=== PATIENT | male | born 1945 | race Caucasian/White ===

== ENCOUNTER 2019-08-10 08:30 | Day surgery (SDC) | payer MEDICARE, OTHER ==
[~2019-08-10] VITALS: Ht 167.6 cm; Wt 84.8 kg
[~2019-08-10 08:30] MED LIST: LIPITOR40 MG PO
[2019-08-10] MEDS ORDERED: ASPIR-LOW81 MG PO (08:47)
--- NOTE | 2019-08-10 09:49 | NUR ---
08/10/19 0949 Jocelynn Camp 0942- PT ARRIVES TO PACU AROUSABLE TO NOXIOUS STIMULI. PT IS DIFFICULT TO AROUSE. RESP EVEN AND UNLABORED. OXYGEN SAT MID 90'S ON 3L VIA NC. PT PASSING FLATUS. 0949- OXYGEN TITRATED OFF.
--- NOTE | 2019-08-11 06:26 | OR ---
[facility] [address], [place] [address] Signed DATE OF OPERATION: 08/10/2019 SURGEON: Keven Wick MD PREOPERATIVE DIAGNOSES: 1. Sigmoid diverticulosis. 2. Brother with colon cancer at age 27. 3. Mother with colon cancer at age 90. POSTOPERATIVE DIAGNOSES: 1. Ggpdeeu-ww-twctbdof sigmoid diverticulosis. 2. Minimal internal hemorrhoids. PROCEDURE: Colonoscopy without biopsy. ESTIMATED BLOOD LOSS: None. INDICATIONS: Shivam is a 73-year-old gentleman, who returns for a followup colonoscopy. In 2007 at age 62, he was found to have minimal sigmoid diverticulosis. We know his brother was diagnosed and of colon cancer at age 27. Mom had colon cancer at age 90 and went through the surgery fine. She two years later of old age. Currently, he has no lower GI complaints. I reviewed with Shivam the idea that colon polyps become colon cancer. In that regard, he needs to come every 5 years with respect to his family history. When his life expectancy is less than 8-12 years, he could discontinue his colonoscopies. He is very aware of colonoscopy. He understands there is risk including, but not limited to gas, bloating, crampy abdominal pain, bleeding, perforation requiring surgery, and missed diagnosis. He also understands the need for IV conscious sedation. He had expressed understanding and wished to proceed. PROCEDURE NOTE: Shivam was taken into our endoscopy suite and placed in the left lateral decubitus position. He was given IV sedation with 5 mg of Versed and 125 mcg of fentanyl. A digital rectal exam was performed and this was unremarkable. The adult colonoscope was introduced and advanced all around into the cecum under direct visualization of camera without difficulty. His prep was good. The scope was slowly withdrawn. We could easily see the appendiceal orifice and the ileocecal valve. He does have a few diverticula in the sigmoid colon. They were moderate in size, [id number] in Electronically Signed By: KEVEN WICK MD 08/11/19 0626 PATIENT NAME: SHIVAM BRADLEY OPERATIVE REPORT DATE OF : 47 REPORT #: [id number] PHYSICIAN: KEVEN WICK MD PCP: YON STEVENS MD REPORT IS CONFIDENTIAL AND NOT TO BE RELEASED WITHOUT AUTHORIZATION [facility] [address], [place] [address] Signed number, and scattered about. Upon retroflexion of the scope, he has some minimal internal hemorrhoid tissue. After this, the gas was suctioned out and colonoscope removed. Shivam tolerated his procedure quite well. RECOMMENDATIONS: Shivam can resume his aspirin today. He should follow up in the office in 5 years for repeat colonoscopy. MD YOSSI Rollins/DAMARIS /[id number] cc: MD Keven Nelson MD Copies: YON STEVENS MD, ANDREW L MD ~ Electronically Signed By: KEVEN WICK MD 08/11/19 0626 PATIENT NAME: SHIVAM BRADLEY OPERATIVE REPORT DATE OF : 47 REPORT #: [id number] PHYSICIAN: KEVEN WICK MD PCP: YON STEVENS MD REPORT IS CONFIDENTIAL AND NOT TO BE RELEASED WITHOUT AUTHORIZATION
== END 2019-08-10 10:38 | disposition home or self-care (01) ==
LOC: OPS 08:30 → DS 09:45 → OPS 09:45
PROVIDERS: Colon & Rectal Surgery
PROC: 0DJD8ZZ Inspection of Lower Intestinal Tract, Via Natural or Artificial Opening Endoscopic (ICD-10-PCS; principal; 2019-08-10 09:45)
DX: Z12.11 Encounter for screening for malignant neoplasm of colon (principal); K57.30 Diverticulosis of large intestine without perforation or abscess without bleeding; K64.8 Other hemorrhoids; G47.33 Obstructive sleep apnea (adult) (pediatric); Z80.0 Family history of malignant neoplasm of digestive organs
CPT/HCPCS: J2250; J3010; J7120

== ENCOUNTER 2020-05-10 10:42 | Emergency (ER) | payer MEDICARE, OTHER ==
[~2020-05-10] VITALS: Ht 167.6 cm; Wt 84.8 kg
--- OUTSIDE RECORDS SUMMARY | ~2020-05-10 | XMS | Encounter Summary ---
Demographics + + + | Address | [address] | | | [place] [address] | + + + | Home Phone | | + + + | Preferred Language | Unknown | + + + | Marital Status | | + + + | Zoroastrian Affiliation | 1027 | + + + | Race | Unknown | + + + | Ethnic Group | Unknown | + + + Author + + + | Author | [facility] | | | and [place] | + + + | Organization | [facility] | | | and [place] | + + + | Address | Unknown | + + + | Phone | Unavailable | + + + Support + + + + + | Name | Relationship | Address | Phone | + + + + + | Lilliana Clarke | ECON | Unknown | | + + + + + | Lilliana Clarke | ECON | [address] | | | | | [place] [address] | | + + + + + Care Team Providers + +------+ + | Care Nuclear Powerplant Mechanic Name | Role | Phone | + +------+ + | Abran Alas MD | PCP | | + +------+ + Reason for Visit + +--------+ + | Reason | Onset | Comments | | | Date | | + +--------+ + | Post-op Question | 03/11/ | | | | 2017 | | + +--------+ + Encounter Details +--------+ + + + + | Date | Type | Department | Care Team | Description | +--------+ + + + + | 03/11/ | Telephone | [facility] | Derrick Stafford, | Post-op Question | | 2018 | | NEUROSURGERY [address] | DO [address] | | | | | [address] | [address] [place], [place] | | | | | [place], [place] | [address] | | | | | [address] | | | | | | [phone] | | | +--------+ + + + + Social History + +-------+ +--------+------+ | Tobacco Use | Types | Packs/Day | Years | Date | | | | | Used | | + +-------+ +--------+------+ | Never Smoker | | | | | + +-------+ +--------+------+ + +---+---+---+ | Smokeless Tobacco: | | | | | Never Used | | | | + +---+---+---+ + + +---------+ + | Alcohol Use | Drinks/Week | oz/Week | Comments | + + +---------+ + | No | | | | + + +---------+ + + + + | Sex Assigned at | Date Recorded | | | | + + + | Not on file | | + + + documented as of this encounter Functional Status + + + + | Functional Status | Response | Date of Assessment | + + + + | Are you deaf or do you have serious | No | 03/06/2018 | | difficulty hearing? | | | + + + + | Are you blind or do you have serious | No | 03/06/2018 | | difficulty seeing, even when wearing | | | | glasses? | | | + + + + | Do you have serious difficulty walking or | No | 03/06/2018 | | climbing stairs? (5 years old or older) | | | + + + + | Do you have difficulty dressing or bathing? | No | 03/06/2018 | | (5 years old or older) | | | + + + + | Because of a physical, mental, or emotional | No | 03/06/2018 | | condition, do you have difficulty doing | | | | errands alone such as visiting a doctor's | | | | office or shopping? [15 years old or | | | | older)] | | | + + + + + + + + | Cognitive Status | Response | Date of Assessment | + + + + | Because of a physical, mental, or emotional | No | 03/06/2018 | | condition, do you have serious difficulty | | | | concentrating, remembering, or making | | | | decisions? (5 years old or older) | | | + + + + documented as of this encounter Miscellaneous Notes Telephone Encounter - Dipti Castillo RN - 03/11/2018 8:34 AM PDTS/P L3-5 LAIF on 03/03/18 Lo Clarke (patient's spouse) called with questions about patient sitting in a recline r post surgery. I advised that it is ok that patient sits in a recliner, but he should be ge tting up and walking around every 45 mins while awake. I advised her that he needs to be car eful to not push back and strain his back to get the back of the chair into a reclining posi tion. She verbalized understanding. She also stated that patient has not had a bowel movement in a few days. She states that e is giving patient stool softeners at this time. They have not filled the lactulose rx. I a dvised her to fill that rx and to give him additional laxative and/or stool softeners to ach ieve bowel movement. She states that he is still passing gas. All questions answered at this time. documented in t his encounter Plan of Treatment +--------+---------+ + + + | Date | Type | Specialty | Care Team | Description | +--------+---------+ + + + | 09/04/ | Office | Cardiology | Caterina Catalan, | | | 2019 | Visit | | MD [address] | | | | | | [address] [place], [place] | | | | | | [address] | | | | | | | | +--------+---------+ + + + documented as of this encounter Visit Diagnoses Not on filedocumented in this encounter"
--- OUTSIDE RECORDS SUMMARY | ~2020-05-10 | XMS | Encounter Summary ---
Demographics + + + | Address | [address] | | | [place] [address] | + + + | Home Phone | | + + + | Preferred Language | Unknown | + + + | Marital Status | | + + + | Amish Affiliation | 1027 | + + + | Race | Unknown | + + + | Ethnic Group | Unknown | + + + Author + + + | Author | [facility] | | | and [place] | + + + | Organization | [facility] | | | and [...] | | | | | [place] [address] | | + + + + + Care Team Providers + +------+ + | Care Hospice Nurse Practitioner Name | Role | Phone | + +------+ + | Abran Alas MD | PCP | | + +------+ + Encounter Details +--------+ + + + + | Date | Type | Department | Care Team | Description | +--------+ + + + + | 05/03/ | Orders Only | [facility] | Caterina Catalan, | | | 2017 | | [address] | MD [address] | | | | | [address] | [place], [place] | | | | | [place], [place] | [address] | | | | | [address] | | | | | | [phone] | | | +--------+ + + + + Social History + +-------+ +--------+------+ | Tobacco Use | Types | Packs/Day | Years | Date | | | | | Used | | + +-------+ +--------+------+ | Never Assessed | | | | | + +-------+ +--------+------+ + + + | Sex Assigned at | Date Recorded | | | | + + + | Not on file | | + + + documented as of this encounter Plan of Treatment +--------+---------+ + + + | Date | Type | Specialty | Care Team | Description | +--------+---------+ + + + | 09/04/ | Office | Cardiology | Caterina Catalan, | | | 2020 | Visit | | MD [address] | | | | | | [address] [place], [place] | | | | | | [address] | | | | | | | | +--------+---------+ + + + documented as of this encounter Procedures + +--------+ + + + | Procedure Name | Priori | Date/Time | Associated Diagnosis | Comments | | | ty | | | | + +--------+ + + + | ECHO INTERPRETATION | Routin | 05/03/2017 | | Results for this | | OF OUTSIDE FILMS | e | 3:51 PM | | procedure are in the | | | | PDT | | results section. | + +--------+ + + + documented in this encounter Results ECHO Interpretation of Outside Films (05/03/2017 3:51 PM PDT) + + | Specimen | + + | | + + + + + | Impressions | Performed At | + + + | 1. The left ventricle is normal in size, wall thickness and systolic | | | function EF 60-65%. 2. The diastolic filling pattern indicates | | | impaired relaxation consistent with mild dysfunction (Grade I). 3. | | | The right ventricle is mildly enlarged with normal systolic function. | | | 4. Pulmonary artery systolic pressure could not be assessed due to | | | the absence of adequate TR jet. 5. There is no pericardial effusion. | | + + + + + + | Narrative | Performed At | + + + | Patient Name: Boaz Clarke Date of : 1945 | | | Performing Physician: Caterina Catalan | | | | | | INDICATIONS AFlutter CONCLUSIONS 1. | | | The left ventricle is normal in size, wall thickness and systolic | | | function EF 60-65%. 2. The diastolic filling pattern indicates | | | impaired relaxation consistent with mild dysfunction (Grade I). 3. | | | The right ventricle is mildly enlarged with normal systolic function. | | | 4. Pulmonary artery systolic pressure could not be assessed due to | | | the absence of adequate TR jet. 5. There is no pericardial effusion. | | | FINDINGS -------- ECG rhythm: Sinus rhythm. Study: A | | | 2-dimensional transthoracic echocardiogram with m-mode, spectral and | | | color flow Doppler was perfomed. Study: This was a technically | | | adequate study. Study: Suboptimal image quality - poor subcostal | | | views. Left Ventricle: Overall left ventricular systolic function is | | | normal with, an EF between 60 - 65 %. Left Ventricle: The left | | | ventricle cavity size is normal. Left Ventricle: Left ventricular | | | wall thickness is normal. Left Ventricle: No regional wall motion | | | abnormalities. Left Ventricle: The diastolic filling pattern | | | indicates impaired relaxation consistent with mild dysfunction (Grade | | | I). Right Ventricle: The right ventricle is mildly enlarged. Right | | | Ventricle: The right ventricular systolic function is normal. Left | | | Atrium: The left atrium is normal in size. Right Atrium: The right | | | atrium is normal in size. Aortic Valve: The aortic valve is | | | trileaflet. Aortic Valve: There is no evidence of aortic | | | regurgitation. Aortic Valve: There is no evidence of aortic stenosis. | | | Mitral Valve: The mitral valve is normal. Mitral Valve: No mitral | | | regurgitation. Tricuspid Valve: The tricuspid valve appears | | | structurally normal. Tricuspid Valve: Pulmonary artery systolic | | | pressure could not be assessed due to the absence of adequate TR jet. | | | Pulmonic Valve: The pulmonic valve is normal. Pulmonic Valve: Trace | | | pulmonic regurgitation. Pericardium: There is no pericardial | | | effusion. Pericardium: No pleural effusion seen. IVC/Hepatic Veins: | | | The IVC was not well visualized. Aorta: The aortic root, ascending | | | aorta and aortic arch are within normal dimensions. MEASUREMENTS | | | Ao sinus: 3.46 cm LA Major: 3.01 cm EDV(Teich): | | | 64.80 ml IVSd: 1.04 cm LVIDd: 3.87 cm LVPWd: 0.85 cm | | | LVOT Area: 4.10 cm2 LVOT Diam: 2.28 cm %FS: 37.09 % | | | EF(Teich): 67.71 % ESV(Teich): 20.92 ml LVIDs: 2.43 cm | | | SV(Teich): 43.88 ml RA Major: 3.67 cm RV Major: 6.20 cm | | | RVIDd: 2.89 cm LVEF MOD A2C: 63.84 % SV MOD A2C: 38.24 ml | | | LVEF MOD A4C: 63.44 % SV MOD A4C: 43.78 ml EF Biplane: | | | 65.12 % LVEDV MOD BP: 67.05 ml LVESV MOD BP: 23.38 ml LVEDV | | | MOD A2C: 59.90 ml LVLd A2C: 7.66 cm LVEDV MOD A4C: 69.01 ml | | | LVLd A4C: 8.44 cm LVESV MOD A2C: 21.65 ml LVLs A2C: 6.87 | | | cm LVESV MOD A4C: 25.22 ml LVLs A4C: 6.94 cm LAESV(A-L): | | | 48.16 ml LAESV Index (A-L): 25.48 ml/m2 LAAs A2C: 18.23 cm2 | | | LAESV A-L A2C: 58.73 ml LAESV MOD A2C: 78.08 ml LALs A2C: | | | 4.99 cm LAAs A4C: 13.94 cm2 LAESV A-L A4C: 37.29 ml LAESV MOD | | | A4C: 45.01 ml LALs A4C: 4.48 cm RAAs: 11.07 cm2 RAESV | | | A-L: 25.55 ml RAESV MOD: 25.48 ml RALs: 4.07 cm TAPSE: | | | 2.62 cm AV maxP.65 mmHg AV meanP.91 mmHg AV Vmax: | | | 1.18 m/s AV Vmean: 0.79 m/s AV VTI: 23.02 cm LANG Vmax: | | | 2.69 cm2 LANG (VTI): 3.07 cm2 AVAI Vmax: 0.00 cm2/m2 AVAI | | | (VTI): 0.00 cm2/m2 LVOT maxP.43 mmHg LVOT meanP.53 | | | mmHg LVSI Dopp: 37.51 ml/m2 LVSV Dopp: 70.90 ml LVOT Vmax: | | | 0.78 m/s LVOT Vmean: 0.58 m/s LVOT VTI: 17.27 cm MV A Roland: | | | 0.69 m/s MV DecT: 231.08 ms MV E Roland: 0.75 m/s MV E/A | | | Ratio: 1.08 MV PHT: 67.01 ms MVA By PHT: 3.28 cm2 Septal | | | e': 0.07 m/s Septal E/e': 10.66 Lateral e': 0.09 m/s | | | Lateral E/e': 8.15 Mechanical Oxidizer: [id number] Authenticated by: Caterina | | | [facility] Report Date/Time: 05-04-2017 07:27:49 | | + + + + + | Procedure Note | + + | Zaid Collins Conversion - 06/15/2019 7:54 PM PDT Patient Name: Glo Clarke | | : 1945 Performing Physician: Caterina | | [facility] INDICATIONS------ | | -----AFlutter CONCLUSIONS 1. The left ventricle is normal in size, wall | | thickness and systolic function EF 60-65%.2. The diastolic filling pattern indicates | | impaired relaxation consistent with mild dysfunction (Grade I).3. The right ventricle is | | mildly enlarged with normal systolic function.4. Pulmonary artery systolic pressure | | could not be assessed due to the absence of adequate TR jet.5. There is no pericardial | | effusion. FINDINGS--------ECG rhythm: Sinus rhythm.Study: A 2-dimensional transthoracic | | echocardiogram with m-mode, spectral and color flow Doppler was perfomed.Study: This was | | a technically adequate study.Study: Suboptimal image quality - poor subcostal | | views.Left Ventricle: Overall left ventricular systolic function is normal with, an EF | | between 60 - 65 %.Left Ventricle: The left ventricle cavity size is normal.Left | | Ventricle: Left ventricular wall thickness is normal.Left Ventricle: No regional wall | | motion abnormalities.Left Ventricle: The diastolic filling pattern indicates impaired | | relaxation consistent with mild dysfunction (Grade I).Right Ventricle: The right | | ventricle is mildly enlarged.Right Ventricle: The right ventricular systolic function is | | normal.Left Atrium: The left atrium is normal in size.Right Atrium: The right atrium is | | normal in size.Aortic Valve: The aortic valve is trileaflet.Aortic Valve: There is no | | evidence of aortic regurgitation.Aortic Valve: There is no evidence of aortic | | stenosis.Mitral Valve: The mitral valve is normal.Mitral Valve: No mitral | | regurgitation.Tricuspid Valve: The tricuspid valve appears structurally normal.Tricuspid | | Valve: Pulmonary artery systolic pressure could not be assessed due to the absence of | | adequate TR jet.Pulmonic Valve: The pulmonic valve is normal.Pulmonic Valve: Trace | | pulmonic regurgitation.Pericardium: There is no pericardial effusion.Pericardium: No | | pleural effusion seen.IVC/Hepatic Veins: The IVC was not well visualized.Aorta: The | | aortic root, ascending aorta and aortic arch are within normal dimensions. | | MEASUREMENTS Ao sinus: 3.46 cmLA Major: 3.01 cmEDV(Teich): 64.80 | | mlIVSd: 1.04 cmLVIDd: 3.87 cmLVPWd: 0.85 cmLVOT Area: 4.10 pb7DPCU Diam: 2.28 | | cm%FS: 37.09 %EF(Teich): 67.71 %ESV(Teich): 20.92 mlLVIDs: 2.43 cmSV(Teich): | | 43.88 mlRA Major: 3.67 cmRV Major: 6.20 cmRVIDd: 2.89 cmLVEF MOD A2C: 63.84 %SV | | MOD A2C: 38.24 mlLVEF MOD A4C: 63.44 %SV MOD A4C: 43.78 mlEF Biplane: 65.12 | | %LVEDV MOD BP: 67.05 mlLVESV MOD BP: 23.38 mlLVEDV MOD A2C: 59.90 mlLVLd A2C: | | 7.66 cmLVEDV MOD A4C: 69.01 mlLVLd A4C: 8.44 cmLVESV MOD A2C: 21.65 mlLVLs A2C: | | 6.87 cmLVESV MOD A4C: 25.22 mlLVLs A4C: 6.94 cmLAESV(A-L): 48.16 mlLAESV Index | | (A-L): 25.48 ml/m2LAAs A2C: 18.23 cf2TODLS A-L A2C: 58.73 mlLAESV MOD A2C: 78.08 | | mlLALs A2C: 4.99 cmLAAs A4C: 13.94 [id number] A-L A4C: 37.29 mlLAESV MOD A4C: | | 45.01 mlLALs A4C: 4.48 cmRAAs: 11.07 [id number] A-L: 25.55 mlRAESV MOD: 25.48 | | mlRALs: 4.07 cmTAPSE: 2.62 cmAV maxP.65 mmHgAV meanP.91 mmHgAV Vmax: | | 1.18 m/Silverio Vmean: 0.79 m/Silverio VTI: 23.02 cmAVA Vmax: 2.69 cm2AVA (VTI): 3.07 | | [id number] Vmax: 0.00 cm2/m2AVAI (VTI): 0.00 cm2/m2LVOT maxP.43 mmHgLVOT meanPG: | | 1.53 mmHgLVSI Dopp: 37.51 ml/m2LVSV Dopp: 70.90 mlLVOT Vmax: 0.78 m/sLVOT Vmean: | | 0.58 m/sLVOT VTI: 17.27 cmMV A Roland: 0.69 m/sMV DecT: 231.08 msMV E Roland: 0.75 | | m/sMV E/A Ratio: 1.08MV PHT: 67.01 msMVA By PHT: 3.28 tb5Pzrrch e': 0.07 | | m/sSeptal E/e': 10.66Lateral e': 0.09 m/sLateral E/e': 8.15 Mechanical Oxidizer: | | DHAuthenticated by: Caterina [facility] Date/Time: 05-04-2017 07:27:49 IMPRESSION: 1. | | The left ventricle is normal in size, wall thickness and systolic function EF 60-65%.2. | | The diastolic filling pattern indicates impaired relaxation consistent with mild | | dysfunction (Grade I).3. The right ventricle is mildly enlarged with normal systolic | | function.4. Pulmonary artery systolic pressure could not be assessed due to the absence | | of adequate TR jet.5. There is no pericardial effusion. | |Ao sinus: 3.46 cm | |LA Major: 3.01 cm | |EDV(Teich): 64.80 ml | |IVSd: 1.04 cm | |LVIDd: 3.87 cm | |LVPWd: 0.85 cm | |LVOT Area: 4.10 cm2 | |LVOT Diam: 2.28 cm | |%FS: 37.09 % | |EF(Teich): 67.71 % | |ESV(Teich): 20.92 ml | |LVIDs: 2.43 cm | |SV(Teich): 43.88 ml | |RA Major: 3.67 cm | |RV Major: 6.20 cm | |RVIDd: 2.89 cm | |LVEF MOD A2C: 63.84 % | |SV MOD A2C: 38.24 ml | |LVEF MOD A4C: 63.44 % | |SV MOD A4C: 43.78 ml | |EF Biplane: 65.12 % | |LVEDV MOD BP: 67.05 ml | |LVESV MOD BP: 23.38 ml | |LVEDV MOD A2C: 59.90 ml | |LVLd A2C: 7.66 cm | |LVEDV MOD A4C: 69.01 ml | |LVLd A4C: 8.44 cm | |LVESV MOD A2C: 21.65 ml | |LVLs A2C: 6.87 cm | |LVESV MOD A4C: 25.22 ml | |LVLs A4C: 6.94 cm | |LAESV(A-L): 48.16 ml | |LAESV Index (A-L): 25.48 ml/m2 | |LAAs A2C: 18.23 cm2 | |LAESV A-L A2C: 58.73 ml | |LAESV MOD A2C: 78.08 ml | |LALs A2C: 4.99 cm | |LAAs A4C: 13.94 cm2 | |LAESV A-L A4C: 37.29 ml | |LAESV MOD A4C: 45.01 ml | |LALs A4C: 4.48 cm | |RAAs: 11.07 cm2 | |RAESV A-L: 25.55 ml | |RAESV MOD: 25.48 ml | |RALs: 4.07 cm | |TAPSE: 2.62 cm | |AV maxP.65 mmHg | |AV meanP.91 mmHg | |AV Vmax: 1.18 m/s | |AV Vmean: 0.79 m/s | |AV VTI: 23.02 cm | |LANG Vmax: 2.69 cm2 | |LANG (VTI): 3.07 cm2 | |AVAI Vmax: 0.00 cm2/m2 | |AVAI (VTI): 0.00 cm2/m2 | |LVOT maxP.43 mmHg | |LVOT meanP.53 mmHg | |LVSI Dopp: 37.51 ml/m2 | |LVSV Dopp: 70.90 ml | |LVOT Vmax: 0.78 m/s | |LVOT Vmean: 0.58 m/s | |LVOT VTI: 17.27 cm | |MV A Roland: 0.69 m/s | |MV DecT: 231.08 ms | |MV E Roland: 0.75 m/s | |MV E/A Ratio: 1.08 | |MV PHT: 67.01 ms | |MVA By PHT: 3.28 cm2 | |Septal e': 0.07 m/s | |Septal E/e': 10.66 | |Lateral e': 0.09 m/s | |Lateral E/e': 8.15 | | | |Mechanical Oxidizer: | |Authenticated by: Caterina Catalan | |Report Date/Time: 05-04-2017 07:27:49 | | | |IMPRESSION: | |1. The left ventricle is normal in size, wall thickness and systolic function EF 60-65%. | |2. The diastolic filling pattern indicates impaired relaxation consistent with mild dysfunc tion (Grade I). | |3. The right ventricle is mildly enlarged with normal systolic function. | |4. Pulmonary artery systolic pressure could not be assessed due to the absence of adequate TR jet. | |5. There is no pericardial effusion. | + + documented in this encounter Visit Diagnoses Not on filedocumented in this encounter"
--- OUTSIDE RECORDS SUMMARY | ~2020-05-10 | XMS | Encounter Summary ---
Demographics + + + | Address | [address] | | | [place] [address] | + + + | Home Phone | | + + + | Preferred Language | Unknown | + + + | Marital Status | | + + + | Advent Affiliation | 1027 | + + + | Race | Unknown | + + + | Ethnic Group | Unknown | + + + Author + + + | Author | [facility] | | | and [place] | + + + | Organization | [facility] | | | and [...] | | | | | [place] [address] | | + + + + + Care Team Providers + +------+ + | Care Smash Hand Name | Role | Phone | + +------+ + | Abran Alas MD | PCP | | + +------+ + Reason for Visit + + + | Reason | Comments | + + + | CPAP Follow Up | | + + + Encounter Details +--------+---------+ + + + | Date | Type | Department | Care Team | Description | +--------+---------+ + + + | 07/24/ | Office | [facility] | Darin Matta | JORDAN (obstructive | | 2019 | Visit | SLEEP DISORDER [address] | MD [address] | sleep apnea) | | | | [address] | [address] [place] | (Primary Dx); | | | | [place] [address] | [place] [address] | Psychophysiologic | | | | [phone] | [phone] | insomnia; Low | | | | | | ferritin | +--------+---------+ + + + Social History + +-------+ [...] + + documented as of this encounter Last Filed Vital Signs + + + + + | Vital Sign | Reading | Time Taken | Comments | + + + + + | Blood Pressure | 130/80 | 07/24/2019 8:58 AM | | | | | PDT | | + + + + + | Pulse | 68 | 07/24/2019 8:58 AM | | | | | PDT | | + + + + + | Temperature | - | - | | + + + + + | Respiratory Rate | 16 | 07/24/2019 8:58 AM | | | | | PDT | | + + + + + | Oxygen Saturation | 97% | 07/24/2019 8:58 AM | | | | | PDT | | + + + + + | Inhaled Oxygen | - | - | | | Concentration | | | | + + + + + | Weight | 85.9 kg (189 lb 6 | 07/24/2019 8:58 AM | | | | oz) | PDT | | + + + + + | Height | - | - | | + + + + + | Body Mass Index | 30.11 | 06/13/2019 10:57 AM | | | | | PDT | | + + + + + documented in this encounter Functional Status + + + [...] + + documented as of this encounter Progress Notes Darin Matta Jr., MD - 07/24/2019 9:00 AM PDTThe patient comes in for follow-up after undergoing diagnostic polysomnography. My interpretation of the patient's sleep study, which I have reviewed with the patient, is as follows: Polysomnogram Report on Boaz Clarke performed on July 05, 2019. Clinical Information: Boaz Clarke is a 73 y.o. male who underwent diagnostic nocturnal polysomnography on July 05, [address] Celena Gomez because of a history of insomnia and obstructive apnea. Technical Information: Please see technical data which is attached. Definitions (The AASM Manual for the Scoring of Sleep and Associated Events, Version 2.5; 2 018): Apnea: There is a drop in the peak signal excursion by 90% or greater of pre-shannen nt baseline using an oronasal thermal sensor (diagnostic study), PAP device flow (titration study), or an alternative apnea sensor (diagnostic study); the duration of the 90% or greate r drop in sensor signal is 10 seconds or longer. Obstructive Apnea: Event associated with continued or increased inspi ratory effort throughout the entire period of absent airflow. Central Apnea: Event associated with absent inspiratory effort throug hout the entire period of absent airflow. Mixed Apnea: Event associated with absent inspiratory effort in the i nitial portion of the event followed by resumption of inspiratory effort during the second p ortion of the event. Hypopnea: The peak signal excursions drop by greater than or equal to 30% of pre -event baseline using a recommended or alternative airflow sensor and the duration of the >= 30% drop in signal excursion is greater than or equal to 10 seconds and there is a greater than or equal to a 4% oxygen desaturation from pre-event baseline. Respiratory Event Related Arousal: A sequence of breaths lasting 10 seconds or l onger characterized by increasing respiratory effort or by flattening of the inspiratory por tion of the nasal pressure (diagnostic study) or PAP device flow (titration study) waveform leading to arousal from sleep when the sequence of breaths does not meet criteria for an plant assigner ea or hypopnea. Sleep Architecture: Lights out was recorded at 2300 hundred hours on July 05, 2019 an d lights on was recorded at 0757 hundred hours on July 06, 2019. The latency to sleep o nset was normal at 22 minutes. The patient slept for 321 minutes out of 537 minutes of study time resulting an a sleep efficiency that was low at 59.8 %. The amount of N1 sleep was ubaldo vated at 16.5 % of the Total Sleep Time; the amount of N2 sleep was normal at 60.7 % of the Total Sleep Time; the amount of N3 sleep was normal at 7.8 % of the Total Sleep Time; the am ount of REM sleep was normal at 15 % of the Total Sleep Time and the latency to REM sleep wa s prolonged at 185 minutes. No parasomnias were noted. Sleep in the following positions was recorded: left lateral decubitus 0%, right lateral dec ubitus 31.3%, supine 68.7%, prone 0%. Sleep was fragmented; the Arousal Index was 33.1. The patient reported this to be a usual night's sleep. Cardiopulmonary Monitoring: The heart rate averaged in the mid 50s beats per minute. Mild rate variability was noted. The rhythm was sinus. In the course of the evening there were 5 obstructive apneas, 0 mixed apneas, 1 central plant assigner eas, 29 hypopneas, and 47 Respiratory Effort Related Arousals (RERA's). The Respiratory Dist urbance Index (RDI) was elevated at 15.3; the Apnea-Hypopnea Index (AHI) was mildly elevated at 6.5; the Apnea Index (AI) was 1.1. The respiratory events were not sleep stage dependent . The respiratory events were positional. The events were more frequently seen in the supin e position (supine AHI 9.3, nonsupine AHI 0.6). The respiratory events occasioned significant sleep fragmentation; the Respiratory Arousal Index was 14. The manisha oxygen saturation was 86% and the patient spent 0.9 minutes with an oxygen satura tion of less than or equal to 88%. ETCO2 was not elevated. Limb Movement Monitoring: There were 279 Periodic Limb Movements (PLMS Index of 52.1) of wh ich 26 were associated with arousals; the PLMS Arousal Index was borderline at 4.9. Interpretation: This polysomnogram is normal secondary to: Obstructive sleep apnea is diagnosed and this does significantly fragmented sleep. This is associated with minimal absolute oxygen desaturation. Periodic limb movements of sleep are present and they are associated with borderline sleep fragmentation. The low sleep efficiency is consistent with a generic diagnosis of insomnia. Suggestions: 1. The principles of sleep hygiene should be reviewed with the patient. 2. A trial of cognitive behavioral therapy for insomnia advised. 3. After sleep is consolidated, a trial of CPAP therapy or possible oral appliance therapy for mild sleep apnea should also be considered. 4. A ferritin level should be checked. If the ferritin level is less than 75ug/ml, iron sup plementation should be considered to raise the ferritin to above 75ug/ml. This may help with PLMS. Once the ferritin level is above 75ug/ml, pharmacologic therapy of PLMS/RLS should be considered if they are felt to be clinically significant. At or last visit of 06/13/2019 I discussed the following Cognitive-Behavioral suggestions to improve his sleep. 1) Awaken at nearly the same time ever day at 7am. Don't sleep in. 2) Obtain as much bright light as possible during your desired waking hours and immediately after awakening in the morning. 3) Minimize or preferably eliminate caffeine (coffee, tea, energy drinks, soft drinks, etc. ) and absolutely no caffeine more than 6 hours after wake time. 4) Eliminate or minimize smoking and alcohol consumption, especially near bedtime. 5) Do not nap during the daytime; this will interfere with your night-time sleep. 6) Darken your environment an hour before bedtime. 7) Consider "unwinding" and "closing" your day about an hour before your anticipated bedtim e. 8) Go to bed only when you are sleepy and no earlier than 11 pm. 9) Use your bedroom only for sleeping. 10) Only sleep in your bedroom - do not sleep in other areas of your house. 11) Between bedtime and wake time the only things you are allowed to do is to sleep in your bedroom or to sit comfortably in another room, in the dark, doing nothing. Do not watch TV, work on the computer, send text messages, do housework, or problem solve between bedtime an d wake time. 12) If you find that you aren't asleep, get up out of bed (keep your environment dark with just low level light, so that you won't fall) and go to another room. Sit quietly in the faisal k until you are sleepy and then go back to bed. You may repeat this as many times as necessa ry. But you must awaken at the same time every day, regardless of how you slept that night. 13) If you continue to sleep poorly, consider going to bed a little later each night (but a waken at the same time every morning and don't nap) until you are sleeping through the major ity of the time between bed time and wake time. Currently bedtime is about 11pm and rise time is 7am. He estimates a latency to sleep onset of 15-20 minutes. He has nocturia 3 times at night he is getting back to sleep within about 15 minutes. In the morning he feels tired. He tries not to nap in the daytime. He consumes no caffeine. He feels his sleep is a little better but not dramatically better. He denies re stlessness in his legs at night. He doesn't think that he is awakening gasping for air or sn orting. He isn't very active in the daytime. He does walk some in the daytime. BP 130/80 | Pulse 68 | Resp 16 | Wt 85.9 kg (189 lb 6 oz) | SpO2 97% | BMI 30.11 kg/m A: Psychophysiologic Insomnia: He actually is doing a reasonable job at following the instr uctions I have given him. I reviewed them with him again today. JORDAN: The patient does have obstructive apnea. This is significant enough to fragment sleep and be associated with daytime sleepiness and fatigue although it probably not severe enough to be associated with significant increased risk and cardiovascular disease. He woul d like to try CPAP. I am in agreement with this and we will start him on a CPAP trial today . PLMS: He denies restlessness in his legs.I've discussed Restless Legs Syndrome with t he patient. I've also discussed Periodic Limb Movements of Sleep. I've discussed the relatio nship between the two. I've also discussed that I generally offer treatment symptomatically. I've also discussed an overview of treatment: 1) maintain a ferritin level above 75ug/l; 2) Bedtime leg/arm massage; 3) review the need for medications that can worsen RLS/PLMS (such as antidepressants (except for bupropion), caffeine, and antihistamines); 4) prescribe medi cations such as a) dopaminergics, b) benzodiazepine receptor agonists, c) opiates, and/or d) atypical anti-seizure agents. I am going to suggest we check a ferritin level to rule out iron deficiency. P: Ferritin Level Resmed AirSense 10 autoset CPAP: 4-15cm while sleeping. Follow-up with our clinical monserrat santillan educator in 2 days. Follow-up with me in 1 week. Today, 15 minutes was spent face to face with the patient; the majority of time was spent sondra bender regarding sleep. documented in th is encounter Plan of Treatment +--------+---------+ + + + | Date | Type | Specialty | Care Team | Description | +--------+---------+ + + + | 09/04/ | Office | Cardiology | Caterina Catalan, | | | 2019 | Visit | | MD Juan J [facility] | | | | | | [place] | | | | | | [phone] | | | | | | | | +--------+---------+ + + + documented as of this encounter Results Ferritin (07/24/2019 10:32 AM PDT) + +-------+ + + + | Component | Value | Ref Range | Performed | Pathologist | | | | | At | Signature | + +-------+ + + + | FERRITIN | 173 | 11 - 307 ng/mL | [facility] - | | | | | | [facility] | | + +-------+ + + + + + | Specimen | + + | Blood | + + + + + + + | Performing | Address | City/State/Zipcode | Phone Number | | Organization | | | | + + + + + | [facility] | [address] | [place] | [phone] | | [facility] | | [address] | | | - LABORATORY | | | | + + + + + documented in this encounter Visit Diagnoses + + | Diagnosis | + + | JORDAN (obstructive sleep apnea) - Primary Obstructive sleep apnea (adult) (pediatric) | + + | Psychophysiologic insomnia Persistent disorder of initiating or maintaining sleep | + + | Low ferritin Other nonspecific findings on examination of blood | + + documented in this encounter
--- OUTSIDE RECORDS SUMMARY | ~2020-05-10 | XMS | Encounter Summary ---
Demographics + + + | Address | [address] | | | [place] [address] | + + + | Home Phone | | + + + | Preferred Language | Unknown | + + + | Marital Status | | + + + | Advent Affiliation | 1027 | + + + | Race | Unknown | + + + | Ethnic Group | Unknown | + + + Author + + + | Author | [facility] | | | and [place] | + + + | Organization | [facility] | | | [...] | | | | | [place] [address] | | + + + + + Care Team Providers + +------+ + | Care Ultrasound Specialist Name | Role | Phone | + +------+ + | Abran Alas MD | PCP | | + +------+ + Reason for Visit Auth/Cert +--------+--------+ + + + + | Status | Reason | Specialty | Diagnoses / | Referred By | Referred To | | | | | Procedures | Contact | Contact | +--------+--------+ + + + + | | | | Diagnoses | | | | | | | Lumbar | | | | | | | spondylosis | | | | | | | (M47.816), | | | | | | | Neurogenic | | | | | | | claudication | | | | | | | (M48.062), | | | | | | | Lumbar | | | | | | | radiculopath | | | | | | | y (M54.16), | | | | | | | Acute back | | | | | | | pain with | | | | | | | sciatica, | | | | | | | right | | | | | | | (M54.41) | | | | | | | Procedures | | | | | | | AL | | | | | | | ARTHRODESIS | | | | | | | POSTERIOR/PO | | | | | | | STEROLATERAL | | | | | | | LUMBAR AL | | | | | | | LUMBAR SPINE | | | | | | | | | | | | | | FUSION,ANTER | | | | | | | APPRCH AL | | | | | | | INSJ BIOMCHN | | | | | | | DEV | | | | | | | INTERVERTEBR | | | | | | | AL DSC SPC | | | | | | | W/ARTHRD AL | | | | | | | SPINE | | | | | | | FUSN,POST | | | | | | | TECH,EA | | | | | | | ADDNL SGMT | | | | | | | AL SPINAL | | | | | | | FUSION,ANT,E | | | | | | | A ADNL LEVEL | | | | | | | AL INSJ | | | | | | | BIOMCHN DEV | | | | | | | INTERVERTEBR | | | | | | | AL DSC SPC | | | | | | | W/ARTHRD | | | | | | | POSTERIOR | | | | | | | SEGMENTAL | | | | | | | INSTRUMENTAT | | | | | | | ION 3-6 VRT | | | | | | | SEG AL | | | | | | | STEREOTACTIC | | | | | | | COMP ASSIST | | | | | | | PROC,SPINAL | | | | | | | L3-4, L4-5 | | | | | | | LAIF | | | +--------+--------+ + + + + Encounter Details +--------+ + + + + | Date | Type | Department | Care Team | Description | +--------+ + + + + | 03/03/ | Hospital | [facility] | Derrick Stafford, | | | 2018 | Encounter | MED CTR XRAY [address] | DO [address] | | | | | [place] | [address] [place], [place] | | | | | [place] [address] | [id number] | | | | | [phone] | | | +--------+ + + + [...] + + documented as of this encounter Medications at Time of Discharge + + + +---------+ + + | Medication | Sig | Dispensed | Refills | Start | End Date | | | | | | Date | | + + + +---------+ + + | tamsulosin | Take 0.4 mg by mouth | | 0 | | | | (FLOMAX) 0.4 mg CAPS | nightly. Every | | | | | | | other night | | | | | + + + +---------+ + + | verapamil (CALAN | Take 1 tablet by | | 0 | 11/03/19 | | | SR) 180 mg SR tablet | mouth Daily as | | | 18 | | | | needed. For | | | | | | | palpitations | | | | | + + + +---------+ + + | aspirin 81 mg EC | Take 81 mg by mouth | | 0 | 10/01/20 | | | tablet | Daily. | | | 16 | 8 | + + + +---------+ + + | lactulose 10 g/15 | Take 15-30 mLs by | 240 mL | 2 | 03/06/20 | | | mL liquid | mouth Daily as | | | 18 | 8 | | | needed for | | | | | | | Constipation. | | | | | + + + +---------+ + + | methocarbamol | Take 1 tablet by | 90 | 1 | 03/06/20 | | | (ROBAXIN) 750 mg | mouth every 6 hours | tablet | | 18 | 8 | | tablet | as needed for Muscle | | | | | | | spasms. | | | | | + + + +---------+ + + | methylPREDNISolone | Follow package | 21 | 0 | 03/06/20 | | | (MEDROL DOSEPAK) 4 | directions. | tablet | | 18 | 8 | | mg tablet | | | | | | + + + +---------+ + + | oxyCODONE 10 MG | Take 0.5-1.5 tablets | 120 | 0 | 03/06/20 | | | TABS | by mouth every 4 | tablet | | 18 | 8 | | | hours as needed for | | | | | | | Pain. | | | | | + + + +---------+ + + documented as of this encounter Plan of Treatment +--------+---------+ + + + | Date | Type | Specialty | Care Team | Description | +--------+---------+ + + + | 11/11/ Office | Cardiology | Caterina Catalan, | | | 2019 | Visit | | [address] | | | | | | [place] | | | | | | [address] | | | | | | | | +--------+---------+ + + + documented as of this encounter Procedures + +--------+ + + + | Procedure Name | Priori | Date/Time | Associated Diagnosis | Comments | | | ty | | | | + +--------+ + + + | VICTORIA MCCALLUM STATErlinda NO | Routin | 03/03/2018 | | Results for this | | CHARGE | e | 12:33 PM | | procedure are in the | | | | PDT | | results section. | + +--------+ + + + documented in this encounter Results VICTORIA Underwood No Charge (03/03/2018 12:33 PM PDT) + + | Specimen | + + | | + + + + + | Narrative | Performed At | + + + | This exam has been auto-finalized and the interpretation may exist | [facility] | | elsewhere in the chart. | | + + + + +---------+ + + | Performing | Address | City/State/Zipcode | Phone Number | | Organization | | | | + +---------+ + + | [facility] | | | | + +---------+ + + documented in this encounter Visit Diagnoses Not on filedocumented in this encounter"
--- OUTSIDE RECORDS SUMMARY | ~2020-05-10 | XMS | Encounter Summary ---
Demographics + + + | Address | [address] | | | [place] [address] | + + + | Home Phone | | + + + | Preferred Language | Unknown | + + + | Marital Status | | + + + | Congregational Affiliation | 1027 | + + + | Race | Unknown | + + + | Ethnic Group | Unknown | + + + Author + + + | Author | [facility] | | | and [place] | + + + | Organization | [facility] | | | [...] | | | | | [place] [address] | | + + + + + Care Team Providers + +------+ + | Care Senior Credit Officer Name | Role | Phone | + [...] | | | | | | | [place] | | | | | | | ARTHRODESIS | | | | | | | POSTERIOR/PO | | | | | | | STEROLATERAL | | | | | | | LUMBAR GA | | | | | | | LUMBAR SPINE | | | | | | | | | | | | | | FUSION,ANTER | | | | | | | APPRCH GA | | | | | | | INSJ BIOMCHN | | | | | | | DEV | | | | | | | INTERVERTEBR | | | | | | | AL DSC SPC | | | | | | | W/ARTHRD GA | | | | | | | SPINE | | | | | | | FUSN,POST | | | | | | | TECH,EA | | | | | | | ADDNL SGMT | | | | | | | GA SPINAL | | | | | | | FUSION,ANT,E | | | | | | | A ADNL LEVEL | | | | | | | GA INSJ | | | | | | [...] | | | | | | SEG [place] | | | | | | | STEREOTACTIC | | | | | | | COMP ASSIST | | | | | | | PROC,SPINAL | | | | | | | L3-4, L4-5 | | | | | | | LAIF | | | +--------+--------+ + + + + Encounter Details +--------+---------+ + + + | Date | Type | Department | Care Team | Description | +--------+---------+ + + + | 03/03/ | Surgery | [facility] | Derrick Stafford, | L3-4, L4-5 Lateral | | 2018 | | MED CTR OR INTRA OP | DO [address] | Anterior Interbody | | | | [address] | [address] | Fusion | | | | [place] | [phone] | | | | | [id number] | | | | | | [phone] | | | +--------+---------+ + + + Social History [...] + + + | Blood Pressure | 151/80 | 03/03/2018 1:45 PM | | | | | PDT | | + + + + + | Pulse | 82 | 03/03/2018 1:45 PM | | | | | PDT | | + + + + + | Temperature | 36.6 C (97.9 F) | 03/03/2018 12:44 PM | | | | | PDT | | + + + + + | Respiratory Rate | 14 | 03/03/2018 1:45 PM | | | | | PDT | | + + + + + | Oxygen Saturation | 95% | 03/03/2018 1:45 PM | | | | | PDT | | + + + + + | Inhaled Oxygen | - | - | | | Concentration | | | | + + + + + | Weight | 87.7 kg (193 lb 5.5 | 03/03/2018 7:26 AM | | | | oz) | PDT | | + + + + + | Height | 167.6 cm (5' 6") | 03/03/2018 7:26 AM | | | | | PDT | | + + + + + | Body Mass Index | 31.21 | 03/03/2018 7:26 AM | | | | | PDT [...] + + documented as of this encounter Discharge Summaries Derrick Stafford DO - 03/06/2018 6:50 AM PDTFormatting of this note might be different fro m the original. Date of admission: 03/03/2018 Date of discharge: 03/06/18 Admission diagnosis: 1. Spondylosis L3-4, L4-5. 2. Spinal stenosis L3-4, L4-5. 3. Lumbar radiculopathy. 4. Lumbago. 5. Neurogenic claudication. Discharge diagnosis: same Procedure performed: 1. Anterior lumbar interbody arthrodesis L3-4, L4-5 - lateral approach. 2. Postereolateral arthrodesis L3-4, L4-5. 3. PEEK interbody L3-4, L4-5. 4. Posterior spinal instrumentation L3-5. 5. Laminectomies L3, L4, L5 for the purpose of decompression. 6. Use of allograft. 7. Use of microscope for microsurgical techniques. 8. Co-registration with navigation system for spinal navigation. Service: Neurosurgery, Dr. Stafford, attending. Hospital course: Boaz Clarke was admitted 03/03/2018 to undergo elective lumbar fusion. He tolerated the procedure well. Postoperatively, his course was eventful. He is tolerating his orals, ambulating, and voiding. He is requesting to be discharged today. Disposition: Discharge to home. Condition: Improving Special instructions: Patient is instructed to follow-up with me in 1 month. He is to avoid any extreme bending o r twisting of his back or lifting more that 5 pounds. He verbally agrees to comply with the instructions. Brace status: B Medications: Discharge Medications New Medications Details lactulose 10 g/15 mL liquid Take 15-30 mLs by mouth Daily as needed for Constipation. methocarbamol 750 mg tablet Take 1 tablet by mouth every 6 hours as needed for Muscle spasms. aka: ROBAXIN methylPREDNISolone 4 mg tablet Follow package directions. aka: MEDROL DOSEPAK oxyCODONE 10 MG Tabs Take 0.5-1.5 tablets by mouth every 4 hours as needed for Pain. Unchanged Medications Details FLOMAX 0.4 mg Caps Generic drug: tamsulosin Take 0.4 mg by mouth nightly. Discontinued Medications aspirin 81 mg EC tablet documented in this en counter Discharge Instructions Instructions Derrick Stafford DO - 03/06/2018Discharge Instructions for Lumbar Fusion You had a lumbar fusion. During this procedure, your doctor locked together (fused) some of the bones in your spine. This limits the movement of these bones to help relieve your pain. Here s what you need to know about home care following a spinal fusion. Activity Arrange your household to keep the items you need within reach. Remove electrical cords, throw rugs, and anything else that may cause you to fall. Use a walkeror handrails until your balance, flexibility, and strength improve. And re member to ask for help from others when you need it. Free up your hands so that you can use them to keep balance. Use a samir pack, apron, or pockets to carry things. Be sure not to carry too much at once. Don t bend or twist at the waist, or raise your hands over your head for the first two weeks after your surgery. Don t lift anything heavier than 5 pounds for the first four weeks after surgery. Don t sit for more than30 to 45 minutes at a time. Take frequent short walks. They a re the dias to your recovery. As your back feels better please gradually increase the distanc e you walk as discussed with your provider. Don t drive until your doctor says it s OK. And never drive while you are taking opi oid pain medication. Nap if you are tired, but don t stay in bed all day. Use chairs with arms. The arms make it easier for you to stand up and sit down. If you have not yet received instructions about physical therapy, ask your doctor about them. Incision care Check your incision daily for redness, tenderness, or drainage. Don t soak your wound in water (no hot tubs, bathtubs, swimming pools) until your doct or says it s OK. As long as you keep your incision dry you can shower as desired. After 5 days you may le t shower water run over the incision but do not submerse the incision under water until afte r you see your provider. Gently pat the incision dry. Don t rub it, or apply creams or lot ions. And if you feel unsteady while standing to shower, use a shower stool or chair. Other home care Use nonslip bath mats, grab bars, an elevated toilet seat, and a shower chair in your ba throom. Take your medication exactly as directed. Don t take nonsteroidal anti-inflammatory medications (NSAIDs), such as ibuprofen. The y may delay or prevent proper fusion of the spine. If you smoke, stop! This will be one of the most important things you can do to help you recover from surgery. Wear your back brace, if one was prescribed, as directed by your doctor. Follow-up Most patients will be seen approximately 4 weeks after surgery. Be sure to get your 1 mo nth post op x-rays prior to your 1 month post op appointment before your appointment. [id number] [employer]. [address] [place] [id number]. All righ ts reserved. This information is not intended as a substitute for professional medical care. Always follow your healthcare professional's instructions. documented in this encounter Medications at Time of Discharge [...] 1 tablet by | | 0 | // | | | SR) 180 mg SR tablet | mouth Daily as | | | 18 | | | | needed. For | | | | | | | palpitations | | | | | + + + +---------+ + + | lactulose 10 g/15 | Take 15-30 mLs by | 240 mL | 2 | 05/13/20 | | | mL liquid | mouth [...] documented as of this encounter Progress Notes Derrick Stafford DO - 03/06/2018 6:46 AM PDTFormatting of this note might be different fro m the original. [facility] NEUROSURGERY PROGRESS NOTE PATIENT NAME: Boaz Clarke AGE: 72 y.o. DATE OF SERVICE: 03/06/2018 6:46 S: He is doing well this morning in terms of pain. He feels ready to go home. His right leg is still somewhat numb over the thigh and will support his weight, but not as well as the l eft. That had improved day 2 after surgery, but is a little worse today. His preoperative le g symptoms and ability to stand straight are improved. He would like to go home today. The patient has been voiding and is passing flatus. O: CURRENT MEDICATIONS: Current Facility-Administered Medications Medication Dose Route Frequency Provider Last Rate Last Dose acetaminophen (TYLENOL) tablet 650 mg 650 mg Oral Q4H PRN Kelley Fay PA-C 650 mg at 03/05/18 0855 bisacodyl (DULCOLAX) suppository 10 mg 10 mg Rectal Daily PRN OSCAR Mueller calcium carbonate (TUMS) chewable tablet 1,000 mg 1,000 mg Oral Q2H PRN Kelley kyle PA-C diazePAM (VALIUM) tablet 2.5-5 mg 2.5-5 mg Oral Q6H PRN Kelley Fay PA-C diphenhydrAMINE (BENADRYL) injection 12.5 mg 12.5 mg Intravenous Q4H PRN Kelley Fay PA-C Or diphenhydrAMINE (BENADRYL) tablet 25 mg 25 mg Oral Q4H PRN Kelley Fay PA-C Or diphenhydrAMINE (BENADRYL) 12.5 mg/5 mL liquid 25 mg 25 mg Oral Q4H PRN Kelley kyle PA-C docusate sodium (COLACE) capsule 100 mg 100 mg Oral BID Kelley Fay PA-C 1 00 mg at 03/05/182053 enalaprilat (VASOTEC) injection 1.25 mg 1.25 mg Intravenous Q6H PRN Kelley boo PA-C labetalol (TRANDATE) 5 mg/mL injection 10 mg 10 mg Intravenous Q10 Min PRN Kelley Bolivar PA-C lactulose liquid 30 mL 30 mL Oral Daily PRN Kelley Fay PA-C magnesium hydroxide (MILK OF MAGNESIA) 400 mg/5 mL suspension 30 mL 30 mL Oral Nightly PRN Kelley Fay PA-C menthol (HALLS COUGH DROP) lozenge 1 lozenge 1 lozenge Buccal Q2H PRN Kelley jeffries PA-C methocarbamol (ROBAXIN) tablet 1,500 mg 1,500 mg Oral Q6H PRN OSCAR Mueller 1,500 mg at 03/05/182053 metoclopramide (REGLAN) tablet 10 mg 10 mg Oral Q4H PRN Kelley Fay PA-C morphine injection 2-6 mg 2-6 mg Intravenous Q3H PRN Kelley Fay PA-C ondansetron (ZOFRAN ODT) disintegrating tablet 4 mg 4 mg Oral Q6H PRN Kelley jeffries PA-C ondansetron (ZOFRAN) injection 4 mg 4 mg Intravenous Q6H PRN CONRADO Mueller oxyCODONE (ROXICODONE) tablet 5-15 mg 5-15 mg Oral Q4H PRN Kelley Fay PA-C 10 mg at 03/06/18 05 phenol (CHLORASEPTIC) spray 1-2 spray 1-2 spray Mouth/Throat Q3H PRN Kelley ceron PA-C polyethylene glycol (MIRALAX) powder 17 g 17 g Oral Daily PRN OSCAR Mueller 17 g at 03/05/18 0847 prochlorperazine (COMPAZINE) tablet 5 mg 5 mg Oral Q6H PRN Kelley Fay PA-C senna (SENOKOT) tablet 8.6 mg 8.6 mg Oral BID Kelley Fay PA-C 8.6 mg at 0 03/05/182053 tamsulosin (FLOMAX) capsule 0.4 mg 0.4 mg Oral Nightly Kelley Fay PA-C 0. 4 mg at 03/05/182053 ALLERGIES: No Known Allergies PHYSICAL EXAMINATION: Temp: [37.3 C (99.1 F)-37.9 C (100.2 F)] 37.3 C (99.2 F) Pulse: [73-81] 81 Resp: [16] 16 BP: (107-129)/(62-71) 118/68 Intake/Output Summary (Last 24 hours) at 03/06/18 0646 Last data filed at 03/06/18 0540 Gross per 24 hour Intake 1180 ml Output 1500 ml Net -320 ml GENERAL: Boaz Clarke is in no acute distress with unlabored respirations. HEENT: HEAD/FACE: EYES: Normocephalic and atraumatic. There are no areas of recent trauma. Normal sclerae without icterus. CHEST: Clear. HEART: Regular. ABDOMEN Soft and nondistended. EXTREMITIES: No edema or swelling. SCD's BACK: The back incisions are dressed and a drain is in place with expected output. 20 CCs NEUROLOGICAL EXAM: MENTAL STATUS: The patient is awake, alert, and oriented. He follows simple and complex commands. He speech is fluent, his comprehends speech well, and his repeats well. He has no apparent deficits with short or jail memory. MOTOR EXAM: Motor strength is stable SENSORY EXAM: Sensory exam is stable 24 HOUR LABS: All Component Based Labs None ASSESSMENT: NEUROSURGICAL DIAGNOSES: S/p lumbar fusion HOSPITAL/GENERAL DIAGNOSES: Past Medical History: Diagnosis Date Ankylosis of lumbar spine Degenerative lumbar disc Dyslipidemia Family history of colon cancer Hard of hearing bilateral hearing aids Lumbar spondylosis JORDAN (obstructive sleep apnea) no CPAP Pain in unspecified thigh Primary insomnia Prostate enlargement Radiculopathy, lumbar region Typical atrial flutter (HCC) PLAN: S/p lumbar fusion, Hospital day 3 - Neurologically stable and pain control is appropriate. - Medically stable - Mobilize, PT/OT - SCD's - Patient is having adequate bowel function without any concerns. They were counseled that full bowel function may not return for a few days - No drain is present - Disp: Home today with routine follow-up ELECTRONICALLY SIGNED BY: Derrick Stafford DO, 03/06/2018 6:46 Jaret Ray PA - 03/05/2018 7:18 AM PDTFo rmatting of this note might be different from the original. [facility] NEUROSURGERY PROGRESS NOTE PATIENT NAME: Boaz Clarke AGE: 72 y.o. DATE OF SERVICE: 03/05/2018 7:18 S: Patient is doing fairly good. He had a good day yesterday but not such a good night. He complained of a lot of back and leg pain. Leg pain is very similar to the pain he had before surgery. He also states his legs felt somewhat weak when he was going for one of his longer walks. He walked 25 ' with PT yesterday, but later walked much further. His blood pressure got low and he spent the next seveal hours in bed. This improved in the evening. The patient has been voiding and is passing flatus. O: CURRENT MEDICATIONS: Current Facility-Administered Medications Medication Dose Route Frequency Provider Last Rate Last Dose acetaminophen (TYLENOL) tablet 650 mg 650 mg Oral Q4H PRN Kelley Fay PA-C 650 mg at 03/04/18 1655 bisacodyl (DULCOLAX) suppository 10 mg 10 mg Rectal Daily PRN OSCAR Mueller calcium carbonate (TUMS) chewable tablet 1,000 mg 1,000 mg Oral Q2H PRN Kelley kyle PA-C diazePAM (VALIUM) tablet 2.5-5 mg 2.5-5 mg Oral Q6H PRN Kelley Fay PA-C diphenhydrAMINE (BENADRYL) injection 12.5 mg 12.5 mg Intravenous Q4H PRN Kelley Fay PA-C Or diphenhydrAMINE (BENADRYL) tablet 25 mg 25 mg Oral Q4H PRN Kelley Fay PA-C Or diphenhydrAMINE (BENADRYL) 12.5 mg/5 mL liquid 25 mg 25 mg Oral Q4H PRN Kelley kyle PA-C docusate sodium (COLACE) capsule 100 mg 100 mg Oral BID Kelley Fay PA-C 1 00 mg at 03/04/182118 enalaprilat (VASOTEC) injection 1.25 mg 1.25 mg Intravenous Q6H PRN Kelley boo PA-C labetalol (TRANDATE) 5 mg/mL injection 10 mg 10 mg Intravenous Q10 Min PRN Kelley Bolivar PA-C lactulose liquid 30 mL 30 mL Oral Daily PRN Kelley Fay PA-C magnesium hydroxide (MILK OF MAGNESIA) 400 mg/5 mL suspension 30 mL 30 mL Oral Nightly PRN Kelley Fay PA-C menthol (HALLS COUGH DROP) lozenge 1 lozenge 1 lozenge Buccal Q2H PRN Kelley jeffries PA-C methocarbamol (ROBAXIN) tablet 1,500 mg 1,500 mg Oral Q6H PRN OSCAR Mueller 1,500 mg at 03/05/18 0616 metoclopramide (REGLAN) tablet 10 mg 10 mg Oral Q4H PRN Kelley Fay PA-C morphine injection 2-6 mg 2-6 mg Intravenous Q3H PRN Kelley Fay PA-C ondansetron (ZOFRAN ODT) disintegrating tablet 4 mg 4 mg Oral Q6H PRN Kelley jeffries PA-C ondansetron (ZOFRAN) injection 4 mg 4 mg Intravenous Q6H PRN CONRADO Mueller oxyCODONE (ROXICODONE) tablet 5-15 mg 5-15 mg Oral Q4H PRN Kelley Fay PA-C 5 mg at 03/05/18 0616 phenol (CHLORASEPTIC) spray 1-2 spray 1-2 spray Mouth/Throat Q3H PRN Kelley ceron PA-C polyethylene glycol (MIRALAX) powder 17 g 17 g Oral Daily PRN OSCAR Mueller prochlorperazine (COMPAZINE) tablet 5 mg 5 mg Oral Q6H PRN Kelley Fay PA-C senna (SENOKOT) tablet 8.6 mg 8.6 mg Oral BID Kelley Fay PA-C 8.6 mg at 0 03/04/182118 sodium chloride 0.9% (NS) infusion Intravenous Continuous Kelley Fay PA-C 100 mL/hr at 03/04/18 0324 tamsulosin (FLOMAX) capsule 0.4 mg 0.4 mg Oral Nightly Kelley Fay PA-C 0. 4 mg at 03/04/182118 ALLERGIES: No Known Allergies PHYSICAL EXAMINATION: Temp: [36.9 C (98.4 F)-38.2 C (100.7 F)] 38.2 C (100.7 F) Pulse: [76-95] 81 Resp: [16] 16 BP: (99-119)/(54-87) 115/87 Intake/Output Summary (Last 24 hours) at 03/05/18 0718 Last data filed at 03/05/18 0619 Gross per 24 hour Intake 2530 ml Output 2540 ml Net -10 ml GENERAL: Boaz Clarke is in no acute distress with unlabored respirations. HEENT: HEAD/FACE: EYES: Normocephalic and atraumatic. There are no areas of recent trauma. Normal sclerae without icterus. CHEST: Clear. HEART: Regular. ABDOMEN Soft and nondistended. EXTREMITIES: No edema or swelling. SCD's BACK: The back incisions are dressed and a drain is in place with expected output. 20 CCs NEUROLOGICAL EXAM: MENTAL STATUS: The patient is awake, alert, and oriented. He follows simple and complex commands. He speech is fluent, his comprehends speech well, and his repeats well. He has no apparent deficits with short or terminal computer operator memory. MOTOR EXAM: Motor strength is stable SENSORY EXAM: Sensory exam is stable 24 HOUR LABS: All Component Based Labs None ASSESSMENT: NEUROSURGICAL DIAGNOSES: S/p lumbar fusion HOSPITAL/GENERAL DIAGNOSES: Past Medical History: Diagnosis Date Ankylosis of lumbar spine Degenerative lumbar disc Dyslipidemia Family history of colon cancer Hard of hearing bilateral hearing aids Lumbar spondylosis JORDAN (obstructive sleep apnea) no CPAP Pain in unspecified thigh Primary insomnia Prostate enlargement Radiculopathy, lumbar region Typical atrial flutter (HCC) PLAN: S/p lumbar fusion, Hospital day 2 - Neurologically stable and pain control is appropriate. - Medically stable - Mobilize, PT/OT - SCD's - Patient is having adequate bowel function without any concerns. They were counseled that full bowel function may not return for a few days - Drain output is low and it can be removed now - Disp: likely home tomorrow. ELECTRONICALLY SIGNED BY: OSCAR Baxter, 03/05/2018 7:18 Alon Smith PA-C - 03/04/2018 7:31 AM PDTFormatting of this note might be different from the [facility] NEUROSURGERY PROGRESS NOTE PATIENT NAME: Boaz Clarke AGE: 72 y.o. DATE OF SERVICE: 03/04/2018 7:32 S: The patient c/o manageable back pain. The patient has been mobilizing well. The leg sy mptoms are at improved from preoperatively. The patient has been voiding but no flatus or BM. O: CURRENT MEDICATIONS: Current Facility-Administered Medications Medication Dose Route Frequency Provider Last Rate Last Dose acetaminophen (TYLENOL) tablet 650 mg 650 mg Oral Q4H PRN Kelley Fay PA-C bisacodyl (DULCOLAX) suppository 10 mg 10 mg Rectal Daily PRN OSCAR Mueller calcium carbonate (TUMS) chewable tablet 1,000 mg 1,000 mg Oral Q2H PRN Kelley kyle PA-C diazePAM (VALIUM) tablet 2.5-5 mg 2.5-5 mg Oral Q6H PRN Kelley Fay PA-C diphenhydrAMINE (BENADRYL) injection 12.5 mg 12.5 mg Intravenous Q4H PRN Kelley Fay PA-C Or diphenhydrAMINE (BENADRYL) tablet 25 mg 25 mg Oral Q4H PRN Kelley Fay PA-C Or diphenhydrAMINE (BENADRYL) 12.5 mg/5 mL liquid 25 mg 25 mg Oral Q4H PRN Kelley kyle PA-C docusate sodium (COLACE) capsule 100 mg 100 mg Oral BID Kelley Fay PA-C 1 00 mg at 03/03/182113 enalaprilat (VASOTEC) injection 1.25 mg 1.25 mg Intravenous Q6H PRN Kelley boo PA-C labetalol (TRANDATE) 5 mg/mL injection 10 mg 10 mg Intravenous Q10 Min PRN Kelley Bolivar PA-C lactulose liquid 30 mL 30 mL Oral Daily PRN Kelley Fay PA-C [START ON 03/05/2018] magnesium hydroxide (MILK OF MAGNESIA) 400 mg/5 mL suspension 30 m L 30 mL Oral Nightly PRN Kelley Fay PA-C menthol (HALLS COUGH DROP) lozenge 1 lozenge 1 lozenge Buccal Q2H PRN Kelley jeffries PA-C methocarbamol (ROBAXIN) tablet 1,500 mg 1,500 mg Oral Q6H PRN OSCAR Mueller 1,500 mg at 03/03/18 2356 metoclopramide (REGLAN) tablet 10 mg 10 mg Oral Q4H PRN Kelley Fay PA-C morphine injection 2-6 mg 2-6 mg Intravenous Q3H PRN Kelley Fay PA-C ondansetron (ZOFRAN ODT) disintegrating tablet 4 mg 4 mg Oral Q6H PRN Kelley jeffries PA-C ondansetron (ZOFRAN) injection 4 mg 4 mg Intravenous Q6H PRN CONRADO Mueller oxyCODONE (ROXICODONE) tablet 5-15 mg 5-15 mg Oral Q4H PRN Kelley Fay PA-C 5 mg at 03/03/18 2357 phenol (CHLORASEPTIC) spray 1-2 spray 1-2 spray Mouth/Throat Q3H PRN Kelley ceron PA-C polyethylene glycol (MIRALAX) powder 17 g 17 g Oral Daily PRN OSCAR Mueller prochlorperazine (COMPAZINE) tablet 5 mg 5 mg Oral Q6H PRN Kelley Fay PA-C senna (SENOKOT) tablet 8.6 mg 8.6 mg Oral BID Kelley Fay PA-C 8.6 mg at 0 03/03/182114 sodium chloride 0.9% (NS) infusion Intravenous Continuous Kelley Fay PA-C 100 mL/hr at 03/04/18 0324 tamsulosin (FLOMAX) capsule 0.4 mg 0.4 mg Oral Nightly Kelley Fay PA-C 0. 4 mg at 03/03/182113 ALLERGIES: No Known Allergies PHYSICAL EXAMINATION: Temp: [36 C (96.8 F)-36.6 C (97.9 F)] 36.4 C (97.5 F) Pulse: [71-93] 81 Resp: [6-19] 16 BP: (102-154)/(64-90) 123/81 Intake/Output Summary (Last 24 hours) at 03/04/18 0732 Last data filed at 03/04/18 0700 Gross per 24 hour Intake 2537 ml Output 1375 ml Net 1162 ml GENERAL: Boaz Clarke is in no acute distress with unlabored respirations. HEENT: HEAD/FACE: EYES: Normocephalic and atraumatic. There are no areas of recent trauma. Normal sclerae without icterus. CHEST: Clear. HEART: Regular. ABDOMEN Soft and nondistended. EXTREMITIES: No edema or swelling. SCD's BACK: The back incisions are dressed and a drain is in place with expected output. NEUROLOGICAL EXAM: MENTAL STATUS: The patient is awake, alert, and oriented. He follows simple and complex commands. He speech is fluent, his comprehends speech well, and his repeats well. He has no apparent deficits with short or terminal computer operator memory. MOTOR EXAM: Motor strength is stable SENSORY EXAM: Sensory exam is stable 24 HOUR LABS: All Component Based Labs 03/03/18 0817 ABO O Antibody Screen Negative Rh Type Positive ASSESSMENT: NEUROSURGICAL DIAGNOSES: S/p lumbar fusion HOSPITAL/GENERAL DIAGNOSES: Past Medical History: Diagnosis Date Ankylosis of lumbar spine Degenerative lumbar disc Dyslipidemia Family history of colon cancer Hard of hearing bilateral hearing aids Lumbar spondylosis JORDAN (obstructive sleep apnea) no CPAP Pain in unspecified thigh Primary insomnia Prostate enlargement Radiculopathy, lumbar region Typical atrial flutter (HCC) PLAN: S/p lumbar fusion, Hospital day 1 - Neurologically stable and pain control is appropriate. - Medically stable - Mobilize, PT/OT - SCD's - Working on BM/bowel function. Encouraged activity and medications to assist - Drain output is as expected. Continue drain - Disp: Likely home in 1-2 days ELECTRONICALLY SIGNED BY: Alon Albrecht PA-C, 03/04/2018 7:32 documented in this encounter H&P Notes Derrick Stafford DO - 03/03/2018 8:44 AM PDTSURGICAL INTERIM HISTORY & PHYSICAL UPDATE Pt. Name/Age/: Boaz Clarke 72 y.o. 1945 Date of admission: 03/03/2018 The current H&P was reviewed. The patient was reexamined. Re-evaluation of the patient co nfirms the necessity for the scheduled procedure. No change has occurred in the patient s condition since the H&P was completed less than 30 days ago. VERIFICATION OF CONSENT (PARQ) The patient was counseled regarding the procedure, its indications, risks, potential compli cations and alternatives. Any questions were answered. Consent was obtained. Electronically signed by: Derrick Stafford DO, 03/03/2018 8:44 [facility] I expect this patient will be hospitalized for post-operative care of an IP-only procedure and expect the post-hospital plan to be determined once additional information is obtained. reyerDerrick DO - 03/03/2018 8:44 AM PDT Derrick Stafford DO [address] [facility], [address] [place] [address] FAX: NEUROSURGERY HISTORY AND PHYSICAL EXAMINATION CHIEF COMPLAINT: Chief Complaint Patient presents with Back Pain HISTORY OF PRESENT ILLNESS: The patient is a 71 y.o. male with the complaint of back sympt oms that began many years ago, but is worse since January of 2017. The patient describes insi dious onset. The symptoms have been rapidly worsening. He rates the pain as mild. The symptoms are intermittent. He describes the pain as aching and stabbing. The patient describes leg symptoms that occur on both sides, left worse than right. The le g symptoms account for 90% of his symptoms. The leg symptoms are constant and the symptoms travels from the back over the top of his thighs and down the sides of both legs, left worse than right. The patient also describes difficulty walking. He previously would walk 3 mile s per day. Now he does not walk for leisure due to leg symptoms. The patient does not report any change in bowel or bladder function recently. His symptoms improve with rest. His symptoms worsen with changing position, standing, walking, bending, twisting, stairs an d light exertion. He has tried lifestyle modification, pain medication, rest, physical therapy, steroid injec tions, chiropractics. Since his last visit, his symptoms are unchanged. He presents for surgery today. PAST MEDICAL HISTORY: Past Medical History: Diagnosis Date Ankylosis of lumbar spine Degenerative lumbar disc Dyslipidemia Family history of colon cancer Lumbar spondylosis JORDAN (obstructive sleep apnea) Pain in unspecified thigh Primary insomnia Radiculopathy, lumbar region Typical atrial flutter (HCC) PAST SURGICAL HISTORY: Past Surgical History: Procedure Laterality Date COLONOSCOPY 04/2008 ROTATOR CUFF REPAIR Left 02/2015 Dr. Jonas; Lisa Or. TONSILLECTOMY 1954 [facility]; [facility] Or. TYMPANOPLASTY 1991 Dr. Lees ;Simona Jarvis CURRENT MEDICATIONS: Current Outpatient Prescriptions Medication Sig Dispense Refill aspirin 81 mg EC tablet Take 81 mg by mouth Daily. tamsulosin (FLOMAX) 0.4 mg CAPS Take 0.4 mg by mouth Daily. No current facility-administered medications for this visit. ALLERGIES: No Known Allergies SOCIAL HISTORY: The patient reports that he has never smoked. He has never used smokeless tobacco. He repo rts that he does not drink alcohol or use drugs. FAMILY HISTORY: Family History Problem Relation Age of Onset Thyroid cancer Mother Diabetes Mother Colon cancer Brother No Known Problems Father No Known Problems Maternal Grandmother No Known Problems Maternal Grandfather No Known Problems Paternal Grandmother No Known Problems Paternal Grandfather Breast cancer Daughter No Known Problems Child 6 other childern No history REVIEW OF SYSTEMS GENERALLY: No fever, no night sweats, no anemia, no fatigue, no recent profound weight changes. EYES: No eye problems, no use of corrective lenses, no eye injury, no double vision, no b lindness. EARS, NOSE, AND THROAT: No changes in taste or smell, no hearing difficulty, no ringing i n the ears, no ear drainage, no dizziness, no voice changes, no difficulty swallowing, +si gnificant snoring, +sleep apnea, no sinus problems, no major dental work. NEUROLOGICALLY: Please see the review of systems discussed above in the history of presen t illness. In addition, the patient has numbness/pain of legs. PSYCHIATRIC: No depression, no sleep disorders, no anxiety, no bipolar disorder, no psych otic episodes. CARDIOVASCULAR: No heart attacks, no heart murmur, no heart fluttering, no chest pain, no ankle swelling. LUNG DISEASE: No shortness of breath, no cough, no tuberculosis, no bloody cough, no as thma, no emphysema/COPD. GASTROINTESTINAL: No bowel disease, no nausea or vomiting, no rectal bleeding, no constip ation, no stool incontinence, no liver disease, no gallbladder disease, no abdominal pain, n o ulcers. KIDNEY DISEASE: +urinary frequency, no painful or difficult urination, no incontinence. ENDOCRINE: No diabetes, no thyroid disease, no osteopenia or osteoporosis, no breast drai nage. SKIN: No breast lumps, no skin changes, no rashes, no itches. HEMATOLOGIC/LYMPHATIC: No enlarged lymph nodes, no easy or unusual bleeding, no personal history of cancer. RHEUMATOLOGIC: No joint arthritis, no rheumatoid arthritis. Other: Difficulty sleeping. PHYSICAL EXAMINATION: Blood pressure 132/77, pulse 80, height 1.676 m (5' 6"), weight 85.2 kg (187 lb 12.8 oz). B santosh mass index is 30.31 kg/m. GENERAL: Boaz Clarke is in no acute distress with unlabored respirations. The patient does appear uncomfortable throughout the exam today. HEENT: HEAD/FACE: EYES: EARS: NASOPHARNYX: OROPHARNYX: Normocephalic and atraumatic. There are no areas of recent trauma. Normal sclerae without icterus. No drainage or tenderness. Clear without drainage. Clear without erythema. NECK (ANTERIOR): Supple and without palpable masses. CHEST: Clear to ausculation without crackles or wheeze. HEART: Regular rate and rhythm without murmurs. ABDOMEN: Soft, non-tender, non-distended, and without palpable masses. The patient is obese . SPINE: There is no tenderness in the midline of the cervical or thoracic spine. There is n o major palpable deformity of the spine. The lumbar spine shows there is tenderness in the midline of the L3, L4, L5 levels. To pal pation, there is signficant bilateral myofascial tenderness. EXTREMITIES: No cyanosis, clubbing, or edema. Distal pulses are palpable. NEUROLOGICAL EXAM: MENTAL STATUS: The patient is awake, alert, and oriented. He follows simple and complex commands. His speech is fluent, he comprehends speech well, and he repeats well. He has no apparent deficits with short or terminal computer operator memory. CRANIAL NERVES: II: Acuity is intact. Ayon are full to confrontation. III, IV, : The pupils are reactive. Extraocular movements are intact. No ptosis is note d. V: Facial sensation is intact and symmetric. VII: Facial movements are symmetric. VIII: Hearing is intact bilaterally. IX, X: The uvula and palate move appropriately. XI: Shrug is equal bilaterally. XII: Tongue protrusion is midline. MOTOR EXAM: (5 IS NORMAL) * Indicates pain limited MUSCLE/ MOVEMENT: RIGHT LEFT Deltoids 5 5 Biceps 5 5 Triceps 5 5 Wrist Flexion 5 5 Wrist Extension 5 5 Median Intrinsics 5 5 Ulnar Intrinsics 5 5 Manager Pediatric Strength 5 5 Hip Flexion 5 5 Hip Extension 5 5 Knee Flexion 5 5 Knee Extension 5 5 Dorsiflexion 5 5 Extensor Hallicus Longus 5 5 Plantarflexion 5 5 SENSORY EXAM: Sensory exam shows bilateral L4 and L5-type dysesthesia, left worse than right. REFLEXES: (2 OR 2+ IS NORMAL) REFLEX: RIGHT LEFT BICEPS 2+ 2+ BRACHIORADIALIS 2+ 2+ TRICEPS 2+ 2+ PATELLAR 2+ 2+ ACHILLES 2+ 2+ MILLER'S ABSENT ABSENT PLANTAR DOWNGOING DOWNGOING GAIT: Gait is steady. PERIPHERAL NERVE/MISC: Tinel is negative at the wrists and elbows bilaterally. Phalen is negative. Straight leg raise is negative bilaterally. Kwame's test of the hips is negative bilaterally. RADIOGRAPHIC REVIEW: The patient's imaging was reviewed in detail with the patient today during the visit. The MRI of the lumbar spine from 07/21/17 demonstrates spondylosis L3-4 and L4-5. There is severe central stenosis at L3-4 and severe lateral recess stenosis L4-5. Lumbar flexion and extension views show no dynamic instability. ASSESSMENT: NEUROSURGICAL DIAGNOSES: Encounter Diagnoses Name Primary? Lumbar spondylosis Yes Spinal stenosis of lumbar region with neurogenic claudication Lumbar radiculopathy Chronic midline low back pain with bilateral sciatica Neurogenic claudication GENERAL DIAGNOSES: Past Medical History: Diagnosis Date Ankylosis of lumbar spine Degenerative lumbar disc Dyslipidemia Family history of colon cancer Lumbar spondylosis JORDAN (obstructive sleep apnea) Pain in unspecified thigh Primary insomnia Radiculopathy, lumbar region Typical atrial flutter (HCC) PLAN: Boaz Clarke presented today, and it was a pleasure seeing this patient and assessing hi s problems. The patient has spondylosis and severe stenosis L3-5. This is likely contributi ng to his back pain, leg pain, and claudication. I had a lengthy discussion with the patient about his options for care including surgical a nd non-surgical options. He would like to proceed with LAIF L3-5. We discussed the risks, alternatives, and benefits to surgical intervention with Mr. Kalani crawford in clinic. These risks included but were not limited to , stroke, heart attack, num bness, weakness, paralysis, failure of fusion, failure of hardware, subsidence, adjacent seg ment degeneration, cerebrospinal fluid leak, bleeding, infection, injury to surrounding tiss ues and organs, injury from positioning, injury to the nerves, difficulty with breathing, di fficulty with swallowing, difficulty with voice change, and need for additional surgery. Surgical options were discussed and the technique to be employed was described in detail to him. All his questions were answered. We discussed that the goal of the surgery is to prevent progression of his disease, but it is not considered a cure. We also discussed that although some patients may obtain 100% sym ptom relief, it is realistic to anticipate that some symptoms will continue postoperatively despite a successful surgery. We also discussed that there is no guarantee that surgery will provide improvement in his c ondition, and indeed may even worsen the symptoms. We also discussed that in the course of the procedure the operative plan may be altered to include more, less, or different levels d epending upon findings in order to provide him with the best possible outcome. I am prescribing a brace before surgery to improve his stability now to support his weak mu scles and to reduce pain by restricting mobility. For multiple (more than 1 level) fusions, I am also prescribing a bone growth stimulator po stoperatively. This is to improve the probability and rate of fusion. documented in this en counter Miscellaneous Notes Plan of Care - Judy Reynolds RN - 03/06/2018 10:25 AM PDTProblem: Patient Care Overview (Adult) Goal: Care Team Goals & Evaluation PROBLEM-RELATED GOALS: 1. Prevent post operative hypoxia 2. Jays pain will be scored at 3 out of 10 by 03/05. 3. Sensation and strength to lower extremities will return to pt's baseline or improve by 03/05. 4. Boaz will demonstrate lumbar precaution and ambulate with staff by 03/04. 5. Boaz will tolerate a general textured diet by 03/04. 6. Boaz will be free from s/s of infection through 03/06. 7. Boaz will have BM by 03/05. 8. Boaz will void within 6 hours of arriving to the floor on admission date. 9. Boaz will be able to amb mod-I with FWW in room and hallways by 03/11/18. 10. Boaz will be able to participate in ADLs mod-I with FWW by 03/09/18 11. Boaz will meet 75% of predicted incentive spirometer goal of 2150 ml by 03/12/18. STRATEGY TO ACHIEVE GOALS: -Titrate oxygen to room air keeping oxygen saturation at or >92% by 03/06/18 -Assess pain q4h and PRN. Medicate PRN and re-evaluate pain 30-60 minutes after and re-medi sergio PRN. Assist with repositioning for comfort. - Assess muscle strengths and CMS q4h and PRN. Notify MD if abnormalities are found. - Teach lumbar precautions and brace management, encourage ambulation to bathroom and in russell lls as appropriate. Use FWW and staff assist for safety. - - Start pt on clear liquids when he arrives to the floor and advance to general texture as he tolerates. Medicate with anti-emetics PRN. - Assess dressing and vitals with temps q4h and PRN. Monitor lab work as ordered. Notify MD with concerns. - Assess bowel tones q shift and PRN. Encourage fluid intake and ambulation to help promote BM. Monitor for bowel movements and if no BM by POD2 use PRN bowel protocol. - Assist pt to BSC or bathroom as needed. If no void within 6 hours, bladder scan pt and amish campo MD orders to assist empting the bladder. - Active participation with PT sessions. -Pt will participate in OT POC -Instruct patient how use of Incentive Spirometry and deep breath and cough. Nursing and R espiratory to work together to have patient use every hour while awake. Respiratory to christian tor progress 4 times daily until 75% goal met then turn over to nursing. RESTRAINT-RELATED GOALS: STRATEGIES TO ACHIEVE RESTRAINT GOALS: Outcome: Adequate for Discharge Date Met: 03/06/18 Goal Evaluation: Pt is doing well. Pt up walking with therapy this shift. Pt has discharge orders in place. ESTELA drain was previously removed. Dressing remain intact, no drainage noted. IV removed. Pt given x1 for pain med this shift. at bedside for discharge instructions. Pt does state to have numbness to top or R thigh, but that it is improving. Steady gait noted, strong stre ngth x4. B brace precautions in place. Will continue to monitor. lan of Care - Leonora Chavez OT - 03/06/2018 9:56 AM PDTFormatting of this note might be different f rom the original. Problem: Patient Care Overview (Adult) Goal: Care Team Goals & Evaluation PROBLEM-RELATED GOALS: 1. Prevent post operative hypoxia 2. Boaz's pain will be scored at 3 out of 10 by 03/05. 3. Sensation and strength to lower extremities will return to pt's baseline or improve by 03/05. 4. Boaz will demonstrate lumbar precaution and ambulate with staff by 03/04. 5. Boaz will tolerate a general textured diet by 03/04. 6. Boaz will be free from s/s of infection through 03/06. 7. Boaz will have BM by 03/05. 8. Boaz will void within 6 hours of arriving to the floor on admission date. 9. Boaz will be able to amb mod-I with FWW in room and hallways by 03/11/18. 10. Boaz will be able to participate in ADLs mod-I with FWW by 03/09/18 11. Boaz will meet 75% of predicted incentive spirometer goal of 2150 ml by 03/12/18. STRATEGY TO ACHIEVE GOALS: -Titrate oxygen to room air keeping oxygen saturation at or >92% by 03/06/18 -Assess pain q4h and PRN. Medicate PRN and re-evaluate pain 30-60 minutes after and re-medi sergio PRN. Assist with repositioning for comfort. - Assess muscle strengths and CMS q4h and PRN. Notify MD if abnormalities are found. - Teach lumbar precautions and brace management, encourage ambulation to bathroom and in russell lls as appropriate. Use FWW and staff assist for safety. - - Start pt on clear liquids when he arrives to the floor and advance to general texture as he tolerates. Medicate with anti-emetics PRN. - Assess dressing and vitals with temps q4h and PRN. Monitor lab work as ordered. Notify MD with concerns. - Assess bowel tones q shift and PRN. Encourage fluid intake and ambulation to help promote BM. Monitor for bowel movements and if no BM by POD2 use PRN bowel protocol. - Assist pt to BSC or bathroom as needed. If no void within 6 hours, bladder scan pt and fo jahaira FERREIRA orders to assist empting the bladder. - Active participation with PT sessions. -Pt will participate in OT POC -Instruct patient how use of Incentive Spirometry and deep breath and cough. Nursing and R espiratory to work together to have patient use every hour while awake. Respiratory to christian tor progress 4 times daily until 75% goal met then turn over to nursing. RESTRAINT-RELATED GOALS: STRATEGIES TO ACHIEVE RESTRAINT GOALS: Occupational Therapy Plan of Care Treatment Note Summary: Boaz has been participating in occupational therapy for treatment of impairment s in ADLs and functional mobility/transfers s/p L3-4, L4-5 LAIF. Emphasis of session includ ed tub/shower transfer, discussion on techniques for performing ADLs at home within precauti ons. Patient demonstrates progress towards functional goals as evidenced by completion of t ub/shower transfer with no phys assist, however close CGA for safety as pt has difficulty li fting RLE. Pt with cues for bed mobility as he nearly propelled himself out of bed d/t mome ntum. Discussion of importance of safety at home, moving slowly, pt plans to d/c home today but if remains in acute care will continue practice of transfers. Remaining barriers to di scharge and functional limitations include: No Major barriers to d/c from an OT standpoint, would benefit from continued practice of transfers, fxl mobility. Boaz will benefit from continued therapeutic intervention to address ongoing impairments an d increase safety and independence with activities necessary for safe discharge. Refer corby kay for specific details regarding functional levels. Occupational Therapy Discharge Recommendations are: Recommended discharge disposition: home with assist Post discharge occupational therapy recommendation: family involved/supportive, no further OT, pt is motivated participant Equipment Recommendations: sock aide, imaging system administrator Planned Interventions:ADL retraining, IADL retraining, balance training, bed mobility train ing, transfer training, strengthening Recommended Frequency: 5 times/wk Patient Status/Goals: Reflects last filed data and may be from multiple contributors. ADLs NT, did discuss LB dressing techniques, techniques for grooming while staying within precau tions Bed Mobility Cues for sequencing, pt had significant use of momentum during log roll that nearly propell ed him off of the bed. Cues to be careful, slow down. Assistive Device: HOB elevated Supine to Sit, Level of Elbert: contact guard assist, verbal cues required, set up re quired Sit to Supine, Level of Elbert: minimal assist (75% patient effort), verbal cues requ ired Safety Issues: decreased use of arms for pushing/pulling, impaired trunk control for bed mo bility, decreased use of legs for bridging/pushing Impairments: decreased flexibility, strength decreased, impaired balance, pain Transfers Cues for hand placement, cues for safety, present throughout session for education Sit-Stand, Level of Elbert: verbal cues required, stand by assist Stand-Sit, Level of Elbert: verbal cues required, stand by assist [id number], Assistive Device: 2 wheeled walker (FWW) Tub, Level of Elbert: set up required, verbal cues required, contact guard assist Tub, Assistive Device: grab bars, shower chair Safety Issues: balance decreased during turns, step length decreased, weight-shifting abili ty decreased Impairments: decreased flexibility, strength decreased, impaired balance, postural control impaired, pain OT Goal Review Date Most Recent Value STG Review Date 03/09/18 at 03/06/2018 0943 Grooming Goal Most Recent Value STG Status continued at 03/06/2018 0943 STG Elbert Level modified independent at 03/04/2018 1040 STG Position standing at 03/04/2018 1040 STG Comments While maintaining spinal precautions at 03/04/2018 1040 LB Dressing Goal Most Recent Value STG Status continued at 03/06/2018 0943 STG Elbert Level modified independent at 03/04/2018 1040 STG Adaptive Equipment sock-aid, imaging system administrator at 03/04/2018 1040 STG Comments While maintaining spinal precautions at 03/04/2018 1040 Toilet Transfer Goal Most Recent Value STG Status continued at 03/06/2018 0943 STG Elbert Level supervised at 03/04/2018 1040 STG Assistive Device 2 wheeled walker (FWW), grab bars at 03/04/2018 1040 STG Comments While maintaining spinal precautions at 03/04/2018 1040 Tub/Shower Transfer Goal Most Recent Value Tub/Shower Type tub/shower combo at 03/04/2018 1040 STG Status continued, progressing at 03/06/2018 0943 STG Elbert Level supervised at 03/04/2018 1040 STG Assistive Device 2 wheeled walker (FWW), grab bars, tub bench at 03/04/2018 1040 STG Comments While maintaining spinal precautions at 03/04/2018 1040 Electronically signed by: Leonora Chavez OT, 03/06/2018 9:53 lan of Care - Juan Santillan PTA - 03/06/2018 9:30 AM PDT Problem: Patient Care Overview (Adult) Goal: Care Team Goals & Evaluation PROBLEM-RELATED GOALS: 1. Prevent post operative hypoxia 2. Boaz's pain will be scored at 3 out of 10 by 03/05. 3. Sensation and strength to lower extremities will return to pt's baseline or improve by 03/05. 4. Boaz will demonstrate lumbar precaution and ambulate with staff by 03/04. 5. Boaz will tolerate a general textured diet by 03/04. 6. Boaz will be free from s/s of infection through 03/06. 7. Boaz will have BM by 03/05. 8. Boaz will void within 6 hours of arriving to the floor on admission date. 9. Boaz will be able to amb mod-I with FWW in room and hallways by 03/11/18. 10. Boaz will be able to participate in ADLs mod-I with FWW by 03/09/18 11. Boaz will meet 75% of predicted incentive spirometer goal of 2150 ml by 03/12/18. STRATEGY TO ACHIEVE GOALS: -Titrate oxygen to room air keeping oxygen saturation at or >92% by 03/06/18 -Assess pain q4h and PRN. Medicate PRN and re-evaluate pain 30-60 minutes after and re-medi sergio PRN. Assist with repositioning for comfort. - Assess muscle strengths and CMS q4h and PRN. Notify MD if abnormalities are found. - Teach lumbar precautions and brace management, encourage ambulation to bathroom and in russell lls as appropriate. Use FWW and staff assist for safety. - - Start pt on clear liquids when he arrives to the floor and advance to general texture as he tolerates. Medicate with anti-emetics PRN. - Assess dressing and vitals with temps q4h and PRN. Monitor lab work as ordered. Notify MD with concerns. - Assess bowel tones q shift and PRN. Encourage fluid intake and ambulation to help promote BM. Monitor for bowel movements and if no BM by POD2 use PRN bowel protocol. - Assist pt to BSC or bathroom as needed. If no void within 6 hours, bladder scan pt and amish campo MD orders to assist empting the bladder. - Active participation with PT sessions. -Pt will participate in OT POC -Instruct patient how use of Incentive Spirometry and deep breath and cough. Nursing and R espiratory to work together to have patient use every hour while awake. Respiratory to christian tor progress 4 times daily until 75% goal met then turn over to nursing. RESTRAINT-RELATED GOALS: STRATEGIES TO ACHIEVE RESTRAINT GOALS: Outcome: Adequate for Discharge Date Met: 03/06/18 Physical Therapy Plan of Care Treatment Note Summary: Boaz has been participating in physical therapy for treatment of pain, weakness, balance deficits, impaired functional mobility s/o L3-5 decompression and fusion. "B" brace. Emphasis of session included self care/home management. Patient demonstrates progress tow ards functional goals as evidenced by pt progressed to SBA for mobility including stairs. Pt present for caregiver training. She appears supportive and able to properly assist and cue as needed. Refer below for specific details regarding functional levels. Physical Therapy Discharge Recommendations are: Recommended discharge disposition: home with assist Post discharge physical therapy recommendation: outpatient therapy (when ordered by neuro team as healing progresses) Equipment Recommendations: 2 wheeled walker (FWW) Planned Interventions: balance training, bed mobility training, gait training, home exerci se program, lumbar stabilization, orthotic fitting/training, patient/family education, postu ral re-education, ROM (Range of Motion), stair training, strengthening, transfer training Recommended Frequency: daily Patient Status/Goals: Reflects last filed data and may be from multiple contributors. Gait pt with better gt tolerance today; noted good walker management today pt able to adhere to B brace precautions with min v/c Level of Elbert: stand by assist Assistive Device: 2 wheeled walker (FWW) Distance (feet): 150, 120 Gait Deviations: double stance time increased, limb motion velocity decreased, step length decreased, stride length decreased, [id number] ratio decreased, [id number] clearance decreased, weight-shifting ability decreased Stairs pt instructed in proper technique for max safety with stairs, pt's present for caregiv er training Number of Stairs: 4 Handrail Location: both sides Level of Elbert: stand by assist Assistive Device: 2 rails Technique Used: step to step (ascending), step to step (descending) Safety Issues: weight-shifting ability decreased Impairments: pain, strength decreased, impaired balance Transfers pt needing single cue at start of session for hand placement, pt demo'd good carry throught throughout rest of session Bed-Chair, Level of Elbert: stand by assist Chair-Bed, Level of Elbert: stand by assist [id number], Assistive Device: 2 wheeled walker (FWW) Sit-Stand, Level of Elbert: stand by assist Stand-Sit, Level of Elbert: stand by assist [id number], Assistive Device: 2 wheeled walker (FWW) Toilet, Level of Elbert: stand by assist Toilet, Assistive Device: 2 wheeled walker (FWW) Safety Issues: balance decreased during turns, step length decreased, weight-shifting abili ty decreased Impairments: decreased flexibility, strength decreased, impaired balance, postural control impaired, pain Bed Mobility noted pt log roll improved from yesterday, min assist with sit to supine Assistive Device: none Roll Left, Level of Elbert: stand by assist Roll Right, Level of Elbert: stand by assist Scoot/Bridge, Level of Elbert: stand by assist Supine to Sit, Level of Elbert: not tested (pt recieved walking in [place] with OT) Sit to Supine, Level of Elbert: minimal assist (75% patient effort) Safety Issues: decreased use of arms for pushing/pulling, impaired trunk control for bed mo bility, decreased use of legs for bridging/pushing Impairments: decreased flexibility, strength decreased, impaired balance, pain Functional Endurance good for activities presented PT Goal Review Date Most Recent Value STG Review Date 03/11/18 at 03/04/2018 0957 [id number] Goal Most Recent Value STG Status progressing at 03/06/2018 1213 STG Elbert Level modified independent at 03/04/2018 0957 STG Assistive Device none at 03/04/2018 0957 Fax-Iasmw-Rkz Goal Most Recent Value STG Status progressing at 03/06/2018 1213 STG Elbert Level modified independent at 03/04/2018 0957 STG Assistive Device 2 wheeled walker (FWW) at 03/04/2018 0957 Gait Goal Most Recent Value STG Status progressing at 03/06/2018 1213 STG Elbert Level modified independent at 03/04/2018 0957 STG Assistive Device 2 wheeled walker (FWW) at 03/04/2018 0957 STG Distance (feet) 150 at 03/04/2018 0957 Stair Goal Most Recent Value STG Status progressing at 03/06/2018 1213 STG Elbert Level modified independent at 03/04/2018 0957 STG Assistive Device 1 rail at 03/04/2018 0957 STG Number of Stairs 2 at 03/04/2018 0957 STG Comments Pt has 7 steps inside but doesn't need to use them. at 03/04/2018 0957 Additional Goal #1 PT Most Recent Value STG Status progressing at 03/06/2018 1213 STG Pt to be able to state all post op precuations and manage LSO independently. at 2017 0957 Electronically signed by: Juan Vazquez PTA, 03/06/2018 12:15 lan of Care - Mignon Daigle, TEMP RECRUITER - 03/06/2018 3:29 AM PDTProblem: Patient Care Overview (Adult) Goal: Care Team Goals & Evaluation PROBLEM-RELATED GOALS: 1. Prevent post operative hypoxia 2. Boaz's pain will be scored at 3 out of 10 by 03/05. 3. Sensation and strength to lower extremities will return to pt's baseline or improve by 03/05. 4. Boaz will demonstrate lumbar precaution and ambulate with staff by 03/04. 5. Boaz will tolerate a general textured diet by 03/04. 6. Boaz will be free from s/s of infection through 03/06. 7. Boaz will have BM by 03/05. 8. Boaz will void within 6 hours of arriving to the floor on admission date. 9. Boaz will be able to amb mod-I with FWW in room and hallways by 03/11/18. 10. Boaz will be able to participate in ADLs mod-I with FWW by 03/09/18 11. Boaz will meet 75% of predicted incentive spirometer goal of 2150 ml by 03/12/18. STRATEGY TO ACHIEVE GOALS: -Titrate oxygen to room air keeping oxygen saturation at or >92% by 03/06/18 -Assess pain q4h and PRN. Medicate PRN and re-evaluate pain 30-60 minutes after and re-medi sergio PRN. Assist with repositioning for comfort. - Assess muscle strengths and CMS q4h and PRN. Notify MD if abnormalities are found. - Teach lumbar precautions and brace management, encourage ambulation to bathroom and in russell lls as appropriate. Use FWW and staff assist for safety. - - Start pt on clear liquids when he arrives to the floor and advance to general texture as he tolerates. Medicate with anti-emetics PRN. - Assess dressing and vitals with temps q4h and PRN. Monitor lab work as ordered. Notify MD with concerns. - Assess bowel tones q shift and PRN. Encourage fluid intake and ambulation to help promote BM. Monitor for bowel movements and if no BM by POD2 use PRN bowel protocol. - Assist pt to BSC or bathroom as needed. If no void within 6 hours, bladder scan pt and amish campo MD orders to assist empting the bladder. - Active participation with PT sessions. -Pt will participate in OT POC -Instruct patient how use of Incentive Spirometry and deep breath and cough. Nursing and R espiratory to work together to have patient use every hour while awake. Respiratory to christian tor progress 4 times daily until 75% goal met then turn over to nursing. RESTRAINT-RELATED GOALS: STRATEGIES TO ACHIEVE RESTRAINT GOALS: Goal Evaluation: Patient achieving 1800 of IS Predicted Level (mL) : 2150. SpO2: 92 % on room air, BS clear . lan of Care - Roxana Mantilla RN - 03/05/2018 11:55 PM PDTProblem: Patient Care Overview (Adult) Goal: Care Team Goals & Evaluation PROBLEM-RELATED GOALS: 1. Prevent post operative hypoxia 2. Boaz's pain will be scored at 3 out of 10 by 03/05. 3. Sensation and strength to lower extremities will return to pt's baseline or improve by 03/05. 4. Boaz will demonstrate lumbar precaution and ambulate with staff by 03/04. 5. Boaz will tolerate a general textured diet by 03/04. 6. Boaz will be free from s/s of infection through 03/06. 7. Boaz will have BM by 03/05. 8. Boaz will void within 6 hours of arriving to the floor on admission date. 9. Boaz will be able to amb mod-I with FWW in room and hallways by 03/11/18. 10. Boaz will be able to participate in ADLs mod-I with FWW by 03/09/18 11. Boaz will meet 75% of predicted incentive spirometer goal of 2150 ml by 03/12/18. STRATEGY TO ACHIEVE GOALS: -Titrate oxygen to room air keeping oxygen saturation at or >92% by 03/06/18 -Assess pain q4h and PRN. Medicate PRN and re-evaluate pain 30-60 minutes after and re-medi sergio PRN. Assist with repositioning for comfort. - Assess muscle strengths and CMS q4h and PRN. Notify MD if abnormalities are found. - Teach lumbar precautions and brace management, encourage ambulation to bathroom and in russell lls as appropriate. Use FWW and staff assist for safety. - - Start pt on clear liquids when he arrives to the floor and advance to general texture as he tolerates. Medicate with anti-emetics PRN. - Assess dressing and vitals with temps q4h and PRN. Monitor lab work as ordered. Notify MD with concerns. - Assess bowel tones q shift and PRN. Encourage fluid intake and ambulation to help promote BM. Monitor for bowel movements and if no BM by POD2 use PRN bowel protocol. - Assist pt to BSC or bathroom as needed. If no void within 6 hours, bladder scan pt and fo jahaira FERREIRA orders to assist empting the bladder. - Active participation with PT sessions. -Pt will participate in OT POC -Instruct patient how use of Incentive Spirometry and deep breath and cough. Nursing and R espiratory to work together to have patient use every hour while awake. Respiratory to christian tor progress 4 times daily until 75% goal met then turn over to nursing. RESTRAINT-RELATED GOALS: STRATEGIES TO ACHIEVE RESTRAINT GOALS: Outcome: Improving Goal Evaluation: Patient alert and orientated x4. Able to make needs known. Report s back pain 4-5/10, treated with 10 mg of Oxycodone and robaxin,with relief noted. Ambulat ing with staff in [facility]. Voiding adequately. Bowel tones active x 4. No N/T noted. Band aids to back CDI. ESTELA drain removed on previous shift. B-brace precautions maintain ed. lan of Care - Michelle Briones - 03/05/2018 4:50 PM PDTDischarge Planning: Met with Boaz and his spouse this afternoon to discuss his current living situation and ten tative discharge plan. Boaz lives in a two story home with 2 steps at the entrance with his spouse. Boaz has a FWW and a shower bench/ Boaz uses [facility] for his pharmacy needs. Home health was declined. He will have his spous e to help out as needed. Boaz will have his spouse transport him home once he is medically stable. DISP: Home. Electronically signed by: Michelle Briones 03/05/2018 16:53 lan of Care - Tesha Simmons kb Johnson RN - 03/05/2018 3:02 PM PDTProblem: Patient Care Overview (Adult) Goal: Care Team Goals & Evaluation PROBLEM-RELATED GOALS: 1. Prevent post operative hypoxia 2. Boaz's pain will be scored at 3 out of 10 by 03/05. 3. Sensation and strength to lower extremities will return to pt's baseline or improve by 03/05. 4. Boaz will demonstrate lumbar precaution and ambulate with staff by 03/04. 5. Boaz will tolerate a general textured diet by 03/04. 6. Boaz will be free from s/s of infection through 03/06. 7. Boaz will have BM by 03/05. 8. Boaz will void within 6 hours of arriving to the floor on admission date. 9. Boaz will be able to amb mod-I with FWW in room and hallways by 03/11/18. 10. Boaz will be able to participate in ADLs mod-I with FWW by 03/09/18 11. Boaz will meet 75% of predicted incentive spirometer goal of 2150 ml by 03/12/18. STRATEGY TO ACHIEVE GOALS: -Titrate oxygen to room air keeping oxygen saturation at or >92% by 03/06/18 -Assess pain q4h and PRN. Medicate PRN and re-evaluate pain 30-60 minutes after and re-medi sergio PRN. Assist with repositioning for comfort. - Assess muscle strengths and CMS q4h and PRN. Notify MD if abnormalities are found. - Teach lumbar precautions and brace management, encourage ambulation to bathroom and in russell lls as appropriate. Use FWW and staff assist for safety. - - Start pt on clear liquids when he arrives to the floor and advance to general texture as he tolerates. Medicate with anti-emetics PRN. - Assess dressing and vitals with temps q4h and PRN. Monitor lab work as ordered. Notify MD with concerns. - Assess bowel tones q shift and PRN. Encourage fluid intake and ambulation to help promote BM. Monitor for bowel movements and if no BM by POD2 use PRN bowel protocol. - Assist pt to BSC or bathroom as needed. If no void within 6 hours, bladder scan pt and fo jahaira FERREIRA orders to assist empting the bladder. - Active participation with PT sessions. -Pt will participate in OT POC -Instruct patient how use of Incentive Spirometry and deep breath and cough. Nursing and R espiratory to work together to have patient use every hour while awake. Respiratory to christian tor progress 4 times daily until 75% goal met then turn over to nursing. RESTRAINT-RELATED GOALS: STRATEGIES TO ACHIEVE RESTRAINT GOALS: Outcome: Improving Goal Evaluation: Pain managed well this shift with PRN oxycodone, tylenol and robaxin. Pt mobilizing well . at bedside, calls for assistance. No falls or injuries. ESTELA drain removed without issues . No BM yet this shift, BT + given Miralax along with stool softeners. lan of Care - Juan Santillan, SHINGLER - 03/05/2018 1:31 PM PDT Problem: Patient Care Overview (Adult) Goal: Care Team Goals & Evaluation PROBLEM-RELATED GOALS: 1. Prevent post operative hypoxia 2. Boaz's pain will be scored at 3 out of 10 by 03/05. 3. Sensation and strength to lower extremities will return to pt's baseline or improve by 03/05. 4. Boaz will demonstrate lumbar precaution and ambulate with staff by 03/04. 5. Boaz will tolerate a general textured diet by 03/04. 6. Boaz will be free from s/s of infection through 03/06. 7. Boaz will have BM by 03/05. 8. Boaz will void within 6 hours of arriving to the floor on admission date. 9. Boaz will be able to amb mod-I with FWW in room and hallways by 03/11/18. 10. Boaz will be able to participate in ADLs mod-I with FWW by 03/09/18 11. Boaz will meet 75% of predicted incentive spirometer goal of 2150 ml by 03/12/18. STRATEGY TO ACHIEVE GOALS: -Titrate oxygen to room air keeping oxygen saturation at or >92% by 03/06/18 -Assess pain q4h and PRN. Medicate PRN and re-evaluate pain 30-60 minutes after and re-medi sergio PRN. Assist with repositioning for comfort. - Assess muscle strengths and CMS q4h and PRN. Notify MD if abnormalities are found. - Teach lumbar precautions and brace management, encourage ambulation to bathroom and in russell lls as appropriate. Use FWW and staff assist for safety. - - Start pt on clear liquids when he arrives to the floor and advance to general texture as he tolerates. Medicate with anti-emetics PRN. - Assess dressing and vitals with temps q4h and PRN. Monitor lab work as ordered. Notify MD with concerns. - Assess bowel tones q shift and PRN. Encourage fluid intake and ambulation to help promote BM. Monitor for bowel movements and if no BM by POD2 use PRN bowel protocol. - Assist pt to BSC or bathroom as needed. If no void within 6 hours, bladder scan pt and amish campo MD orders to assist empting the bladder. - Active participation with PT sessions. -Pt will participate in OT POC -Instruct patient how use of Incentive Spirometry and deep breath and cough. Nursing and R espiratory to work together to have patient use every hour while awake. Respiratory to christian tor progress 4 times daily until 75% goal met then turn over to nursing. RESTRAINT-RELATED GOALS: STRATEGIES TO ACHIEVE RESTRAINT GOALS: Outcome: Improving Physical Therapy Plan of Care Treatment Note Summary: Boaz has been participating in physical therapy for treatment of pain, weakness, balance deficits, impaired functional mobility s/o L3-5 decompression and fusion. "B" brace. Emphasis of session included instruction for B brace precautions, log roll and gt training . Patient demonstrates progress towards functional goals as evidenced by pt maintaining pr ecautions 75% of time with mobility. Pt still needing assist with legs during bed mobility d /t LE weakness. Plan to address stair training tomorrow. Remaining barriers to discharge an d functional limitations include decreased functional activity tolerance, decreased bed mobi lity, decreased functional transfers, decreased gait velocity, stairs at home, not able to n avigate stairs, not yet able to mobilize at level safe for home discharge and spinal precaut ions. Boaz will benefit from continued therapeutic intervention to address ongoing impairments an d increase safety and independence with activities necessary for safe discharge. Refer corby kay for specific details regarding functional levels. Physical Therapy Discharge Recommendations are: Recommended discharge disposition: home with assist Post discharge physical therapy recommendation: outpatient therapy (when ordered by neuro team as healing progresses) Equipment Recommendations: 2 wheeled walker (FWW) Planned Interventions: balance training, bed mobility training, gait training, home exerci se program, lumbar stabilization, orthotic fitting/training, patient/family education, postu ral re-education, ROM (Range of Motion), stair training, strengthening, transfer training Recommended Frequency: daily Patient Status/Goals: Reflects last filed data and may be from multiple contributors. Gait pt with slow even gt; cues to not hold his breath; noted decrease foot cleanance with right foot Level of Elbert: contact guard assist, stand by assist, verbal cues required Assistive Device: 2 wheeled walker (FWW) Distance (feet): 120 x2 seated rest bwtween Gait Deviations: double stance time increased, limb motion velocity decreased, step length decreased, stride length decreased, wlvwi-mf-btyjvy ratio decreased, fxd-yu-zogmb clearance decreased, weight-shifting ability decreased Transfers pt needing cues for hand placement; pt kept walker with him throughout transfer Sit-Stand, Level of Elbert: verbal cues required, stand by assist Stand-Sit, Level of Elbert: verbal cues required, stand by assist [id number], Assistive Device: 2 wheeled walker (FWW) Toilet, Level of Elbert: stand by assist, verbal cues required Toilet, Assistive Device: 2 wheeled walker (FWW), grab bars Safety Issues: balance decreased during turns, step length decreased, weight-shifting abili ty decreased Impairments: decreased flexibility, strength decreased, impaired balance, postural control impaired, pain Bed Mobility cues for sequencing log roll; Family present for caregiver training Assistive Device: bed rails Roll Right, Level of Elbert: stand by assist, verbal cues required Supine to Sit, Level of Elbert: minimal assist (75% patient effort), verbal cues requ ired Sit to Supine, Level of Elbert: minimal assist (75% patient effort), verbal cues requ ired Safety Issues: decreased use of arms for pushing/pulling, impaired trunk control for bed mo bility, decreased use of legs for bridging/pushing Impairments: decreased flexibility, strength decreased, impaired balance, pain Functional Endurance pt with moderate SOB with exertion PT Goal Review Date Most Recent Value STG Review Date 03/11/18 at 03/04/2018 0957 Meqrfq-Uyu-[id number] Goal Most Recent Value STG Status progressing at 03/05/2018 1338 STG Elbert Level modified independent at 03/04/2018 0957 STG Assistive Device none at 03/04/2018 0957 Vis-Wlthj-Eja Goal Most Recent Value STG Status progressing at 03/05/2018 1338 STG Elbert Level modified independent at 03/04/2018 0957 STG Assistive Device 2 wheeled walker (FWW) at 03/04/2018 0957 Gait Goal Most Recent Value STG Status progressing at 03/05/2018 1338 STG Elbert Level modified independent at 03/04/2018 0957 STG Assistive Device 2 wheeled walker (FWW) at 03/04/2018 0957 STG Distance (feet) 150 at 03/04/2018 0957 Stair Goal Most Recent Value STG Status new at 03/04/2018 0957 STG Elbert Level modified independent at 03/04/2018 0957 STG Assistive Device 1 rail at 03/04/2018 0957 STG Number of Stairs 2 at 03/04/2018 0957 STG Comments Pt has 7 steps inside but doesn't need to use them. at 03/04/2018 0957 Additional Goal #1 PT Most Recent Value STG Status progressing at 03/05/2018 1338 STG Pt to be able to state all post op precuations and manage LSO independently. at 2017 0957 Electronically signed by: Juan Vazquez PTA, 03/05/2018 13:40 lan of Care - Donal gramajo Love, TEMP RECRUITER - 03/05/2018 12:19 AM PDTProblem: Patient Care Overview (Adult) Goal: Care Team Goals & Evaluation PROBLEM-RELATED GOALS: 1. Prevent post operative hypoxia 2. Boaz's pain will be scored at 3 out of 10 by 03/05. 3. Sensation and strength to lower extremities will return to pt's baseline or improve by 03/05. 4. Boaz will demonstrate lumbar precaution and ambulate with staff by 03/04. 5. Boaz will tolerate a general textured diet by 03/04. 6. Boaz will be free from s/s of infection through 03/06. 7. Boaz will have BM by 03/05. 8. Boaz will void within 6 hours of arriving to the floor on admission date. 9. Boaz will be able to amb mod-I with FWW in room and hallways by 03/11/18. 10. Boaz will be able to participate in ADLs mod-I with FWW by 03/09/18 STRATEGY TO ACHIEVE GOALS: -Titrate oxygen to room air keeping oxygen saturation at or >92% by 03/06/18 -Assess pain q4h and PRN. Medicate PRN and re-evaluate pain 30-60 minutes after and re-medi sergio PRN. Assist with repositioning for comfort. - Assess muscle strengths and CMS q4h and PRN. Notify MD if abnormalities are found. - Teach lumbar precautions and brace management, encourage ambulation to bathroom and in russell lls as appropriate. Use FWW and staff assist for safety. - - Start pt on clear liquids when he arrives to the floor and advance to general texture as he tolerates. Medicate with anti-emetics PRN. - Assess dressing and vitals with temps q4h and PRN. Monitor lab work as ordered. Notify MD with concerns. - Assess bowel tones q shift and PRN. Encourage fluid intake and ambulation to help promote BM. Monitor for bowel movements and if no BM by POD2 use PRN bowel protocol. - Assist pt to BSC or bathroom as needed. If no void within 6 hours, bladder scan pt and amish campo MD orders to assist empting the bladder. - Active participation with PT sessions. -Pt will participate in OT POC RESTRAINT-RELATED GOALS: STRATEGIES TO ACHIEVE RESTRAINT GOALS: Outcome: Improving Goal Evaluation: Incentive Spirometer instructed. No other treatments given. IS Predicted Level (mL) : 2150 IS Administration : done independently per patient IS Number of Repetitions : 10 IS Level (mL) : 2000 Patient Tolerance: good lan of Care - Roxana Olsen RN - 03/05/2018 12:07 AM PDTProblem: Patient Care Overview (Adult) Goal: Care Team Goals & Evaluation PROBLEM-RELATED GOALS: 1. Prevent post operative hypoxia 2. Boaz's pain will be scored at 3 out of 10 by 03/05. 3. Sensation and strength to lower extremities will return to pt's baseline or improve by 03/05. 4. Boaz will demonstrate lumbar precaution and ambulate with staff by 03/04. 5. Boaz will tolerate a general textured diet by 03/04. 6. Boaz will be free from s/s of infection through 03/06. 7. Boaz will have BM by 03/05. 8. Boaz will void within 6 hours of arriving to the floor on admission date. 9. Boaz will be able to amb mod-I with FWW in room and hallways by 03/11/18. 10. Boaz will be able to participate in ADLs mod-I with FWW by 03/09/18 STRATEGY TO ACHIEVE GOALS: -Titrate oxygen to room air keeping oxygen saturation at or >92% by 03/06/18 -Assess pain q4h and PRN. Medicate PRN and re-evaluate pain 30-60 minutes after and re-medi sergio PRN. Assist with repositioning for comfort. - Assess muscle strengths and CMS q4h and PRN. Notify MD if abnormalities are found. - Teach lumbar precautions and brace management, encourage ambulation to bathroom and in russell lls as appropriate. Use FWW and staff assist for safety. - - Start pt on clear liquids when he arrives to the floor and advance to general texture as he tolerates. Medicate with anti-emetics PRN. - Assess dressing and vitals with temps q4h and PRN. Monitor lab work as ordered. Notify MD with concerns. - Assess bowel tones q shift and PRN. Encourage fluid intake and ambulation to help promote BM. Monitor for bowel movements and if no BM by POD2 use PRN bowel protocol. - Assist pt to BSC or bathroom as needed. If no void within 6 hours, bladder scan pt and fo jahaira FERREIRA orders to assist empting the bladder. - Active participation with PT sessions. -Pt will participate in OT POC RESTRAINT-RELATED GOALS: STRATEGIES TO ACHIEVE RESTRAINT GOALS: Outcome: Improving Goal Evaluation: Patient alert and orientated x4. Able to make needs known. Boaz johnson eports back pain /, treated with 5 mg of Oxycodone with relief noted. Ambulating with s taff in [place] tonight. Voiding adequately. Bowel tones active x 4. No N/T noted.Band aids to back CDI. ESTELA drain had small amount of serosanguineous output. B-brace precautions ma intained. [facility] Josefina Kimball RN - 03/04/2018 4:46 PM PDTProblem: Patient Care Overview (Adult) Goal: Care Team Goals & Evaluation PROBLEM-RELATED GOALS: 1. Prevent post operative hypoxia 2. Boaz's pain will be scored at 3 out of 10 by 03/05. 3. Sensation and strength to lower extremities will return to pt's baseline or improve by 03/05. 4. Boaz will demonstrate lumbar precaution and ambulate with staff by 03/04. 5. Boaz will tolerate a general textured diet by 03/04. 6. Boaz will be free from s/s of infection through 03/06. 7. Boaz will have BM by 03/05. 8. Boaz will void within 6 hours of arriving to the floor on admission date. 9. Boaz will be able to amb mod-I with FWW in room and hallways by 03/11/18. 10. Boaz will be able to participate in ADLs mod-I with FWW by 03/09/18 STRATEGY TO ACHIEVE GOALS: -Titrate oxygen to room air keeping oxygen saturation at or >92% by 03/06/18 -Assess pain q4h and PRN. Medicate PRN and re-evaluate pain 30-60 minutes after and re-medi sergio PRN. Assist with repositioning for comfort. - Assess muscle strengths and CMS q4h and PRN. Notify MD if abnormalities are found. - Teach lumbar precautions and brace management, encourage ambulation to bathroom and in russell lls as appropriate. Use FWW and staff assist for safety. - - Start pt on clear liquids when he arrives to the floor and advance to general texture as he tolerates. Medicate with anti-emetics PRN. - Assess dressing and vitals with temps q4h and PRN. Monitor lab work as ordered. Notify MD with concerns. - Assess bowel tones q shift and PRN. Encourage fluid intake and ambulation to help promote BM. Monitor for bowel movements and if no BM by POD2 use PRN bowel protocol. - Assist pt to BSC or bathroom as needed. If no void within 6 hours, bladder scan pt and amish campo MD orders to assist empting the bladder. - Active participation with PT sessions. -Pt will participate in OT POC RESTRAINT-RELATED GOALS: STRATEGIES TO ACHIEVE RESTRAINT GOALS: Outcome: Improving Goal Evaluation: Boaz is a & o x 4 today. Boaz reports back pain 5/10, treated with 5 mg of Oxycodone, and Robaxin with good relief. Boaz up ambulating with staff and therapy today, SBA with FWW. V oiding with no complications in urinal. Bowel tones active x 4. Some mild numbness to right upper thigh which is improving, no other changes in neuro assessment. Band aids to back CDI . ESTELA drain had small amount 20 cc's of serosanguineous output. Continues to abide by B Bra ce precautions. Diet tolerated well with no n/v. Mild temperature this afternoon 38.6 F, Ty lenol administered and IS ordered. Encouraged coughing and deep breathing, continue to christian tor. remains at bedside attentive to patient. lan of Care - Dianne Edward OT - 03/04/2018 10:25 AM PDT Problem: Patient Care Overview (Adult) Goal: Care Team Goals & Evaluation PROBLEM-RELATED GOALS: 1. Prevent post operative hypoxia 2. Boaz's pain will be scored at 3 out of 10 by 03/05. 3. Sensation and strength to lower extremities will return to pt's baseline or improve by 03/05. 4. Boaz will demonstrate lumbar precaution and ambulate with staff by 03/04. 5. Boaz will tolerate a general textured diet by 03/04. 6. Boaz will be free from s/s of infection through 03/06. 7. Boaz will have BM by 03/05. 8. Boaz will void within 6 hours of arriving to the floor on admission date. 9. Boaz will be able to amb mod-I with FWW in room and hallways by 03/11/18. 10. Boaz will be able to participate in ADLs mod-I with FWW by 03/09/18 STRATEGY TO ACHIEVE GOALS: -Titrate oxygen to room air keeping oxygen saturation at or >92% by 03/06/18 -Assess pain q4h and PRN. Medicate PRN and re-evaluate pain 30-60 minutes after and re-medi sergio PRN. Assist with repositioning for comfort. - Assess muscle strengths and CMS q4h and PRN. Notify MD if abnormalities are found. - Teach lumbar precautions and brace management, encourage ambulation to bathroom and in russell lls as appropriate. Use FWW and staff assist for safety. - - Start pt on clear liquids when he arrives to the floor and advance to general texture as he tolerates. Medicate with anti-emetics PRN. - Assess dressing and vitals with temps q4h and PRN. Monitor lab work as ordered. Notify MD with concerns. - Assess bowel tones q shift and PRN. Encourage fluid intake and ambulation to help promote BM. Monitor for bowel movements and if no BM by POD2 use PRN bowel protocol. - Assist pt to BSC or bathroom as needed. If no void within 6 hours, bladder scan pt and fo jahaira FERREIRA orders to assist empting the bladder. - Active participation with PT sessions. -Pt will participate in OT POC RESTRAINT-RELATED GOALS: STRATEGIES TO ACHIEVE RESTRAINT GOALS: Occupational Therapy Plan of Care Initial Evaluation, Treatment Note Summary: Boaz presents to occupational therapy with impairments in ADLs and functional m obility/transfers s/p L3-4, L4-5 LAIF. Objective exam reveals impairments with aerobic capa city/endurance, ergonomics and body mechanics, gait, locomotion, and balance, joint integrit y and mobility, ROM, participation in ADLs. Emphasis of session included bed mobility, funct ional transfers, LB dressing, and reviewing spinal precautions. Barriers to discharge and f unctional limitations include decreased functional activity tolerance, decreased bed mobilit y, decreased functional transfers, decreased ability to perform ADLs, not yet able to mobili ze at level safe for home discharge, spinal precautions and medical status. Boaz will benefit from therapeutic intervention to address impairments and increase safety and independence with activities necessary for safe discharge. Refer below for specific det ails regarding functional levels. Precautions/Limitations: falls, brace on when up, spinal Precaution Comment: Lumbar B brace/precautions Left Upper Extremity Weight-Bearing: partial weight-bearing (no lifting over 5lbs) Right Upper Extremity Weight-Bearing: partial weight-bearing (no lifting over 5lbs) Previous Level of Function: Transferring: independent Ambulation: independent Toileting: independent Bathing: independent Dressing: independent Eating: independent Communication: understands/communicates without difficulty Swallowin-->swallows foods/liquids without difficulty Equipment Currently Used at Home: none Prior Functional Level Comment: Pt wan independent without an AD; pain was limiting his act ivity level. Says that he really struggled with donning shoes and socks and getting in and o ut of the car, so his had to help with all of these. Potential available assistance at discharge: Significant Relationships: spouse Role Relationships Comment: is supportive and available to assist as needed at home. Living Environment/Accessibility: Lives With: spouse Living Arrangements: house Home Accessibility: stairs (1 railing present), bed and bath on same level, tub/shower is n ot walk in Number of Stairs to Enter Home: 2 Number of Stairs Within Home: 7 Financial Concerns: none Transportation Available: car Living Environment Comment: Pt reports having a tub shower with a chair and a hand held tia wer head. Patient/Family s Goals: Pt wants to return home Rehabilitation potential: good, to achieve stated therapy goals Occupational Therapy Discharge Recommendations are: Recommended discharge disposition: home with assist Post discharge occupational therapy recommendation: family involved/supportive, no further OT, pt is motivated participant Equipment Recommendations: sock aide, imaging system administrator Planned Interventions:ADL retraining, IADL retraining, balance training, bed mobility train ing, transfer training, strengthening Recommended Frequency: 5 times/wk Patient Status/Goals: Reflects last filed data and may be from multiple contributors. ADLs Educated pt on using imaging system administrator and sock aid for LB dressing tasks. Pt demonstrated ability to use imaging system administrator to put on pants and sock aid for socks. Educated spouse about where they could find those AE for home. LB Dressing, Level of Elbert: supervised, verbal cues required, set up required Assistive Device: imaging system administrator, sock-aid LB Dressing Assess/Train, Position: sitting, standing LB Dressing Assess/Train, Impairments: decreased flexibility, ROM decreased, strength decre ased, impaired balance, pain Functional Endurance Impaired, pt did well with LB dressing task and functional mobility/transfer in bathroom. Cognitive Mood/Behavior: calm, cooperative Orientation: oriented x 4 Arousal Level: opens eyes spontaneously Bed Mobility Pt did well with log roll with some prompting, he was able to sit up SBA and apply brace wi th a cue to make sure it was on correctly. Required assistance for getting R leg back into b ed. Assistive Device: bed rails Roll Left, Level of Elbert: stand by assist, verbal cues required Roll Right, Level of Elbert: stand by assist, verbal cues required Scoot/Bridge, Level of Elbert: contact guard assist, verbal cues required Supine to Sit, Level of Elbert: contact guard assist, verbal cues required Sit to Supine, Level of Elbert: minimal assist (75% patient effort), verbal cues requ ired Safety Issues: decreased use of arms for pushing/pulling, impaired trunk control for bed mo bility, decreased use of legs for bridging/pushing Impairments: decreased flexibility, strength decreased, impaired balance, pain Transfers Pt was able to stand up from EOB with CGA, but required cue for safe hand placement. Comple dusty a toilet transfer using grab bars in bathroom. Sit-Stand, Level of Elbert: contact guard assist, verbal cues required Stand-Sit, Level of Elbert: contact guard assist, verbal cues required [id number], Assistive Device: 2 wheeled walker (FWW) Toilet, Level of Elbert: stand by assist, verbal cues required Toilet, Assistive Device: 2 wheeled walker (FWW), grab bars Safety Issues: balance decreased during turns, step length decreased, weight-shifting abili ty decreased Impairments: decreased flexibility, strength decreased, impaired balance, postural control impaired, pain ROM L UE ROM: WFL for spinal preacautions R UE ROM: WFL for spinal preacautions Strength L UE Strength: WFL for spinal preacautions R UE Strength: WFL for spinal preacautions OT Goal Review Date Most Recent Value STG Review Date 03/09/18 at 03/04/2018 1040 Grooming Goal Most Recent Value STG Status new at 03/04/2018 1040 STG Elbert Level modified independent at 03/04/2018 1040 STG Position standing at 03/04/2018 1040 STG Comments While maintaining spinal precautions at 03/04/2018 1040 LB Dressing Goal Most Recent Value STG Status new at 03/04/2018 1040 STG Elbert Level modified independent at 03/04/2018 1040 STG Adaptive Equipment sock-aid, imaging system administrator at 03/04/2018 1040 STG Comments While maintaining spinal precautions at 03/04/2018 1040 Toilet Transfer Goal Most Recent Value STG Status new at 03/04/2018 1040 STG Elbert Level supervised at 03/04/2018 1040 STG Assistive Device 2 wheeled walker (FWW), grab bars at 03/04/2018 1040 STG Comments While maintaining spinal precautions at 03/04/2018 1040 Tub/Shower Transfer Goal Most Recent Value Tub/Shower Type tub/shower combo at 03/04/2018 1040 STG Status new at 03/04/2018 1040 STG Elbert Level supervised at 03/04/2018 1040 STG Assistive Device 2 wheeled walker (FWW), grab bars, tub bench at 03/04/2018 1040 STG Comments While maintaining spinal precautions at 03/04/2018 1040 Electronically signed by: Dianne Edward, OT, 03/04/2018 10:46 lan of Care - Smiley Oneal, PT - 03/04/2018 9:15 AM PDT Problem: Patient Care Overview (Adult) Goal: Care Team Goals & Evaluation PROBLEM-RELATED GOALS: 1. Prevent post operative hypoxia 2. Boaz's pain will be scored at 3 out of 10 by 03/05. 3. Sensation and strength to lower extremities will return to pt's baseline or improve by 03/05. 4. Boaz will demonstrate lumbar precaution and ambulate with staff by 03/04. 5. Boaz will tolerate a general textured diet by 03/04. 6. Boaz will be free from s/s of infection through 03/06. 7. Boaz will have BM by 03/05. 8. Boaz will void within 6 hours of arriving to the floor on admission date. 9. Boaz will be able to amb mod-I with FWW in room and hallways by 03/11/18. STRATEGY TO ACHIEVE GOALS: -Titrate oxygen to room air keeping oxygen saturation at or >92% by 03/06/18 -Assess pain q4h and PRN. Medicate PRN and re-evaluate pain 30-60 minutes after and re-medi sergio PRN. Assist with repositioning for comfort. - Assess muscle strengths and CMS q4h and PRN. Notify MD if abnormalities are found. - Teach lumbar precautions and brace management, encourage ambulation to bathroom and in russell lls as appropriate. Use FWW and staff assist for safety. - - Start pt on clear liquids when he arrives to the floor and advance to general texture as he tolerates. Medicate with anti-emetics PRN. - Assess dressing and vitals with temps q4h and PRN. Monitor lab work as ordered. Notify MD with concerns. - Assess bowel tones q shift and PRN. Encourage fluid intake and ambulation to help promote BM. Monitor for bowel movements and if no BM by POD2 use PRN bowel protocol. - Assist pt to BSC or bathroom as needed. If no void within 6 hours, bladder scan pt and amish campo MD orders to assist empting the bladder. - Active participation with PT sessions. RESTRAINT-RELATED GOALS: STRATEGIES TO ACHIEVE RESTRAINT GOALS: Physical Therapy Plan of Care Initial Evaluation, Treatment Note Summary: Boaz presents to physical therapy with pain, weakness, balance deficits, impair ed functional mobility s/o L3-5 decompression and fusion. "B" brace. Objective exam reveals impairments with ergonomics and body mechanics, gait, locomotion, and balance, integumentar y integrity, joint integrity and mobility, muscle performance, posture, ROM, pain. Barriers to discharge and functional limitations include decreased functional activity tolerance, de creased bed mobility, decreased functional transfers, decreased functional gait distance, de creased gait velocity, stairs at home, not able to navigate stairs, demonstrating need for 2 4/7 supervision, not yet able to mobilize at level safe for home discharge and spinal precau tions. Boaz will benefit from therapeutic intervention to address impairments and increase safety and independence with activities necessary for safe discharge. Refer below for specific det ails regarding functional levels. Precautions/Limitations: falls Left Upper Extremity Weight-Bearing: partial weight-bearing (5 lb limit; no overhead work) Right Upper Extremity Weight-Bearing: partial weight-bearing (5 lb limit; no overhead work) Previous Level of Function: Transferring: independent Ambulation: independent Toileting: independent Bathing: independent Dressing: independent Eating: independent Communication: understands/communicates without difficulty Swallowin-->swallows foods/liquids without difficulty Equipment Currently Used at Home: none Prior Functional Level Comment: Pt wan independent without an AD; pain was limiting his act ivity level. Says that he really struggled with donning shoes and socks and getting in and o ut of the car, so his had to help with all of these. Potential available assistance at discharge: Significant Relationships: spouse Role Relationships Comment: is supportive and available to assist as needed at home. Living Environment/Accessibility: Lives With: spouse Living Arrangements: house Home Accessibility: stairs (1 railing present), bed and bath on same level, tub/shower is n ot walk in Number of Stairs to Enter Home: 2 Number of Stairs Within Home: 7 Financial Concerns: none Transportation Available: car Living Environment Comment: Pt reports having a tub shower with a chair and a hand held tia wer head. Patient/Family s Goals: Pt wants to have less pain and improved mobility. Rehabilitation potential: good, to achieve stated therapy goals Physical Therapy Discharge Recommendations are: Recommended discharge disposition: home with assist Post discharge physical therapy recommendation: outpatient therapy (when ordered by neuro team as healing progresses) Equipment Recommendations: 2 wheeled walker (FWW) Planned Interventions: balance training, bed mobility training, gait training, home exerci se program, lumbar stabilization, orthotic fitting/training, patient/family education, postu ral re-education, ROM (Range of Motion), stair training, strengthening, transfer training Recommended Frequency: daily Patient Status/Goals: Reflects last filed data and may be from multiple contributors. Gait Pt tends to hold his breath, so cued to "breathe". Pt also sweaty and a little dizzy but no c/o nausea. Level of Elbert: contact guard assist Assistive Device: 2 wheeled walker (FWW) Distance (feet): 25 ft x 2 Gait Deviations: double stance time increased, limb motion velocity decreased, step length decreased, stride length decreased, [id number]-al-[id number] ratio decreased, ijx-yv-wzyat clearance decreased, weight-shifting ability decreased Transfers Bed height raised to facilitate ease and safety of sit > stand transfer. Cues provided for improved foot position and to push up from edge of bed and reach back prior to sitting. Sit-Stand, Level of Elbert: contact guard assist, verbal cues required Stand-Sit, Level of Elbert: contact guard assist, verbal cues required [id number], Assistive Device: 2 wheeled walker (FWW) Safety Issues: balance decreased during turns, step length decreased, weight-shifting abili ty decreased Impairments: decreased flexibility, strength decreased, impaired balance, postural control impaired, pain Bed Mobility Cues provided for log roll; pt required min assist at trunk during supine > sit and mod ass ist with B LEs when returning to supine. Assistive Device: bed rails Supine to Sit, Level of Elbert: minimal assist (75% patient effort), verbal cues requ ired Sit to Supine, Level of Elbert: moderate assist (50% patient effort), verbal cues req uired Safety Issues: decreased use of arms for pushing/pulling, impaired trunk control for bed mo bility, decreased use of legs for bridging/pushing Impairments: decreased flexibility, strength decreased, impaired balance, pain Balance Sitting Balance: Static: fair balance Sitting Balance: Dynamic: fair balance Standing Balance: Static: (Fair (-); pt requires B UE support) Standing Balance: Dynamic: (Fair (-); pt requires B UE support and CGA) Functional Endurance Impaired; pt most limited due to pain. ROM ROM is grossly WFL; not tested beyond post op precautions. Strength L LE Strength: L hip is grossly > 3/5; HS/quads, dorsiflexion and eversion at least 4/5 and pt able to take at least mod resistance for plantarflexion during supine MMT R LE Strength: R hip is grossly 2/5; HS/quads, dorsiflexion and eversion at least 4/5 and p t able to take at least mod resistance for plantarflexion during supine MMT PT Goal Review Date Most Recent Value STG Review Date 03/11/18 at 03/04/2018 0957 [id number] Goal Most Recent Value STG Status new at 03/04/2018 0957 STG Elbert Level modified independent at 03/04/2018 0957 STG Assistive Device none at 03/04/2018 0957 [id number] Goal Most Recent Value STG Status new at 03/04/2018 0957 STG Elbert Level modified independent at 03/04/2018 0957 STG Assistive Device 2 wheeled walker (FWW) at 03/04/2018 0957 Gait Goal Most Recent Value STG Status new at 03/04/2018 0957 STG Elbert Level modified independent at 03/04/2018 0957 STG Assistive Device 2 wheeled walker (FWW) at 03/04/2018 0957 STG Distance (feet) 150 at 03/04/2018 0957 Stair Goal Most Recent Value STG Status new at 03/04/2018 0957 STG Elbert Level modified independent at 03/04/2018 0957 STG Assistive Device 1 rail at 03/04/2018 0957 STG Number of Stairs 2 at 03/04/2018 0957 STG Comments Pt has 7 steps inside but doesn't need to use them. at 03/04/2018 0957 Additional Goal #1 PT Most Recent Value STG Status new at 03/04/2018 0957 STG Pt to be able to state all post op precuations and manage LSO independently. at 2017 0957 Electronically signed by: Smiley Noe, PT, 03/04/2018 10:10 lan of Care - Alg er, Lucie Reinoso RN - 03/04/2018 5:17 AM PDTProblem: Patient Care Overview (Adult) Goal: Care Team Goals & Evaluation PROBLEM-RELATED GOALS: 1. Prevent post operative hypoxia 2. Boaz's pain will be scored at 3 out of 10 by 03/05. 3. Sensation and strength to lower extremities will return to pt's baseline or improve by 03/05. 4. Boaz will demonstrate lumbar precaution and ambulate with staff by 03/04. 5. Boaz will tolerate a general textured diet by 03/04. 6. Boaz will be free from s/s of infection through 03/06. 7. Boaz will have BM by 03/05. 8. Boaz will void within 6 hours of arriving to the floor on admission date. STRATEGY TO ACHIEVE GOALS: -Titrate oxygen to room air keeping oxygen saturation at or >92% by 03/06/18 -Assess pain q4h and PRN. Medicate PRN and re-evaluate pain 30-60 minutes after and re-medi sergio PRN. Assist with repositioning for comfort. - Assess muscle strengths and CMS q4h and PRN. Notify MD if abnormalities are found. - Teach lumbar precautions and brace management, encourage ambulation to bathroom and in russell lls as appropriate. Use FWW and staff assist for safety. - - Start pt on clear liquids when he arrives to the floor and advance to general texture as he tolerates. Medicate with anti-emetics PRN. - Assess dressing and vitals with temps q4h and PRN. Monitor lab work as ordered. Notify MD with concerns. - Assess bowel tones q shift and PRN. Encourage fluid intake and ambulation to help promote BM. Monitor for bowel movements and if no BM by POD2 use PRN bowel protocol. - Assist pt to BSC or bathroom as needed. If no void within 6 hours, bladder scan pt and amish campo MD orders to assist empting the bladder. RESTRAINT-RELATED GOALS: STRATEGIES TO ACHIEVE RESTRAINT GOALS: Goal Evaluation: Boaz has had a good night. First time out of bed resulted in nausea and dizziness but sin ce then he has been free of those. Pain is well controlled with Robaxin and Oxy 5mg. Pt ne eds reminded to not let the pain get away from him. He does not like to take pain meds. Edu cated on the need for pain meds prior to and after PT to make sure he does not get in too mu ch pain. His , Lo, remains at bedside and is very attentive. He is voiding without issue. Taking fluids well by mouth. NS @50ml/hr at this time can be weaned off if he cont inues to do well with nausea and intake. lan of Care - Jack cox, Any Selby RN - 03/03/2018 8:23 PM PDTProblem: Patient Care Overview (Adult) Goal: Care Team Goals & Evaluation PROBLEM-RELATED GOALS: 1. Prevent post operative hypoxia 2. Boaz's pain will be scored at 3 out of 10 by 03/05. 3. Sensation and strength to lower extremities will return to pt's baseline or improve by 03/05. 4. Boaz will demonstrate lumbar precaution and ambulate with staff by 03/04. 5. Boaz will tolerate a general textured diet by 03/04. 6. Boaz will be free from s/s of infection through 03/06. 7. Boaz will have BM by 03/05. 8. Boaz will void within 6 hours of arriving to the floor on admission date. STRATEGY TO ACHIEVE GOALS: -Titrate oxygen to room air keeping oxygen saturation at or >92% by 03/06/18 -Assess pain q4h and PRN. Medicate PRN and re-evaluate pain 30-60 minutes after and re-medi sergio PRN. Assist with repositioning for comfort. - Assess muscle strengths and CMS q4h and PRN. Notify MD if abnormalities are found. - Teach lumbar precautions and brace management, encourage ambulation to bathroom and in russell lls as appropriate. Use FWW and staff assist for safety. - - Start pt on clear liquids when he arrives to the floor and advance to general texture as he tolerates. Medicate with anti-emetics PRN. - Assess dressing and vitals with temps q4h and PRN. Monitor lab work as ordered. Notify MD with concerns. - Assess bowel tones q shift and PRN. Encourage fluid intake and ambulation to help promote BM. Monitor for bowel movements and if no BM by POD2 use PRN bowel protocol. - Assist pt to BSC or bathroom as needed. If no void within 6 hours, bladder scan pt and fo jahaira FERREIRA orders to assist empting the bladder. RESTRAINT-RELATED GOALS: STRATEGIES TO ACHIEVE RESTRAINT GOALS: Goal Evaluation: Boaz arrived to the floor at 1515 post L3-5 LAIF, transferred from [facility] bed via hover mat. Boaz reports back pain 03/03, treated with 5 mg of Oxycodone. Boaz is resting comforta ino. Boaz was not very hungry, few bites of dinner with no n/v. Due to void. Bowel tones hypoactive, last bowel movement 03/02. CMS intact, strong dorsal/plantar BLE. SCD's in place . Boaz is slightly drowsy this afternoon, and was unable to participate in therapies. Band aids to back CDI. ESTELA drain had small amount 40cc of sanguineous output. remains at be d side, attentive to patient. lan of Care - Marv Moreno, TEMP RECRUITER - 03/03/2018 5:37 PM PDTProblem: Patient Care Overview (Adult) Goal: Care Team Goals & Evaluation PROBLEM-RELATED GOALS: 1. Prevent post operative hypoxia STRATEGY TO ACHIEVE GOALS: 1. Titrate oxygen to room air keeping oxygen saturation at or >92% by 03/06/18 RESTRAINT-RELATED GOALS: STRATEGIES TO ACHIEVE RESTRAINT GOALS: Goal Evaluation: Oxygen saturation on 2 l/m= 96%, did not titrate at this time. Rigo selby continue to follow lan of Care - Smiley Martin, PT - 03/03/2018 5:29 PM PDTProblem: Patient Care Overview (Adult) Goal: Care Team Goals & Evaluation PROBLEM-RELATED GOALS: STRATEGY TO ACHIEVE GOALS: RESTRAINT-RELATED GOALS: STRATEGIES TO ACHIEVE RESTRAINT GOALS: Therapy Plan of Care Missed Visit Note Patient Information Patient Name: Boaz Clarke Date of : 1945 Age: 72 y.o. The patient was unable to be seen for today's scheduled visit due to pt still very lethargi c and "feeling floaty" after surgery, so requesting PT eval be deferred until tomorrow a.m. They did go to spine class but with some questions, so reviewed "B" brace order and pos t op precautions with . Plan: Complete eval on Wed, per pt and request. Electronically signed by: Smiley Noe, PT, 03/03/2018 17:28 p Note - Derrick Stafford DO - 03/03/2018 1:11 PM PDTDATE: 03/03/2018 PATIENT: Boaz Clarke SURGEON: Derrick Stafford DO PERSONAL LOAN SPECIALIST: OSCAR Julian PREOPERATIVE DIAGNOSES 1. Spondylosis L3-4, L4-5. 2. Spinal stenosis L3-4, L4-5. 3. Lumbar radiculopathy. 4. Lumbago. 5. Neurogenic claudication. POSTOPERATIVE DIAGNOSES 1. Spondylosis L3-4, L4-5. 2. Spinal stenosis L3-4, L4-5. 3. Lumbar radiculopathy. 4. Lumbago. 5. Neurogenic claudication. PROCEDURES PERFORMED 1. Anterior lumbar interbody arthrodesis L3-4, L4-5 - lateral approach. 2. Postereolateral arthrodesis L3-4, L4-5. 3. PEEK interbody L3-4, L4-5. 4. Posterior spinal instrumentation L3-5. 5. Laminectomies L3, L4, L5 for the purpose of decompression. 6. Use of allograft. 7. Use of microscope for microsurgical techniques. 8. Co-registration with navigation system for spinal navigation. ANESTHESIA: General endotracheal anesthesia. ESTIMATED BLOOD LOSS: 200 mL. DRAINS: ESTELA. FINDINGS: 1. Severe stenosis L3-5. COMPLICATIONS: None. DISPOSITION: The patient is stable to the PACU. INDICATION FOR THE PROCEDURE: Mr. Clarke is a 72-year-old man with low back pain, leg shakila n, and difficulty walking. MRI and x-rays of the lumbar spine revealed spondylosis and sever e stenosis L3-5. The patient tried and failed multiple conservative treatment modalities to alleviate his symptoms. Given the patient's symptomatic progression and years of conservativ e therapy, he elected to proceed with the above named procedures. SURGICAL RISKS: The patient was well-apprised of all objectives, benefits, risks, and poten tial complications of procedure, including but not limited to worsening of the current statu s, possible need for further procedures, risk of infection, headaches, CSF leak, possible sp inal nerve injury resulting in paralysis, infection, injury to major vessel causing hemorrha ge, stroke, loss of language function, coma, and even . An informed consent was obtaine d and secured in the chart after the patient voice understanding these risks and decided to proceed with the operation. DESCRIPTION OF PROCEDURE: The patient was transferred to operating room #2. He was given pr eoperative prophylactic IV antibiotics. The patient was sedated and intubated without diffic ulty by the anesthesia service. Eyes were taped shut after ointment was applied to prevent c orneal abrasion. A Deedee Hugger was placed over her lower body to maintain control of core marilu dy temperature. A Conley catheter was inserted. The patient was placed in the lateral positio n with his right side up. All pressure points were carefully padded. After connecting him to the nerve monitoring system appropriately, he was secured to the bed with tape, and his speedy e, axilla, and extremities were positioned and padded appropriately. Fluoroscopy was then used to localize the levels of L3-4, and L4-5 on AP and lateral projec tion. His flank was then prepped and draped over this region on the right side and a timeout was performed. All members of the surgical team agreed with the treatment. The patient's skin was incised with #10 scalpel blade over the L3-4, and L4-5 segments in a n oblique fashion. It was opened approximately 6 cm and the subcutaneous tissue was exposed. The tissue was dissected with Bovie electrocautery down to the abdominal musculature. Two h emostats were used to then dilate through the tissue to the fascial plane into the retroperi toneal space. Retroperitoneal fat was encountered and a finger sweeping technique was used t o mobilize it. The psoas muscle was palpated and a dilator was inserted at the L4-5 segment through the psoas muscle with neuromonitoring performed. There was proximity to the nervous tissues posterior to where the dilator was. The dilator was advanced more anteriorly where t he proximity significantly decreased. The nerves were found to be posterior to the dilator. Sequential dilation was then performed with increasing sized dilators with neuromonitoring p erformed with each dilator. Eventually a 140 mm retractor was inserted into the field and do cked at the L4-5 segment. Light source was connected through retractor and the appropriate p osition was confirmed on AP and lateral fluoroscopy. A deyanira was then inserted into the poste rior blade of the retractor after monitoring this region for nervous structure. The retracto r was then opened anteriorly and the disk was removed in piecemeal fashion with pituitary ro ngeurs, curettes, Kerrison rongeurs and broaches. This process continued until the endplates were adequately abrasioned and prepared for arthrodesis. After trialing, a 11 x 26 x 50 mm 10-degrees lordotic PEEK cage from [employer] was chosen. It was filled with Infuse and Hanna putty. It was tamped into the interbody space of L4-5. Th e retractor was removed and hemostasis was meticulously achieved along the tract. Next, attention was turned to the L3-4 segment. The tissue was dissected with Bovie electro cautery down to the abdominal musculature. Two hemostats were used to then dilate through th e tissue to the fascial plane into the retroperitoneal space. Retroperitoneal fat was encoun tered and a finger sweeping technique was used to mobilize it. The psoas muscle was palpated and a dilator was inserted at the L3-4 segment through the psoas muscle with neuromonitorin g performed. There was proximity to the nervous tissues posterior to where the dilator was. The dilator was advanced more anteriorly where the proximity significantly decreased. The ne rves were found to be posterior to the dilator. Sequential dilation was then performed with increasing sized dilators with neuromonitoring performed with each dilator. Eventually a 120 mm retractor was inserted into the field and docked at L3-4 segment. Light source was conne cted through retractor and the appropriate position was confirmed on AP and lateral fluorosc opy. A deyanira was then inserted into the posterior blade of the retractor after monitoring thi s region for nervous structure. The retractor was then opened anteriorly and the disk was re moved in piecemeal fashion with pituitary rongeurs, curettes, Kerrison rongeurs and broaches . This process continued until the endplates were adequately abrasioned and prepared for art hrodesis. After trialing, a 11 x 26 x 50 mm 10-degrees lordotic PEEK cage from [employer] was chosen. It was filled with Infuse and [place] putty. It was tamped into the interbody space of L3-4. Th e retractor was removed and hemostasis was meticulously achieved along the tract. At this point the lateral incision was closed. First the fascial layer was closed with jordana ral [id number] interrupted 2-0 Vicryl stitches. Then the subcuticular layer was closed with inverted interrupted 2-0 Vicryl stitches. Mastisol and Steri-Strips were placed over th e wound and Band-Aids were placed over the incision. The patient was then rolled supine on operating table and the Mohinder table was brought int o the room. The patient was turned prone onto the Mohinder table with all his pressure points well padded. His back was prepped and draped in standard sterile fashion for the planned po sterior instrumentation, posterolateral fusion, and laminectomies. An incision was made over the spinous process superior to where the patient would have his surgery performed, and in a subperiosteal fashion the spinous process was exposed and the sp inous process fixator clamp for the neuronavigation system was affixed. The O-arm was draped sterilely and brought into the operative field, and the L3-5 levels were targeted using the O-arm. The O-arm spin was conducted with co-registration with the Stealth system using the Stealth probe, and an appropriate trajectory for ideal screw placement was made bilaterally from L3-5. This was marked at the skin level and the gutierres were infiltrated with 0.25% Jean Carlos ine with epinephrine. A #10 scalpel blade was then used for skin incision on the right side. Next, the L3, L4, and L5 pedicles were approached with the neuronavigational probe through the tissue protector and an awl/TAP combination device was navigated down to the ideal inser tion site within the pedicle. The pedicles were then cannulated from L3-5. The right L3 pedi joanna accepted a 6.5 x 60 mm Voyager screw from [employer]. The right L4 pedicle accepted a 6.5 x 60 mm pedicle screw. The right L5 pedicle accepted a 7.5 x 55 mm pedicle screw. Next, attention was turned to the left side where a #10 scalpel blade was used for incision at the right L3-5 levels, and those pedicles were targeted with the neuronavigational probe and tissue protector. An awl/TAP combination device was used to navigate down to the ideal insertion site within the pedicle and the pedicles were cannulated. At that point, the guide wires were placed in the pedicles and snapped to the drape out of the way. Attention was turned to the L4-5 level, where the Stealth navigation system was used to tar get the L4-5 lamina. The probe was dilated up to 22 mm with the [employer] tubular dilators, and a 6 cm x 22 mm retractor was docked over the L4-5 lamina in ideal position. Soft tissue was cleared away and the microscope was again brought into the operative field. Using high-speed electric drilling, the lamina of L4-5 was removed. The tube was then tilted medially and la jesusita was drilled to the contralateral side. The laminectomy was for the purpose of decompres frank. Ligamentum flavum was encountered and uplifted and removed. The epidural space was enc ountered. There was extreme scarring from his prior surgery which was carefully uplifted. Th e thecal sac was well decompressed at that point. Hemostasis was achieved. The tubular dilators were removed, and then attention was turned to the L3-4 level, where t he Stealth navigation system was used to target the L3-4 lamina. The probe was dilated up to 22 mm with the METRx tubular dilators, and a 6 cm x 22 mm retractor was docked over the L3- 4 lamina in ideal position. Soft tissue was cleared away and the microscope was again ingris t into the operative field. Using high-speed electric drilling, the lamina of L3-4 was remov ed. The tube was then tilted medially and lamina was drilled to the contralateral side. The laminectomy was for the purpose of decompression. Ligamentum flavum was encountered and upli fted and removed. The epidural space was encountered. The thecal sac was well decompressed a t that point. Hemostasis was achieved. Next, the facet joint of L4-5 was targeted with the stealth probe on the right. METRx tubul ar dilators were used to dilate to 6 cm x 18 mm. Soft tissue was cleared away. The facet abundio nt was decorticated. It was then packed with [place] putty. Hemostasis was achieved, and the retractor was removed. This completed the posterolateral fusion at L4-5. Next, the facet joint of L3-4 was targeted with the stealth probe on the right. METRx tubul ar dilators were used to dilate to 6 cm x 18 mm. Soft tissue was cleared away. The facet abundio nt was decorticated. It was then packed with [place] putty. Hemostasis was achieved, and the retractor was removed. This completed the posterolateral fusion at L3-4. Next, attention was turned to the guidewires at L3-5 on the left side. At the left L3 pedic le a 6.5 x 60 mm Voyager screw was placed. At the left L4 pedicle a 6.5 x 60 mm pedicle scre w was placed. At the left L5 pedicle a 7.5 x 55 mm pedicle screw was placed. Appropriate sized rods which measured 60 mm on the left and 60 mm on the right were chosen and attached to longitude megan passer. A more cephalad transverse incision was made approxima tely 3 fingerbreadths superior to the first screw tubular riveter bilaterally, then the rods were p assed subfascially into the screw extenders. A megan loom checker was used to ensure proper placeme nt of the megan. The O-arm was again brought into the operative field, and using AP and latera l fluoroscopy, the rods were found to be in good position. The rods were then reduced down, and once they were reduced, they were secured in place with set screws which were torqued to the counterperson's recommended torque. This occurred bilaterally. Next, the set screw extenders were removed, and the O-arm was brought into the operative fi eld for a final CT scan, which showed ideal placement of screws, rods and interbodies. The wounds were repaired using 2-0 interrupted Vicryl in buried subcuticular fashion. A Jerome kson-Manley drain was inserted on the patient's left side, and the skin was reapproximated wi th Mastisol and Steri-Strips. Band-Aids were placed over all the wounds. All sponge counts, needle counts, instrument counts were correct at the end of the case x2. The patient tolerated the procedure well and [facility]. [facility] Op No te - Derrick Stafford DO - 03/03/2018 1:10 PM PDT Brief Operative Note Boaz Clarke 72 y.o. male 1945 [id number] Proc. Date 03/03/2018 Preop Dx Lumbar spondylosis (M47.816), Neurogenic claudication (M48.062), Lumbar radiculop athy (M54.16), Acute back pain with sciatica, right (M54.41) Postop Dx same Procedure L3-4, L4-5 Lateral Anterior Interbody Fusion Anesthesia General Surgeon Derrick Stafford DO - Primary Sleeve Separator Kelley Fay PA-C - Assisting EBL 200 mL Findings Findings consistent with scheduled procedure. No other abnormalities found. Complications none Specimens * No specimens in log * Drains Drain/Device Site 03/03/18 1228 #1 Left posterior lumbar spine (Active) Drainage Characteristics/Odor sanguineous 03/03/2018 12:50 Drainage Amount scant 03/03/2018 12:50 Electronically signed by: Derrick Stafford DO 03/03/2018 13:10 [facility] Stafford DO at 02/22 1:10 PM PDTdocumented in this encounter Plan of Treatment +--------+---------+ + + + | Date | Type | Specialty | Care Team | Description | +--------+---------+ + + + | 09/04/ | Office | Cardiology | Caterina Catalan, | | | 2019 | Visit | | [address] | | | | | | [place], [place] | | | | | | [address] | | | | | | | | +--------+---------+ + + + + +------+--------+ + + | Name | Type | Priori | Associated Diagnoses | Order Schedule | | | | ty | | | + +------+--------+ + + | DME: Walker | DME | Routin | S/P lumbar fusion | DME 1 Time for 1 | | | | e | | Occurrences starting | | | | | | 03/03/2018 until | | | | | | 03/03/2018 | + +------+--------+ + + documented as of this encounter Procedures + +--------+ + + + | Procedure Name | Priori | Date/Time | Associated Diagnosis | Comments | | | ty | | | | + +--------+ + + + | RESPIRATORY THERAPY | Routin | 03/03/2018 | | | | COMMUNICATION | e | 5:32 PM | | | | | | PDT | | | + +--------+ + + + | XR LUMBAR SPINE 2 OR | STAT | 03/03/2018 | | Results for this | | 3 VW | | 2:55 PM | | procedure are in the | | | | PDT | | results section. | + +--------+ + + + | FL XENA STATS NO | Routin | 03/03/2018 | | Results for this | | CHARGE | e | 12:33 PM | | procedure are in the | | | | PDT | | results section. | + +--------+ + + + | FUSION LUMBAR W/ | | 03/03/2018 | Lumbar spondylosis | | | LATERAL APPROACH | | 9:24 AM | (M47.816), | | | (XLIF) | | PDT | Neurogenic | | | | | | claudication | | | | | | (M48.062), Lumbar | | | | | | radiculopathy | | | | | | (M54.16), Acute back | | | | | | pain with sciatica, | | | | | | right (M54.41) | | + +--------+ + + + +---+--------+ | | Case | | | Notes | | | | | | Specia | | | lty | | | Care | | | Needed | | | : | | | YesIns | | | trumen | | | ts/Spe | | | cial | | | Equipm | | | ent: | | | C-Arm, | | | | | | Drill, | | | | | | Micros | | | cope, | | | METRx, | | | | | | O-Arm, | | | | | | Naviga | | | tion | | | Instru | | | ments, | | | | | | Stealt | | | h | | | Biolog | | | ics: | | | Infuse | | | , | | | Grafto | | | n All | | | biolog | | | ics | | | approv | | | edPosi | | | tion/S | | | equenc | | | e: | | | Right | | | side | | | upTabl | | | e: | | | Jackso | | | n [place] | | | Fram | | | e, | | | Jackso | | | n | | | Frame | | | REP: | | | Sanjay | | | Lito | | | ; | | | Floyd | | | Haroldo | | | | | | Implan | | | ts: | | | Globus | | | Cage, | | | | | | Voyage | | | r | +---+--------+ | | | | | Specia | | | l | | | Needs | | | | | | Specia | | | lty | | | CarePo | | | sition | | | : | | | Right | | | side | | | upCono | | | r | | | Lito | | | - | | | Voyage | | | r; | | | Floyd | | | Haroldo | | | - | | | Globus | | | | | | CageTa | | | ble: | | | Jackso | | | n | | | [place], | | | Jackso | | | n | | | Frame | +---+--------+ + +--------+ +---+ + | TYPE AND SCREEN | Routin | 03/03/2018 | | Results for this | | | e | 8:17 AM | | procedure are in the | | | | PDT | | results section. | + +--------+ +---+ + | LABS - EXTERNAL SCAN | | 02/07/2018 | | Results for this | | | | 12:00 AM | | procedure are in the | | | | PDT | | results section. | + +--------+ +---+ + | ECG - EXTERNAL SCAN | | 02/07/2018 | | Results for this | | | | 12:00 AM | | procedure are in the | | | | PDT | | results section. | + +--------+ +---+ + documented in this encounter Results XR Lumbar Spine 2 or 3 Vw (03/03/2018 2:55 PM PDT) + + | Specimen | + + | | + + + + + | Narrative | Performed At | + + + | TWO VIEWS LUMBAR SPINE 03/03/2018 2:55 PM CLINICAL HISTORY: s/p | [facility] | | lumbar fusion COMPARISON: RADIOGRAPHS SEPTEMBER 2017 FINDINGS: | | | Five non rib-bearing, lumbar type vertebrae are visible. Interbody and | | | posterior megan and pedicle screw fusion hardware now extends from L3 | | | through L5 and appears intact and well seated. Vertebral height and | | | alignment are maintained. The sacroiliac joints and imaged sacrum, | | | bony pelvis and lower ribs are unremarkable. There are moderate to | | | severe degenerative changes of the hips. A surgical drain is | | | present in the left dorsal lumbar soft tissues. IMPRESSION - | | | 1. SATISFACTORY APPEARANCE STATUS POST OPERATIVE FUSION EXTENDING | | | FROM L3 THROUGH L5. Dictated and Signed by: Rahul Shin MD | | | Electronically signed: 03/03/2018 7:36 PM | | + + + + + | Procedure Note | + + | Dennis, Rad Results In - 03/03/2018 7:39 PM PDT TWO VIEWS LUMBAR SPINE 03/03/2018 2:55 | | PMCLINICAL HISTORY: s/p lumbar fusionCOMPARISON: RADIOGRAPHS SEPTEMBER 2017FINDINGS: Five | | non rib-bearing, lumbar type vertebrae are visible. Interbody andposterior megan and | | pedicle screw fusion hardware now extends from L3 through L5and appears intact and well | | seated. Vertebral height and alignment aremaintained. The sacroiliac joints and imaged | | sacrum, bony pelvis and lower ribsare unremarkable. There are moderate to severe | | degenerative changes of thehips. A surgical drain is present in the left dorsal lumbar | | soft tissues.IMPRESSION -1. SATISFACTORY APPEARANCE STATUS POST OPERATIVE FUSION | | EXTENDING FROM [id number] L5.Dictated and Signed by: Rahul Shin MD Electronically | | signed: 03/03/2018 7:36 PM | |are unremarkable. There are moderate to severe degenerative changes of the | |hips. A surgical drain is present in the left dorsal lumbar soft tissues. | | | |IMPRESSION - | | | |1. SATISFACTORY APPEARANCE STATUS POST OPERATIVE FUSION EXTENDING FROM L3 | |THROUGH L5. | | | |Dictated and Signed by: Rahul Shin MD | | Electronically signed: 03/03/2018 7:36 PM | + + + +---------+ + + | Performing | Address | City/State/Zipcode | Phone Number | | Organization | | | | + +---------+ + + | [facility] | | | | + +---------+ + + [place] Susan Yasmine Tejeda (03/03/2018 12:33 PM PDT) + + | [...] | | | + +---------+ + + Type and Screen (03/03/2018 8:17 AM PDT) + + + + + + | Component | Value | Ref Range | Performed | Pathologist | | | | | At | Signature | + + + + + + | ABO | O | | [facility] | | | | [facility] | [facility] | [facility] | | | [facility] - | | | | | | [facility] | | + + + + + + | Rh Type | Positive | | [facility] | | | | | [facility] | | | [facility] | [facility] | | | | | [facility] - | | | | | | [facility] | | + + + + + + | Antibody | Negative | | [facility] | | | Screen | | | [facility] | | | | | | [facility] | | | | | | [facility] - | | | | | | [facility]OD BANK | | + + + + + + + + | Specimen | + + | Blood | + + + + + + + | Performing | Address | City/State/Zipcode | Phone Number | | Organization | | | | + + + + + | [facility] | [address] | [place] | | | [facility] | | [id number] | | | - BLOOD BANK | | | | + + + + + LABS - EXTERNAL SCAN (02/07/2018 12:00 AM PDT) + + + | Narrative | Performed At | + + + | Ordered by an | | | unspecified provider. | | + + + ECG - EXTERNAL SCAN (02/07/2018 12:00 AM PDT) + + + | Narrative | Performed At | + + + | Ordered by an | | | unspecified provider. | | + + + documented in this encounter Visit Diagnoses Not on filedocumented in this encounter Administered Medications + +--------+ +--------+------+------+ | Medication Order | MAR | Action | Dose | Rate | Site | | | Action | Date | | | | + +--------+ +--------+------+------+ | acetaminophen (TYLENOL) tablet | Given | 03/05/20 | 650 mg | | | | 650 mg 650 mg, Oral, EVERY 4 | | 18 8:55 | | | | | HOURS PRN, Pain, Fever, Starting | | AM PDT | | | | | Gisela 03/03/18 at 1511, | | | | | | | Post-op/Phase II | | | | | | + +--------+ +--------+------+------+ +-------+ +--------+---+---+ | Given | 03/04/20 | 650 mg | | | | | 18 4:55 | | | | | | PM PDT | | | | +-------+ +--------+---+---+ +---+---+ | | | +---+---+ + +-------+ +--------+---+ + | bupivacaine 0.25%-EPINEPHrine | Given | 03/03/20 | 20 mLs | | Surgical | | 1:200,000 (PF) injection PRN, | | 18 12:00 | | | Site | | Starting [facility] 03/03/18 at 1200, | | PM PDT | | | | | Intra-op | | | | | | + +-------+ +--------+---+ + + +---+ | | | + +---+ | diphenhydrAMINE (BENADRYL) 12.5 | | | mg/5 mL liquid 25 mg 25 mg, | | | Oral, EVERY 4 HOURS PRN, Itching, | | | Starting Gisela 03/03/18 at 1511, | | | Oral route is preferred., | | | Post-op/Phase II | | + +---+ | | | + +---+ | diphenhydrAMINE (BENADRYL) | | | injection 12.5 mg 12.5 mg, | | | Intravenous, EVERY 4 HOURS PRN, | | | Itching, Starting Gisela 03/03/18 at | | | 1511, Oral route is preferred., | | | Post-op/Phase II | | + +---+ | | | + +---+ | diphenhydrAMINE (BENADRYL) | | | tablet 25 mg 25 mg, Oral, EVERY | | | 4 HOURS PRN, Itching, Starting | | | Gisela 03/03/18 at 1511, Oral route | | | is preferred., Post-op/Phase II | | + +---+ | | | + +---+ + +-------+ +--------+---+---+ | docusate sodium (COLACE) | Given | 03/06/20 | 100 mg | | | | capsule 100 mg 100 mg, Oral, 2 | | 18 9:40 | | | | | TIMES DAILY, First dose on Wed | | AM PDT | | | | | 03/03/18 at 2100, First line agent | | | | | | | for constipation, Post-op/Phase | | | | | | | II | | | | | | + +-------+ +--------+---+---+ +-------+ +--------+---+---+ | Given | 03/05/20 | 100 mg | | | | | 18 8:54 | | | | | | PM PDT | | | | +-------+ +--------+---+---+ | Given | 03/05/20 | 100 mg | | | | | 18 8:40 | | | | | | AM PDT | | | | +-------+ +--------+---+---+ +---+---+ | | | +---+---+ + +-------+ + +---+---+ | methocarbamol (ROBAXIN) tablet | Given | 03/05/20 | 1,500 mg | | | | 1,500 mg 1,500 mg, Oral, EVERY 6 | | 18 8:54 | | | | | HOURS PRN, Muscle spasms, | | PM PDT | | | | | Starting Gisela 03/03/18 at 1530, | | | | | | | Post-op/Phase II | | | | | | + +-------+ + +---+---+ +-------+ + +---+---+ | Given | 03/05/20 | 1,500 mg | | | | | 18 3:07 | | | | | | PM PDT | | | | +-------+ + +---+---+ | Given | 03/05/20 | 1,500 mg | | | | | 18 6:16 | | | | | | AM PDT | | | | +-------+ + +---+---+ +---+---+ | | | +---+---+ + +-------+ +------+---+---+ | oxyCODONE (ROXICODONE) tablet | Given | 03/06/20 | 5 mg | | | | 5-15 mg 5-15 mg, Oral, EVERY 4 | | 18 9:40 | | | | | HOURS PRN, Pain, Starting Gisela | | AM PDT | | | | | 03/03/18 at 1511, First dose must | | | | | | | be the lowest dose, can titrate | | | | | | | to effective dose by repeat of | | | | | | | lowest dose every 60 minutes prn | | | | | | | pain, may not exceed maximum dose | | | | | | | ordered per interval. Use Pasero | | | | | | | Sedation Scale., Post-op/Phase | | | | | | | II | | | | | | + +-------+ +------+---+---+ +-------+ +-------+---+---+ | Given | 03/06/20 | 10 mg | | | | | 18 5:40 | | | | | | AM PDT | | | | +-------+ +-------+---+---+ | Given | 03/06/20 | 10 mg | | | | | 18 2:00 | | | | | | AM PDT | | | | +-------+ +-------+---+---+ +---+---+ | | | +---+---+ + +-------+ +------+---+---+ | polyethylene glycol (MIRALAX) | Given | 03/05/20 | 17 g | | | | powder 17 g 17 g, Oral, DAILY | | 18 8:47 | | | | | PRN, Constipation, Starting Gisela | | AM PDT | | | | | 03/03/18 at 1511, If docusate and | | | | | | | senna ineffective or not ordered, | | | | | | | Post-op/Phase II | | | | | | + +-------+ +------+---+---+ +---+---+ | | | +---+---+ + +-------+ +--------+---+ + | ropivacaine (NAROPIN) 2 mg/mL | Given | 03/03/20 | 60 mLs | | Surgical | | (0.2%) injection PRN, Starting | | 18 12:33 | | | Site | | Gisela 03/03/18 at 1233, Intra-op | | PM PDT | | | | + +-------+ +--------+---+ + +---+---+ | | | +---+---+ + +-------+ +--------+---+---+ | senna (SENOKOT) tablet 8.6 mg | Given | 03/06/20 | 8.6 mg | | | | 8.6 mg, Oral, 2 TIMES DAILY, | | 18 9:40 | | | | | First dose on Gisela 03/03/18 at | | AM PDT | | | | | 2100, If docusate ineffective or | | | | | | | not ordered, Post-op/Phase II | | | | | | + +-------+ +--------+---+---+ +-------+ +--------+---+---+ | Given | 03/05/20 | 8.6 mg | | | | | 18 8:54 | | | | | | PM PDT | | | | +-------+ +--------+---+---+ | Given | 03/05/20 | 8.6 mg | | | | | 18 8:40 | | | | | | AM PDT | | | | +-------+ +--------+---+---+ +---+---+ | | | +---+---+ + +-------+ +--------+---+---+ | tamsulosin (FLOMAX) capsule 0.4 | Given | 03/05/20 | 0.4 mg | | | | mg 0.4 mg, Oral, NIGHTLY, First | | 18 8:54 | | | | | dose on [facility] 03/03/18 at 2100, May | | PM PDT | | | | | open capsule and sprinkle over | | | | | | | acidic soft food (applesauce, | | | | | | | yogurt) or in a small quantity of | | | | | | | acidic fruit juice (orange, | | | | | | | grape). Do not crush, chew or | | | | | | | dissolve granules., Post-op/Phase | | | | | | | II | | | | | | + +-------+ +--------+---+---+ +-------+ +--------+---+---+ | Given | 03/04/20 | 0.4 mg | | | | | 18 9:19 | | | | | | PM PDT | | | | +-------+ +--------+---+---+ | Given | 03/03/20 | 0.4 mg | | | | | 18 9:14 | | | | | | PM PDT | | | | +-------+ +--------+---+---+ +---+---+ | | | +---+---+ documented in this encounter
--- OUTSIDE RECORDS SUMMARY | ~2020-05-10 | XMS | Encounter Summary ---
Demographics + + + | Address | [address] | | | [place] [address] | + + + | Home Phone | | + + + | Preferred Language | Unknown | + + + | Marital Status | | + + + | Sikh Affiliation | 1027 | + + + | Race | Unknown | + + + | Ethnic Group | Unknown | + + + Author + + + | Author | [facility] | | | and [place] | + + + | Organization | [facility] | | [...] | | | | | [place] [address] | | + + + + + Care Team Providers + +------+ + | Care Advertising Campaign Manager Name | Role | Phone | + +------+ + | Abran Alas MD | PCP | | + +------+ + Reason for Visit Evaluate & Treat (Routine) +--------+ + + + + + | Status | Reason | Specialty | Diagnoses / | Referred By | Referred To | | | | | Procedures | Contact | Contact | +--------+ + + + + + | Closed | Specialty | Sleep | Diagnoses | [place], | [facility] | | | Services | Medicine | JORDAN | Darin Andrew | [place] [address] | | | Required | | (obstructive | MD [address] | [place] | | | | | sleep | [place] | [place], | | | | | apnea) | [address] [place] | [place] [address] | | | | | Psychophysio | [place], [place] | Phone: | | | | | logic | [id number] | [phone] | | | | | insomnia | Phone: | Fax: | | | | | Procedures | [phone] | [phone] | | | | | DC POLYSOM | Fax: | | | | | | 6/>YRS SLEEP | [phone] | | | | | | 4/> ADDL | | | | | | | GEORGETTE ATTND | | | | | | | DC POLYSOM | | | | | | | 6/>YRS SLEEP | | | | | | | W/CPAP 4/> | | | | | | | ADDL GEORGETTE | | | | | | | ATTND S/N | | | | | | | (07/05/19@9pm | | | | | | | ) | | | +--------+ + + + + + Encounter Details +--------+ + + + + | Date | Type | Department | Care Team | Description | +--------+ + + + + | 07/05/ | Hospital | [facility] | Darin Matta | JORDAN (obstructive | | 2019 - | Encounter | [facility] | MD Jesus [address] [place] [address] | sleep apnea); | | | | CENTER [address] | [address] [place] | Psychophysiologic | | | | [place], [place] | [place] [address] | insomnia; Periodic | | 2018 | | [address] | [phone] | limb movements of | | | | [phone] | | sleep | +--------+ + + + + Social [...] | | 0 | | | | tablet | Daily. | | | | | + + + +---------+ + + | gabapentin | Take 1 capsule by | 90 | 0 | 05/27/20 | | | (NEURONTIN) 300 mg | mouth nightly. | capsule | | 18 | | | capsule | | | | | | + + + +---------+ + + | tamsulosin | Take 0.4 mg by mouth | | 0 | | | | (FLOMAX) 0.4 mg CAPS | nightly. Every | | | | | | | other night | | | | | + + + +---------+ + + | triamcinolone | Apply 0.1 Units | | 0 | 03/15/20 | | | (KENALOG) 0.1% | topically as needed. | | | 19 | | | ointment | | | | | | + [...] + + documented as of this encounter Procedure Notes Darin Matta Jr., MD - 07/12/2019 9:05 AM PDTAssociated Order(s): SLEEP STUDY DIAGNOST IC ONLY NO PAPProcedure(s): SLEEP STUDY DIAGNOSTIC ONLY NO PAPPre-Proced ure Diagnose(s): JORDAN (obstructive sleep apnea); Organic insomniaPost-Procedure Diagnose(s): JORDAN (obstructive sleep apnea); Periodic limb movements of sleep; Organic insomnia Ariella Dubon [facility] [place] [address] Polysomnogram Report on Boaz Clarke performed on [...] signal excursion by 90% or greater of pre-event baselin e using an oronasal thermal sensor (diagnostic study), PAP device flow (titration study), or an alternative apnea sensor (diagnostic study); the duration of the 90% or greater drop in sensor signal is 10 seconds or longer. Obstructive Apnea: Event associated with continued or increased inspiratory effort throug hout the entire period of absent airflow. Central Apnea: Event associated with absent inspiratory effort throughout the entire klever od of absent airflow. Mixed Apnea: Event associated with absent inspiratory effort in the initial portion of th e event followed by resumption of inspiratory effort during the second portion of the event. Hypopnea: The peak signal excursions drop by greater than or equal to 30% of pre-event bas bhaskar using a recommended or alternative airflow sensor and the duration of the >= 30% drop in signal excursion is greater than or equal to 10 seconds and there is a greater than or eq ual to a 4% oxygen desaturation from pre-event baseline. Respiratory Event Related Arousal: A sequence of breaths lasting 10 seconds or longer vita acterized by increasing respiratory effort or by flattening of the inspiratory portion of th e nasal pressure (diagnostic study) or PAP device flow (titration study) waveform leading to arousal from sleep when the sequence of breaths does not meet criteria for an apnea or hypo pnea. Sleep Architecture: Lights out was recorded at [...] obstructive apneas, 0 mixed apneas, 1 central cost specialist eas, 29 hypopneas, and 47 Respiratory Effort [...] they are felt to be clinically significant. Darin Matta Jr., MD, [facility] Supervisor Blood [facility] [place], [place] Clinical inspector plating [facility], [place] docum ented in this encounter Plan of Treatment +--------+---------+ + + + | Date | Type | Specialty | Care Team | Description | +--------+---------+ + + + | 09/04/ | Office | Cardiology | Caterina Catalan, | | | 2019 | Visit | | MD Juan J HERNANDEZ | | | | | | [place], [place] | | | | | | [id number] | | | | | | | | +--------+---------+ + + + documented as of this encounter Procedures + +--------+ + + + | Procedure Name | Priori | Date/Time | Associated Diagnosis | Comments | | | ty | | | | + +--------+ + + + | SLEEP STUDY | Routin | 07/12/2019 | | Results for this | | DIAGNOSTIC ONLY NO | e | 9:05 AM | | procedure are in the | | PAP | | PDT | | results section. | + +--------+ + + + | SLEEP STUDY | Routin | 07/12/2019 | | Results for this | | DIAGNOSTIC ONLY NO | e | 9:05 AM | | procedure are in the | | PAP | | PDT | | results section. | + +--------+ + + + documented in this encounter Results Sleep study diagnostic only (no PAP) (07/12/2019 9:05 AM PDT) + + + | Narrative | Performed At | + + + | Darin Andrew | | | Pa[place] Lee MD 07/12/2019 9:11 [facility] | | | [place] [address] | | | Polysomnogram Report on Boaz Clarke performed on July 05, | | | 2018. Clinical Information: Boaz Clarke is a 73 y.o. male who | | | underwent diagnostic nocturnal polysomnography on July 05, 2019 | | | on referral from Dr. Celena Gomez because of a history of insomnia and | | | obstructive apnea. Technical Information: Please see technical data | | | which is attached. Definitions (The AASM Manual for the Scoring of | | | Sleep and Associated Events, Version 2.5; 2018): Apnea: There is a | | | drop in the peak signal excursion by 90% or greater of pre-event | | | baseline using an oronasal thermal sensor (diagnostic study), PAP | | | device flow (titration study), or an alternative apnea sensor | | | (diagnostic study); the duration of the 90% or greater drop in sensor | | | signal is 10 seconds or longer. Obstructive Apnea: Event associated | | | with continued or increased inspiratory effort throughout the entire | | | period of absent airflow. Central Apnea: Event associated with | | | absent inspiratory effort throughout the entire period of absent | | | airflow. Mixed Apnea: Event associated with absent inspiratory | | | effort in the initial portion of the event followed by resumption of | | | inspiratory effort during the second portion of the event. Hypopnea: | | | The peak signal excursions drop by greater than or equal to 30% of | | | pre-event baseline using a recommended or alternative airflow sensor | | | and the duration of the >= 30% drop in signal excursion is greater | | | than or equal to 10 seconds and there is a greater than or equal to a | | | 4% oxygen desaturation from pre-event baseline. Respiratory Event | | | Related Arousal: A sequence of breaths lasting 10 seconds or longer | | | characterized by increasing respiratory effort or by flattening of the | | | inspiratory portion of the nasal pressure (diagnostic study) or PAP | | | device flow (titration study) waveform leading to arousal from sleep | | | when the sequence of breaths does not meet criteria for an apnea or | | | hypopnea. Sleep Architecture: Lights out was recorded at 2300 | | | hundred hours on July 05, 2019 and lights on was recorded at 0757 | | | hundred hours on July 06, 2019. The latency to sleep onset was | | | normal at 22 minutes. The patient slept for 321 minutes out of 537 | | | minutes of study time resulting an a sleep efficiency that was low at | | | 59.8 %. The amount of N1 sleep was elevated at 16.5 % of the Total | | | Sleep Time; the amount of N2 sleep was normal at 60.7 % of the Total | | | Sleep Time; the amount of N3 sleep was normal at 7.8 % of the Total | | | Sleep Time; the amount of REM sleep was normal at 15 % of the Total | | | Sleep Time and the latency to REM sleep was prolonged at 185 minutes. | | | No parasomnias were noted. Sleep in the following positions was | | | recorded: left lateral decubitus 0%, right lateral decubitus 31.3%, | | | supine 68.7%, prone 0%. Sleep was fragmented; the Arousal Index was | | | 33.1. The patient reported this to be a usual night's sleep. | | | Cardiopulmonary Monitoring: The heart rate averaged in the mid 50s | | | beats per minute. Mild rate variability was noted. The rhythm was | | | sinus. In the course of the evening there were 5 obstructive apneas, 0 | | | mixed apneas, 1 central apneas, 29 hypopneas, and 47 Respiratory | | | Effort Related Arousals (RERA's). The Respiratory Disturbance Index | | | (RDI) was elevated at 15.3; the Apnea-Hypopnea Index (AHI) was mildly | | | elevated at 6.5; the Apnea Index (AI) was 1.1. The respiratory events | | | were not sleep stage dependent. The respiratory events were | | | positional. The events were more frequently seen in the supine | | | position (supine AHI 9.3, nonsupine AHI 0.6). The respiratory events | | | occasioned significant sleep fragmentation; the Respiratory Arousal | | | Index was 14. The manisha oxygen saturation was 86% and the patient | | | spent 0.9 minutes with an oxygen saturation of less than or equal to | | | 88%. ETCO2 was not elevated. Limb Movement Monitoring: There were 279 | | | Periodic Limb Movements (PLMS Index of 52.1) of which 26 were | | | associated with arousals; the PLMS Arousal Index was borderline at | | | 4.9. Interpretation: This polysomnogram is normal secondary to: | | | Obstructive sleep apnea is diagnosed and this does significantly | | | fragmented sleep. This is associated with minimal absolute oxygen | | | desaturation.Periodic limb movements of sleep are present and they are | | | associated with borderline sleep fragmentation.The low sleep | | | efficiency is consistent with a generic diagnosis of insomnia. | | | Suggestions:1. The principles of sleep hygiene should be reviewed with | | | the patient.2. A trial of cognitive behavioral therapy for insomnia | | | advised.3. After sleep is consolidated, a trial of CPAP therapy or | | | possible oral appliance therapy for mild sleep apnea should also be | | | considered.4. A ferritin level should be checked. If the ferritin | | | level is less than 75ug/ml, iron supplementation should be considered | | | to raise the ferritin to above 75ug/ml. This may help with PLMS. Once | | | the ferritin level is above 75ug/ml, pharmacologic therapy of PLMS/RLS | | | should be considered if they are felt to be clinically significant. | | | Darin Matta Jr., MD, [facility]Medical DirectorOhio Valley Surgical Hospitalkrish Dubon | | | [facility] | | | NICO JarvisClinical Candy Butcher [facility] | | | [place], [place] | | |The respiratory events occasioned significant sleep | | |fragmentation; the Respiratory Arousal Index was 14. | | | | | |The manisha oxygen saturation was 86% and the patient spent 0.9 | | |minutes with an oxygen saturation of less than or equal to 88%. | | | | | |ETCO2 was not elevated. | | | | | |Limb Movement Monitoring: There were 279 Periodic Limb Movements | | |(PLMS Index of 52.1) of which 26 were associated with arousals; | | |the PLMS Arousal Index was borderline at 4.9. | | | | | |Interpretation: This polysomnogram is normal secondary to: | | | | | |Obstructive sleep apnea is diagnosed and this does significantly | | |fragmented sleep. This is associated with minimal absolute | | |oxygen desaturation. | | |Periodic limb movements of sleep are present and they are | | |associated with borderline sleep fragmentation. | | |The low sleep efficiency is consistent with a generic diagnosis | | |of insomnia. | | | | | |Suggestions: | | |1. The principles of sleep hygiene should be reviewed with the | | |patient. | | |2. A trial of cognitive behavioral therapy for insomnia advised. | | |3. After sleep is consolidated, a trial of CPAP therapy or | | |possible oral appliance therapy for mild sleep apnea should also | | |be considered. | | |4. A ferritin level should be checked. If the ferritin level is | | |less than 75ug/ml, iron supplementation should be considered to | | |raise the ferritin to above 75ug/ml. This may help with PLMS. | | |Once the ferritin level is above 75ug/ml, pharmacologic therapy | | |of PLMS/RLS should be considered if they are felt to be | | |clinically significant. | | | | | |Darin Matta Jr., MD, [facility] | | |Supervisor Blood | | |[facility] | | |[facility] | | |[place] | | |Clinical inspector plating | | |[facility] | | |[place] | | + + + + + | Procedure Note | + + | Darin Matta Jr., MD - 07/12/2019 9:05 AM PDT [facility] | | Disorders [place], [place] [address]Jobhckwhrrlxr Report on | | Boaz Chackotsman performed on July 05, 2019.Clinical Information: Boaz Clarke is | | a 73 y.o. male who underwent diagnostic nocturnal polysomnography on July 05 | | [address] Celena Gomez because of a history of insomnia and obstructive | | apnea.Technical Information: Please see technical data which is attached.Definitions | | (The AASM Manual for the Scoring of Sleep and Associated Events, Version 2.5; 2018): | | Apnea: There is a drop in the peak signal excursion by 90% or greater of pre-event | | baseline using an oronasal thermal sensor (diagnostic study), PAP device flow (titration | | study), or an alternative apnea sensor (diagnostic study); the duration of the 90% or | | greater drop in sensor signal is 10 seconds or longer. Obstructive Apnea: Event | | associated with continued or increased inspiratory effort throughout the entire period | | of absent airflow. Central Apnea: Event associated with absent inspiratory effort | | throughout the entire period of absent airflow. Mixed Apnea: Event associated with | | absent inspiratory effort in the initial portion of the event followed by resumption of | | inspiratory effort during the second portion of the event. Hypopnea: The peak signal | | excursions drop by greater than or equal to 30% of pre-event baseline using a | | recommended or alternative airflow sensor and the duration of the >= 30% drop in signal | | excursion is greater than or equal to 10 seconds and there is a greater than or equal to | | a 4% oxygen desaturation from pre-event baseline. Respiratory Event Related Arousal: A | | sequence of breaths lasting 10 seconds or longer characterized by increasing respiratory | | effort or by flattening of the inspiratory portion of the nasal pressure (diagnostic | | study) or PAP device flow (titration study) waveform leading to arousal from sleep when | | the sequence of breaths does not meet criteria for an apnea or hypopnea.Sleep | | Architecture: Lights out was recorded at 2300 hundred hours on July 05, 2019 and | | lights on was recorded at 0757 hundred hours on July 06, 2019. The latency to sleep | | onset was normal at 22 minutes. The patient slept for 321 minutes out of 537 minutes of | | study time resulting an a sleep efficiency that was low at 59.8 %. The amount of N1 | | sleep was elevated at 16.5 % of the Total Sleep Time; the amount of N2 sleep was normal | | at 60.7 % of the Total Sleep Time; the amount of N3 sleep was normal at 7.8 % of the | | Total Sleep Time; the amount of REM sleep was normal at 15 % of the Total Sleep Time and | | the latency to REM sleep was prolonged at 185 minutes. No parasomnias were noted.Sleep | | in the following positions was recorded: left lateral decubitus 0%, right lateral | | decubitus 31.3%, supine 68.7%, prone 0%.Sleep was fragmented; the Arousal Index was | | 33.1.The patient reported this to be a usual night's sleep.Cardiopulmonary Monitoring: | | The heart rate averaged in the mid 50s beats per minute. Mild rate variability was | | noted. The rhythm was sinus.In the course of the evening there were 5 obstructive | | apneas, 0 mixed apneas, 1 central apneas, 29 hypopneas, and 47 Respiratory Effort | | Related Arousals (RERA's). The Respiratory Disturbance Index (RDI) was elevated at 15.3; | | the Apnea-Hypopnea Index (AHI) was mildly elevated at 6.5; the Apnea Index (AI) was | | 1.1. The respiratory events were not sleep stage dependent. The respiratory events were | | positional. The events were more frequently seen in the supine position (supine AHI | | 9.3, nonsupine AHI 0.6). The respiratory events occasioned significant sleep | | fragmentation; the Respiratory Arousal Index was 14.The manisha oxygen saturation was 86% | | and the patient spent 0.9 minutes with an oxygen saturation of less than or equal to | | 88%.ETCO2 was not elevated.Limb Movement Monitoring: There were 279 Periodic Limb | | Movements (PLMS Index of 52.1) of which 26 were associated with arousals; the PLMS | | Arousal Index was borderline at 4.9.Interpretation: This polysomnogram is normal | | secondary to:Obstructive sleep apnea is diagnosed and this does significantly fragmented | | sleep. This is associated with minimal absolute oxygen desaturation.Periodic limb | | movements of sleep are present and they are associated with borderline sleep | | fragmentation.The low sleep efficiency is consistent with a generic diagnosis of | | insomnia.Suggestions:1. The principles of sleep hygiene should be reviewed with the | | patient.2. A trial of cognitive behavioral therapy for insomnia advised.3. After sleep | | is consolidated, a trial of CPAP therapy or possible oral appliance therapy for mild | | sleep apnea should also be considered.4. A ferritin level should be checked. If the | | ferritin level is less than 75ug/ml, iron supplementation should be considered to raise | | the ferritin to above 75ug/ml. This may help with PLMS. Once the ferritin level is above | | 75ug/ml, pharmacologic therapy of PLMS/RLS should be considered if they are felt to be | | clinically significant.Darin Matta Jr., MD, [facility]PITALSMMedical DirectorOhio Valley Surgical Hospitalkrish Dubon | | [facility] CenterSnoqual[facility] Hospitalinical | | Candy Butcher [place], [place] | |Supervisor Blood | |Ariella Dubon [facility] | |[facility] | |[place] | |Clinical inspector plating | |[facility] | |[place], [place] | + + documented in this encounter Visit Diagnoses + + | Diagnosis | + + | JORDAN (obstructive sleep apnea) Obstructive sleep apnea (adult) (pediatric) | + + | Psychophysiologic insomnia Persistent disorder of initiating or maintaining sleep | + + | Periodic limb movements of sleep Periodic limb movement disorder | + + documented in this encounter"
--- OUTSIDE RECORDS SUMMARY | ~2020-05-10 | XMS | Encounter Summary ---
Demographics + + + | Address | [address] | | | [place] [address] | + + + | Home Phone | | + + + | Preferred Language | Unknown | + + + | Marital Status | | + + + | Judaism Affiliation | 1027 | + + + | Race | Unknown | + + + | Ethnic Group | Unknown | + + + Author + + + | Author | [facility] | | | and [place] | + + + | Organization | [facility] | | | [...] | | | | | [place] [address] | | + + + + + Care Team Providers + +------+ + | Care Market Sales Manager Name | Role | Phone | + +------+ + | Abran Alas MD | PCP | | + +------+ + Encounter Details +--------+ + + + + | Date | Type | Department | Care Team | Description | +--------+ + + + + | 03/09/ | Hospital | [facility] | AntonioJaret, | S/P lumbar fusion; | | 2018 | Encounter | MED CTR XRAY [address] | PA-C [address] | Back pain, | | | | [place] | [address] [place] | unspecified back | | | | [place] [address] | [place] [address] | location, | | | | [phone] | [phone] | unspecified back | | | | | | pain laterality, | | | | | | unspecified | | | | | | chronicity | +--------+ + + + + Social [...] | | | | | [place] | | | | | | [address] | | | | | | | | +--------+---------+ + + + documented as of this encounter Procedures + +--------+ + + + | Procedure Name | Priori | Date/Time | Associated Diagnosis | Comments | | | ty | | | | + +--------+ + + + | XR LUMBAR SPINE 2 OR | Routin | 03/09/2019 | S/P lumbar fusion | Results for this | | 3 VW | e | 1:09 PM | Back pain, | procedure are in the | | | | PDT | unspecified back | results section. | | | | | location, | | | | | | unspecified back | | | | | | pain laterality, | | | | | | unspecified | | | | | | chronicity | | + +--------+ + + + documented in this encounter Results XR Lumbar Spine 2 or 3 Vw (03/09/2019 1:09 PM PDT) + + | Specimen | + + | | + + + + + | Narrative | Performed At | + + + | XR LUMBAR SPINE 2 OR 3 VW 03/09/2019 1:09 PM HISTORY: s/p lumbar | [facility] | | fusion. COMPARISON: 08/25/2018 FINDINGS: Intact appearance of | | | the posterior and interbody fusion hardware at L3-L5. Moderate | | | multilevel disc marginal osteophytosis of the unfused thoracic and | | | lumbar spine. Vertebral body heights and alignment are maintained. No | | | soft tissue abnormality. IMPRESSION - No radiographic evidence | | | for an interval complication. Dictated and Signed by: Robe | | | MD Brittnee Electronically signed: 03/09/2019 1:32 PM | | + + + + + | Procedure Note | + + | Zaid Collins Results In - 03/09/2019 1:35 PM PDT XR LUMBAR SPINE 2 OR 3 VW 03/09/2019 | | 1:09 PMHISTORY: s/p lumbar fusion.COMPARISON: 08/25/2018FINDINGS:Intact appearance of the | | posterior and interbody fusion hardware at L3-L5.Moderate multilevel disc marginal | | osteophytosis of the unfused thoracic andlumbar spine. Vertebral body heights and | | alignment are maintained. No softtissue abnormality. IMPRESSION -No radiographic | | evidence for an interval complication.Dictated and Signed by: Robe Beaulieu MD | | Electronically signed: 03/09/2019 1:32 PM | |Intact appearance of the posterior and interbody fusion hardware at L3-L5. | |Moderate multilevel disc marginal osteophytosis of the unfused thoracic and | |lumbar spine. Vertebral body heights and alignment are maintained. No soft | |tissue abnormality. | | | |IMPRESSION - | |No radiographic evidence for an interval complication. | | | |Dictated and Signed by: Robe Beaulieu MD | | Electronically signed: 03/09/2019 1:32 PM | + + + +---------+ + + | Performing | Address | City/State/Zipcode | Phone Number | | Organization | | | | + +---------+ + + | [facility] | | | | + +---------+ + + documented in this encounter Visit Diagnoses + + | Diagnosis | + + | S/P lumbar fusion Arthrodesis status | + + | Back pain, unspecified back location, unspecified back pain laterality, unspecified | | chronicity | + + documented in this encounter"
--- OUTSIDE RECORDS SUMMARY | ~2020-05-10 | XMS | Encounter Summary ---
Demographics + + + | Address | [address] | | | [place] [address] | + + + | Home Phone | | + + + | Preferred Language | Unknown | + + + | Marital Status | | + + + | Baptist Affiliation | 1027 | + + + | Race | Unknown | + + + | Ethnic Group | Unknown | + + + Author + + + | Author | [facility] | | | and [place] | + + + | Organization | [facility] | | [...] | | | | | [place] [address] | | + + + + + Care Team Providers + +------+ + | Care Band Saw Operator Cake Cutting Name | Role | Phone | + +------+ + | Abran Alas MD | PCP | | + +------+ + Encounter Details +--------+ + + + + | Date | Type | Department | Care Team | Description | +--------+ + + + + | 11/16/ | Orders Only | [facility] | Derrick Stafford, | Dyslipidemia; | | 2018 | | NEUROSURGERY [address] | DO [address] | Typical atrial | | | | [address] | [address] [place], [place] | flutter (HCC); | | | | [place], [place] | [address] | Lumbar radiculopathy | | | | [address] | | | | | | [phone] | | | +--------+ + + + [...] | | 2020 | Visit | | [address] | | | | | | [place] | | | | | | [address] | | | | | | | | +--------+---------+ + + + documented as of this encounter Results CBC with Differential (02/16/2018 1:16 PM PDT) + + + + + + | Component | Value | Ref Range | Performed | Pathologist | | | | | At | Signature | + + + + + + | White Blood | 7.1 | 4.0 - 11.0 K/uL | [facility] | | | Cells | | | [facility] | | | | | | [facility] | | | | | | [facility] - | | | | | | LABORATORY | | + + + + + + | Red Blood | 5.56 | 4.30 - 5.70 | [facility] | | | Cells | | M/uL | [facility] | | | | | | [facility] | | | | | | [facility] - | | | | | | LABORATORY | | + + + + + + | Hemoglobin | 15.9 | 13.5 - 18.0 | [facility] | | | | | g/dL | [facility] | | | | | | [facility] | | | | | | [facility] - | | | | | | LABORATORY | | + + + + + + | Hematocrit | 49.4 | 40.0 - 51.0 % | [facility] | | | | | | [facility] | | | | | | [facility] | | | | | | [facility] - | | | | | | LABORATORY | | + + + + + + | MCV | 88.8 | 83.0 - 101.0 fL | [facility] | | | | | | [facility] | | | | | | [facility] | | | | | | [facility] - | | | | | | LABORATORY | | + + + + + + | MCH | 28.6 | 28.0 - 35.0 pg | [facility] | | | | | | [facility] | | | | | | [facility] | | | | | | [facility] - | | | | | | LABORATORY | | + + + + + + | MCHC | 32.2 | 32.0 - 36.0 | [facility] | | | | | g/dL | [facility] | | | | | | [facility] | | | | | | [facility] - | | | | | | LABORATORY | | + + + + + + | RDW-CV | 14.3 | <15.0 % | [facility] | | | | | | [facility] | | | | | | [facility] | | | | | | [facility] - | | | | | | LABORATORY | | + + + + + + | Platelet | 134 (L) | 140 - 440 K/uL | [facility] | | | Count | | | [facility] | | | | | | [facility] | | | | | | [facility] - | | | | | | LABORATORY | | + + + + + + | MPV | 9.6 | fL | [facility] | | | | | | [facility] | | | | | | [facility] | | | | | | [facility] - | | | | | | LABORATORY | | + + + + + + | % | 55.1 | 45.0 - 82.0 % | [facility] | | | Neutrophils | | | [facility] | | | | | | [facility]ICAL | | | | | | CENTER - | | | | | | LABORATORY | | + + + + + + | % | 28.5 | 20.0 - 45.0 % | [facility] | | | Lymphocytes | | | [facility] | | | | | | [facility] | | | | | | CENTER - | | | | | | LABORATORY | | + + + + + + | % Monocytes | 13.2 (H) | 4.0 - 12.0 % | [facility] | | | | | | [facility] | | | | | | [facility] | | | | | | C[facility] - | | | | | | LABORATORY | | + + + + + + | % | 2.7 | 0.0 - 5.0 % | [facility] | | | Eosinophils | | | [facility] | | | | | | [facility] | | | | | | CENTER - | | | | | | LABORATORY | | + + + + + + | % Basophils | 0.5 | 0.0 - 1.0 % | [facility] | | | | | | [facility] | | | | | | [facility] | | | | | | CENTER - | | | | | | LABORATORY | | + + + + + + | Absolute | 3.90 | 1.80 - 8.50 | [facility] | | | Neutrophils | | K/uL | [facility] | | | | | | [facility] | | | | | | CENTER - | | | | | | LABORATORY | | + + + + + + | Absolute | 2.00 | 0.60 - 3.20 | [facility] | | | Lymphocytes | | K/uL | [facility] | | | | | | [facility] | | | | | | CENTER - | | | | | | LABORATORY | | + + + + + + | Absolute | 0.90 | 0.00 - 1.00 | [facility] | | | Monocytes | | K/uL | [facility] | | | | | | [facility] | | | | | | CENTER - | | | | | | LABORATORY | | + + + + + + | Absolute | 0.20 | 0.00 - 0.40 | [facility] | | | Eosinophils | | K/uL | [facility] | | | | | | [facility] | | | | | | CENTER - | | | | | | LABORATORY | | + + + + + + | Absolute | 0.00 | 0.00 - 0.10 | [facility] | | | Basophils | | K/uL | [facility] | | | | | | [facility]ICAL | | | | | | CENTER - | | | | | | LABORATORY | | + + + + + + + + | Specimen | + + | Blood | + + + + + + + | Performing | Address | City/State/Zipcode | Phone Number | | Organization | | | | + + + + + | [facility] | [address] | [place] | [phone] | | [facility] | | [address] | | | - LABORATORY | | | | + + + + + ECG 12 lead (02/16/2018 1:10 PM PDT) + + + + + + | Component | Value | Ref Range | Performed | Pathologist | | | | | At | Signature | + + + + + + | VENTRICULAR | 65 | BPM | [facility] | | | RATE EKG | | | | | + + + + + + | ATRIAL RATE | 65 | BPM | [facility] | | + + + + + + | P-R | 206 | ms | [facility] | | | INTERVAL | | | | | + + + + + + | QRS | 100 | ms | [facility] | | | DURATION | | | | | + + + + + + | Q-T | 400 | ms | [facility] | | | INTERVAL | | | | | + + + + + + | Q-T | 416 | ms | [facility] | | | INTERVAL | | | | | | (CORRECTED) | | | | | + + + + + + | P WAVE AXIS | 22 | degrees | [facility] | | + + + + + + | QRS AXIS | 10 | degrees | [facility] | | + + + + + + | T AXIS | 33 | degrees | [facility] | | + + + + + + | INTERPRETAT | Normal sinus rhythm with | | [facility] | | | ION TEXT | 1st degree AV blockNo | | | | | | previous ECGs | | | | | | availableConfirmed by | | | | | | CRISTINE FRANCISCO MD ([id number]) | | | | | | on 02/16/2018 8:12:06 PM | | | | + + + + + + + + | Specimen | + + | | + + + + + | Narrative | Performed At | + + + | | | + + + + +---------+ + + | Performing | Address | City/State/Zipcode | Phone Number | | Organization | | | | + +---------+ + + | [facility] | | | | + +---------+ + + documented in this encounter Visit Diagnoses + + | Diagnosis | + + | Dyslipidemia Other and unspecified hyperlipidemia | + + | Typical atrial flutter (HCC) Atrial flutter | + + | Lumbar radiculopathy Thoracic or lumbosacral neuritis or radiculitis, unspecified | + + documented in this encounter"
--- OUTSIDE RECORDS SUMMARY | ~2020-05-10 | XMS | Encounter Summary ---
Demographics + + + | Address | [address] | | | [place] [address] | + + + | Home Phone | | + + + | Preferred Language | Unknown | + + + | Marital Status | | + + + | Jehovah'S Witness Affiliation | 1027 | + + + | Race | Unknown | + + + | Ethnic Group | Unknown | + + + Author + + + | Author | [facility] | | | and [place] | + + + | Organization | [facility] | | [...] | | | | | [place] [address] | | + + + + + Care Team Providers + +------+ + | Care Low Voltage Technician Name | Role | Phone | + +------+ + | Abran Alas MD | PCP | | + +------+ + Encounter Details +--------+ + + + + | Date | Type | Department | Care Team | Description | +--------+ + + + + | 08/25/ | Hospital | [facility] | Jaret Alvarez, | S/P lumbar fusion; | | 2018 | Encounter | MED CTR XRAY [address] | PA-C [address] | Lumbar radiculopathy | | | | [place] | [address] [place] | | | | | [place] [address] | [place] [address] | | | | | [phone] | [phone] | | | | | | | | +--------+ + + + [...] | 09/04/ | Office | Cardiology | Caterian Catalan, | | | 2019 | Visit | | MD Juan J [facility] | | | | | | [place], [place] | | | | | | [address] | | | | | | | | +--------+---------+ + + + documented as of this encounter Procedures + +--------+ + + + | Procedure Name | Priori | Date/Time | Associated Diagnosis | Comments | | | ty | | | | + +--------+ + + + | XR LUMBAR SPINE 2 OR | Routin | 08/25/2018 | S/P lumbar fusion | Results for this | | 3 VW | e | 9:44 AM | Lumbar | procedure are in the | | | | PDT | radiculopathy | results section. | + +--------+ + + + documented in this encounter Results XR Lumbar Spine 2 or 3 Vw (08/25/2018 9:44 AM PDT) + + | Specimen | + + | | + + + + + | Narrative | Performed At | + + + | XR LUMBAR SPINE 2 OR 3 VW 08/25/2018 9:44 AM HISTORY: s/p lumbar | [facility] | | fusion. COMPARISON: 05/27/2018 FINDINGS: Intact appearance of | | | [...] | | | MD Brittnee Electronically signed: 08/25/2018 11:19 AM | | + + + + + | Procedure Note | + + | Dennis, Rad Results In - 08/25/2018 11:22 AM PDT XR LUMBAR SPINE 2 OR 3 VW 08/25/2018 | | 9:44 AMHISTORY: s/p lumbar fusion.COMPARISON: 05/27/2018FINDINGS:Intact appearance of the | | posterior and interbody fusion hardware at L3-L5.Moderate multilevel disc marginal | | osteophytosis of the unfused thoracic andlumbar spine. Vertebral body heights and | | alignment are maintained. No softtissue abnormality. IMPRESSION -No radiographic | | evidence for an interval complication.Dictated and Signed by: Robe Beaulieu MD | | Electronically signed: 08/25/2018 11:19 AM | |Intact appearance of the posterior and [...] Robe Beaulieu MD | | Electronically signed: 08/25/2018 11:19 AM | + + + +---------+ + + | Performing | Address | City/State/Zipcode | Phone Number | | Organization | | | | + +---------+ + + | [facility] | | | | + +---------+ + + documented in this encounter Visit Diagnoses + + | Diagnosis | + + | S/P lumbar fusion Arthrodesis status | + + | Lumbar radiculopathy Thoracic or lumbosacral neuritis or radiculitis, unspecified | + + documented in this encounter"
--- OUTSIDE RECORDS SUMMARY | ~2020-05-10 | XMS | Encounter Summary ---
Demographics + + + | Address | [address] | | | [place] [address] | + + + | Home Phone | | + + + | Preferred Language | Unknown | + + + | Marital Status | | + + + | Mandaeism Affiliation | 1027 | + + + | Race | Unknown | + + + | Ethnic Group | Unknown | + + + Author + + + | Author | [facility] | | | and [place] | + + + | Organization | [facility] | | | [...] | | | | | [place] [address] | | + + + + + Care Team Providers + +------+ + | Care Supervisor Travel Trailer Name | Role | Phone | + +------+ + PCP | Unavailable | + +------+ + Encounter Details +--------+ + + + + | Date | Type | Department | Care Team | Description | +--------+ + + + + | 05/23/ | Hospital | [facility] | PaxtonDarin Kamran | | | 2007 | Encounter | MED CTR SLEEP | MD Jesus [address] | | | | | [place] [address] | [address] [facility] | | | | | [place], [place] | [place] [address] | | | | | [address] | [phone] | | | | | [phone] | | | +--------+ + + + [...] [place] | | | | | | [address] | | | | | | | | +--------+---------+ + + + documented as of this encounter Visit Diagnoses Not on filedocumented in this encounter"
--- OUTSIDE RECORDS SUMMARY | ~2020-05-10 | XMS | Encounter Summary ---
Demographics + + + | Address | [address] | | | [place] [address] | + + + | Home Phone | | + + + | Preferred Language | Unknown | + + + | Marital Status | | + + + | Denominational Affiliation | [id number] | + + + | Race | Unknown | + + + | Ethnic Group | Unknown | + + + Author + + + | Author | [facility] | | | and [place] | + + + | Organization | [facility] | | | [...] | Lilliana Clarke | ECON | [address] | | | | | [place] [address] | | + + + + + Care Team Providers + +------+ + | Care Yard Switch Operator Name | Role | Phone | + +------+ + | Abran Alas MD | PCP | | + +------+ + Reason for Visit +---------+ + | Reason | Comments | +---------+ + | Post Op | 4W | +---------+ + Encounter Details +--------+---------+ + + + | Date | Type | Department | Care Team | Description | +--------+---------+ + + + | 03/31/ | Office | [facility] | Jaret Alvarez, | S/P lumbar fusion | | 2018 | Visit | NEUROSURGERY [address] | PA-C [address] | (Primary Dx); Lumbar | | | | [address] | radiculopathy | | | | [place] | [place] [address] | | | | | [address] | [phone] | | | | | [phone] | | | +--------+---------+ + + + [...] + + + | Blood Pressure | 107/70 | 03/31/2018 9:53 AM | | | | | PDT | | + + + + + | Pulse | 73 | 03/31/2018 9:53 AM | | | | | PDT | | + + + + + | Temperature | - | - | | + + + + + | Respiratory Rate | - | - | | + + + + + | Oxygen Saturation | - | - | | + + + + + | Inhaled Oxygen | - | - | | | Concentration | | | | + + + + + | Weight | 83.9 kg (185 lb) | 03/31/2018 9:53 AM | | | | | PDT | | + + + + + | Height | 167.6 cm (5' 6") | 03/31/2018 9:53 AM | | | | | PDT | | + + + + + | Body Mass Index | 29.86 | 03/31/2018 9:53 AM | | | | | PDT [...] + + documented as of this encounter Patient Instructions Patient Instructions Niecy Centeno, Kinesiology Professor - 03/31/2018 9:45 AM PDTIt was a pleasure to see you today. Here is what we discussed. Continue to use the Oxycodone 10 mg in the same fashion that you have been. When you run ou t you you can use the 5 mg tablets and you can cut those in half to slowly wean yourself off of the pain medication. We will also prescribe you 500 mg Methocarbamol today as well. Slowly work on cutting your pain medication dose down. Let us know if you have any questio ns or concerns. Let pain be your guide. If you are doing an activity that starts causing you pain back off and ease back into it slowly. We don't want you taking any risks that do not need to be take n. Do thinks slowly and incrementally. Do thinks slowly and listen to your body. Give your bod y a chance to give you feedback. If it hurts don't do it. It is going to be very important for you to work on your core strength. When you are walkin g really try to engage your core. Use proper posture to keep your muscles and back strong. If you are going to lift anything make sure to use proper body mechanics and lift with your legs not your back. We will get another x-ray in 8 weeks and have you follow up in clinic. You may now slowly increase your lifting up to 15 pounds as tolerated. You may now reach ov erhead but it should only be 1-2 pounds. Please refrain from twisting for the next 8 weeks. In the meantime, you can also begin to wean out of your brace as instructed below. SPINE BRACE WEANING PROTOCOL (5 WEEKS) Below are instructions for weaning your brace. You can move through the weeks slower if yo u feel the need to do so, but the overall goal is to get you out of the brace slowly over th e next several weeks. WEEK 1 If you have been using your brace for activities like sleeping, showering, do not use the b race for these activities any longer but continue using it for everything else. WEEK 2 Stop wearing your brace for sitting and short distance walking. You should use the brace f or anything more involved. WEEK 3 Stop using the brace for medium distance walking. You can bend and twist your back but sti ll proceed slowly with these activities. WEEK 4 Stop using the brace for everything but the most difficult tasks. You should now be able to go on long walks and lift more weight as directed. Add more bending and twisting as tolera dusty. WEEK 5 Stop using the brace for daily use. I would encourage you to use the brace in the future f or activities that you know might aggravate your back or cause pain. You should still work to strengthen your back and use good technique when pickle processor things and bending. documented in this encounter Progress Notes Dipti Castillo RN - 03/31/2018 9:45 AM PDTI Dipti Castillo RN witnessed the patient amanda ving the office with a lumbar bone growth stimulator which was provided by me on behalf of [employer]. Dipti Castillo RN TASuJaret lea PA - 03/31/2018 9:45 AM PDT OSCAR Baxter [address] [facility] [place] [place] [address] PHONE: FAX: NEUROSURGERY FOLLOW-UP CHIEF COMPLAINT: Chief Complaint Patient presents with Post Op 4W HISTORY OF PRESENT ILLNESS: The patient is a 72 y.o. male that had a lumbar fusion for zina k and bilateral leg symptoms on 03/03/18. He returns and overall is doing okay. Prior to calix bakari recalls having a shooting pains down his legs in his medial calf bilaterally. Now the majority of his pain resides in his thighs and he describes his pain as a throbbing pain. He mentions that his symptoms come and go. He is not certain if this is improving or not. The patient has been walking as much as directed. He is taking pain medications at this p oint, but has been decreasing his intake. He is taking half of a pain pill every 6 hours alt ernating it with half of a methocarbamol. The patient has had no issues with his surgical si te. CURRENT MEDICATIONS: Current Outpatient Prescriptions Medication Sig Dispense Refill acetaminophen (TYLENOL) 500 mg tablet Take 1,000 mg by mouth every 6 hours as needed fo r Pain. bisacodyl (DULCOLAX) 5 mg EC tablet Take 5 mg by mouth Daily as needed for Constipation . lactulose (CONSTULOSE) 10 g/15 mL solution Take 30 mLs by mouth Daily as needed. lactulose 10 g/15 mL liquid Take 15-30 mLs by mouth Daily as needed for Constipation. 2 40 mL 2 methocarbamol (ROBAXIN) 500 mg tablet Take 1 tablet by mouth every 6 hours as needed fo r Muscle spasms. 120 tablet 0 oxyCODONE (ROXICODONE) 5 mg tablet Take 1 tablet by mouth every 4 hours as needed for P ain. 90 tablet 0 tamsulosin (FLOMAX) 0.4 mg CAPS Take 0.4 mg by mouth nightly. Every other night No current facility-administered medications for this visit. ALLERGIES: No Known Allergies SOCIAL HISTORY: The patient reports that he has never smoked. He has never used smokeless tobacco. He repo rts that he does not drink alcohol or use drugs. INTERIM PHYSICAL EXAMINATION: Blood pressure 107/70, pulse 73, height 1.676 m (5' 6"), weight 83.9 kg (185 lb). Body mass index is 29.86 kg/m. REVIEW OF SYSTEMS GENERALLY: No fever, no night sweats, no anemia, no fatigue, no recent profound weight ch anges. EYES: No eye problems, no use of corrective lenses, no eye injury, no double vision, no bl indness. EARS, NOSE, AND THROAT: No changes in taste or smell, no hearing difficulty, no ringing in the ears, no ear drainage, no dizziness, no voice changes, no difficulty swallowing, no sig nificant snoring, no sleep apnea, no sinus problems, no major dental work. NEUROLOGICALLY: Please see the review of systems discussed above in the history of present illness. In addition, the patient has numbness/pain of legs, muscle aching, change in walk . PSYCHIATRIC: No depression, no sleep disorders, no anxiety, no bipolar disorder, no psycho tic episodes. CARDIOVASCULAR: No heart attacks, no heart murmur, no heart fluttering, no chest pain, no ankle swelling. LUNG DISEASE: No shortness of breath, no cough, no tuberculosis, no bloody cough, no asth ma, no emphysema/COPD. GASTROINTESTINAL: No bowel disease, no nausea or vomiting, no rectal bleeding, + constipat ion, no stool incontinence, no liver disease, no gallbladder disease, no abdominal pain, no ulcers. KIDNEY DISEASE: No urinary frequency, no painful or difficult urination, no incontinence. ENDOCRINE: No diabetes, no thyroid disease, no osteopenia or osteoporosis, no breast drain age. SKIN: No breast lumps, no skin changes, no rashes, no itches. HEMATOLOGIC/LYMPHATIC: No enlarged lymph nodes, no easy or unusual bleeding, no personal h istory of cancer. RHEUMATOLOGIC: No joint arthritis, no rheumatoid arthritis. GENERAL: Boaz Clarke is in no acute distress with unlabored respirations. SPINE: The patient s incisions are healing well without drainage, significant erythema, o r discharge. EXTREMITIES: No lower extremity edema. NEUROLOGICAL EXAMINATION: MENTAL STATUS: The patient is awake, alert, and oriented. He follows simple and complex commands MOTOR EXAM: Motor strength is 5/5. This is unchanged when compared to the preoperative exa m. SENSORY EXAM: The sensory examination is improved when compared to the preoperative exam. RADIOGRAPHIC REVIEW: The patient s x-rays show stable instrumentation and alignment and were reviewed with the patient today. There have been no interval changes since the immediate postoperative films . Complete fusion has not yet occurred, but this is normal and would not be expected at thi s time. ASSESSMENT: Encounter Diagnoses Name Primary? S/P lumbar fusion Yes Lumbar radiculopathy Past Medical History: Diagnosis Date Ankylosis of lumbar spine Degenerative lumbar disc Dyslipidemia Family history of colon cancer Hard of hearing bilateral hearing aids Lumbar spondylosis JORDAN (obstructive sleep apnea) no CPAP Pain in unspecified thigh Primary insomnia Prostate enlargement Radiculopathy, lumbar region Typical atrial flutter (HCC) PLAN: Overall, the patient is doing well. The patient can see some improvements but continues to recover from recent surgery. We discussed increasing the patient s activities now allowing 15 pound lifting. The monie ent will begin the process of brace weaning as directed. We would like the patient to advan ce slowly with this process and discussed this at length during today's visit. We provided and additional prescription today to help with weaning of pain medication but f uture medications or extended weaning will need to be done with a pain specialist or their [facility] care. We are hoping to see improvement over the coming weeks to months and plan to continue to fo llow this patient. The patient will follow-up in clinic in around 8 weeks for re-evaluation . I, OSCAR Baxter, personally performed the services described in this documentation , as scribed by KESHIA Silverio in my presence, and it is both accurate and complete. OSCAR Baxter 03/31/2018 ELECTRONICALLY SIGNED BY: OSCAR Baxter, 03/31/2018 11:00 documented in this encounter Plan of Treatment +--------+---------+ + + + | Date | Type | Specialty | Care Team | Description | +--------+---------+ + + + | 09/04/ | Office | Cardiology | Caterina Catalan, | | | 2019 | Visit | | MD Juan J [facility] | | | | | | [place] | | | | | | [id number] | | | | | | | | +--------+---------+ + + + documented as of this encounter Results XR Lumbar Spine 2 or 3 Vw (05/27/2018 10:02 AM PDT) + + | Specimen | + + | | + + + + + | Narrative | Performed At | + + + | XR LUMBAR SPINE 2 OR 3 VW 05/27/2018 10:02 AM HISTORY: s/p lumbar | [facility] | | fusion. COMPARISON: Multiple priors. FINDINGS: Again observed | | | are hardware for posterior fusion from L3 through L5 with spacer | | | hardware at these levels. Moderate to severe spondylosis is seen. Bone | | | mineralization is normal. Vertebral body height are preserved with | | | no evidence for compression fractures. Mild disc narrowing is at | | | L2-3. Multilevel facet sclerosis and hypertrophy are present. | | | Visualized ribs and pelvic osseous structures show no acute findings. | | | Soft tissue structures are unremarkable. IMPRESSION - Stable | | | posterior fusion from L3 through L5. Dictated and Signed by: Tay | | | MD Shahzad Electronically signed: 05/27/2018 10:50 AM | | + + + + + | Procedure Note | + + | Dennis, Rad Results In - 05/27/2018 10:53 AM PDT XR LUMBAR SPINE 2 OR 3 VW 05/27/2018 | | 10:02 AMHISTORY: s/p lumbar fusion.COMPARISON: Multiple priors.FINDINGS:Again observed | | are hardware for posterior fusion from L3 through L5 with spacerhardware at these | | levels. Moderate to severe spondylosis is seen. Bonemineralization is normal. Vertebral | | body height are preserved with no evidencefor compression fractures. Mild disc narrowing | | is at L2-3. Multilevel facetsclerosis and hypertrophy are present. Visualized ribs and | | pelvic osseousstructures show no acute findings. Soft tissue structures are | | unremarkable.IMPRESSION -Stable posterior fusion from L3 through L5.Dictated and Signed | | by: Tay Pike MD Electronically signed: 05/27/2018 10:50 AM | |mineralization is normal. Vertebral body height are preserved with no evidence | |for compression fractures. Mild disc narrowing is at L2-3. Multilevel facet | |sclerosis and hypertrophy are present. Visualized ribs and pelvic osseous | |structures show no acute findings. Soft tissue structures are unremarkable. | | | |IMPRESSION - | |Stable posterior fusion from L3 through L5. | | | |Dictated and Signed by: Tay Pike MD | | Electronically signed: 05/27/2018 10:50 AM | + + + +---------+ + + | Performing | Address | City/State/Zipcode | Phone Number | | Organization | | | | + +---------+ + + | [facility] | | | | + +---------+ + + documented in this encounter Visit Diagnoses + + | Diagnosis | + + | S/P lumbar fusion - Primary Arthrodesis status | + + | Lumbar radiculopathy Thoracic or lumbosacral neuritis or radiculitis, unspecified | + + documented in this encounter
--- OUTSIDE RECORDS SUMMARY | ~2020-05-10 | XMS | Encounter Summary ---
Demographics + + + | Address | [address] | | | [place] [address] | + + + | Home Phone | | + + + | Preferred Language | Unknown | + + + | Marital Status | | + + + | Gnosticism Affiliation | 1027 | + + + | Race | Unknown | + + + | Ethnic Group | Unknown | + + + Author + + + | Author | [facility] | | | and [place] | + + + | Organization | [facility] | | [...] | | | | | [place] [address] | | + + + + + Care Team Providers + +------+ + | Care Cryogenics Repairer Name | Role | Phone | + +------+ + | Abran Alas MD | PCP | | + +------+ + Reason for Referral Evaluate & Treat (Routine) +--------+ + + + + + | Status | Reason | Specialty | Diagnoses / | Referred By | Referred To | | | | | Procedures | Contact | Contact | +--------+ + + + + + | Closed | Specialty | Physical | Diagnoses | Sucharda, | PREMIER | | | Services | Therapy | S/P lumbar | Jaret E, | PHYSICAL | | | Required | | fusion | PA-C [address] | THERAPY - | | | | | Lumbar | [address] | [place] | | | | | radiculopath | [address] | [place] | | | | | y | [place], | [address] | | | | | Procedures | [place] [address] | ST | | | | | Waiting to | Phone: | [facility] | | | | | be | [phone] | [place], [place] | | | | | scheduled. | Fax: | [phone] | | | | | 06/06/18 HIM | [phone] | Phone: | | | | | 05/30/2018 | | [phone] | | | | | | | Fax: | | | | | | | [phone] | +--------+ + + + + + Reason for Visit +---------+ + | Reason | Comments | +---------+ + | Post Op | 3M PO | +---------+ + Encounter Details +--------+---------+ + + + | Date | Type | Department | Care Team | Description | +--------+---------+ + + + | 05/27/ | Office | [facility] | Jaret Alvarez, | S/P lumbar fusion | | 2018 | Visit | NEUROSURGERY [address] | PA-C [address] | (Primary Dx); Lumbar | | | | [address] | [address] [place] | radiculopathy | | | | [place] | [place] [address] | | | | | [id number] | [phone] | | | | | [phone] | | | +--------+---------+ + + + [...] + + + | Blood Pressure | 123/71 | 05/27/2018 10:45 AM | | | | | PDT | | + + + + + | Pulse | 72 | 05/27/2018 10:45 AM | | | | | PDT [...] + + + + | Weight | 83.8 kg (184 lb 12.8 | 05/27/2018 10:45 AM | | | | oz) | PDT | | + + + + + | Height | 167.6 cm (5' 6") | 05/27/2018 10:45 AM | | | | | PDT | | + + + + + | Body Mass Index | 29.83 | 05/27/2018 10:45 AM | | | | | PDT [...] encounter Patient Instructions Patient Instructions Niecy Centeno, Termite Helper - 05/27/2018 10:30 AM PDTIt was a pleasure to see you today. Here is what we discussed. Pay attention to evolving trends. If you notice an increase in pain that does not get gen r with a few days rest and medication please let us know. If the leg symptoms start to get worse please let us know. We would like to start you on gabapentin at night for one month. If you are getting relief please call and let us know and we can have you try taking it during the day as well. In 2 weeks if the gabapentin is not helping at night also let us know and we can try increa sing your night time dose. We will follow up with you back in the office in 3 months with x-rays prior. 3 Month Post Op - Back Instructions -We will get x-rays in 3 and 9 months. These have been ordered and we will call and remind you when it is time to get those done. Please let us know after you get your x-rays done by calling the office. -At your discretion you can slowly start increasing your lifting from 15-30 pounds. Over ti me if you are doing well you can continue and slowly increase your lifting up to 75 pounds. Lastly, it is my recommendation that you limit overhead lifting to less than 50 pounds. -Other than this there are no specific rules. It is our general recommendation is that you progress into all of your new activities slowly and listen to your body. -Let pain be your guide. If you are doing an activity that starts causing you pain back off and ease back into it slowly. We don't want you taking any risks that do not need to be gordon en. -If you have any questions or concerns please feel free to give us a call otherwise you can follow up with your primary care provider. documented in this encounter Progress Notes Jaret Alvarez PA-C - 05/27/2018 10:30 AM PDT Jaret Alvarez PA-C [address] [facility] [address] [place] [address] PHONE: FAX: NEUROSURGERY FOLLOW-UP CHIEF COMPLAINT: Chief Complaint Patient presents with Post Op 3M PO HISTORY OF PRESENT ILLNESS: The patient is a 72 y.o. male that had a lumbar fusion for zina k and bilateral leg symptoms on 03/03/2018. He returns and overall is doing okay. The patie nt mentions that his leg symptoms are about the same as they were before surgery. He has shakila n, tingling, numbness, and weakness in his legs. His left leg accounts for 75% of his sympto ms and his right leg accounts for 25%. He does note that the pain down his less sharp or int ense. He has occasional throbs of pain in his back but fairly minimal. His left foot is very tender to the touch which is a new symptoms for him. His leg symptoms make it very difficul t for him to sleep at night. He is not able to put on his shoes or socks because of increased tightness in his anterior thighs when he bends over. The patient has been walking as much as directed. He is not taking pain medications at th is point. He has been off pain medications for about 3 weeks. He has had an increase in itch ing in his legs. The patient has had no issues with his surgical site. PAST MEDICAL HISTORY: Past Medical History: Diagnosis Date Ankylosis of lumbar spine Degenerative lumbar disc Dyslipidemia Family history of colon cancer Hard of hearing bilateral hearing aids Lumbar spondylosis JORDAN (obstructive sleep apnea) no CPAP Pain in unspecified thigh Primary insomnia Prostate enlargement Radiculopathy, lumbar region Typical atrial flutter (HCC) PAST SURGICAL HISTORY: Past Surgical History: Procedure Laterality Date COLONOSCOPY 04/2008 LUMBAR SPINE SURGERY Right 03/03/2018 Procedure: L3-4, L4-5 Lateral Anterior Interbody Fusion; Surgeon: Derrick Stafford DO; Dalia cation: [facility] CUFF REPAIR Left 02/2015 Dr. Jonas; [place] TONSILLECTOMY [facility]; [facility] TYMPANOPLASTY 1991 Dr. Lees ;[place] CURRENT MEDICATIONS: Current Outpatient Prescriptions Medication Sig Dispense Refill acetaminophen (TYLENOL) 500 mg tablet Take 1,000 mg by mouth every 6 hours as needed fo r Pain. gabapentin (NEURONTIN) 300 mg capsule Take 1 capsule by mouth nightly. 90 capsule 0 tamsulosin (FLOMAX) 0.4 mg CAPS Take [...] Problems Child 6 other childern No history INTERIM PHYSICAL EXAMINATION: Blood pressure 123/71, pulse 72, height 1.676 m (5' 6"), weight 83.8 kg (184 lb 12.8 oz). B santosh mass index is 29.83 kg/m. REVIEW OF SYSTEMS GENERALLY: No fever, no night sweats, no anemia, + fatigue, no recent profound weight doe nges. EYES: No eye problems, no use of corrective lenses, no eye injury, no double vision, no bl indness. EARS, NOSE, AND THROAT: No changes in taste or smell, + hearing difficulty, no ringing in the ears, no ear drainage, no dizziness, no voice changes, no difficulty swallowing, + signi ficant snoring, no sleep apnea, no sinus problems, no major dental work. NEUROLOGICALLY: Please see the review of systems discussed above in the history of present illness. In addition, the patient has numbness/pain of legs, awake with numbness/pain, wea kness, muscle aching, change in walk, headache. PSYCHIATRIC: No depression, + sleep disorders, no anxiety, no bipolar disorder, no psychot ic episodes. CARDIOVASCULAR: No heart attacks, no heart murmur, no heart fluttering, no chest pain, no ankle swelling. LUNG DISEASE: No shortness of breath, no cough, no tuberculosis, no bloody cough, no asth ma, no emphysema/COPD. GASTROINTESTINAL: No bowel disease, no nausea or vomiting, no rectal bleeding, no constipa tion, no stool incontinence, no liver disease, no [...] in no acute distress with unlabored respirations. Patient had a mildly flat affect today and genuinely looked sleep deprived. SPINE: The patient s incisions are well healed. EXTREMITIES: No lower extremity edema. NEUROLOGICAL EXAMINATION: [...] and were reviewed with the patient today. Increased bony fusion is noted but it is not complete. ASSESSMENT: Encounter Diagnoses Name Primary? S/P lumbar [...] (HCC) PLAN: Overall, the patient is doing okay. The patient can see some improvements but continues to recover from recent surgery. Because patient's leg symptoms are not significantly improved and are affecting his quality of sleep at night, I have started him on 300 mg of Neurontin each night. Hopefully, this will help him. It is possible that we may add in a daytime dos e in the next couple of weeks, but this will be decided later. Because he is obviously havi ng trouble putting on his socks and shoes and notices significant thigh tightness I am recom mending that he go to physical therapy. Hopefully this will help alleviate some of his leg symptoms and difficulty putting on socks and shoes. We discussed increasing the patient s activities now allowing a 30 pound lifting restrict ion that can be gradually increased to an as tolerated limit. The patient should increase r marifer of motion activities as tolerated. We would like the patient to advance slowly with th is process and discussed this at length during today's visit. snf pain medication does not appear to be needed. The patient needs follow-up x-rays to assess the fusion in 3 months from today and 9 months from today. We will review the images and let the patient know how the fusion has healed. I, Jaret Alvarez PA-C, personally performed the services described in this documentati on, as scribed by KESHIA Silverio, in my presence, and it is both accurate and comple te. Jaret Alvarez PA-C 05/27/18 ELECTRONICALLY SIGNED BY: Jaret Alvarez PA-C, 05/27/2018 15:35 documented in thi s encounter Plan of Treatment +--------+---------+ + + + | Date | Type | Specialty | Care Team | Description | +--------+---------+ + + + | 09/04/ | Office | Cardiology | Caterina Catalan, | | | 2019 | Visit | | MD Juan J HERNANDEZ | | | | | | [place] | | | | | | [id number] | | | | | | | | +--------+---------+ + + + + +---------+--------+ + + | Name | Type | Priori | Associated Diagnoses | Order Schedule | | | | ty | | | + +---------+--------+ + + | XR Lumbar Spine 2 or | Imaging | Routin | S/P lumbar fusion | Expected: | | 3 Vw | | e | Lumbar | 02/21/2019, Expires: | | | | | radiculopathy | 04/02/2019 | + +---------+--------+ + + + + +--------+ + + | Name | Type | Priori | Associated Diagnoses | Order Schedule | | | | ty | | | + + +--------+ + + | Ambulatory referral | Outpatient | Routin | S/P lumbar fusion | Ordered: 05/27/2018 | | to Physical Therapy | Referral | e | Lumbar | | | | | | radiculopathy | | + + +--------+ + + documented as of this encounter [...]
--- OUTSIDE RECORDS SUMMARY | ~2020-05-10 | XMS | Encounter Summary ---
Demographics + + + | Address | [address] | | | [place] [address] | + + + | Home Phone | | + + + | Preferred Language | Unknown | + + + | Marital Status | | + + + | Shinto Affiliation | [id number] | + + + [...] | | | | | [place] [address] | | + + + + + Care Team Providers + +------+ + | Care Regional Sales Associate Name | Role | Phone | + [...] Medicine | JORDAN | Darin Andrew | [place] [address] | | | Required | | (obstructive | [address] | | | | | sleep | [place] | [place], | | | | | apnea) | [place] | [place] [address] | | | | | Psychophysio | [place], [place] | Phone: | | | | | logic | [phone] | [phone] | | | | | insomnia | Phone: | Fax: | | | | | Procedures | [phone] | [phone] | | | | | MS POLYSOM | Fax: | | | | | | 6/>YRS SLEEP | [phone] | | | | | | 4/> ADDL | | | | | | | GEORGETTE ATTND | | | | | | | MS POLYSOM | | | | | | [...] Reason | Comments | +---------+ + | Consult | | +---------+ + Evaluate & Treat (Routine) +--------+--------+ + + + + | Status | Reason | Specialty | Diagnoses / | Referred By | Referred To | | | | | Procedures | Contact | Contact | +--------+--------+ + + + + | Closed | | Internal | Diagnoses | Bishop, | [place] | | | | Medicine - | Obstructive | Abran | Darin Andrew | | | | Sleep | sleep apnea | MD Donal | [address] | | | | Medicine / | (adult) | [address] | [place] | | | | Sleep | (pediatric) | [address] [address] | [address] [place] | | | | Medicine | consult, | LISA, | [place] | | | | | [email or web address] | [place] [address] | [address] Phone: | | | | | t at desk, | Phone: | [phone] | | | | | no cpap/AO | [phone] | Fax: | | | | | Procedures | Fax: | [phone] | | | | | NEW PATIENT | [phone] | | +--------+--------+ + + + + Encounter Details +--------+---------+ + + + | Date | Type | Department | Care Team | Description | +--------+---------+ + + + | 06/13/ | Office | [facility] | Darin Matta | JORDAN (obstructive | | 2019 | Visit | SLEEP DISORDER [address] | [address] | sleep apnea) | | | | [address] [place] | [address] | (Primary Dx); | | | | [place] [address] | [place] [address] | Psychophysiologic | | | | [phone] | [phone] | insomnia; Typical | | | | | | atrial flutter (HCC) | +--------+---------+ + + + Social History [...] + + + | Blood Pressure | 138/86 | 06/13/2019 10:57 AM | | | | | PDT | | + + + + + | Pulse | 60 | 06/13/2019 10:57 AM | | | | | PDT | | + + + + + | Temperature | - | - | | + + + + + | Respiratory Rate | 16 | 06/13/2019 10:57 AM | | | | | PDT | | + + + + + | Oxygen Saturation | 95% | 06/13/2019 10:57 AM | | | | | PDT | | + + + + + | Inhaled Oxygen | - | - | | | Concentration | | | | + + + + + | Weight | 86.5 kg (190 lb 11.2 | 06/13/2019 10:57 AM | | | | oz) | PDT | | + + + + + | Height | 168.9 cm (5' 6.5") | 06/13/2019 10:57 AM | | | | | PDT | | + + + + + | Body Mass Index | 30.32 | 06/13/2019 10:57 AM | | | [...] of this encounter Patient Instructions Patient Instructions Darin Matta Jr., MD - 06/13/2019 11:00 AM PDTSLEEP SUGGESTIONS MARTIN Clarke 1) Awaken at nearly the same time [...] time between bed time and wake time. documented in this encounter Progress Notes Darin Matta Jr., MD - 06/13/2019 11:00 AM PDTFormatting of this note might be differen t from the original. 06/13/19 1000 Lee Depression Inventory-II Depression Score 12 - Minimal depression Insomnia Severity Index Insomnia Severity Index 23 Brooklyn Sleepiness Scale 1. Sitting and reading 2 2. Watching TV 2 3. Sitting, inactive in a public place (e.g. a theatre or a meeting) 1 4. As a passenger in a car for an hour without a break 2 5. Lying down to rest in the afternoon when circumstances permit 3 6. Sitting and talking to someone 1 7. Sitting quietly after a lunch without alcohol 2 8. In a car, while stopped for a few minutes in traffic 0 Total score 13 SF-36v2 Score PF 40.32 RP 39.19 BP 38.21 GH 53.19 VT 31.8 SF 37.29 RE 42.24 MH 45.64 PCS 41.17 MCS 41.47 documented in th is encounter H&P Notes Darin Matta Jr., MD - 06/13/2019 11:00 AM PDTFormatting of this note might be differen t from the original. Ariella Dubon [facility] [place] [address] Ref: Abran Alas,* CC: Chief Complaint Patient presents with Consult History of the Present Illness:This is a 73 year old male who is referred for sleep medicin e consultation by Dr. Celena Alas because of insomnia and sleep apnea. Other significant med ical issues include DJD, JORDAN. The patient's records ([facility] EMR and old sleep records) are re viewed. The patient is interviewed and examined. I first saw this patient May 16, 2008 bec ause of fatigue and fragmentation of sleep at night. Bedtime is typically 10 PM with a rise time of 6-7 in the morning. He denied restless legs. He did have sleep fragmentation and he was known to snore loudly. Diagnostic nocturnal polysomnography performed April 23, 2008 demonstrated a latency to sleep onset was prolonged at 32.5 minutes. The sleep efficiency w as reduced at 75.7%. All stages of sleep were noted. The latency to rapid eye movement sle ep was prolonged to 199. Sleep was mildly fragmented for age with an arousal index of 25.4. The respiratory disturbance index was elevated to 25.1 but the AHI was minimally elevated at 9.1. Isaiah oxygen saturation was 90%. The PLMS index was 29.3 but the PLMS arousal inde x was only 0.5. A CPAP trial was unhelpful. Stimulus control therapy was discussed in [facility] with him as well as sleep restriction. He also was treated with zolpidem. He was last s een October 31, 2008 at which time he was on zolpidem 10 mg at night with a bedtime of 11 PM and a rise time of 6 AM. At that time he described more difficulty sleeping in the winterti me than the summer and I suggested a light box. He cancelled further appointments and has n ot been seen since then. Bedtime is usually about 9:30-10pm and rise time is 8am. He estimates a latency to sleep on set of up to several hours (he goes from bed to couch to recliner to bed). He thinks his bes t sleep occurs from 4-8am. He has nocturia 3 times at night and he sometimes gets back to ee. If he can't get back to sleep he wanders about the house trying to find a more comforta ble place to sleep. He denies night sweats and he denies nocturnal heartburn. He often awake ns with a morning dry mouth but not headaches. He dreams occasionally. He denies hypnagogic hallucinations. He isn't a sleep walker. He denies dream enactment during sleep. He denies s leep paralysis. He estimates that he is getting 4-5 hours of sleep at night. He denies restlessness in his legs at night. His hasn't noted that his legs/arms kick/ twitch at night after he falls asleep. His says that he snores loudly. His has occasionally noted apneas but she has sta rted sleeping in other rooms because of his loud snoring. He also can awaken himself gasping for air and snorting. The snoring is worse if he sleeps supine. In the daytime he feels fatigued frequently; "I'm never full of energy." "He sleeps a lot i n the day" according to his . She estimates that he can nap about 3 hours in the daytime (usually a morning and afternoon nap). He was recently at a family event where he couldn't nap and he slept better. He denies cataplexy. He doesn't consume caffeine. Past Medical History: has a past medical history of Ankylosis of lumbar spine, Atrial flut ter (HCC), Degenerative lumbar disc, Dyslipidemia, Family history of colon cancer, Hard of h earing, Lumbar spondylosis, JORDAN (obstructive sleep apnea), Pain in unspecified thigh, Prosta te enlargement, Psychophysiologic insomnia, and Radiculopathy, lumbar region. has a past surgical history that includes Rotator cuff repair (Left, 02/2015); Colonoscopy (04/2008); Tympanoplasty (1991); Lumbar spine surgery (Right, 03/03/2018); and Tonsillectomy and adenoidectomy. No Known Allergies Current Outpatient Medications Medication Sig Dispense Refill aspirin 81 mg EC tablet Take 81 mg by mouth Daily. gabapentin (NEURONTIN) 300 mg capsule Take 1 capsule by mouth nightly. (Patient not gordon ing: Reported on 06/13/2019) 90 capsule 0 tamsulosin (FLOMAX) 0.4 mg CAPS Take 0.4 mg by mouth nightly. Every other night triamcinolone (KENALOG) 0.1% ointment Apply 0.1 Units topically as needed. 0 verapamil (CALAN SR) 180 mg SR tablet Take 1 tablet by mouth Daily as needed. For palpi tations No current facility-administered medications for this visit. Past Surgical History: Procedure Laterality Date COLONOSCOPY 04/2008 LUMBAR SPINE SURGERY Right 03/03/2018 Procedure: L3-4, L4-5 Lateral Anterior Interbody Fusion; Surgeon: Derrick Stafford, DO; Lo cation: [facility] MAIN OR ROTATOR CUFF REPAIR Left 02/2015 Dr. Jonas; Lisa Or. TONSILLECTOMY AND ADENOIDECTOMY TYMPANOPLASTY 1991 Dr. Lees ;[place] There is no immunization history on file for this patient. Family Medical History: family history includes Breast cancer in his daughter; Colon cancer in his brother; Diabetes in his mother; No known problems in his child, father, maternal gr andfather, maternal grandmother, paternal grandfather, and paternal grandmother; Thyroid can cer in his mother. indicated that his mother is . He indicated that his father is . He indicat ed that four of his five sisters are alive. He indicated that two of his three brothers are alive. He indicated that his maternal grandmother is . He indicated that his materna l grandfather is . He indicated that his paternal grandmother is . He indica dusty that his paternal grandfather is . He indicated that all of his six daughters ar e alive. He indicated that his son is alive. He indicated that the status of his child is un known. 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 Review of Systems: Constitutional: Denies unexplained fevers, chills, sweats, significant recent weight scott ge. Eyes:Denies sudden loss of vision, diplopia, blurred vision. ENT: Denies vertigo, nasal or sinus congestion, bleeding gums or poor dental repair. Bila teral hearing aids. Card:Denies exertional substernal chest heaviness. Recent atrial flutter. Resp: Denies cough, wheezing, asthma, hemoptysis GI: Denies nausea, vomiting, abdominal pain, diarrhea, hematochezia. Mild constipation. : Denies dysuria, pyuria, hematuria, frequency, incontinence MS: Denies back pain, neck pain, arthralgias, arthritis, myalgias Neuro: Denies seizures, strokes, loss of consciousness, syncope. Concussion in football. Psych: Denies: depression, anxiety, panic, past history physical or sexual abuse, severe traumatic experiences Endocrine: Denies heat or cold intolerance. Heme: Denies easy bruising or prolonged bleeding. No history of transfusions Allergic/Immunologic: Denies seasonal allergies PE: BP 138/86 | Pulse 60 | Resp 16 | Ht 1.689 m (5' 6.5") | Wt 86.5 kg (190 lb 11.2 oz) | SpO2 95% | BMI 30.32 kg/m Gen: healthy, alert and not in acute distress HEENT:Head: Normocephalic, no lesions, without obvious abnormality. Eye: Normal external eye, conjunctiva, lids cornea, MARTI. Nose: Normal external nose, mucus membranes and septum. Pharynx: Dental Hygiene adequate. Normal buccal mucosa. Mallampati 1. Neck / Thyroid: Supple, no masses, nodes, nodules or enlargement. Pulm: lungs clear to auscultation Card: regular rate and rhythm, S1, S2 normal, no murmur, click, rub or gallop GI: soft and normal bowel sounds : Not examined Rectal: Not Examined Ext: peripheral pulses normal, no pedal edema, no clubbing or cyanosis Skin:no rashes Neuro:Grossly normal Psych:age appropriate and casually dressedoriented to time, place and person, mood and aff ect are within normal limits, pt is a good historian; no memory problems were noted Heme: No cervical LN Questionnaires Review: The score of 13 on the Brooklyn Sleepiness scale suggests significant recognized excessive daytime sleepiness. The score of 23 on the Insomnia Severity Scale sug gests that the patient has severe dissatisfaction with the quality of sleep. The score of 12 on the Lee Depression Inventory is consistent with minimal depression (no suicidal thought s). The score of 3 on the Lee Anxiety Inventory suggests minimal recognized anxiety. The SF 36v2 suggests that he scores nearly 2 standard deviations below the mean and subscales vital ity; that he scores 1-1-1/2 standard deviations below the mean on subscales physical functio n, role physical, body pain, social function; that he scores nearly 1 standard deviation bel ow the mean and subscale role emotional; that he scores approximately half of a standard dev iations below the mean and subscale mental health; that he scores slightly above the mean an d subscale general health. He scores nearly 1 standard deviation below the mean on the phys ical component scale and on the mental component scale. Assessment: JORDAN: It is possible that the patient has much more severe apnea than he has whe n I first evaluated him.I have discussed in detail the pathophysiology of Obstructive Sleep Apnea with the patient. I've discussed that during NREM sleep the skeletal muscles relax and in REM sleep the skeletal muscles are paralyzed. The muscles that support the back of the t hroat (the tongue in particular) also relax during NREM sleep and are paralyzed in REM sleep and when this occurs, the back of the throat collapses some. In some patients with a smalle r back of the throat, this can result in obstruction to the flow of air. This is fundamental ly what occurs in JORDAN. This can cause repetitive obstruction to the flow of air all night lo ng cause a person with JORDAN to awaken repeatedly at night to "open" the back of the throat. I f airflow is significantly restricted, blood oxygen levels can fall. The combination of the repetitive awakenings at night and low oxygen levels lead to numerous other physiologic abno rmalities which can result in nocturia, nocturnal heartburn, night sweats, morning dry mouth , morning headache, and daytime fatigue/sleepiness. Additionally, JORDAN can cause hypertension and, when severe, it dramatically increases the risk of heart disease, heart attack, and st roke. It may play a causative role in obesity and AODM. Untreated JORDAN also dramatically incr eases the risk of fall asleep car accidents. Treatment can help with all of these issues.The various forms of treatment of JORDAN were discussed with the patient including 1) Conservative therapy which typically includes weight loss, avoidance of sleep deprivation, avoidance of alcohol, avoidance of sedative medications, avoidance of smoking, and positional therapy (no n-supine sleeping); 2) Positive Airway Pressure therapy (which is effective in the vast tony rity of patients but compliance can be an issue); 3) Dental Appliance Therapy (which is effe ctive for some patients, typically with mild JORDAN, but compliance is typically good); 4) Expi ratory Positive Airway Pressure - which involves passively increasing EPAP pressures applyin g a "one-way" valve type device (that looks like a "bandaid") over the nares at night which can be effective for very mild JORDAN; 5) Surgical intervention - including Phase I surgery (wh ich typically involves T&A, UPPP, Genioglossus Advancement, Hyoid Suspension) and Phase II s urgery (Bimandibular-Maxillary Facial Advancement) - the surgical solution to JORDAN is complic ated and typically involves several operations; and 6) Hypoglossal Nerve Stimulation Therapy . I am suggesting that we obtain diagnostic nocturnal polysomnography utilizing a split-nig ht technique. Psychophysiologic Insomnia: I once again discussed insomnia with the patient in great det ail. I have emphasized sleep consolidation (a milder version of sleep restriction) as well as stimulus control with him. This is very similar to what we did when I first saw him year s ago. Atrial Flutter: Untreated obstructive apnea could be implicated in his atrial flutter and I discussed this with him. Plan: PSG using a strict split-night protocol SLEEP SUGGESTIONS FOR Boaz Clarke 1) Awaken at nearly the same time [...] time between bed time and wake time. F/u in 2 weeks. Patient Active Problem List Diagnosis Dyslipidemia Typical atrial flutter Lumbar radiculopathy JORDAN (obstructive sleep apnea) Lumbar spondylosis Hard of hearing - bilateral hearing aids worn Atrial flutter Psychophysiologic insomnia Today, 60 minutes was spent face to face with the patient and his ; the majority of ashvin e was spent counseling regarding sleep issues. Parts of this note were dictated using Empriv[employer] voice recognition software. Occasional wrong - word or sound-alike substitutions may have occurred due to the inherent limitations of voi ce recognition software. Please read the chart carefully and recognize, using context, margarita oleary these substitutions have occurred. documented in th is encounter Plan of Treatment +--------+---------+ + + + | Date | Type | Specialty | Care Team | Description | +--------+---------+ + + + | 09/04/ | Office | Cardiology | Caterina Catalan, | | | 2019 | Visit | | MD Juan J HERNANDEZ | | | | | | [place] | | | | | | [id number] | | | | | | | | +--------+---------+ + + + + + +--------+ + + | Name | Type | Priori | Associated Diagnoses | Order Schedule | | | | ty | | | + + +--------+ + + | * [facility] - | Outpatient | Routin | JORDAN (obstructive | Ordered: 06/13/2019 | | AMB Referral | Referral | e | sleep apnea) | | | | | | Psychophysiologic | | | | | | insomnia | | + + +--------+ + + documented as of this encounter Procedures + +--------+ + + + | Procedure Name | Priori | Date/Time | Associated Diagnosis | Comments | | | ty | | | | + +--------+ + + + | DIAGNOSTIC REPORT - | | 10/31/2008 | | Results for this | | EXTERNAL SCAN | | 12:00 AM | | procedure are in the | | | | PST | | results section. | + +--------+ + + + | DIAGNOSTIC REPORT - | | 05/23/2008 | | Results for this | | EXTERNAL SCAN | | 12:00 AM | | procedure are in the | | | | PDT | | results section. | + +--------+ + + + documented in this encounter Results DIAGNOSTIC REPORT - EXTERNAL SCAN (10/31/2008 12:00 AM PST) + + + | Narrative | Performed At | + + + | Ordered by an | | | unspecified provider. | | + + + DIAGNOSTIC REPORT - EXTERNAL SCAN (05/23/2008 12:00 AM PDT) + + + | [...] or maintaining sleep | + + | Typical atrial flutter (HCC) Atrial flutter | + + documented in this encounter
--- OUTSIDE RECORDS SUMMARY | ~2020-05-10 | XMS | Encounter Summary ---
Demographics + + + | Address | [address] | | | [place] [address] | + + + | Home Phone | | + + + | Preferred Language | Unknown | + + + | Marital Status | | + + + | Mandaeism Affiliation | [id number] | + + + | Race | Unknown | + + + | Ethnic Group | Unknown | + + + Author + + + | Author | [facility] | | | and [place] | + + + | Organization | [facility] | | [...] | | | | | [place] [address] | | + + + + + Care Team Providers + +------+ + | Care Tool Design Draftsperson Name | Role | Phone | + [...] Description | +--------+---------+ + + + | 10/31/ | Office | [facility] | Darin Matta | Psychophysiologic | | 2020 | Visit | SLEEP DISORDER [address] | MD [address] | insomnia (Primary | | | | [address] | [address] | Dx) | | | | [place] [address] | [place] [address] | | | | | [phone] | [phone] | | | | | | | [...] + + + | Blood Pressure | 140/80 | 10/31/2019 10:39 AM | | | | | PST | | + + + + + | Pulse | 66 | 10/31/2019 10:39 AM | | | | | PST | | + + + + + | Temperature | - | - | | + + + + + | Respiratory Rate | 16 | 10/31/2019 10:39 AM | | | | | PST | | + + + + + | Oxygen Saturation | 98% | 10/31/2019 10:39 AM | | | | | PST | | + + + + + | Inhaled Oxygen | - | - | | | Concentration | | | | + + + + + | Weight | 86.6 kg (190 lb 14.7 | 10/31/2019 10:39 AM | | | | oz) | PST | | + + + + + | Height | - | - | | + + + + + | Body Mass Index | 30.81 | 08/02/2019 1:27 PM | | | | | PDT [...] Progress Notes Darin Matta Jr., MD - 10/31/2019 10:45 AM PSTThis patient comes in for follow-up on in somnia and obstructive apnea. Diagnostic nocturnal polysomnography performed July 05, 2019 demonstrated a low sleep efficiency of 59.8%. Sleep was fragmented. The AHI was eleva dusty mildly at 6.5. Isaiah oxygen saturation was 86%. The PLMS index was 52.1. The PLMS berkley usal index was borderline at 4.9. Ferritin level checked July 24, 2019 was 173. Trial of CPAP performed and was relatively unsuccessful. I have been working with him on cogniti ve behavioral suggestions included the followin) Awaken at nearly the same time ever [...] time between bed time and wake time. I last saw him August 17, 2019 at which time he thought he was doing somewhat better but n ot a whole lot better. At that point I asked him to keep a modified sleep diary which he br ings in to clinic today. The diary started August 17, 2019 and the last day recorded is Julio dejesus 2019. This indicates an average bedtime of approximately midnight but with occasio nal bedtimes of 11 PM. This shows a wake time averages about 6 cm but with a range of 5 AM to 8 AM. There is no napping in the daytime. He appears to average about 6 hours of sleep at night. There have been no evenings where he has slept the entire time from midnight to 8 AM. He usually has two 1 hour awakenings. I reviewed all of this with him. The other we have reached the following conclusions: 1. He is keeping a fairly regular sleep-wake schedule. Is not napping. 2. He has had no evenings where he has slept all night long. 3. He consistently has 1-3 awakenings at night each lasting approximately an hour. 4. He is consistently getting between 6 and 7 hours of sleep but he appears to be in bed for 8 to 9 hours. Patient has tried hypnotics in the past which he did not like and he does not wish another trial of hypnotics (with which I agree). My conclusion however from a sleep diary is that he likely only requires about 6 to 7 hours of sleep but he does not require more sleep than that. I have discussed with him that most people are very happy with her sleep when they have a very high sleep efficiency (in other words they go to bed and sleep until it is time to wake up). I have discussed with him that it is unlikely he is going to get more than 6 to 7 hours of sleep and any night or we would have seen this over the last 2 months of a sleep diary. Thus I think it is reasonable to c rinku that he likely would require 6 to 7 hours of sleep. To get a high sleep efficiency then the logical thing to do might be to have him spend less time in bed. Although he under stands this he is very reluctant to consider doing this. Sleep restriction therapy really i s the foundation for cognitive behavioral therapy of insomnia in my opinion. Suggested that there is basically the options at the present time that he could consider: 1. He abandon attempts at therapy for his insomnia and that he just continue to sleep the way he currently is doing. 2. That he consider embarking on gentle sleep restriction at the present time. 3. That he basically go to bed and wake up and sleep whenever he wishes but that he dilcia nues to keep sleep diaries next 2 months. We can then compare symptoms as well as sleep chelsey taiwo. He chooses to do the latter. The patient rarely has restless legs and so I do not think tr eating this is necessary. The apnea he has is quite mild and with CPAP trial was not helpfu l. We will plan to see him back in 2 months. He will "free run" in the meantime and he will k eep sleep diaries. BP 140/80 | Pulse 66 | Resp 16 | Wt 86.6 kg (190 lb 14.7 oz) | SpO2 98% | BMI 30.81 kg /m Today, 30 minutes was spent face to face with the patient; the majority of time was spent c yulia regarding sleep. documented in th is encounter Plan of Treatment +--------+---------+ + + + | Date | Type | Specialty | Care Team | Description | +--------+---------+ + + + | 09/04/ | Office | Cardiology | Caterina Catalan, | | | 2019 | Visit | | MD Juan J HERNANDEZ | | | | | | [facility] | | | | | | [id number] | | | | | | | | +--------+---------+ + + + documented as of this encounter Visit Diagnoses + + | Diagnosis | + + | Psychophysiologic insomnia - Primary Persistent disorder of initiating or maintaining | | sleep | + + documented in this encounter
--- OUTSIDE RECORDS SUMMARY | ~2020-05-10 | XMS | Encounter Summary ---
Demographics + + + | Address | [address] | | | [place] [address] | + + + | Home Phone | | + + + | Preferred Language | Unknown | + + + | Marital Status | | + + + | Yarsanism Affiliation | [id number] | + + + [...] | | | | | [place] [address] | | + + + + + Care Team Providers + +------+ + | Care Manager Cleaning Name | Role | Phone | + +------+ + | Abran Alas MD | PCP | | + +------+ + Reason for Visit + + + | Reason | Comments | + + + | CPAP Follow Up | Sleep Resource | + + + Encounter Details +--------+ + + + + | Date | Type | Department | Care Team | Description | +--------+ + + + + | 08/02/ | Clinical | [facility] | Claritza Loomis MD | JORDAN (obstructive | | 2019 | Support | SLEEP DISORDER [address] | [address] | sleep apnea) | | | | [address] | [place] | (Primary Dx) | | | | [place] [address] | [id number] | | | | | [phone] | | | +--------+ + + + [...] + + + | Blood Pressure | 120/72 | 08/02/2019 1:27 PM | | | | | PDT | | + + + + + | Pulse | 73 | 08/02/2019 1:27 PM | | | | | PDT | | + + + + + | Temperature | - | - | | + + + + + | Respiratory Rate | 16 | 08/02/2019 1:27 PM | | | | | PDT | | + + + + + | Oxygen Saturation | 98% | 08/02/2019 1:27 PM | | | | | PDT | | + + + + + | Inhaled Oxygen | - | - | | | Concentration | | | | + + + + + | Weight | 88.9 kg (195 lb 15.8 | 08/02/2019 1:27 PM | | | | oz) | PDT | | + + + + + | Height | 167.6 cm (5' 6") | 08/02/2019 1:27 PM | | | | | PDT | | + + + + + | Body Mass Index | 31.63 | 08/02/2019 1:27 PM | | | [...] documented as of this encounter Progress Notes Burke Vela, Neurodiagnostic Tech - 08/02/2019 1:30 PM PDTFormatting of this note migh t be different from the original. Clinical Sleep Support Visit Patient:Boaz Clarke Date of :1945 Encounter Date: 08/02/2019 Reason for visit: Chief Complaint Patient presents with CPAP Follow Up Sleep Resource Patient was last seen in our clinic on 07/24/[address] Matta, referred to us by Dr. Massey on . PAP was ordered on 07/24/2019 from [facility]. Patient has been using PAP for 8 out of 8 nigh ts, wearing the ResMed S-10 auto PAP with settings of 4 to 15, wearing the F-20 mask. ~ Vital signs were: BP 120/72 | Pulse 73 | Resp 16 | Ht 1.676 m (5' 6") | Wt 88.9 kg (1 95 lb 15.8 oz) | SpO2 98% | BMI 31.63 kg/m ~ Patient is doing okay and has been taking his mask off during the night at times. He admi ts to feeling a little better. He is a AP failed user about 10 years ago due to mask issues. He does seem motivated to continue this round. His mask fit well, he put it on without prob lems and the fit test was good. ~ Overall leak is 15 ~ Compliance >4 hours =87% with AHI of 9.2 ~ Average daily usage of 4:21 Original date of study was on 07/05/2019 that showed an AHI of 6.5 with a O2 Isaiah of 86% wi th 0.9 minutes < 88%. Sleep hygiene reviewed with the patient included a review of his sleep study results and do wnload. All PAP unit instructions for use including humidification, setting, mask fit and cl eaning. I did go over his sleep cycles and circadian rhythms with a reminder to wear his PAP at all times during his sleep. Plan for continuous PAP use: 1. Wear PAP any time you are sleeping 2. Continue with PAP indefinitely 3. Follow up with Dr. Matta in 1 week with equipment Burke Vela RPSGT CSE [facility] umented in this encounter Plan of Treatment +--------+---------+ + + + | Date | Type | Specialty | Care Team | Description | +--------+---------+ + + + | 09/04/ | Office | Cardiology | Caterina Catalan, | | | 2019 | Visit | | MD Juan J HERNANDEZ | | | | | | [place] | | | | | | [id number] | | | | | | | | +--------+---------+ + + + documented as of this encounter Visit Diagnoses + + | Diagnosis | + + | JORDAN (obstructive sleep apnea) - Primary Obstructive sleep apnea (adult) (pediatric) | + + documented in this encounter
--- OUTSIDE RECORDS SUMMARY | ~2020-05-10 | XMS | Encounter Summary ---
Demographics + + + | Address | [address] | | | [place] [address] | + + + | Home Phone | | + + + | Preferred Language | Unknown | + + + | Marital Status | | + + + | Jainism Affiliation | [id number] | + + + | Race | Unknown | + + + | Ethnic Group | Unknown | + + + Author + + + | Author | Formerly [facility] | | | and [place] | + + + | Organization | [facility] | | | [...] [place] | | | | | [place] [address] | | + + + + + Care Team Providers + +------+ + | Care Research Assistant Name | Role | Phone | + [...] | | | | | | | ND | | | | | | | ARTHRODESIS | | | | | | | POSTERIOR/PO | | | | | | | STEROLATERAL | | | | | | | LUMBAR ND | | | | | | | LUMBAR SPINE | | | | | | | | | | | | | | FUSION,ANTER | | | | | | | APPRCH ND | | | | | | | INSJ BIOMCHN | | | | | | | DEV | | | | | | | INTERVERTEBR | | | | | | | AL DSC SPC | | | | | | | W/ARTHRD ND | | | | | | | SPINE | | | | | | | FUSN,POST | | | | | | | TECH,EA | | | | | | | ADDNL SGMT | | | | | | | ND SPINAL | | | | | | | FUSION,ANT,E | | | | | | | A ADNL LEVEL | | | | | | | ND INSJ | | | | | | [...] | | | | | | SEG ND | | | | | | | [...] + + | 03/03/ | Hospital | [facility] | Derrick Stafford, | S/P lumbar fusion | | 2018 - | Encounter | [facility] | DO [address] | (Primary Dx) | | | | [address] | [place] [address] | | | 03/06/ | | [place] [id number] | [address] | | | 2017 | | [phone] | | | +--------+ + + + [...] + + + | Blood Pressure | 116/65 | 03/06/2018 8:52 AM | | | | | PDT | | + + + + + | Pulse | 83 | 03/06/2018 8:52 AM | | | | | PDT | | + + + + + | Temperature | 37.3 C (99.2 F) | 03/06/2018 8:52 AM | | | | | PDT | | + + + + + | Respiratory Rate | 16 | 03/06/2018 8:52 AM | | | | | PDT | | + + + + + | Oxygen Saturation | 90% | 03/06/2018 8:52 AM | | | | | PDT [...] month post op appointment before your appointment. [id number] [employer]. [address] [place] [id number]. All righ ts reserved. This information is [...] might be different fro m the original. 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 MOTOR EXAM: Motor strength is [...] note might be different from the original. 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 MOTOR EXAM: Motor strength is [...] this note might be different from the [facility] NEUROSURGERY PROGRESS NOTE PATIENT NAME: Boaz [...] has no apparent deficits with short or halfway memory. MOTOR EXAM: Motor strength is stable [...] signed by: Derrick Stafford DO, 03/03/2018 8:44 [facility] I expect this patient will be hospitalized for post-operative care of an IP-only procedure and expect the post-hospital plan to be determined once additional information is obtained. reyerDerrick DO - 03/03/2018 8:44 AM PDT Derrick Stafford DO [address], [address] [place] [address] FAX: NEUROSURGERY HISTORY AND PHYSICAL EXAMINATION CHIEF [...] 02/2015 Dr. Jonas; Lisa Or. TONSILLECTOMY 1954 [facility]; [facility] Or. TYMPANOPLASTY 1991 Dr. 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 CRANIAL NERVES: II: Acuity is [...] Intrinsics 5 5 Ulnar Intrinsics 5 5 Assistant Paralegal Strength 5 5 Hip Flexion 5 5 [...] is motivated participant Equipment Recommendations: sock aide, sleeping car service attendant Planned Interventions:ADL retraining, IADL retraining, balance training, [...] HOB elevated Supine to Sit, Level of Badger: contact guard assist, verbal cues required, set up re quired Sit to Supine, Level of Badger: minimal assist (75% patient effort), verbal cues requ ired Safety Issues: decreased use of arms for pushing/pulling, impaired trunk control for bed mo bility, decreased use of legs for bridging/pushing Impairments: decreased flexibility, strength decreased, impaired balance, pain Transfers Cues for hand placement, cues for safety, present throughout session for education Sit-Stand, Level of Badger: verbal cues required, stand by assist Stand-Sit, Level of Badger: verbal cues required, stand by assist Cwi-Buqhh-Ysx, Assistive Device: 2 wheeled walker (FWW) Tub, Level of Badger: set up required, verbal cues required, contact [...] STG Status continued at 03/06/2018 0943 STG Badger Level modified independent at 03/04/2018 1040 STG Position standing at 03/04/2018 1040 STG Comments While maintaining spinal precautions at 03/04/2018 1040 LB Dressing Goal Most Recent Value STG Status continued at 03/06/2018 0943 STG Badger Level modified independent at 03/04/2018 1040 STG Adaptive Equipment sock-aid, sleeping car service attendant at 03/04/2018 1040 STG Comments While maintaining spinal precautions at 03/04/2018 1040 Toilet Transfer Goal Most Recent Value STG Status continued at 03/06/2018 0943 STG Badger Level supervised at 03/04/2018 1040 STG Assistive Device 2 wheeled walker (FWW), grab bars at 03/04/2018 1040 STG Comments While maintaining spinal precautions at 03/04/2018 1040 Tub/Shower Transfer Goal Most Recent Value Tub/Shower Type tub/shower combo at 03/04/2018 1040 STG Status continued, progressing at 03/06/2018 0943 STG Badger Level supervised at 03/04/2018 1040 STG Assistive [...] brace precautions with min v/c Level of Badger: stand by assist Assistive Device: 2 wheeled walker (FWW) Distance (feet): 150, 120 Gait Deviations: double stance time increased, limb motion velocity decreased, step length decreased, stride length decreased, gsdnk-ot-sbgvec ratio decreased, nzj-ki-ipkks clearance decreased, weight-shifting ability decreased Stairs pt instructed in proper technique for max safety with stairs, pt's present for caregiv er training Number of Stairs: 4 Handrail Location: both sides Level of Badger: stand by assist Assistive Device: 2 rails Technique Used: step to step (ascending), step to step (descending) Safety Issues: weight-shifting ability decreased Impairments: pain, strength decreased, impaired balance Transfers pt needing single cue at start of session for hand placement, pt demo'd good carry throught throughout rest of session Bed-Chair, Level of Badger: stand by assist Chair-Bed, Level of Badger: stand by assist Cqu-Ifpmq-Gqh, Assistive Device: 2 wheeled walker (FWW) Sit-Stand, Level of Badger: stand by assist Stand-Sit, Level of Badger: stand by assist Mej-Fyzsd-Vhg, Assistive Device: 2 wheeled walker (FWW) Toilet, Level of Badger: stand by assist Toilet, Assistive Device: 2 wheeled walker (FWW) Safety Issues: balance decreased during turns, step length decreased, weight-shifting abili ty decreased Impairments: decreased flexibility, strength decreased, impaired balance, postural control impaired, pain Bed Mobility noted pt log roll improved from yesterday, min assist with sit to supine Assistive Device: none Roll Left, Level of Badger: stand by assist Roll Right, Level of Badger: stand by assist Scoot/Bridge, Level of Badger: stand by assist Supine to Sit, Level of Badger: not tested (pt recieved walking in [place] with OT) Sit to Supine, Level of Badger: minimal assist (75% patient effort) Safety Issues: decreased use of arms for pushing/pulling, impaired trunk control for bed mo bility, decreased use of legs for bridging/pushing Impairments: decreased flexibility, strength decreased, impaired balance, pain Functional Endurance good for activities presented PT Goal Review Date Most Recent Value STG Review Date 03/11/18 at 03/04/2018 0957 [place]-Tgl-Jebnrf Goal Most Recent Value STG Status progressing at 03/06/2018 1213 STG Badger Level modified independent at 03/04/2018 0957 STG Assistive Device none at 03/04/2018 0957 Kck-Jdnyz-Iry Goal Most Recent Value STG Status progressing at 03/06/2018 1213 STG Badger Level modified independent at 03/04/2018 0957 STG Assistive Device 2 wheeled walker (FWW) at 03/04/2018 0957 Gait Goal Most Recent Value STG Status progressing at 03/06/2018 1213 STG Badger Level modified independent at 03/04/2018 0957 STG Assistive Device 2 wheeled walker (FWW) at 03/04/2018 0957 STG Distance (feet) 150 at 03/04/2018 0957 Stair Goal Most Recent Value STG Status progressing at 03/06/2018 1213 STG Badger Level modified independent at 03/04/2018 0957 STG [...] 12:15 lan of Care - Mignon Daigle, HOB GRINDER - 03/06/2018 3:29 AM PDTProblem: Patient Care [...] relief noted. Ambulat ing with staff in [facility]. Voiding adequately. Bowel tones active [...] softeners. lan of Care - Juan Santillan, SORTING COWS WORKER - 03/05/2018 1:31 PM PDT Problem: Patient [...] foot cleanance with right foot Level of Badger: contact guard assist, stand by assist, verbal cues required Assistive Device: 2 wheeled walker (FWW) Distance (feet): 120 x2 seated rest bwtween Gait Deviations: double stance time increased, limb motion velocity decreased, step length decreased, stride length decreased, cexms-zv-qzetis ratio decreased, kiw-ko-ugown clearance decreased, weight-shifting ability decreased Transfers pt needing cues for hand placement; pt kept walker with him throughout transfer Sit-Stand, Level of Badger: verbal cues required, stand by assist Stand-Sit, Level of Badger: verbal cues required, stand by assist Clu-Cjvln-Bny, Assistive Device: 2 wheeled walker (FWW) Toilet, Level of Badger: stand by assist, verbal cues required Toilet, Assistive Device: 2 wheeled walker (FWW), grab bars Safety Issues: balance decreased during turns, step length decreased, weight-shifting abili ty decreased Impairments: decreased flexibility, strength decreased, impaired balance, postural control impaired, pain Bed Mobility cues for sequencing log roll; Family present for caregiver training Assistive Device: bed rails Roll Right, Level of Badger: stand by assist, verbal cues required Supine to Sit, Level of Badger: minimal assist (75% patient effort), verbal cues requ ired Sit to Supine, Level of Badger: minimal assist (75% patient effort), verbal cues requ ired Safety Issues: decreased use of arms for pushing/pulling, impaired trunk control for bed mo bility, decreased use of legs for bridging/pushing Impairments: decreased flexibility, strength decreased, impaired balance, pain Functional Endurance pt with moderate SOB with exertion PT Goal Review Date Most Recent Value STG Review Date 03/11/18 at 03/04/2018 0957 Vtdvsu-Bwc-Bkobue Goal Most Recent Value STG Status progressing at 03/05/2018 1338 STG Badger Level modified independent at 03/04/2018 0957 STG Assistive Device none at 03/04/2018 0957 Ahn-Hqfmw-Obb Goal Most Recent Value STG Status progressing at 03/05/2018 1338 STG Badger Level modified independent at 03/04/2018 0957 STG Assistive Device 2 wheeled walker (FWW) at 03/04/2018 0957 Gait Goal Most Recent Value STG Status progressing at 03/05/2018 1338 STG Badger Level modified independent at 03/04/2018 0957 STG Assistive Device 2 wheeled walker (FWW) at 03/04/2018 0957 STG Distance (feet) 150 at 03/04/2018 0957 Stair Goal Most Recent Value STG Status new at 03/04/2018 0957 STG Badger Level modified independent at 03/04/2018 0957 STG [...] lan of Care - Donal gramajo Love, HOB GRINDER - 03/05/2018 12:19 AM PDTProblem: Patient Care [...] of serosanguineous output. B-brace precautions ma intained. [facility] - Josefina Kimball RN - [...] is motivated participant Equipment Recommendations: sock aide, sleeping car service attendant Planned Interventions:ADL retraining, IADL retraining, balance training, bed mobility train ing, transfer training, strengthening Recommended Frequency: 5 times/wk Patient Status/Goals: Reflects last filed data and may be from multiple contributors. ADLs Educated pt on using sleeping car service attendant and sock aid for LB dressing tasks. Pt demonstrated ability to use sleeping car service attendant to put on pants and sock aid for socks. Educated spouse about where they could find those AE for home. LB Dressing, Level of Badger: supervised, verbal cues required, set up required Assistive Device: sleeping car service attendant, sock-aid LB Dressing Assess/Train, Position: sitting, standing [...] Device: bed rails Roll Left, Level of Badger: stand by assist, verbal cues required Roll Right, Level of Badger: stand by assist, verbal cues required Scoot/Bridge, Level of Badger: contact guard assist, verbal cues required Supine to Sit, Level of Badger: contact guard assist, verbal cues required Sit to Supine, Level of Badger: minimal assist (75% patient effort), verbal cues [...] grab bars in bathroom. Sit-Stand, Level of Badger: contact guard assist, verbal cues required Stand-Sit, Level of Badger: contact guard assist, verbal cues required Tuv-Hpyea-Bmb, Assistive Device: 2 wheeled walker (FWW) Toilet, Level of Badger: stand by assist, verbal cues required Toilet, [...] STG Status new at 03/04/2018 1040 STG Badger Level modified independent at 03/04/2018 1040 STG Position standing at 03/04/2018 1040 STG Comments While maintaining spinal precautions at 03/04/2018 1040 LB Dressing Goal Most Recent Value STG Status new at 03/04/2018 1040 STG Badger Level modified independent at 03/04/2018 1040 STG Adaptive Equipment sock-aid, sleeping car service attendant at 03/04/2018 1040 STG Comments While maintaining spinal precautions at 03/04/2018 1040 Toilet Transfer Goal Most Recent Value STG Status new at 03/04/2018 1040 STG Badger Level supervised at 03/04/2018 1040 STG Assistive Device 2 wheeled walker (FWW), grab bars at 03/04/2018 1040 STG Comments While maintaining spinal precautions at 03/04/2018 1040 Tub/Shower Transfer Goal Most Recent Value Tub/Shower Type tub/shower combo at 03/04/2018 1040 STG Status new at 03/04/2018 1040 STG Badger Level supervised at 03/04/2018 1040 STG Assistive [...] dizzy but no c/o nausea. Level of Badger: contact guard assist Assistive Device: 2 wheeled walker (FWW) Distance (feet): 25 ft x 2 Gait Deviations: double stance time increased, limb motion velocity decreased, step length decreased, stride length decreased, gavlc-pc-ybkdmh ratio decreased, cwv-fx-kawgm clearance decreased, weight-shifting ability decreased Transfers Bed height raised to facilitate ease and safety of sit > stand transfer. Cues provided for improved foot position and to push up from edge of bed and reach back prior to sitting. Sit-Stand, Level of Badger: contact guard assist, verbal cues required Stand-Sit, Level of Badger: contact guard assist, verbal cues required Akb-Xbgci-Khj, Assistive Device: 2 wheeled walker (FWW) Safety [...] bed rails Supine to Sit, Level of Badger: minimal assist (75% patient effort), verbal cues requ ired Sit to Supine, Level of Badger: moderate assist (50% patient effort), verbal cues [...] STG Review Date 03/11/18 at 03/04/2018 0957 Gfcntw-Dpy-Bqugbr Goal Most Recent Value STG Status new at 03/04/2018 0957 STG Badger Level modified independent at 03/04/2018 0957 STG Assistive Device none at 03/04/2018 0957 Ict-Xupvs-Tjw Goal Most Recent Value STG Status new at 03/04/2018 0957 STG Badger Level modified independent at 03/04/2018 0957 STG Assistive Device 2 wheeled walker (FWW) at 03/04/2018 0957 Gait Goal Most Recent Value STG Status new at 03/04/2018 0957 STG Badger Level modified independent at 03/04/2018 0957 STG Assistive Device 2 wheeled walker (FWW) at 03/04/2018 0957 STG Distance (feet) 150 at 03/04/2018 0957 Stair Goal Most Recent Value STG Status new at 03/04/2018 0957 STG Badger Level modified independent at 03/04/2018 0957 STG [...] at 1515 post L3-5 LAIF, transferred from [facility] bed via hover mat. Boaz [...] patient. lan of Care - Marv Moreno, HOB GRINDER - 03/03/2018 5:37 PM PDTProblem: Patient Care [...] per pt and request. Electronically signed by: Smliey Noe, PT, 03/03/2018 17:28 p Note - Derrick Stafford DO - 03/03/2018 1:11 PM PDTDATE: 03/03/2018 PATIENT: Boaz Clarke SURGEON: Derrick Stafford DO VAULT MANAGER: OSCAR Julian PREOPERATIVE DIAGNOSES 1. Spondylosis L3-4, [...] 50 mm 10-degrees lordotic PEEK cage from [employer] was chosen. It was filled with Infuse and Cambridge putty. It was tamped into the interbody [...] 50 mm 10-degrees lordotic PEEK cage from [employer] was chosen. It was filled with Infuse and Hanna putty. It was tamped into the interbody space of L3-4. Th e retractor was removed and hemostasis was meticulously achieved along the tract. At this point the lateral incision was closed. First the fascial layer was closed with jordana ral xsdqwo-ow-gfgyn interrupted 2-0 Vicryl stitches. Then the subcuticular [...] was decorticated. It was then packed with Cambridge putty. Hemostasis was achieved, and the retractor was removed. This completed the posterolateral fusion at L4-5. Next, the facet joint of L3-4 was targeted with the stealth probe on the right. METRx tubul ar dilators were used to dilate to 6 cm x 18 mm. Soft tissue was cleared away. The facet abundio nt was decorticated. It was then packed with Cambridge putty. Hemostasis was achieved, and the retractor [...] 3 fingerbreadths superior to the first screw yarn man bilaterally, then the rods were p assed subfascially into the screw extenders. A megan baggage checker was used to ensure proper placeme nt of the megan. The O-arm was again brought into the operative field, and using AP and latera l fluoroscopy, the rods were found to be in good position. The rods were then reduced down, and once they were reduced, they were secured in place with set screws which were torqued to the payroll manager's recommended torque. This occurred bilaterally. Next, the [...] [facility] rief Op No te - Derrick Stafford DO - 03/03/2018 1:10 PM PDT Brief Operative Note Boaz Clarke 72 y.o. male 1945 [id number] Proc. Date 03/03/2018 Preop Dx Lumbar spondylosis (M47.816), Neurogenic claudication (M48.062), Lumbar radiculop athy (M54.16), Acute back pain with sciatica, right (M54.41) Postop Dx same Procedure L3-4, L4-5 Lateral Anterior Interbody Fusion Anesthesia General Surgeon Derrick Stafford DO - Primary Unix Systems Administrator Kelley Fay PA-C - Assisting EBL 200 mL Findings Findings consistent with scheduled procedure. No other abnormalities found. Complications none Specimens * No specimens in log * Drains Drain/Device Site 03/03/18 1228 #1 Left posterior lumbar spine (Active) Drainage Characteristics/Odor sanguineous 03/03/2018 12:50 Drainage Amount scant 03/03/2018 12:50 Electronically signed by: Derrick Stafford DO 03/03/2018 13:10 [facility] Derrick Stafford DO at 02/22 1:10 PM PDTdocumented in this encounter Plan of Treatment +--------+---------+ + + + | Date | Type | Specialty | Care Team | Description | +--------+---------+ + + + | 09/04/ | Office | Cardiology | Caterina Catalan, | | | 2019 | Visit | | [address] | | | | | | [place], [place] | | | | | | [address] | | | | | | | [...] | | [place] | | | n [place] | | | Fram | | | [...] | | | n | | | [place], | | | [place] | | | [...] POST OPERATIVE FUSION | | EXTENDING FROM [id number] L5.Dictated and Signed by: Rahul Shin MD [...] St | [place] | | | [facility] | | [address] | | | - BLOOD BANK | [...] + | Diagnosis | + + | Lumbar spondylosis - Primary Lumbosacral spondylosis without myelopathy | + + | S/P lumbar fusion Arthrodesis status | + + documented in this encounter Administered Medications + +--------+ [...] | | +---+---+ + +-------+ +--------+---+---+ | acetaminophen (TYLENOL) tablet | Given | 03/03/20 | 975 mg | | | | 975 mg 975 mg (rounded from | | 18 8:30 | | | | | 1,000 mg), Oral, ONCE, Gisela | | AM PDT | | | | | 03/03/18 at 0830, For 1 dose, | | | | | | | Pre-op | | | | | | + +-------+ +--------+---+---+ +---+---+ | | | +---+---+ + +---------+ +-----+ +---+ | ceFAZolin (ANCEF, KEFZOL) 100 | New Bag | 03/04/20 | 2 g | 40 mL/hr | | | mg/mL IV syringe 2 g 2 g, | | 18 1:43 | | | | | Intravenous, Administer over 30 | | AM PDT | | | | | Minutes, EVERY 8 HOURS INTERVAL, | | | | | | | First dose on Gisela 03/03/18 at | | | | | | | 1730, For 2 doses, Start 8 hours | | | | | | | after previous dose. Last dose | | | | | | | to be given within 24 hours of | | | | | | | surgery end time., Post-op/Phase | | | | | | | II, Indications: Surgical | | | | | | | Prophylaxis | | | | | | + +---------+ +-----+ +---+ +---------+ +-----+ +---+ | New Bag | 03/03/20 | 2 g | 40 mL/hr | | | | 18 5:24 | | | | | | PM PDT | | | | +---------+ +-----+ +---+ + +---+ | | | + +---+ | diphenhydrAMINE (BENADRYL) 12.5 | | | mg/5 mL liquid 25 mg 25 mg, | | | Oral, EVERY 4 HOURS PRN, Itching, | | | Starting [facility] 03/03/18 at 1511, | | | Oral [...] | capsule 100 mg 100 mg, Oral, | | 18 9:40 | | | | | TIMES DAILY, First dose on Gisela | | AM PDT | | [...] | | +---+---+ + +-------+ +--------+---+---+ | gabapentin (NEURONTIN) capsule | Given | 03/03/20 | 600 mg | | | | 600 mg 600 mg, Oral, ONCE, Gisela | | 18 8:29 | | | | | 03/03/18 at 0830, For 1 dose, | | AM PDT | | | | | Pre-op | | | | | | + +-------+ +--------+---+---+ +---+---+ | | | +---+---+ + +---------+ + +--------+---+ | methocarbamol (ROBAXIN) 1,000 | New Bag | 03/03/20 | 1,000 mg | 146.7 | | | mg in sodium chloride 0.9% 100 mL | | 18 4:29 | | mL/hr | | | IVPB 1,000 mg, Intravenous, | | PM PDT | | | | | Administer over 45 Minutes, ONCE, | | | | | | | Gisela 03/03/18 at 1530, For 1 dose, | | | | | | | Give IV dose immediately postop, | | | | | | | Post-op/Phase II | | | | | | + +---------+ + +--------+---+ +---+---+ | | | +---+---+ + +-------+ + +---+---+ | methocarbamol (ROBAXIN) tablet | Given | 03/05/20 | 1,500 mg | | | | 1,500 mg 1,500 mg, Oral, EVERY 6 | | 18 8:54 | | | | | HOURS PRN, Muscle spasms, | | PM PDT | | | | | Starting [facility] 03/03/18 at 1530, | | | | [...] +------+---+---+ +---+---+ | | | +---+---+ + +---------+ +---------+---+ + | scopolamine (TRANSDERM-SCOP) 1 | Patch | 03/03/20 | 1 patch | | Ear-Behi | | mg/3 days 1 patch 1 patch, | Applied | 18 8:30 | | | nd Left | | Transdermal, ONCE, Gisela 03/03/18 at | | AM PDT | | | | | 0830, For 1 dose, Apply to | | | | | | | mastoid process, Pre-op | | | | | | + +---------+ +---------+---+ + +---+---+ | | | +---+---+ + +-------+ +--------+---+---+ | senna (SENOKOT) tablet 8.6 mg | Given | 03/06/20 | 8.6 mg | | | | 8.6 mg, Oral, 2 TIMES DAILY, | | 18 9:40 | | | | | First dose on Wed03/03/18 at | | AM PDT | | [...] +--------+---+---+ +---+---+ | | | +---+---+ + +---------+ +---+-------+---+ | sodium chloride 0.9% (NS) | New Bag | 03/03/20 | | 100 | | | infusion at 100 mL/hr, | | 18 8:30 | | mL/hr | | | Intravenous, CONTINUOUS, Starting | | AM PDT | | | | | Gisela 03/03/18 at 0830, Pre-op | | | | | | + +---------+ +---+-------+---+ +---+---+ | | | +---+---+ + +---------+ +---+-------+---+ | sodium chloride 0.9% (NS) | New Bag | 03/04/20 | | 100 | | | infusion at 100 mL/hr, | | 18 3:24 | | mL/hr | | | Intravenous, CONTINUOUS, Starting | | AM PDT | | | | | Gisela 03/03/18 at 1530, | | | | | | | Post-op/Phase II | | | | | | + +---------+ +---+-------+---+ +---------+ +---+-------+---+ | New Bag | 03/03/20 | | 100 | | | | 18 3:33 | | mL/hr | | | | PM PDT | | | | +---------+ +---+-------+---+ +---+---+ | | | +---+---+ + +-------+ +--------+---+---+ | tamsulosin (FLOMAX) capsule 0.4 | Given | 03/05/20 | 0.4 mg | | | | mg 0.4 mg, Oral, NIGHTLY, First | | 18 8:54 | | | | | dose on Gisela 03/03/18 at 2100, May | | PM [...]
--- OUTSIDE RECORDS SUMMARY | ~2020-05-10 | XMS | Encounter Summary ---
Demographics + + + | Address | [address] | | | [place] [address] | + + + | Home Phone | | + + + | Preferred Language | Unknown | + + + | Marital Status | | + + + | Presybeterian Affiliation | 1027 | + + + | Race | Unknown | + + + | Ethnic Group | Unknown | + + + Author + + + | Author | [facility] | | | and [place] | + + + | Organization | [facility] | | | and [...] | | | | | [place] [address] | | + + + + + Care Team Providers + +------+ + | Care Chemical Applicator Name | Role | Phone | + +------+ + PCP | Unavailable | + +------+ + Encounter Details +--------+ + + + + | Date | Type | Department | Care Team | Description | +--------+ + + + + | 09/30/ | Hospital | [facility] | Carol Tovar MD | Other chest pain | | 2016 - | Encounter | [facility] | [address] | | | | | CLINICAL DECISION | [place] [address] | | | 10/01/ | | [address] | [phone] | | | 2016 | | [place], [place] | | | | | | [address] | | | | | | [phone] | | | +--------+ + + + [...] + + + | Blood Pressure | 144/76 | 10/01/2016 11:26 AM | | | | | PST | | + + + + + | Pulse | 81 | 10/01/2016 11:26 AM | | | | | PST | | + + + + + | Temperature | 36.4 C (97.6 F) | 10/01/2016 11:26 AM | | | | | PST | | + + + + + | Respiratory Rate | 18 | 10/01/2016 11:26 AM | | | | | PST | | + + + + + | Oxygen Saturation | - | - | | + + + + + | Inhaled Oxygen | - | - | | | Concentration | | | | + + + + + | Weight | 83.9 kg (185 lb) | 10/01/2016 11:26 AM | | | | | PST | | + + + + + | Height | 167.6 cm (5' 6") | 10/01/2016 11:26 AM | | | | | PST | | + + + + + | Body Mass Index | 29.86 | 10/01/2016 11:26 AM | | | | | PST | | + + + + + documented in this encounter Discharge Summaries Ana Brennan MD - 10/01/2016 3:02 PM PSTFormatting of this note might be different f rom the original. Discharge Summaries by Ana Brennan MD at 10/01/16 1506 Author: Ana Brennan MD Service: Hospitalist Author Type: Physician Filed: 10/08/16 1052 Date of Service: 10/01/16 1506 Status: Signed Alodize Machine Helper: Ana Brennan MD (Physician) [facility] Service: Hospitalist Discharge Summary Date of Admission: 09/30/2016 Date of Discharge: 10/01/2016 Discharge Provider: Ana Brennan MD Treatment Team: Admitting Provider: Carol Tovar MD Discharge Diagnoses: Principal Problem: Chest tightness or pressure Active Problems: Elevated blood pressure reading without diagnosis of hypertension Resolved Problems: * No resolved hospital problems. * Procedures: * No surgery found * Chief Complaint: Chest Pain Hospital Course: Shivam Clarke is a 70 y.o. male who was admitted on 09/30/2016 with chest pain with exertion, EKG unremarkable, negative troponin, possible unstable angina, stress test with no reversible ischemia was reviewed with Dr. Catalan, patient was advised that because his symptoms is exertional, he will follow as outpatient if his symptoms recurrs may need f urther evaluation with coronary angiogram. He was discharged on ASA and atorvastatin. Outstanding Issues: Follow with Cardiology. Discharge Exam and Data: Vital Signs: BP 144/76 mmHg | Pulse 81 | Temp(Src) 97.6 F (36.4 C) (Oral) | Resp 18 | Ht 1.676 m (5' 6") | Wt 83.915 kg (185 lb) | BMI 29.87 kg/m2 | SpO2 96% Physical Examination: Constitutional: Alert and oriented to person, place, and time. Appears well-developed and w ell-nourished. Cardiovascular: Normal rate, regular rhythm, normal heart sounds with S1 and S2 and intact distal pulses. Exam reveals no gallop and no friction rub. No murmur heard. Pulmonary/Chest: Effort normal and breath sounds normal. No stridor. No respiratory distres s. no wheezes. no rales. exhibits no tenderness. Abdominal: Soft. Bowel sounds are normal. exhibits no distension and no mass. There is no t enderness. There is no rebound and no guarding. Musculoskeletal: Normal range of motion.exhibits no tenderness. exhibits no edema. Neurological: Alert and oriented to person, place, and time. Has normal reflexes. display s normal reflexes. No cranial nerve deficit. Exhibits normal muscle tone. Coordination norm al. Skin: Skin is warm. No pallor. Psychiatric: Has a normal mood and affect. Behavior is normal. Judgment normal. Labs: No results for input(s): WBC, HGB, HCT, PLT, NEUTOPHILPCT, MONOPCT in the last 168 hours. Invalid input(s): EOSPCT No results for input(s): NA, K, CL, CO2, BUN, CREATININE, CALCIUM, PROT, BILITOT, ALKPHOS, ALT, AST, GLUCOSE in the last 168 hours. Invalid input(s): LABALBU Invalid input(s): LABALBU No results for input(s): MG in the last 168 hours. No results for input(s): AMYLASE in the last 168 hours. No results for input(s): PHART, PO2ART, JJG6QRB, M8YAHHWF, BEART in the last 168 hours. No results for input(s): APTT, INR, PTT in the last 168 hours. No results for input(s): CKTOTAL, TROPONINI, TROPONINT, CKMBINDEX in the last 168 hours. Significant Diagnostic Studies: Nm Myocardial Perfusion Spect (stress And Rest) 10/01/2016 SHIVAM CLARKE [place] MYOCARDIAL PERFUSION SPECT - STRESS AND REST 10/01/2016 10:45 AM HISTORY: Chest pain. TECHNIQUE: The patient was given 10.4 mCi of Tc 99m Cardiolite at re st and that was followed by a resting cardiac SPECT study. On the same day the patient was s tressed using Kip protocol under the direction of the mid level provider. At peak stress they were given 43 mCi of Tc 99m Cardiolite and that was followed by cardiac SPECT imaging. FINDINGS: No prior comparison. The estimated left ventricular ejection fraction is 57% at re st and 64% with stress. There is a minimal fixed defect in the anteroseptal wall, more signi ficant at rest. This could represent either atypical attenuation artifact or previous infarc tion. There is a mild fixed defect in the inferior wall at the cardiac base. This seems to i mprove on the prone scans and may represent diaphragmatic attenuation artifact. Previous inf arction appears less likely. No suspicious reversible defect to suggest ischemia. 10/01/2016 1. Mild fixed defects in the anteroseptal and inferior wall, suggesting atypica l attenuation artifact or prior infarctions. 2. No reversible defects identified to suggest ischemia at the level of stress achieved. Risk stratification may be performed from the cri teria below (1). Note that this should be interfaced with clinical and other data, potential ly affecting final categorization. 1. [place] [employer] and [place] [employer] Scientific Statement. Circulation (2008); 118: p 0613-3011 Selection Text Definiti on Low Risk 1.Normal or small myocardial perfusion defect at rest or with stress.* 2. No doe nge of resting wall motion abnormalities during stress* . * Although the published data are limited, patients with these findings will probably not be at low risk in the presence of ei ther a high-risk treadmill score or severe resting left ventricular dysfunction (LVEF <35%). Low risk equates with a less than 1% annual mortality rate. Intermediate Risk 1. Mild/mode rate resting left ventricular dysfunction (LVEF=35% to 49%). 2. Stress-induced moderate per fusion defect without LV dilation or increased lung intake Intermediate risk equates with a 1%-3% annual mortality rate. High Risk 1. Severe resting left ventricular dysfunction (exer cise LVEF <35%) 2. Severe exercise left ventricular dysfunction (exercise LVEF <35%) 3. St ress-induced large perfusion defect (particularly if anterior) 4. Stress-induced multiple p erfusion defects of moderate size 5. Large, fixed perfusion defect with LV dilation 6. Str ess-induced moderate perfusion defect with LV dilation High risk equates with a greater than 3% annual mortality rate. 10: 51 AM Discharge Information: Follow up: Per Pt None Caterina Catalan MD [address] [place] [address] Schedule an appointment as soon as possible for a visit in 1 week Medication List START taking these medications aspirin EC 81 MG EC tablet QTY: 30 tablet Refills: 3 Take 1 tablet by mouth daily with breakfast. atorvastatin 40 MG tablet QTY: 30 tablet Refills: 1 Commonly known as: LIPITOR Take 1 tablet by mouth nightly. Where to Get Your Medications You can get these medications from any pharmacy Bring a paper prescription for each of these medications - aspirin EC 81 MG EC tablet - atorvastatin 40 MG tablet Disposition: home Condition: Stable. Code Status: Prior Discharge took 35 minutes, to include final examination, discussion of admission, and prepa ration of prescriptions, instructions for on-going care, follow-up and documentation of disc harge summary. Ana Brennan MD 10:44 AM 10/08/2016 documented in this encounter Medications at Time [...] | Daily. | | | 16 | 7 | + + + +---------+ + + documented as of this encounter Progress Notes Conversion Transaction, Provider Unknown - 10/01/2016 3:17 PM PSTFormatting of this note m ight be different from the original. Progress Notes by JOYCE Jacobs at 10/01/167 Author: JOYCE Jacobs Service: (none) Author Type: Nurse Teacher Of The Emotionally Disturbed Filed: 10/01/16 1521 Date of Service: 10/01/161516 Status: Signed Alodize Machine Helper: JOYCE Jacobs (Nurse Teacher Of The Emotionally Disturbed) Patient given discharge instructions. Stated understanding. Prescriptions given to patient. Patient escorted to lobby via wheelchair. onver frank Transaction, Provider Unknown - 10/01/2016 11:18 AM PST Nurse Progress Note by Lesley Orellana RN at 10/01/16 1111 Author: Lesley Orellana RN Service: (none) Author Type: Registered Nurse Filed: 10/01/161118 Date of Service: 10/01/161117 Status: Signed Alodize Machine Helper: Lesley Orellana RN (Registered Nurse) Paged oncall Dr Brennan, to advise that stress test results are in,and to request cardi ac diet. Waiting for response. onver frank Transaction, Provider Unknown - 09/30/2016 9:52 PM PST Progress Notes by Casie Lockhart RPH at 09/30/162151 Author: Casie Lockhart RPH Service: Pharmacy Author Type: Pharmacist Filed: 09/30/162151 Date of Service: 09/30/162151 Status: Signed Alodize Machine Helper: Casie Lockhart RPH (Pharmacist) Clinical Pharmacy Note: Renal Monitoring Shivam Clarke 70 y.o. male Ht Readings from Last 1 Encounters: 09/30/16 1.676 m (5' 6") Wt Readings from Last 1 Encounters: 09/30/16 83.915 kg (185 lb) CREATININE: 1.2 (09/30/16 1834) Estimated creatinine clearance - 59 mL/min Pharmacy dosing for renal function per Dr. Tovar. Currently, there are no medications needing to be adjusted. Pharmacy will continue to monit or for changes in medication orders and in renal function and adjust accordingly. Casie Lockhart RPh 09/30/2016 9:52 PM onver frank Transaction, Provider Unknown - 09/30/2016 8:25 PM PST Case Management by ROBERT Ferraro at 09/30/162024 Author: ROBERT Ferraro Service: (none) Author Type: Baseball Glove Shaper Filed: 09/30/162027 Date of Service: 09/30/162024 Status: Signed Alodize Machine Helper: ROBERT Ferraro (Baseball Glove Shaper) 09/30/161999 Discharge Planning Evaluation Admitting Diagnosis (Chest Pain) Readmission No Living Arrangements Spouse/significant other Support Systems Spouse/significant other Type of Residence Private residence House type House-1 story Steps to enter 1 Bathrooms on 1st Floor 1-Full Independent with ADL's Yes Independent with Mobility Yes Home Care Services No Caregiver after Discharge No Mental Status Oriented Prior functional status (Pt satted that he resides in [facility]) Power of Library Clerk No Anticipated Discharge Plan Post Acute Care Needs None at this time Plan communicated to patient/family Yes Resources Financial concerns No Transportation issues No Patient/Family concerns No Prescription Plan Yes Name of Pharmacy ([facility] in [facility]) Anticipated Disposition Facility Type Home Medicare Important Message (CHE) Given Met with Pt and SO by the bedside and discussed discharge planning, Pt is a 70 y.o., male a dmitted for Chest Pain. Patient's PCP is: PER PT NONE Patient's insurance:Medicare. Coverage concerns: No Medication coverage/concerns: No Community resources utilized / needed: No Assistance in transportation: SO Identification of any specific education / training: No Barriers to Discharge / Alternative housing needed:N/A Anticipated DCP: Stress Test tomorrow 10/01/2016. Will be transported home by SO. Yesenia Stewart docume nted in this encounter H&P Notes Carol Tovar MD - 09/30/2016 9:50 PM PST H&P by Carol Tovar MD at 09/30/162149 Author: Carol Tovar MD Service: Hospitalist Author Type: Physician Filed: 09/30/162200 Date of Service: 09/30/162149 Status: Signed Alodize Machine Helper: Carol Tovar MD (Physician) Admission History & Physical Date of Admission: 09/30/2016 CHIEF COMPLAINT: Chest pressure HISTORY OF PRESENT ILLNESS The patient is a 70 y.o. male with no significant past medical history who went to see his primary care doctor today complaining of chest tightness to 3 out of 10 on and off for last 1 month without any radiation to arm back neck and denied any associated symptoms like short ness of breath nausea vomiting dizziness lightheadedness. Patient walks 30 miles per week fr om last 10 years and recently noticed chest pressure with exertional activity like mowing a lawn which goes away with rest and from last 1 week he noticed chest pressure at rest 2. His primary care doctor send him to Emergency department to rule out acute coronary syndrome and stress test. 12 point ROS was negative except as mentioned above History reviewed. No pertinent past medical history. Past Surgical History Procedure Laterality Date Shoulder open rotator cuff repair Tonsillectomy No prescriptions prior to admission No Known Allergies History reviewed. No pertinent family history. Social History Social History Marital Status: Spouse Name: N/A Number of Children: N/A Years of Education: N/A Occupational History Not on file. Social History Main Topics Smoking status: Never Smoker Smokeless tobacco: Not on file Alcohol Use: No Drug Use: No Sexual Activity: Not on file Other Topics Concern Not on file Social History Narrative No narrative on file Physical Exam: BP 163/80 mmHg | Pulse 58 | Temp(Src) 97.6 F (36.4 C) (Oral) | Resp 16 | Ht 1.676 m (5' 6") | Wt 83.915 kg (185 lb) | BMI 29.87 kg/m2 | SpO2 96% General Appearance: No apparent distress. HEENT: Normocephalic, atraumatic, o/p clear NECK: is supple with no carotid bruit CHEST:Lungs clear to auscultation with no wheezing, No rales or rhonchi HEART:Regular rate and rhythm without murmur, No gallop or rubs ABDOMEN:Bowel sound is normoactive, abdomen is soft, non-tender non-distended ,no mass and no CVA tenderness EXTREMITIES:No lower extermity edema, No clubbing or cyanosis bilaterally NEURO: Mental status intact, Cranial Nerves 2-12 intact, Gait normal, Reflexes normal and s ymmetric, Muscle strength good bilaterally, Sensation grossly intact. and Alert and Oriented , patient care assistant are grossly intact. SKIN: No bruises, rashes, lesions Psychiatric: Has a normal mood and affect. Behavior is normal. Judgment normal. DATA CBC: Lab Results Component Value Date WBC 8.28 09/30/2016 RBC 5.48 09/30/2016 HGB 16.1 09/30/2016 HCT 48.2 09/30/2016 MCV 88.1 09/30/2016 MCH 29.4 09/30/2016 MCHC 33.4 09/30/2016 RDW 43.8 09/30/2016 PLT 143* 09/30/2016 MPV 9.2 09/30/2016 DIFFTYPE AUTOMATED 09/30/2016 CMP: Lab Results Component Value Date NA 142 09/30/2016 K 3.8 09/30/2016 CL 104 09/30/2016 CO2 28 09/30/2016 ANIONGAP 14 09/30/2016 GLUF 92 09/30/2016 BUN 20 09/30/2016 CREATININE 1.2 09/30/2016 BCR 16 09/30/2016 CA 8.4* 09/30/2016 PROT 7.5 09/30/2016 ALB 3.9 09/30/2016 GLOB 3.7 09/30/2016 BILITOT 0.8 09/30/2016 ALP 77 09/30/2016 AST 21 09/30/2016 ALT 27 09/30/2016 EGFR >60 09/30/2016 Albumin: Lab Results Component Value Date ALB 3.9 09/30/2016 Magnesium: No results found for: MG Phosphorus: No results found for: PHOS PT/INR: Lab Results Component Value Date INR 1.0 09/30/2016 Troponin: Lab Results Component Value Date TROPONINI <0.020 09/30/2016 Last 3 Troponin: Lab Results Component Value Date TROPONINI <0.020 09/30/2016 TSH: No results found for: TSH, TSHNEO PROBLEM LIST Principal Problem: Chest tightness or pressure Active Problems: Elevated blood pressure reading without diagnosis of hypertension ASSESSMENT & PLAN Chest pressure with exertion currently asymptomatic, EKG unremarkable and first troponin ne gative likely secondary to unstable angina Plan start the patient on aspirin, metoprolol, atorvastatin and check troponin every 4 hour 3 times if negative we will proceed with nuclear stress study in a morning and keep the pat ient npo after midnight Lovenox 1 mg per KG 1 dose was given in emergency department Elevated blood pressure without diagnosis of hypertension: Start the patient on metoprolol I have spent more than 55 minutes Disposition: floor Code Status: Full Code Primary Care Physician: PER PT NONE CAROL TOVAR MD 09/30/2016 documented in this en counter Procedure Notes Aramis Ibarra ARNP - 10/01/2016 10:00 AM PSTFormatting of this note might be different fr om the original. Procedures by ELEUTERIO Mcconnell at 10/01/16 1000 Author: ELEUTERIO Mcconnell Service: (none) Author Type: Advanced Registered Nurse Prac titioner Filed: 10/01/16 1001 Date of Service: 10/01/16 1000 Status: Signed Alodize Machine Helper: ELEUTERIO Mcconnell (Advanced Registered Nurse Practitioner) Pre-procedure Diagnoses: 1. Other chest pain [R07.89] Post-procedure Diagnoses: 1. Other chest pain [R07.89] Procedures: 1. [place] MYOCARDIAL PERFUSION SPECT - STRESS AND REST [LUC681 (Custom)] [facility] Service: Diagnostic Imaging/Nuclear Medicine Preliminary Cardiac Stress Test Note Type of Stress Test performed (protocol): Exercise Stress Test, Kip Protocol Kip protocol time (if applicable): 535 Rhythm changes: None Ectopy: None Symptoms experienced during exam: Chest pain 4/10, resolved in recovery ST/T wave changes: ST depression uplsoping Medications administered: None Salgado Treadmill Score: 1, moderate risk ELEUTERIO Mcconnell 10/01/2016 10:00 AM documented in this encounter Consult Notes Caterina Catalan MD - 10/01/2016 2:50 PM PSTFormatting of this note might be different f rom the original. Consult* by Caterina Catalan MD at 10/01/16 7550 Author: Caterina Catalan MD Service: Cardiology Author Type: Physician Filed: 10/01/16 1838 Date of Service: 10/01/160 Status: Signed Alodize Machine Helper: Caterina Catalan MD (Physician) [facility] Service: Cardiology Initial Consult Note Name of Admissions Gate Attendant: Caterina Catalan MD Reason for Consultation: Chest Pain Requesting Physician: [facility] History Obtained From: patient CHIEF COMPLAINT: Chest Pain HISTORY OF PRESENT ILLNESS: Patient is 70 year old male presented with chest pain. Symptoms has been at rest as well on exertion. Started a month ago. Retrosternal with minimal shortness of breath with no radiat ion. On presentation patient was found to be hypertensive, however no ischemic ECG changes and n egative cardiac enzymes. Patient is active and walks daily without getting cardiac symptoms. No history of cardiac disease. REVIEW OF SYSTEMS Constitutional: Negative for fatigue. HENT: Negative for nosebleeds. Eyes: Negative for visual disturbance. Respiratory: Negative for cough and shortness of breath. Cardiovascular: As HPI. Gastrointestinal: Negative for nausea, vomiting, abdominal pain and blood in stool. Genitourinary: Negative for hematuria or dysuria. Musculoskeletal: Negative for myalgias, back pain and arthralgias. Skin: Negative for color change. Neurological: Negative for dizziness, syncope and numbness. Hematological: Does not bruise/bleed easily. Psychiatric/Behavioral: The patient is not nervous/anxious. PAST MEDICAL & SURGICAL HISTORY History reviewed. No pertinent past medical history. Past Surgical History Procedure Laterality Date Shoulder open rotator cuff repair Tonsillectomy MEDICATIONS Home Medications No prescriptions prior to admission Inhospital Medications aspirin 325 mg Oral Daily with breakfast atorvastatin 40 mg Oral Nightly lidocaine buffered 1% 0.5 mL Intradermal Once metoprolol 25 mg Oral BID Allergies No Known Allergies FAMILY HISTORY History reviewed. No pertinent family history. SOCIAL HISTORY Social History Social History Marital Status: Spouse Name: N/A Number of Children: N/A Years of Education: N/A Occupational History Not on file. Social History Main Topics Smoking status: Never Smoker Smokeless tobacco: Not on file Alcohol Use: No Drug Use: No Sexual Activity: Not on file Other Topics Concern Not on file Social History Narrative No narrative on file PHYSICAL EXAM Vital Signs: BP 144/76 mmHg | Pulse 81 | Temp(Src) 97.6 F (36.4 C) (Oral) | Resp 18 | Ht 1.676 m (5' 6") | Wt 83.915 kg (185 lb) | BMI 29.87 kg/m2 | SpO2 96% No intake or output data in the 24 hours ending 10/01/16 1450 Constitutional: Well-developed. Neck: No JVD present. No thyromegaly present. Cardiovascular: Regular rhythm, S1 normal and S2 normal. No murmur heard. Pulses: Carotid pulses are 2+ on the right side, and 2+ on the left side. Radial pulses are 2+ on the right side, and 2+ on the left side. Pulmonary/Chest: Effort normal and breath sounds normal. No wheezes. No rales. Abdominal: Soft. No tenderness. Musculoskeletal: No edema. Neurological: Alert. No cranial nerve deficit. Skin: Warm and dry. DATA Recent Labs Lab 10/01/16 0219 NA 142 K 3.5 CO2 30 BUN 20 CREATININE 1.1 MG 2.2 Recent Labs Lab 10/01/16 0219 09/30/16 2157 09/30/16 1834 CKTOTAL 121 145 148 CKMB 1.9 2.2 2.2 CKMBINDEX 1.6 1.5 1.5 TROPONINI <0.020 <0.020 <0.020 TSH 2.41 -- -- Recent Labs Lab 10/01/16 0219 WBC 7.13 HGB 15.3 HCT 45.6 MCV 89.8 PLT 126* EK10/01/2016 ASSESSMENT & PLAN 1. Chest pain with typical features however patient gets similar episodes at rest as well. Favorable Cardiolite exercise stress test with no reversible ischemia. 2. Hypertension. 3. Dyslipidemia. Recommendation: In the view of normal Cardiolite stress test, patient can be discharged home today and foll ow up as outpatient for outpatient evaluation. Blood pressure control is recommended. Recommend moderate dose statin. In case of recurrent exertional symptoms will discuss further evaluation with coronary oly gomes. Thank you for allowing me to participate in the care of this patient. Code Status: Full Code Primary Care Physician: PER PT NONE Caterina Catalan MD 10/01/2016 documented in this encounter ED Notes Conversion Transaction, Provider Unknown - 09/30/2016 9:31 PM PSTFormatting of this note m ight be different from the original. ED Notes by Lito Bergman RN at 09/30/162130 Author: Lito Bergman RN Service: (none) Author Type: Registered Nurse Filed: 09/30/162130 Date of Service: 09/30/162130 Status: Signed Alodize Machine Helper: Lito Bergman RN (Registered Nurse) Report to aby Bergman RN 09/30/162130 onver frank Transaction, Provider Unknown - 09/30/2016 6:26 PM PST ED Notes by Chi Garcia at 09/30/16 1826 Author: Chi Garcia Service: (none) Author Type: Time Piece Repairer Filed: 09/30/161825 Date of Service: 09/30/161825 Status: Signed Alodize Machine Helper: Chi Garcia (Time Piece Repairer) EKG completed and shown to Dr. Jose Garcia 09/30/161825 ime, Lani Klein MD - 09/30/2016 6:17 PM PST ED Provider Notes by Lani Garcia MD at 09/30/161816 Author: Lani Garcia MD Service: Emergency Department Author Type: Physician Filed: 10/01/16 0238 Date of Service: 09/30/161816 Status: Signed Alodize Machine Helper: Lani Garcia MD (Physician) [facility] Department of Emergency Medicine 6:17 PM 09/30/2016 History of Present Illness Patient Identification Shivam Clarke is a 70 y.o. male. Patient information was obtained from patient and spouse/partner. History/Exam limitations: none. Patient presented to the Emergency Department by: Car Chief Complaint Chief Complaint Patient presents with Chest Pain X 3-4 weeks The patient presents to the emergency department with chief complaints of chest pain. Onset of symptoms was 3-4 weeks ago, with a intermittent course since that time. The symptoms are described to be of mild severity. The patient describes the quality and location of the sym ptoms as the following: exertional chest pain described as "pressure" and "tightness" for [facility] Dr. Abran Alas in [place] sent him here to be admitted for a stress-test. Th e patient is otherwise healthy and reports walking about 30 miles/ week. 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 PMHx: Sleep apnea PCP: PER PT NONE History reviewed. No pertinent past medical history. Past Surgical History Procedure Laterality Date Shoulder open rotator cuff repair Tonsillectomy Prior to Admission medications Not on File No Known Allergies Social History Social History Marital Status: Spouse Name: N/A Number of Children: N/A Years of Education: N/A Occupational History Not on file. Social History Main Topics Smoking status: Never Smoker Smokeless tobacco: Not on file Alcohol Use: No Drug Use: No Sexual Activity: Not on file Other Topics Concern Not on file Social History Narrative No narrative on file History reviewed. No pertinent family history. ROS Review of Systems Constitutional: Negative for: fever, chills or weight loss. HEENT: Negative for: head trauma, ear pain, sore throat or acute visual disturbance. Cardiovascular/Respiratory: Positive for chest pain Negative for: syncope, shortness of breath or cough. Gastrointestinal: Negative for: abdominal pain, nausea, vomiting, diarrhea, or black or bl oody stools. Genitourinary: Negative for: dysuria or urinary problems. Musculoskeletal: Negative for: back pain Skin: Negative for: rash or lesions. Neuro: Negative for: headache, focal muscle weakness, seizure or acute neur ological problems. Physical Exam BP 145/87 mmHg | Pulse 66 | Temp(Src) 97.2 F (36.2 C) (Oral) | Resp 15 | SpO2 96% Vitals Interpretation: WNL Pulse Oximetry interpretation: Normal General: Alert, in no apparent distress Eyes: Normal inspection, pupils equal and round, non-icteric CVS: Rate and rhythm normal No murmurs, rubs or gallops Respiratory: Breath sounds normal bilaterally, no wheezing or crackles Abdomen: Soft, non-tender, non-distended No guarding or rebound Skin: Warm and dry No rash Musculoskeletal: Moves all extremities Neuro: No gross motosensory deficit ED Course Medical Decision Making and Emergency Department Course ED Department Course 6:17 PM. Patient was referred here by Dr. Alas in [place] for intermittent chest pain to be admitted for a stress test. His previous EKGs are normal. The patient's symptoms are concerning for ACS. I will perform a cardiac work-up, and admit for stress-testing. 6:27 PM EKG read and interpreted by me, results are as noted below. 7:11 PM Labs resulted. Troponin is negative. Cardiac panel shows slightly decreased platele ts at 143, and is otherwise unremarkable. Awaiting CXR. 7:18 PM CXR resulted. Shows no acute intrathoracic diseases. I will admit the patient for s tress testing. 7:47 PM I have discussed the patient's case with Dr. Tovar, hospitalist who accepts the pat ient and recommends giving the patient Lovenox. Filed Vitals: 09/30/16 2058 09/30/16 2138 09/30/16 2359 10/01/162 BP: 127/81 163/80 119/69 Pulse: 67 58 62 Temp: 97.4 F (36.3 C) 97.6 F (36.4 C) 97.6 F (36.4 C) TempSrc: Oral Oral Oral Resp: Height: 1.676 m (5' 6") Weight: 83.915 kg (185 lb) 83.915 kg (185 lb) SpO2: 97% 96% 94% Medications aspirin tablet 325 mg (not administered) metoprolol (LOPRESSOR) tablet 25 mg (not administered) nitroGLYCERIN (NITROSTAT) SL tablet 0.4 mg (not administered) acetaminophen (TYLENOL) tablet 650 mg (not administered) Or acetaminophen (TYLENOL) suppository 650 mg (not administered) ondansetron (ZOFRAN) tablet 4 mg (not administered) Or ondansetron (ZOFRAN) injection 4 mg (not administered) zolpidem (AMBIEN) tablet 5 mg (not administered) polyethylene glycol (GLYCOLAX) packet 17 g (not administered) lidocaine buffered 1% injection 0.5 mL (not administered) atorvastatin (LIPITOR) tablet 40 mg (not administered) aspirin chewable tablet 324 mg (324 mg Oral Given 09/30/162107) enoxaparin (LOVENOX) injection 80 mg (not administered) Records Reviewed Old medical records. Nursing notes. No previous [facility] [place] visits available in [facility] for review. Labs & Radiology Results Laboratory Evaluation Results Procedure Component Value Ref Range Date/Time Cardiac Panel [[id number]] (Abnormal) Collected: 09/30/16 1834 Order Status: Completed Updated: 09/30/16 1911 WBC 8.28 3.80 - 11.00 K/uL RBC 5.48 4.20 - 5.70 M/uL HGB 16.1 13.2 - 17.0 g/dL HCT 48.2 39.0 - 50.0 % MCV 88.1 80.0 - 100.0 fl MCH 29.4 27.0 - 34.0 pg MCHC 33.4 32.0 - 35.5 g/dL RDW SD 43.8 37 - 53 fl PLT 143 (L) 150 - 400 K/uL MPV 9.2 fl DIFF TYPE AUTOMATED NEUTROPHILS 54.58 % LYMPHOCYTES 32.53 % MONOCYTES 9.77 % EOSINOPHILS 2.43 % BASOPHILS 0.69 % NEUTROPHILS ABS 4.52 1.90 - 7.40 K/uL LYMPHOCYTES ABS 2.70 1.00 - 3.90 K/uL MONOCYTES ABS 0.81 (H) 0.00 - 0.80 K/uL EOSINOPHILS ABS 0.20 0.00 - 0.50 K/uL BASOPHILS ABS 0.06 0.00 - 0.10 K/uL SODIUM 142 135 - 145 mmol/L POTASSIUM 3.8 3.5 - 4.9 mmol/L CHLORIDE 104 99 - 109 mmol/L CO2 28 23 - 32 mmol/L ANION GAP AGAP 14 5 - 20 mmol/L GLUCOSE 92 65 - 99 mg/dL BUN 20 8 - 25 mg/dL CREATININE 1.2 0.70 - 1.30 mg/dL BUN/CREAT 16 CALCIUM 8.4 (L) 8.5 - 10.5 mg/dL TOTAL PROTEIN 7.5 6.3 - 8.2 g/dL Albumin 3.9 3.3 - 4.8 g/dL GLOBULIN 3.7 1.3 - 4.9 g/dL A/G 1.1 1.0 - 2.4 TBIL 0.8 0.1 - 1.5 mg/dL ALK PHOS 77 35 - 115 U/L AST 21 10 - 45 U/L ALT 27 10 - 65 U/L EGFR >60 >60 mL/min/1.73m2 CPK 148 55 - 400 U/L INR 1.0 APTT 27 23 - 32 seconds MMB 2.2 0.5 - 3.6 ng/mL CK-MB Index 1.5 Troponin I [[id number]] Collected: 09/30/16 1834 Order Status: Completed Specimen Information: Blood Updated: 09/30/16 1911 TROPONIN I <0.020 0.00 - 0.10 ng/mL Radiology and EKG Evaluation Imaging Results XR Chest PA and Lateral (Final result) Result time: 09/30/16 19:12:35 Final result by Rad Results In [place] (09/30/16 19:12:35) Impression: 1. No active intrathoracic disease. 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 Narrative: HISTORY: Chest pain. COMPARISON: None. TECHNIQUE: PA and lateral films of the chest. FINDINGS: Heart size is normal. Lungs are clear. Mild degenerative changes of the thoracic spine, wit h flowing osteophytes fusing multiple mid to lower thoracic spine levels. EK Normal Sinus Rhythm. Rate: 64 bpm Ist degree AV block Normal Swoope Intervals unremarkable No significant ST and T waves abnormalities No acute ischemia. Interpreted by by me at time of service, Lani Garcia MD Diagnosis & Disposition ED Diagnosis Final diagnosis Other chest pain Disposition: ED Disposition Admit/Observation Bed request special needs: None Diagnosis?: chest pain Procedures Additional Documentation Procedures Attending Note: Documentation assistance provided by Pelon Mueller (Scribe). Information recorded by the scribe has been reviewed and validated by me. Alfonzo perla with its contents. MD Lani Kaur MD 10/01/16 0238 documented in this encounter Miscellaneous Notes Plan of Care - Conversion Transaction, Provider Unknown - 10/01/2016 7:32 AM PST Plan of Care by Lesley Orellana RN at 10/01/16731 Author: Lesley Orellana RN Service: (none) Author Type: Registered Nurse Filed: 10/01/16731 Date of Service: 10/01/16731 Status: Signed Alodize Machine Helper: Lesley Orellana RN (Registered Nurse) Daily Care Daily care needs are met Progressing Discharge Barriers Patient's discharge needs are met Progressing Pain Patient's pain/discomfort is manageable Progressing Psychosocial Needs Demonstrates ability to cope with hospitalization/illness Progressing Collaborate with patient/family/caregiver to identify patient specific goals for this h ospitalization Progressing Safety Patient will be injury free during hospitalization Progressing Lesley Orellana RN docume nted in this encounter Plan of Treatment +--------+---------+ + + + | Date | Type | Specialty | Care Team | Description | +--------+---------+ + + + | 09/04/ | Office | Cardiology | Caterina Catalan, | | | 2019 | Visit | | MD Juan J HERNANDEZ | | | | | | [place], [place] | | | | | | [id number] | | | | | | | | +--------+---------+ + + + documented as of this encounter Procedures + +--------+ + + + | Procedure Name | Priori | Date/Time | Associated Diagnosis | Comments | | | ty | | | | + +--------+ + + + | NM MYOCARDIAL | Routin | 10/01/2016 | | Results for this | | PERFUSION MULT SPECT | e | 10:45 AM | | procedure are in the | | | | PST | | results section. | + +--------+ + + + | ECG 12 LEAD | Routin | 10/01/2016 | | Results for this | | | e | 5:15 AM | | procedure are in the | | | | PST | | results section. | + +--------+ + + + | EXTERNAL LAB: CBC | Routin | 10/01/2016 | | Results for this | | | e | 2:19 AM | | procedure are in the | | | | PST | | results section. | + +--------+ + + + | LIPID PANEL | Routin | 10/01/2016 | | Results for this | | | e | 2:19 AM | | procedure are in the | | | | PST | | results section. | + +--------+ + + + | TROPONIN I | Routin | 10/01/2016 | | Results for this | | | e | 2:19 AM | | procedure are in the | | | | PST | | results section. | + +--------+ + + + | CK-MB | Routin | 10/01/2016 | | Results for this | | | e | 2:19 AM | | procedure are in the | | | | PST | | results section. | + +--------+ + + + | TSH | Routin | 10/01/2016 | | Results for this | | | e | 2:19 AM | | procedure are in the | | | | PST | | results section. | + +--------+ + + + | PHOSPHORUS | Routin | 10/01/2016 | | Results for this | | | e | 2:19 AM | | procedure are in the | | | | PST | | results section. | + +--------+ + + + | MAGNESIUM | Routin | 10/01/2016 | | Results for this | | | e | 2:19 AM | | procedure are in the | | | | PST | | results section. | + +--------+ + + + | HEMOGLOBIN A1C | Routin | 10/01/2016 | | Results for this | | | e | 2:19 AM | | procedure are in the | | | | PST | | results section. | + +--------+ + + + | CK TOTAL | Routin | 10/01/2016 | | Results for this | | | e | 2:19 AM | | procedure are in the | | | | PST | | results section. | + +--------+ + + + | BASIC METABOLIC | Routin | 10/01/2016 | | Results for this | | PANEL | e | 2:19 AM | | procedure are in the | | | | PST | | results section. | + +--------+ + + + | TROPONIN I | Routin | 09/30/2016 | | Results for this | | | e | 9:57 PM | | procedure are in the | | | | PST | | results section. | + +--------+ + + + | CK-MB | Routin | 09/30/2016 | | Results for this | | | e | 9:57 PM | | procedure are in the | | | | PST | | results section. | + +--------+ + + + | CK TOTAL | Routin | 09/30/2016 | | Results for this | | | e | 9:57 PM | | procedure are in the | | | | PST | | results section. | + +--------+ + + + | XR CHEST 2 VIEWS | Routin | 09/30/2016 | | Results for this | | | e | 7:07 PM | | procedure are in the | | | | PST | | results section. | + +--------+ + + + | HISTORICAL LAB PANEL | Routin | 09/30/2016 | | Results for this | | RESULT | e | 6:34 PM | | procedure are in the | | | | PST | | results section. | + +--------+ + + + | TROPONIN I | Routin | 09/30/2016 | | Results for this | | | e | 6:34 PM | | procedure are in the | | | | PST | | results section. | + +--------+ + + + | ECG 12 LEAD | Routin | 09/30/2016 | | Results for this | | | e | 6:24 PM | | procedure are in the | | | | PST | | results section. | + +--------+ + + + documented in this encounter Results NM Myocardial Perfusion Mult SPECT (10/01/2016 10:45 AM PST) + + | Specimen | + + | | + + + + + | Impressions | Performed At | + + + | 1. Mild fixed defects in the anteroseptal and inferior wall, | | | suggesting atypical attenuation artifact or prior infarctions. 2. | | | No reversible defects identified to suggest ischemia at the level of | | | stress achieved. Risk stratification may be performed | | | from the criteria below (1). Note that this should be interfaced with | | | clinical and other data, potentially affecting final categorization. | | | 1. [place] [employer] and [place] [employer] | | | Scientific Statement. Circulation (2008); 118: p 6419-1245 | | | Selection Text Definition Low Risk 1.Normal or small | | | myocardial perfusion defect at rest or with stress.* 2. No change | | | of resting wall motion abnormalities during stress* . * Although | | | the published data are limited, patients with these findings will | | | probably not be at low risk in the presence of either a high-risk | | | treadmill score or severe resting left ventricular dysfunction (LVEF | | | <35%). Low risk equates with a less than 1% annual mortality rate. | | | Intermediate Risk 1. Mild/moderate resting left ventricular | | | dysfunction (LVEF=35% to 49%). 2. Stress-induced moderate | | | perfusion defect without LV dilation or increased lung intake | | | Intermediate risk equates with a 1%-3% annual mortality rate. | | | High Risk 1. Severe resting left ventricular dysfunction (exercise | | | LVEF <35%) 2. Severe exercise left ventricular dysfunction | | | (exercise LVEF <35%) 3. Stress-induced large perfusion defect | | | (particularly if anterior) 4. Stress-induced multiple perfusion | | | defects of moderate size 5. Large, fixed perfusion defect with | | | LV dilation 6. Stress-induced moderate perfusion defect with LV | | | dilation High risk equates with a greater than 3% annual mortality | | | rate. Electronically signed by Abdirizak Romero MD on | | | 10/01/2016 10:51 AM | | + + + + + + | Narrative | Performed At | + + + | [facility] MYOCARDIAL PERFUSION SPECT - STRESS AND REST | | | 10/01/2016 10:45 AM HISTORY: Chest pain. TECHNIQUE: The | | | patient was given 10.4 mCi of Tc 99m Cardiolite at rest and that was | | | followed by a resting cardiac SPECT study. On the same day the patient | | | was stressed using Kip protocol under the direction of the mid | | | level provider. At peak stress they were given 43 mCi of Tc 99m | | | Cardiolite and that was followed by cardiac SPECT imaging. | | | FINDINGS: No prior comparison. The estimated left ventricular | | | ejection fraction is 57% at rest and 64% with stress. There is a | | | minimal fixed defect in the anteroseptal wall, more significant at | | | rest. This could represent either atypical attenuation artifact or | | | previous infarction. There is a mild fixed defect in the inferior wall | | | at the cardiac base. This seems to improve on the prone scans and may | | | represent diaphragmatic attenuation artifact. Previous infarction | | | appears less likely. No suspicious reversible defect to suggest | | | ischemia. | | + + + + + | Procedure Note | + + | Dennis, Zaid Conversion - 06/08/2019 8:49 PM PDT [facility] MYOCARDIAL PERFUSION | | SPECT - STRESS AND REST10/01/2016 10:45 AM HISTORY:Chest pain. TECHNIQUE:The patient was | | given 10.4 mCi of Tc 99m Cardiolite at rest and that was followed by a resting cardiac | | SPECT study. On the same day the patient was stressed using Kip protocol under the | | direction of the mid level provider. At peak stress they were given 43 mCi of Tc 99m | | Cardiolite and that was followed by cardiac SPECT imaging. FINDINGS:No prior comparison. | | The estimated left ventricular ejection fraction is 57% at rest and 64% with stress. | | There is a minimal fixed defect in the anteroseptal wall, more significant at rest. This | | could represent either atypical attenuation artifact or previous infarction. There is a | | mild fixed defect in the inferior wall at the cardiac base. This seems to improve on | | the prone scans and may represent diaphragmatic attenuation artifact. Previous | | infarction appears less likely. No suspicious reversible defect to suggest ischemia. | | IMPRESSION: 1. Mild fixed defects in the anteroseptal and inferior wall, suggesting | | atypical attenuation artifact or prior infarctions.2. No reversible defects identified | | to suggest ischemia at the level of stress achieved. Risk stratification may be | | performed from the criteria below (1). Note that this should be interfaced with clinical | | and other data, potentially affecting final categorization. 1. [place] [employer] | | Association and [place] [employer] Scientific Statement. Circulation (2008); | | 118: p 6140-3542 Selection Text Definition Low Risk 1.Normal or small myocardial | | perfusion defect at rest or with stress.* 2. No change of resting wall motion | | abnormalities during stress* . * Although the published data are limited, patients with | | these findings will probably not be at low risk in the presence of either a high-risk | | treadmill score or severe resting left ventricular dysfunction (LVEF <35%). Low risk | | equates with a less than 1% annual mortality rate. Intermediate Risk 1. Mild/moderate | | resting left ventricular dysfunction (LVEF=35% to 49%). 2. Stress-induced moderate | | perfusion defect without LV dilation or increased lung intake Intermediate risk equates | | with a 1%-3% annual mortality rate. High Risk 1. Severe resting left ventricular | | dysfunction (exercise LVEF <35%) 2. Severe exercise left ventricular dysfunction | | (exercise LVEF <35%) 3. Stress-induced large perfusion defect (particularly if | | anterior) 4. Stress-induced multiple perfusion defects of moderate size 5. Large, | | fixed perfusion defect with LV dilation 6. Stress-induced moderate perfusion defect | | with LV dilation High risk equates with a greater than 3% annual mortality rate. | | | | | |1.Normal or small myocardial perfusion defect at rest or with stress.* | | | |2. No change of resting wall motion abnormalities during stress* . | | | |* Although the published data are limited, patients with these findings will probably not b e at low risk in the presence of either a high-risk treadmill score or severe resting left v entricular dysfunction (LVEF <35%). | | | |Low risk equates with a less than 1% annual mortality rate. | | | | | |Intermediate Risk 1. Mild/moderate resting left ventricular dysfunction (LVEF=35% to 49%). | | | |2. Stress-induced moderate perfusion defect without LV dilation or increased lung intake | | | |Intermediate risk equates with a 1%-3% annual mortality rate. | | | | | |High Risk 1. Severe resting left ventricular dysfunction (exercise LVEF <35%) | | | |2. Severe exercise left ventricular dysfunction (exercise LVEF <35%) | | | |3. Stress-induced large perfusion defect (particularly if anterior) | | | |4. Stress-induced multiple perfusion defects of moderate size | | | |5. Large, fixed perfusion defect with LV dilation | | | |6. Stress-induced moderate perfusion defect with LV dilation | | | |High risk equates with a greater than 3% annual mortality rate. | | | | | | | | | + + ECG 12 lead (10/01/2016 5:15 AM PST) + + + + + + | Component | Value | Ref Range | Performed | Pathologist | | | | | At | Signature | + + + + + + | DIAGNOSIS: | Sinus rhythm with 1st | | EXTERNAL | | | | degree A-V block with | | LAB | | | | Premature atrial | | | | | | complexesOtherwise | | | | | | normal ECGWhen compared | | | | | | with ECG of 30-SEP-2016 | | | | | | 18:24,Premature atrial | | | | | | complexes are now | | | | | | PresentConfirmed by | | | | | | LISANDRA BROWNING ([id number]) on | | | | | | 10/01/2016 10:19:18 AM | | | | + + + + + + + + | Specimen | + + | | + + + + + | Narrative | Performed At | + + + | [facility] | EXTERNAL LAB | + + + + +---------+ + + | Performing | Address | City/State/Zipcode | Phone Number | | Organization | | | | + +---------+ + + | EXTERNAL LAB | | | | + +---------+ + + CK-MB (10/01/2016 2:19 AM PST) + + + + + -+ | Component | Value | Ref Range | Performed | Pathologist | | | | | At | Signature | + + + + + -+ | CK-MB | 1.9Comment: Testing | 0.5 - 3.6 ng/mL | EXTERNAL | | | | performed at [facility];[address] | | LAB | | | | [address];[place] | | | | | | [address] | | | | + + + + + -+ | CK-MB Index | 1.6Comment: CK INDEX | | EXTERNAL | | | | INTERPRETATION: | | LAB | | | | MMB ng/mL | | | | | | | | | | | |CK INDEX INTERPRETATION: | | | | | | MMB ng/mL | | | | | | | | | | + + + + + -+ + + | Specimen | + + | | + + + +---------+ + + | Performing | Address | City/State/Zipcode | Phone Number | | Organization | | | | + +---------+ + + | EXTERNAL LAB | | | | + +---------+ + + Troponin I (10/01/2016 2:19 AM PST) + + + + + + | Component | Value | Ref Range | Performed | Pathologist | | | | | At | Signature | + + + + + + | Troponin I, | <0.020Comment: 0.00 to | 0.00 - 0.10 | EXTERNAL | | | Qual | 0.10 CONSISTENT WITH | ng/mL | LAB | | | | NORMAL POPULATION0.11 | | | | | | to 0.60 CONSISTENT | | | | | | WITH INCREASED RISK FOR | | | | | | ADVERSE OUTCOMES> 0.60 | | | | | | CONSISTENT | | | | | | WITH WHO CRITERIA FOR | | | | | | ACUTE CO Testing | | | | | | performed at [facility];[address] | | | | | | [address];[place], [place] | | | | | | [address] | | | | + + + + + + + + | Specimen | + + | Blood specimen | | (specimen) | + + + +---------+ + + | Performing | Address | City/State/Zipcode | Phone Number | | Organization | | | | + +---------+ + + | EXTERNAL LAB | | | | + +---------+ + + External Lab: CBC (10/01/2016 2:19 AM PST) + + + + + + | Component | Value | Ref Range | Performed | Pathologist | | | | | At | Signature | + + + + + + | WBC | 7.13Comment: Testing | 3.80 - 11.00 | EXTERNAL | | | | performed at [facility], [address] | K/uL | LAB | | | | [address], | | | | | | [place] [address] | | | | + + + + + + | Non- | 5.08Comment: Testing | 4.20 - 5.70 | EXTERNAL | | | Red Blood | performed at [facility], [address] | M/uL | LAB | | | Cells | [address], | | | | | Counted | [place] [address] | | | | + + + + + + | Hemoglobin | 15.3Comment: Testing | 13.2 - 17.0 | EXTERNAL | | | | performed at [facility], [address] | g/dL | LAB | | | | [address], | | | | | | [place] [address] | | | | + + + + + + | Hematocrit, | 45.6Comment: Testing | 39.0 - 50.0 % | EXTERNAL | | | POC | performed at [facility], [address] | | LAB | | | | [address], | | | | | | [place] [address] | | | | + + + + + + | MCV | 89.8Comment: Testing | 80.0 - 100.0 fl | EXTERNAL | | | | performed at [facility], [address] | | LAB | | | | [address], | | | | | | [place] [address] | | | | + + + + + + | MCH | 30.1Comment: Testing | 27.0 - 34.0 pg | EXTERNAL | | | | performed at [facility], [address] | | LAB | | | | [address], | | | | | | [place] [address] | | | | + + + + + + | MCHC | 33.5Comment: Testing | 32.0 - 35.5 | EXTERNAL | | | | performed at [facility], [address] | g/dL | LAB | | | | [address], | | | | | | [place] [address] | | | | + + + + + + | RDW-CV | 41.6Comment: Testing | 37 - 53 fl | EXTERNAL | | | | performed at [facility], [address] | | LAB | | | | [address], | | | | | | [place] [address] | | | | + + + + + + | Platelet | 126 (L)Comment: Testing | 150 - 400 K/uL | EXTERNAL | | | Count | performed at [facility], [address] | | LAB | | | Plasma | [address], | | | | | | [place] [address] | | | | + + + + + + | MPV | 10.2Comment: Testing | fl | EXTERNAL | | | | performed at [facility], [address] | | LAB | | | | [address], | | | | | | [place] [address] | | | | + + + + + + | Differentia | AUTOMATEDComment: | | EXTERNAL | | | l Type | Testing performed at | | LAB | | | | [facility], [address] | | | | | | [place] | | | | | | [address] | | | | + + + + + + | % Segmented | 58.30Comment: Testing | % | EXTERNAL | | | | performed at [facility], [address] | | LAB | | | Neutrophils | [address], | | | | | | [place] [address] | | | | + + + + + + | % | 27.96Comment: Testing | % | EXTERNAL | | | Lymphocytes | performed at [facility], [address] | | LAB | | | | [address], | | | | | | [place], [place] [address] | | | | + + + + + + | % Monocytes | 9.77Comment: Testing | % | EXTERNAL | | | | performed at [facility], [address] | | LAB | | | | [address], | | | | | | [place], [place] [address] | | | | + + + + + + | % | 3.57Comment: Testing | % | EXTERNAL | | | Eosinophils | performed at [facility], [address] | | LAB | | | | [address], | | | | | | [place], [place] [address] | | | | + + + + + + | % Basophils | 0.40Comment: Testing | % | EXTERNAL | | | | performed at [facility], [address] | | LAB | | | | [address], | | | | | | [place] [address] | | | | + + + + + + | Absolute | 4.16Comment: Testing | 1.90 - 7.40 | EXTERNAL | | | Segmented | performed at [facility], [address] | K/uL | LAB | | | Neutrophils | [address], | | | | | | [place] [address] | | | | + + + + + + | Absolute | 2.00Comment: Testing | 1.00 - 3.90 | EXTERNAL | | | Lymphocytes | performed at [facility], [address] | K/[address] | LAB | | | | [address], | | | | | | [place] [address] | | | | + + + + + + | Absolute | 0.70Comment: Testing | 0.00 - 0.80 | EXTERNAL | | | Monocytes | performed at [facility], [address] | K/[address] | LAB | | | | [address], | | | | | | [place] [address] | | | | + + + + + + | Absolute | 0.26Comment: Testing | 0.00 - 0.50 | EXTERNAL | | | Eosinophils | performed at [facility], [address] | [address] | LAB | | | | [address], | | | | | | [place] [address] | | | | + + + + + + | Absolute | 0.03Comment: Testing | 0.00 - 0.10 | EXTERNAL | | | Basophils | performed at [facility], [address] | K[address] | LAB | | | | [address], | | | | | | [place] [address] | | | | + + + + + + + + | Specimen | + + | Blood specimen | | (specimen) | + + + +---------+ + + | Performing | Address | City/State/Zipcode | Phone Number | | Organization | | | | + +---------+ + + | EXTERNAL LAB | | | | + +---------+ + + TSH (10/01/2016 2:19 AM PST) + + + + + + | Component | Value | Ref Range | Performed | Pathologist | | | | | At | Signature | + + + + + + | TSH | 2.41Comment: Testing | 0.45 - 5.10 | EXTERNAL | | | | performed at [facility], [address] | uIU/mL | LAB | | | | [address], | | | | | | [place] [address] | | | | + + + + + + + + | Specimen | + + | Blood specimen | | (specimen) | + + + +---------+ + + | Performing | Address | City/State/Zipcode | Phone Number | | Organization | | | | + +---------+ + + | EXTERNAL LAB | | | | + +---------+ + + Phosphorus (10/01/2016 2:19 AM PST) + + + + + + | Component | Value | Ref Range | Performed | Pathologist | | | | | At | Signature | + + + + + + | PHOSPHORUS | 2.6Comment: Testing | 2.3 - 4.8 mg/dL | EXTERNAL | | | | performed at [facility], [address] | | LAB | | | | [address], | | | | | | [place] [address] | | | | + + + + + + + + | Specimen | + + | Blood specimen | | (specimen) | + + + +---------+ + + | Performing | Address | City/State/Zipcode | Phone Number | | Organization | | | | + +---------+ + + | EXTERNAL LAB | | | | + +---------+ + + Magnesium (10/01/2016 2:19 AM PST) + + + + + + | Component | Value | Ref Range | Performed | Pathologist | | | | | At | Signature | + + + + + + | Magnesium | 2.2Comment: Testing | 1.7 - 2.4 mg/dL | EXTERNAL | | | | performed at [facility], [address] | | LAB | | | | [address], | | | | | | [place] [address] | | | | + + + + + + + + | Specimen | + + | Blood specimen | | (specimen) | + + + +---------+ + + | Performing | Address | City/State/Zipcode | Phone Number | | Organization | | | | + +---------+ + + | EXTERNAL LAB | | | | + +---------+ + + Hemoglobin A1C (10/01/2016 2:19 AM PST) + + + + + + | Component | Value | Ref Range | Performed | Pathologist | | | | | At | Signature | + + + + + + | Hemoglobin | 5.9Comment: The [place] | 4.0 - 6.0 % | EXTERNAL | | | A1c | Diabetes Association | | LAB | | | | considers a hemoglobin | | | | | | A1c result of <7.0% to | | | | | | be the goal of diabetic | | | | | | therapy. When results | | | | | | are consistently >8.0%, | | | | | | the ADA suggests | | | | | | reevaluation of the | | | | | | treatment regimen. The | | | | | | testing method used is | | | | | | certified traceable to | | | | | | the Diabetes Control and | | | | | | Complications Trial | | | | | | reference method.Testing | | | | | | performed at [facility], [address], | | | | | | [place] [address] | | | | + + + + + + | Glycohemogl | 123Comment: The ADA | mg/dL | EXTERNAL | | | obin | considers an eAG result | | LAB | | | (GHb),Total | of LT 154 mg/dL to be | | | | | | the goal of diabetic | | | | | | therapy. Estimated | | | | | | Average Glucose | | | | | | calculated from | | | | | | hemoglobin A1c by use of | | | | | | the ADA recommended | | | | | | formula.Testing | | | | | | performed at [facility], [address] | | | | | | [facility], | | | | | | [place] [address] | | | | + + + + + + + + | Specimen | + + | Blood specimen | | (specimen) | + + + +---------+ + + | Performing | Address | City/State/Zipcode | Phone Number | | Organization | | | | + +---------+ + + | EXTERNAL LAB | | | | + +---------+ + + CK Total (10/01/2016 2:19 AM PST) + + + + + + | Component | Value | Ref Range | Performed | Pathologist | | | | | At | Signature | + + + + + + | CK, Total | 121Comment: Testing | 55 - 400 U/L | EXTERNAL | | | | performed at [facility];[address] | | LAB | | | | [address];[place], [place] | | | | | | [address] | | | | + + + + + + + + | Specimen | + + | Blood specimen | | (specimen) | + + + +---------+ + + | Performing | Address | City/State/Zipcode | Phone Number | | Organization | | | | + +---------+ + + | EXTERNAL LAB | | | | + +---------+ + + Lipid Panel (10/01/2016 2:19 AM PST) + + + + + + | Component | Value | Ref Range | Performed | Pathologist | | | | | At | Signature | + + + + + + | Cholesterol | 196Comment: Testing | mg/dL | EXTERNAL | | | | performed at [facility], [address] | | LAB | | | | [address], | | | | | | [place] [address] | | | | + + + + + + | Triglycerid | 244 (H)Comment: Testing | mg/dL | EXTERNAL | | | es | performed at [facility], [address] | | LAB | | | | [address], | | | | | | [place] [address] | | | | + + + + + + | HDL | 31 (L)Comment: Testing | mg/dL | EXTERNAL | | | | performed at [facility], [address] | | LAB | | | | [address], | | | | | | [place] [address] | | | | + + + + + + | LDL, | 116 (H)Comment: Testing | mg/dL | EXTERNAL | | | Calculated | performed at [facility], [address] | | LAB | | | | [address], | | | | | | [place] [address] | | | | + + + + + + + + | Specimen | + + | Blood specimen | | (specimen) | + + + +---------+ + + | Performing | Address | City/State/Zipcode | Phone Number | | Organization | | | | + +---------+ + + | EXTERNAL LAB | | | | + +---------+ + + Basic Metabolic Panel (10/01/2016 2:19 AM PST) + + + + + + | Component | Value | Ref Range | Performed | Pathologist | | | | | At | Signature | + + + + + + | Na | 142Comment: Testing | 135 - 145 | EXTERNAL | | | | performed at [facility], [address] | mmol/L | LAB | | | | [address], | | | | | | [place] [address] | | | | + + + + + + | K | 3.5Comment: Testing | 3.5 - 4.9 | EXTERNAL | | | | performed at [facility], [address] | mmol/L | LAB | | | | [address], | | | | | | [place] [address] | | | | + + + + + + | Cl | 105Comment: Testing | 99 - 109 mmol/L | EXTERNAL | | | | performed at [facility], [address] | | LAB | | | | [address], | | | | | | [place] [address] | | | | + + + + + + | CO2 | 30Comment: Testing | 23 - 32 mmol/L | EXTERNAL | | | | performed at [facility], [address] | | LAB | | | | [address], | | | | | | [place] [address] | | | | + + + + + + | Anion Gap | 11Comment: Testing | 5 - 20 mmol/L | EXTERNAL | | | | performed at [facility], [address] | | LAB | | | | [address], | | | | | | [place] [address] | | | | + + + + + + | Glucose, | 117 (H)Comment: Testing | 65 - 99 mg/dL | EXTERNAL | | | Fasting | performed at [facility], [address] | | LAB | | | | [address], | | | | | | [place] [address] | | | | + + + + + + | BUN | 20Comment: Testing | 8 - 25 mg/dL | EXTERNAL | | | | performed at [facility], [address] | | LAB | | | | [address], | | | | | | [place] [address] | | | | + + + + + + | Creatinine | 1.1Comment: Testing | 0.70 - 1.30 | EXTERNAL | | | | performed at [facility], [address] | mg/dL | LAB | | | | [address], | | | | | | [place] [address] | | | | + + + + + + | BUN/Creatin | 18Comment: Testing | | EXTERNAL | | | ine Ratio | performed at [facility], [address] | | LAB | | | | [address], | | | | | | [place] [address] | | | | + + + + + + | Calcium | 8.3 (L)Comment: Testing | 8.5 - 10.5 | EXTERNAL | | | | performed at [facility], [address] | mg/dL | LAB | | | | [address], | | | | | | [place] [address] | | | | + + + + + + | Estimated | >60Comment: GFR <60: | mL/min/1.73m2 | EXTERNAL | | | GFR | CHRONIC KIDNEY DISEASE, | | LAB | | | | IF FOUND OVER A 3 MONTH | | | | | | PERIOD.GFR <15: KIDNEY | | | | | | FAILURE.FOR | | | | | | AMERICANS, MULTIPLY THE | | | | | | CALCULATED GFR BY | | | | | | 1.210.Testing performed | | | | | | at [facility], [address] | | | | | | [address], | | | | | | [place] [address] | | | | + + + + + + + + | Specimen | + + | Blood specimen | | (specimen) | + + + +---------+ + + | Performing | Address | City/State/Zipcode | Phone Number | | Organization | | | | + +---------+ + + | EXTERNAL LAB | | | | + +---------+ + + CK-MB (09/30/2016 9:57 PM PST) + + + + + -+ | Component | Value | Ref Range | Performed | Pathologist | | | | | At | Signature | + + + + + -+ | CK-MB | 2.2Comment: Testing | 0.5 - 3.6 ng/mL | EXTERNAL | | | | performed at [facility];[address] | | LAB | | | | [facility];[place], [place] | | | | | | [address] | | | | + + + + + -+ | CK-MB Index | 1.5Comment: CK INDEX | | EXTERNAL | | | | INTERPRETATION: | | LAB | | | | MMB ng/mL | | | | | | | | | | | |CK INDEX INTERPRETATION: | | | | | | MMB ng/mL | | | | | | | | | | + + + + + -+ + + | Specimen | + + | | + + + +---------+ + + | Performing | Address | City/State/Zipcode | Phone Number | | Organization | | | | + +---------+ + + | EXTERNAL LAB | | | | + +---------+ + + Troponin I (09/30/2016 9:57 PM PST) + + + + + + | Component | Value | Ref Range | Performed | Pathologist | | | | | At | Signature | + + + + + + | Troponin I, | <0.020Comment: 0.00 to | 0.00 - 0.10 | EXTERNAL | | | Qual | 0.10 CONSISTENT WITH | ng/mL | LAB | | | | NORMAL POPULATION0.11 | | | | | | to 0.60 CONSISTENT | | | | | | WITH INCREASED RISK FOR | | | | | | ADVERSE OUTCOMES> 0.60 | | | | | | CONSISTENT | | | | | | WITH WHO CRITERIA FOR | | | | | | ACUTE CO Testing | | | | | | performed at [facility];[address] | | | | | | [facility];[place], [place] | | | | | | [address] | | | | + + + + + + + + | Specimen | + + | Blood specimen | | (specimen) | + + + +---------+ + + | Performing | Address | City/State/Zipcode | Phone Number | | Organization | | | | + +---------+ + + | EXTERNAL LAB | | | | + +---------+ + + CK Total (09/30/2016 9:57 PM PST) + + + + + + | Component | Value | Ref Range | Performed | Pathologist | | | | | At | Signature | + + + + + + | CK, Total | 145Comment: Testing | 55 - 400 U/L | EXTERNAL | | | | performed at [facility];[address] | | LAB | | | | [address];[place], [place] | | | | | | [address] | | | | + + + + + + + + | Specimen | + + | Blood specimen | | (specimen) | + + + +---------+ + + | Performing | Address | City/State/Zipcode | Phone Number | | Organization | | | | + +---------+ + + | EXTERNAL LAB | | | | + +---------+ + + XR Chest 2 Vws (09/30/2016 7:07 PM PST) + + | Specimen | + + | | + + + + + | Impressions | Performed At | + + + | 1. No active intrathoracic disease. 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 | | | | | + + + + + + | Narrative | Performed At | + + + | HISTORY: Chest pain. COMPARISON: None. TECHNIQUE: PA and | | | lateral films of the chest. FINDINGS: Heart size is normal. Lungs | | | are clear. Mild degenerative changes of the thoracic spine, with | | | flowing osteophytes fusing multiple mid to lower thoracic spine | | | levels. | | + + + + + | Procedure Note | + + | Dennis, Rad Conversion - 06/08/2019 8:49 PM PDT HISTORY:Chest pain. COMPARISON:None. | | TECHNIQUE:PA and lateral films of the chest. FINDINGS:Heart size is normal. Lungs are | | clear. Mild degenerative changes of the thoracic spine, with flowing osteophytes fusing | | multiple mid to lower thoracic spine levels. IMPRESSION: 1. No active intrathoracic | | disease.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 | | PM | |TECHNIQUE: | |PA and lateral films of the chest. | | | |FINDINGS: | |Heart size is normal. Lungs are clear. Mild degenerative changes of the thoracic spine, wit h flowing osteophytes fusing multiple mid to lower thoracic spine levels. | | | |IMPRESSION: | |1. No active intrathoracic disease. | |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 | | | | | + + HISTORICAL LAB PANEL RESULT (09/30/2016 6:34 PM PST) + + + + + -+ | Component | Value | Ref Range | Performed | Pathologist | | | | | At | Signature | + + + + + -+ | WBC | 8.28Comment: Testing | 3.80 - 11.00 | EXTERNAL | | | | performed at [facility];[address] | K/u[address] | LAB | | | | [address];[place] | | | | | | [address] | | | | + + + + + -+ | Non- | 5.48Comment: Testing | 4.20 - 5.70 | EXTERNAL | | | Red Blood | performed at [facility];[address] | M/uL | LAB | | | Cells | [address];[place] | | | | | Counted | [address] | | | | + + + + + -+ | Hemoglobin | 16.1Comment: Testing | 13.2 - 17.0 | EXTERNAL | | | | performed at [facility];[address] | g/dL | LAB | | | | [address];[place] | | | | | | [address] | | | | + + + + + -+ | Hematocrit, | 48.2Comment: Testing | 39.0 - 50.0 % | EXTERNAL | | | POC | performed at [facility];[address] | | LAB | | | | [address];[place] | | | | | | [address] | | | | + + + + + -+ | MCV | 88.1Comment: Testing | 80.0 - 100.0 fl | EXTERNAL | | | | performed at [facility];[address] | | LAB | | | | [address];[place] | | | | | | [address] | | | | + + + + + -+ | MCH | 29.4Comment: Testing | 27.0 - 34.0 pg | EXTERNAL | | | | performed at [facility];[address] | | LAB | | | | [address];[place] | | | | | | [address] | | | | + + + + + -+ | MCHC | 33.4Comment: Testing | 32.0 - 35.5 | EXTERNAL | | | | performed at [facility];[address] | g/dL | LAB | | | | [address];[place] | | | | | | [address] | | | | + + + + + -+ | RDW-CV | 43.8Comment: Testing | 37 - 53 fl | EXTERNAL | | | | performed at [facility];[address] | | LAB | | | | [address];[place] | | | | | | [address] | | | | + + + + + -+ | Platelet | 143 (L)Comment: Testing | 150 - 400 K/uL | EXTERNAL | | | Count | performed at [facility];[address] | | LAB | | | Plasma | [address];[place] | | | | | | [address] | | | | + + + + + -+ | MPV | 9.2Comment: Testing | fl | EXTERNAL | | | | performed at [facility];[address] | | LAB | | | | [address];[place] | | | | | | [address] | | | | + + + + + -+ | Differentia | AUTOMATEDComment: | | EXTERNAL | | | l Type | Testing performed at | | LAB | | | | [facility];[address];[place] [address] | | | | + + + + + -+ | % Segmented | 54.58Comment: Testing | % | EXTERNAL | | | | performed at [facility];[address] | | LAB | | | Neutrophils | [address];[place] | | | | | | [address] | | | | + + + + + -+ | % | 32.53Comment: Testing | % | EXTERNAL | | | Lymphocytes | performed at [facility];[address] | | LAB | | | | [address];[place] | | | | | | [address] | | | | + + + + + -+ | % Monocytes | 9.77Comment: Testing | % | EXTERNAL | | | | performed at [facility];[address] | | LAB | | | | [address];[place] | | | | | | [address] | | | | + + + + + -+ | % | 2.43Comment: Testing | % | EXTERNAL | | | Eosinophils | performed at [facility];[address] | | LAB | | | | [address];[place] | | | | | | [address] | | | | + + + + + -+ | % Basophils | 0.69Comment: Testing | % | EXTERNAL | | | | performed at [facility];[address] | | LAB | | | | [address];[place] | | | | | | [address] | | | | + + + + + -+ | Absolute | 4.52Comment: Testing | 1.90 - 7.40 | EXTERNAL | | | Segmented | performed at [facility];[address] | K/uL | LAB | | | Neutrophils | [address];[place] | | | | | | [address] | | | | + + + + + -+ | Absolute | 2.70Comment: Testing | 1.00 - 3.90 | EXTERNAL | | | Lymphocytes | performed at [facility];[address] | K/uL | LAB | | | | [address];[place] | | | | | | [address] | | | | + + + + + -+ | Absolute | 0.81 (H)Comment: Testing | 0.00 - 0.80 | EXTERNAL | | | Monocytes | performed at [facility];[address] | K/uL | LAB | | | | [address];[place] | | | | | | [address] | | | | + + + + + -+ | Absolute | 0.20Comment: Testing | 0.00 - 0.50 | EXTERNAL | | | Eosinophils | performed at [facility];[address] | K/uL | LAB | | | | [address];[place] | | | | | | [address] | | | | + + + + + -+ | Absolute | 0.06Comment: Testing | 0.00 - 0.10 | EXTERNAL | | | Basophils | performed at [facility];[address] | K/uL | LAB | | | | [address];[place] | | | | | | [address] | | | | + + + + + -+ | Na | 142Comment: Testing | 135 - 145 | EXTERNAL | | | | performed at [facility];[address] | mmol/L | LAB | | | | [address];[place] | | | | | | [address] | | | | + + + + + -+ | K | 3.8Comment: Testing | 3.5 - 4.9 | EXTERNAL | | | | performed at [facility];[address] | mmol/L | LAB | | | | [address];[place] | | | | | | [address] | | | | + + + + + -+ | Cl | 104Comment: Testing | 99 - 109 mmol/L | EXTERNAL | | | | performed at [facility];[address] | | LAB | | | | [address];[place] | | | | | | [address] | | | | + + + + + -+ | CO2 | 28Comment: Testing | 23 - 32 mmol/L | EXTERNAL | | | | performed at [facility];[address] | | LAB | | | | [address];[place] | | | | | | [address] | | | | + + + + + -+ | Anion Gap | 14Comment: Testing | 5 - 20 mmol/L | EXTERNAL | | | | performed at [facility];[address] | | LAB | | | | [address];[place] | | | | | | [address] | | | | + + + + + -+ | Glucose, | 92Comment: Testing | 65 - 99 mg/dL | EXTERNAL | | | Fasting | performed at [facility];[address] | | LAB | | | | [address];[place] | | | | | | [address] | | | | + + + + + -+ | BUN | 20Comment: Testing | 8 - 25 mg/dL | EXTERNAL | | | | performed at [facility];[address] | | LAB | | | | [address];[place] | | | | | | [address] | | | | + + + + + -+ | Creatinine | 1.2Comment: Testing | 0.70 - 1.30 | EXTERNAL | | | | performed at [facility];[address] | mg/dL | LAB | | | | [address];[place] | | | | | | [address] | | | | + + + + + -+ | BUN/Creatin | 16Comment: Testing | | EXTERNAL | | | ine Ratio | performed at [facility];[address] | | LAB | | | | [address];[place] | | | | | | [address] | | | | + + + + + -+ | Calcium | 8.4 (L)Comment: Testing | 8.5 - 10.5 | EXTERNAL | | | | performed at [facility];[address] | mg/dL | LAB | | | | [address];[place] | | | | | | [address] | | | | + + + + + -+ | Protein, | 7.5Comment: Testing | 6.3 - 8.2 g/dL | EXTERNAL | | | Total | performed at [facility];[address] | | LAB | | | | [address];[place] | | | | | | [address] | | | | + + + + + -+ | Albumin | 3.9Comment: Testing | 3.3 - 4.8 g/dL | EXTERNAL | | | | performed at [facility];[address] | | LAB | | | | [address];[place] | | | | | | [address] | | | | + + + + + -+ | Globulin | 3.7Comment: Testing | 1.3 - 4.9 g/dL | EXTERNAL | | | | performed at [facility];[address] | | LAB | | | | [address];[place] | | | | | | [address] | | | | + + + + + -+ | A/G Ratio | 1.1Comment: Testing | 1.0 - 2.4 | EXTERNAL | | | | performed at [facility];[address] | | LAB | | | | [address];[place] | | | | | | [address] | | | | + + + + + -+ | Bilirubin | 0.8Comment: Testing | 0.1 - 1.5 mg/dL | EXTERNAL | | | Total | performed at [facility];[address] | | LAB | | | | [address];[place] | | | | | | [address] | | | | + + + + + -+ | ALP, | 77Comment: Testing | 35 - 115 U/L | EXTERNAL | | | External | performed at [facility];[address] | | LAB | | | | [address];[place] | | | | | | [address] | | | | + + + + + -+ | AST | 21Comment: Testing | 10 - 45 U/L | EXTERNAL | | | | performed at [facility];[address] | | LAB | | | | [address];[place] | | | | | | [address] | | | | + + + + + -+ | ALT | 27Comment: Testing | 10 - 65 U/L | EXTERNAL | | | | performed at [facility];[address] | | LAB | | | | [address];[place] | | | | | | [address] | | | | + + + + + -+ | Estimated | >60Comment: GFR <60: | mL/min/1.73m2 | EXTERNAL | | | GFR | CHRONIC KIDNEY DISEASE, | | LAB | | | | IF FOUND OVER A 3 MONTH | | | | | | PERIOD.GFR <15: KIDNEY | | | | | | FAILURE.FOR | | | | | | AMERICANS, MULTIPLY THE | | | | | | CALCULATED GFR BY | | | | | | 1.210.Testing performed | | | | | | at [facility];[address] [facility] | | | | | | [address];[place] [address] | | | | + + + + + -+ | CK, Total | 148Comment: Testing | 55 - 400 U/L | EXTERNAL | | | | performed at [facility];[address] | | LAB | | | | [address];[place] | | | | | | [address] | | | | + + + + + -+ | INR | 1.0Comment: REFERENCE | | EXTERNAL | | | | RANGE:0.9 - 1.2 | | LAB | | | | NON-ANTICOAGULATED2.0 | | | | | | - 3.0 ALL OTHER | | | | | | THERAPEUTIC | | | | | | INDICATIONS2.5 - 3.5 | | | | | | MECHANICAL HEART VALVES, | | | | | | RECURRENT OR SYSTEMIC | | | | | | EMBOLISMTesting | | | | | | performed at [facility];[address] | | | | | | [address];[place] | | | | | | [address] | | | | + + + + + -+ | aPTT, | 27Comment: Testing | 23 - 32 seconds | EXTERNAL | | | Patient | performed at [facility];[address] | | LAB | | | | [address];[place] | | | | | | [address] | | | | + + + + + -+ | CK-MB | 2.2Comment: Testing | 0.5 - 3.6 ng/mL | EXTERNAL | | | | performed at [facility] [place];[address] | | LAB | | | | [address];[place] | | | | | | [id number] | | | | + + + + + -+ | CK-MB Index | 1.5Comment: CK INDEX | | EXTERNAL | | | | INTERPRETATION: | | LAB | | | | MMB ng/mL | | | | | | | | | | | |CK INDEX INTERPRETATION: | | | | | | MMB ng/mL | | | | | | | | | | + + + + + -+ + + | Specimen | + + | | + + + +---------+ + + | Performing | Address | City/State/Zipcode | Phone Number | | Organization | | | | + +---------+ + + | EXTERNAL LAB | | | | + +---------+ + + Troponin I (09/30/2016 6:34 PM PST) + + + + + + | Component | Value | Ref Range | Performed | Pathologist | | | | | At | Signature | + + + + + + | Troponin I, | <0.020Comment: 0.00 to | 0.00 - 0.10 | EXTERNAL | | | Qual | 0.10 CONSISTENT WITH | ng/mL | LAB | | | | NORMAL POPULATION0.11 | | | | | | to 0.60 CONSISTENT | | | | | | WITH INCREASED RISK FOR | | | | | | ADVERSE OUTCOMES> 0.60 | | | | | | CONSISTENT | | | | | | WITH WHO CRITERIA FOR | | | | | | ACUTE CO Testing | | | | | | performed at [facility] [place];[address] | | | | | | [address];[place], [place] | | | | | | [address] | | | | + + + + + + + + | Specimen | + + | Blood specimen | | (specimen) | + + + +---------+ + + | Performing | Address | City/State/Zipcode | Phone Number | | Organization | | | | + +---------+ + + | EXTERNAL LAB | | | | + +---------+ + + ECG 12 lead (09/30/2016 6:24 PM PST) + + + + + + | Component | Value | Ref Range | Performed | Pathologist | | | | | At | Signature | + + + + + + | DIAGNOSIS: | Sinus rhythm with 1st | | EXTERNAL | | | | degree A-V | | LAB | | | | blockOtherwise normal | | | | | | ECGNo previous ECGs | | | | | | availableThis ECG | | | | | | contains Unconfirmed | | | | | | Interpretation | | | | | | Statements. See ED | | | | | | Record for Physician | | | | | | Interpretation. | | | | | | Confirmed by MUSE READ | | | | | | ONLY, -COMPUTER ([id number]), | | | | | | medical editor Gilma Vila | | | | | | ([id number]) on 10/01/2016 | | | | | | 4:13:31 AM | | | | + + + + + + + + | Specimen | + + | | + + + + + | Narrative | Performed At | + + + | Historically converted procedure from [facility] Epic environment | EXTERNAL LAB | + + + + +---------+ + + | Performing | Address | City/State/Zipcode | Phone Number | | Organization | | | | + +---------+ + + | EXTERNAL LAB | | | | + +---------+ + + documented in this encounter Visit Diagnoses + + | Diagnosis | + + | Other chest pain | + + documented in this encounter
--- OUTSIDE RECORDS SUMMARY | ~2020-05-10 | XMS | Encounter Summary ---
Demographics + + + | Address | [address] | | | [place] [address] | + + + | Home Phone | | + + + | Preferred Language | Unknown | + + + | Marital Status | | + + + | Pentecostal Affiliation | 1027 | + + + [...] | | | | | [place] [address] | | + + + + + Care Team Providers + +------+ + | Care Restaurant Supervisor Name | Role | Phone | + +------+ + | Abran Alas MD | PCP | | + +------+ + Reason for Visit Service/Procedure (Routine) +--------+--------+ + + + + | Status | Reason | Specialty | Diagnoses / | Referred By | Referred To | | | | | Procedures | Contact | Contact | +--------+--------+ + + + + | Closed | | Radiology | Diagnoses | | [facility] | | | | | Lumbar | [place], | [address] | | | | | radiculopath | Teo Miller MD | [place], | | | | | y | [address] | [place] | | | | | Procedures | [place] | [address] | | | | | [place] INJECT | [place] | Phone: | | | | | ANES/STEROID | [address] | [phone] | | | | | FORAMEN | Phone: | Fax: | | | | | LUMBAR/SACRA | [phone] | [phone] | | | | | [address] [facility] | Fax: | | | | | | GUIDE ,1 | [phone] | | | | | | [place]EV[place] | | | | | | | TRIAMCINOLON | | | | | | | E ACET INJ | | | | | | | NOS, 10 MG | | | | | | | Appt: 1/10 | | | | | | | Bilateral | | | | | | | L4-5 TFESI- | | | | | | | Referral | | | | | | | from | | | | | | | Nic Dawson | | | +--------+--------+ + + + + Encounter Details +--------+ + + + + | Date | Type | Department | Care Team | Description | +--------+ + + + + | 11/03/ | Hospital | [facility] | Kelley Fay | Lumbar radiculopathy | | 2018 | Encounter | MED CTR XRAY [address] | SABRINA Saab [address] | | | | | [place] | [facility] | | | | | [place] [address] | [address] [place], [place] | | | | | [phone] | [address] | | | | | | | | | | | | [place] | | | | | | [place] | | +--------+ + + + + [...] this encounter Last Filed Vital Signs + +---------+ + + | Vital Sign | Reading | Time Taken | Comments | + +---------+ + + | Blood Pressure | 150/75 | 11/03/2017 5:02 PM | | | | | PST | | + +---------+ + + | Pulse | - | - | | + +---------+ + + | Temperature | - | - | | + +---------+ + + | Respiratory Rate | - | - | | + +---------+ + + | Oxygen Saturation | - | - | | + +---------+ + + | Inhaled Oxygen | - | - | | | Concentration | | | | + +---------+ + + | Weight | - | - | | + +---------+ + + | Height | - | - | | + +---------+ + + | Body Mass Index | - | - | | + +---------+ + + documented in this encounter Medications at Time [...] + + + +---------+ + + | ibuprofen (ADVIL, | Take 400 mg by mouth | | 0 | | | | MOTRIN) 200 mg | 2 times daily. | | | | 8 | | tablet | | | | | | + + + +---------+ + + documented as of this encounter Plan of Treatment +--------+---------+ + + + | Date | Type | Specialty | Care Team | Description | +--------+---------+ + + + | 09/04/ | Office | Cardiology | Caterina Catalan, | | | 2019 | Visit | | MD [address] | | | | | | [place] | | | | | | [address] | | | | | | | | +--------+---------+ + + + documented as of this encounter Procedures + +--------+ + + + | Procedure Name | Priori | Date/Time | Associated Diagnosis | Comments | | | ty | | | | + +--------+ + + + | FL EPIDURAL STEROID | Routin | 11/03/2017 | Lumbar | Results for this | | INJECTION LUMBAR | e | 4:39 PM | radiculopathy | procedure are in the | | TRANSFORAMINAL | | PST | | results section. | + +--------+ + + + documented in this encounter Results FL GEOFF Lumbar Transforaminal (11/03/2017 4:39 PM PST) + + | Specimen | + + | | + + + + -+ | Narrative | Performed At | + + -+ | 11/03/2017 | [facility] | | Bilateral Transforaminal Epidural Steroid Injections Diagnosis: Lumbar | | | radiculopathy ICD-10 Code M54.16 Boaz Clarke presents to the | | | fluoroscopy suite for fluoroscopically-guided bilateral L4-L5 | | | transforaminal epidural steroid injections as part of conservative | | | management for chronic pain with lumbar radiculopathy and degenerative | | | disk disease. After informed consent was obtained, the patient lay in | | | the prone position on the fluoroscopy table. The areas were | | | identified under fluoroscopic guidance. The areas were prepped and | | | draped in sterile fashion. A 25-gauge, 1.5-inch needle was inserted | | | into each region and approximately 3 mL of buffered 1% lidocaine was | | | infused. Then, a 22-gauge spinal needle was inserted into the | | | posterior superior transforaminal space bilaterally and advanced into | | | the epidural space under fluoroscopic guidance. Confirmation into the | | | epidural space was obtained with infusion of approximately 1 mL of | | | Omnipaque contrast which showed epidural flow as well as nerve sheath | | | flow. Then, a combination of 2 mL of 1% lidocaine and 1.5 mL of 10 | | | mg/mL dexamethasone was infused, divided between the two sides. The | | | patient tolerated the procedure well without complications. Pre- and | | | post-procedure blood pressures were stable. The patient was given | | | verbal as well as written follow-up instructions. Prior to the start | | | of the procedure, the following were performed and/or verified, | | | including correct patient identity, correct site/side marked and | | | visible, agreement on the procedure to be done, correct patient | | | positioning and an accurate procedure consent form. Any safety | | | precautions based on clinical history and/or medication use have been | | | addressed. I personally performed the procedure above. Estimated blood | | | loss: MinimalComplications: NoneFindings: As expectedAnesthesia: | | | Local 1% Lidocaine | | |visible, agreement on the procedure to be done, correct patient | | |positioning and an accurate procedure consent form. Any safety precautions | | |based on clinical history and/or medication use have been addressed. I | | |personally performed the procedure above. | | | | | |Estimated blood loss: Minimal | | |Complications: None | | |Findings: As expected | | |Anesthesia: Local 1% Lidocaine | | | | | | | | + + -+ + +---------+ + + | Performing | Address | City/State/Zipcode | Phone Number | | Organization | | | | + +---------+ + + | [facility] | | | | + +---------+ + + documented in this encounter Visit Diagnoses + + | Diagnosis | + + | Lumbar radiculopathy Thoracic or lumbosacral neuritis or radiculitis, unspecified | + + documented in this encounter Administered Medications + +--------+ +-------+------+------+ | Medication Order | MAR | Action | Dose | Rate | Site | | | Action | Date | | | | + +--------+ +-------+------+------+ | dexamethasone (PF) 10 mg/mL | Given | 11/03/19 | 15 mg | | | | injection 15 mg 15 mg, Other, | | 18 4:55 | | | | | ONCE, 11/03/17 at 1700, For 1 | | PM PST | | | | | dose | | | | | | + +--------+ +-------+------+------+ +---+---+ | | | +---+---+ + +-------+ +-------+---+---+ | iohexol (OMNIPAQUE 300) 300 | Given | 11/03/19 | 4 mLs | | | | mg/mL injection 4 mL 4 mL, | | 18 4:50 | | | | | Other, ONCE, 11/03/17 at 1700, | | PM PST | | | | | For 1 dose | | | | | | + +-------+ +-------+---+---+ +---+---+ | | | +---+---+ + +-------+ +-------+---+---+ | lidocaine (PF) 1% injection 2 | Given | 11/03/19 | 2 mLs | | | | mL 2 mL, Other, ONCE, Wed | | 18 4:55 | | | | | 11/03/17 at 1700, For 1 dose | | PM PST | | | | + +-------+ +-------+---+---+ +---+---+ | | | +---+---+ + +-------+ +--------+---+ + | lidocaine buffered 1% injection | Given | 11/03/19 | 10 mLs | | Other | | 10 mL 10 mL, Intradermal, ONCE, | | 18 4:45 | | | (Comment | | 11/03/17 at 1700, For 1 dose | | PM PST | | | ) | + +-------+ +--------+---+ + +---+---+ | | | +---+---+ documented in this encounter"
--- OUTSIDE RECORDS SUMMARY | ~2020-05-10 | XMS | Encounter Summary ---
Demographics + + + | Address | [address] | | | [place] [address] | + + + | Home Phone | | + + + | Preferred Language | Unknown | + + + | Marital Status | | + + + | Rastafari Affiliation | 1027 | + + + | Race | Unknown | + + + | Ethnic Group | Unknown | + + + Author + + + | Author | [facility] | | | and [place] | + + + | Organization | [facility] | | [...] | | | | | [place] [address] | | + + + + + Care Team Providers + +------+ + | Care Chainstitch Tunnel Elastic Operator Name | Role | Phone | + +------+ + | Abran Alas MD | PCP | | + +------+ + Encounter Details +--------+ + + + + | Date | Type | Department | Care Team | Description | +--------+ + + + + | 11/04/ | Episode | [facility] [place] | Mima Massey, | | | 2017 | Changes | NEUROSURGERY [address] | [place] | | | | | [address] | | | | | | [place], [place] | | | | | | [address] | | | | | | [phone] | | | +--------+ + + + [...] | | | | | [place] | | | | | | [address] | | | | | | | | +--------+---------+ + + + documented as of this encounter Visit Diagnoses Not on filedocumented in this encounter"
--- OUTSIDE RECORDS SUMMARY | ~2020-05-10 | XMS | Encounter Summary ---
Demographics + + + | Address | [address] | | | [place] [address] | + + + | Home Phone | | + + + | Preferred Language | Unknown | + + + | Marital Status | | + + + | Buddhism Affiliation | 1027 | + + + | Race | Unknown | + + + | Ethnic Group | Unknown | + + + Author + + + | Author | [facility] | | | and [place] | + + + | Organization | [facility] | | | [...] | | | | | [place] [address] | | + + + + + Care Team Providers + +------+ + | Care Interviewing Clerk Name | Role | Phone | + [...] + + | Closed | Specialty | Neurosurgery | Diagnoses | Nic, | Nydia, | | | Services | | Spinal | Avtar Fuentes MD | Derrick Fuentes DO | | | Required | | stenosis of | [address] | | | | | lumbar | [address] | [address] | | | | | region with | [place], | [place], [place] | | | | | neurogenic | [place] [address] | [address] Phone: | | | | | claudication | Phone: | [phone] | | | | | | [phone] | Fax: | | | | | | Fax: | [phone] | | | | | | [phone] | | +--------+ + + + + + Reason for Visit + + + | Reason | Comments | + + + | Leg Pain | bilateral leg pain | + + + Evaluate & Treat (Routine) +--------+--------+ + + + + | Status | Reason | Specialty | Diagnoses / | Referred By | Referred To | | | | | Procedures | Contact | Contact | +--------+--------+ + + + + | Closed | | Physical | Diagnoses | Bishop, | Avtar Lucero | | | | Medicine and | DDD | Abran | Cyndee Fuentes MD [address] | | | | Rehabilitatio | (degenerativ | MD Donal | [address] | | | | n | e disc | [address] | [place], | | | | | disease), | [address] | [place] [address] | | | | | lumbar | [place] | Phone: | | | | | Lumbar | [place] [address] | [phone] | | | | | spondylosis | Phone: | Fax: | | | | | | [phone] | [phone] | | | | | | Fax: | | | | | | | [phone] | | +--------+--------+ + + + + Encounter Details +--------+---------+ + + + | Date | Type | Department | Care Team | Description | +--------+---------+ + + + | 09/28/ | Office | [facility] | Avtar Lucero, | Spinal stenosis of | | 2017 | Visit | PHYSIATRY [address] | MD [address] | lumbar region with | | | | [address] | [place], [place] | neurogenic | | | | [place], [place] | [address] | claudication | | | | [address] | | (Primary Dx); Right | | | | [phone] | | leg weakness; Lumbar | | | | | | radiculopathy | +--------+---------+ + + + Social History [...] + + + | Blood Pressure | 137/83 | 09/28/2017 3:57 PM | | | | | PST | | + + + + + | Pulse | 72 | 09/28/2017 3:57 PM | | | | | PST | | + + + + + | Temperature | - | - | | + + + + + | Respiratory Rate | 20 | 09/28/2017 3:57 PM | | | | | PST | | + + + + + | Oxygen Saturation | - | - | | + + + + + | Inhaled Oxygen | - | - | | | Concentration | | | | + + + + + | Weight | 79.4 kg (175 lb) | 09/28/2017 3:57 PM | | | | | PST | | + + + + + | Height | 167.6 cm (5' 6") | 09/28/2017 3:57 PM | | | | | PST | | + + + + + | Body Mass Index | 28.25 | 09/28/2017 3:57 PM | | | | | PST | | + + + + + documented in this encounter Patient Instructions Patient Instructions Janine Montoya, Automatic Equipment Technician - 09/28/2017 3:20 PM PSTX-rays have been requested. Please go to the x-ray department after your appointment to complete these x-rays. The results of your x-rays will be reviewed at your next appointment. If you r x-rays demonstrate any emergent results, the clinic will contact you. A neurosurgery consult was placed today. Their office should be in contact with you. Please take the prescribed medication Gabapentin. Taper up the dose of the medication as di rected. Stop tapering up the medication at the lowest effective dose. If you have side eff ects to the medication, reduce the dose of the medication to the last dose that you were abl e to tolerate without side effects. Follow-up at the hospital thirty minutes before your scheduled procedure to allow for time to check in. You may eat and drink as usual on the day of the procedure. If you are scheduled for an epidural injection do not take any blood thinning medications f or at least 5-7 days prior to your procedure unless you have been instructed by another phys ician not to discontinue blood thinning medications. If you are having a procedure other than an epidural injection (i.e. facet injection, media l branch block, SI joint injection or other joint injection) it is not absolutely necessary to discontinue blood thinning medications but doing so will decrease the risk of bruising or bleeding. If you have had a prior stroke, DVT or PE or if you are taking blood thinning medication be cause you have atrial fibrillation, a prosthetic cardiac valve replacement or heart stenting do not stop taking your blood thinning medications unless you have permission from your car diologist or primary care provider. All other medications should be taken as usual on the day of the procedure. Common blood thinning medications include: Aspirin (a baby aspirin is o.k.) Ibuprofen (Advil or Motrin) Naproxen (Aleve) Nabumetone (Relafen) Clopidogrel (Plavix) Dipyridamole/ASA (Aggrenox) Warfarin (Coumadin) Dabigatran (Pradaxa) Rivaroxaban (Xarelto) There are many others. If you have questions about your medications and whether or not you should stop any medications please contact our office. If you are having an epidural injection or if you take any medication for relaxation/sedati on on the day of the procedure you must provide a inventory associate and driver to take you home. For all procedur es it is recommended that someone else drive you home. documented in this encounter Progress Notes Avtar Lucero MD - 09/28/2017 3:20 PM PSTFormatting of this note might be different fro m the original. Avtar Lucero MD [address] [facility], [address] [place], [place] [id number] FAX: PHYSICAL MEDICINE AND REHABILITATION H&P CHIEF COMPLAINT: Chief Complaint Patient presents with Leg Pain bilateral leg pain HISTORY OF PRESENT ILLNESS: Boaz Clarke s a 71 y.o. male being seen today at the [facility] of [place] MD for the complaint of lower extremity pain that began about 9 mo nths. He reports that the pain started without an inciting event. The symptoms vary dep ending on the day. He reports that he has good days and there are bad days. Boaz Clarke denies any back pain. Boaz Clarke rates the pain as moderate. The symptoms are continuous. Boaz Clarke describes the pain as aching, dull, sharp and throbbing. Boaz Clarke describes leg symptoms that occur on both sides worse on the left. He repor ts a feeling of tightness in his quads. The leg symptoms are constant. He reports shooting pain into the bilateral lower extremities. The patient does not report numbness in the bila teral lower extremities. He does not report weakness of the bilateral lower extremities. Brielle Clarke reports difficulty with putting his shoes and socks on. Boaz Clarke also reports the inability to sleep on his sides due to the shooting pain into the left melissa. Boaz Clarke does not report any change in bowel or bladder function or saddle anesthesi a recently. His symptoms improve with nothing. His symptoms worsen with changing position. Boaz Clarke has tried PT and Massage. Boaz Clarke most recent course of physical therapy was completed in April of 2017. He reports no change in symptoms. He report that chir opractic care seems to be the only thing to help relieve pain. Unfortunately [place] chiropracto r [place] located 500 miles [place]. He reports that he has tried ibuprofen for some time. He report s that he used to walk 20 miles a week. PAST MEDICAL HISTORY: Past Medical History: Diagnosis Date Ankylosis of lumbar spine Degenerative lumbar disc Dyslipidemia Family history of colon cancer Lumbar spondylosis JORDAN (obstructive sleep apnea) Pain in unspecified thigh Primary insomnia Radiculopathy, lumbar region Typical atrial flutter (HCC) PAST SURGICAL HISTORY: Past Surgical History: Procedure Laterality Date COLONOSCOPY 04/2008 ROTATOR CUFF REPAIR Left 02/2015 Dr. Jonas; Lisa [place]. TONSILLECTOMY [facility]; [facility] [place]. TYMPANOPLASTY 1991 Dr. Lees ;[place] CURRENT MEDICATIONS: Current Outpatient Prescriptions Medication Sig Dispense Refill aspirin 81 mg EC tablet Take 81 mg by mouth Daily. No current facility-administered medications for this visit. ALLERGIES: Allergies no known allergies SOCIAL HISTORY: The patient reports that he [...] 6 other childern No history REVIEW OF SYSTEMS: ROS GENERALLY: No fever, no night sweats, no anemia, no fatigue, no recent profound weight ch anges. EYES: No eye problems, + use of corrective lenses, no eye injury, no double vision, no bli ndness. EARS, NOSE, AND THROAT: No changes in taste or smell, + hearing difficulty, no ringing in the ears, no ear drainage, no dizziness, no voice changes, no difficulty swallowing, + signi ficant snoring, +sleep apnea, no sinus problems, + major dental work. NEUROLOGICALLY:The patient has no numbness/pain of arms, + numbness/pain of legs, no awake with numbness/pain, no weakness, + muscle aching, no coordination difficulty, no change in w alk, + head injury, no neck injury, no back injury, no pain in neck, no pain in back, no str antwan, no fainting spells, no loss of consciousness, no tremor/shaking, no seizures, no headac hes, no migraine, no memory loss, no speech difficulty, no confusion and no numbness of face . PSYCHIATRIC: No depression, + difficulty sleeping, no anxiety, no bipolar disorder, no psy chotic episodes. CARDIOVASCULAR: No heart attacks, no heart murmur, + heart fluttering, no chest pain, no a nkle swelling. LUNG DISEASE: No shortness of breath, no cough, no tuberculosis, no bloody cough, no asth ma, no emphysema/COPD. GASTROINTESTINAL: No bowel disease, no nausea or vomiting, no rectal bleeding, no constipa tion, no stool incontinence, no liver disease, no gallbladder disease, no abdominal pain, no ulcers. KIDNEY DISEASE: + urinary frequency, no painful or difficult urination, no incontinence. ENDOCRINE: No diabetes, no thyroid disease, no osteopenia or osteoporosis, no breast drain age. SKIN: No breast lumps, no skin changes, no rashes, no itches. HEMATOLOGIC/LYMPHATIC: No enlarged lymph nodes, no easy or unusual bleeding, no personal h istory of cancer. RHEUMATOLOGIC: No joint arthritis, no rheumatoid arthritis. PHYSICAL EXAMINATION: Blood pressure 137/83, pulse 72, resp. rate 20, height 1.676 m (5' 6"), weight 79.4 kg (175 lb). Body mass index is 28.25 kg/m. GENERAL: He does appear uncomfortable when seated. HEENT: HEAD/FACE: EYES: Normocephalic and atraumatic. There are no areas of recent trauma. Normal sclerae without icterus. SKIN There are not scars in the lumbar region. Vitiligo in the lower extremities. CHEST: The patient is in no acute respiratory distress with unlabored respirations. HEART: There is not lower extremity edema. ABDOMEN: The patient is not overweight. NEUROLOGIC: The patient is awake, alert, and oriented to time, place, person. He follows simple and complex commands. His speech is fluent. He comprehends speech well. He has no apparent deficits with short or fci memory. He has appropriate fund of knowledge Cranial nerves appear grossly intact. Sensory exam:Intact sensation to monofilament touch in the lower extremities. MOTOR EXAM: (5 IS NORMAL) * Indicates pain limited MUSCLE/ MOVEMENT: RIGHT LEFT Deltoids 5 5 Biceps 5 5 Triceps 5 5 Wrist Flexion 5 5 Wrist Extension 5 5 Finger Abduction 5 5 Rhythmic Gymnastics Coach Strength 5 5 Hip Flexion 5 5 Hip Extension 5 5 Knee Flexion 4 5 Knee Extension 5 5 Extensor Hallicus Longus 5 5 Ankle Dorsiflexion 5 5 Plantarflexion 5 5 REFLEX: RIGHT LEFT PATELLAR 2+ 2+ ACHILLES absent 1+ PLANTAR Downgoing Downgoing MUSCULOSKELETAL Gait is antalgic and guarded Pulses normal and palpable over dorsalis pedis bilaterally. Feet color is normal, no cyano sis. RADIOGRAPHIC REVIEW: Lumbar MRI completed on 07/21/17 was reviewed personally by me , I concur with the results a s reported by the Radiologist. The imaging demonstrates: severe spinal stenosis at L3-4 . IMPRESSION: 1. Spinal stenosis of lumbar region with neurogenic claudication 2. Right leg weakness PLAN: 1. Treatment options for severe spinal stenosis of include physical therapy, medications, w eight loss, steroid injections and last resort surgery. Medications do not fix the problem b ut may help relieve pain. There are neuropathic pain medications that can help relieve nerve pain. Boaz Clarke has completed physical therapy. He should continue with at home exerc ises as outlined by physical therapy indefinitely. We discussed that if he has sudden progr essive weakness he should seek urgent medical attention and he may need to consider having b ack surgery. In addition we discussed that if he has loss of bowel or bladder he should repo rt to the emergency room. Cauda equina symptoms need to be treated within 3 days to help danilo id permanent damage of the nerves, and permanent loss of bowel/bladder function. 2. Today we discussed conservative treatment with a lumbar epidural steroid injections for treatment of lumbar spinal stenosis. Boaz Crews Vince was advised that lumbar steroid inject ions are considered a temporary treatment given with the goal of reducing symptoms of claudi cation and pain. We discussed that the injection will not fix or cure the underlying cause o f the pain. The goal of the steroid injection is to minimize swelling and inflammation that may be causing symptoms of pain and claudication. We discussed that injections do not work for everyone. Some people have no relief from injection. Boaz Clarke was advised that o n average a lumbar steroid injection may offer 3-6 months of reduced pain, with 4 months stephan ng the average, for those in which injections work. Steroid injections, if needed, may be re peated up to three times yearly. Pain is inhibiting everyday function such as being active a nd sleeping on his side. Boaz Clarke was previously walking 20 miles a week. Pain persis ts for more than 3 months. Boaz Clarke had tried physical therapy and antiinflammatories with no relief in symptoms. Boaz Clarke will have a bilateral L4-5 injection completed under fluoroscopy with Dr. Lenny campa for treatment of severe lumbar spinal stenosis at L3-4 and moderate spinal stenosi s at L4-5. 3. Surgical intervention was discussed today with Boaz Crews Vince. We discussed that surgic al treatment is usually considered last resort. We discussed that surgical treatment is re commended if weakness is affecting function. We discussed that surgical treatment is recom mended if there are changes to bowel/bladder function. We discussed that surgical treatmen t may be considered if there is progressive weakness. We discussed that surgical treatment may be helpful for radicular symptoms, but back pain may persist after surgical treatment. We discussed the possible treatment option with back surgery. Neurosurgery consult was place d today for the treatment of severe lumbar spinal stenosis with claudication. 4. Boaz Clarke was offered medication Gabapentin for the treatment of neuropathic pain. Side effects include but are not limited to grogginess. Boaz Clarke reports that he is not good at taking medications. Boaz Clarke declines trial of medication gabapentin. 5. care director rn has helped Boaz Clarke in the past. Chiropractic neurology consult was offered to Boaz Clarke today. Boaz Clarke declines referral. 6. Boaz Clarke will return to clinic to review lumbar steroid injections with Dr.Zieren shanks. 7. Lumbar x-rays have been requested with flexion and extension views to evaluate for ins tability. 8. Neurosurgery consult has been requested. We discussed that surgical treatment is likel y in his future. We discussed that it would be prudent to establish care with a neurosurgeo n at this time to expedite care when and if conservative treatments fail in the future. Today we reviewed that the feeling of "tightness" that he feels in his legs during walking is claudication, most likely secondary to his severe spinal stenosis seen on his lumbar MRI. There was no evidence of vascular disease on exam. No evidence of vascular claudication. He has been avoiding walking because of his pain and symptoms. We discussed the risk of we ight gain. We discussed that weight gain may make claudication symptoms worse. He was enco uraged to maintain current weight. Thank you for allowing me to be involved in the care of your patient. If you have any ques tions regarding the care of your patient please don't hesitate to call. Approximately 60 minutes was spent face to face with Boaz Clarke, over half of which wa s spent formulating and discussing their medical treatment plan. I, Avtar Lucero MD personally performed the services described in this documentation, as scribed by in my presence, LASHONDA Paniagua and are both accurate and complete. Avtar Lucero MD - 09/28/2017 documented in this en counter Plan of Treatment +--------+---------+ + + + | Date | Type | Specialty | Care Team | Description | +--------+---------+ + + + | 09/04/ | Office | Cardiology | Caterina Catalan, | | | 2019 | Visit | | MD Juan J HERNANDEZ | | | | | | [place] | | | | | | [address] | | | | | | | | +--------+---------+ + + + + + +--------+ + + | Name | Type | Priori | Associated Diagnoses | Order Schedule | | | | ty | | | + + +--------+ + + | * [facility] [place] | Outpatient | Routin | Spinal stenosis of | Ordered: 09/28/2017 | | Neurosurgery - AMB | Referral | e | lumbar region with | | | Referral | | | neurogenic | | | | | | claudication | | + + +--------+ + + documented as of this encounter Results XR Lumbar Spine 4 + Vw (09/28/2017 5:11 PM PST) + + | Specimen | + + | | + + + + + | Narrative | Performed At | + + + | [facility] 09/28/2017 5:10 PM CLINICAL HISTORY: | [facility] | | bilateral leg pain worse on the left COMPARISON: MRI | | | FINDINGS: Five non rib-bearing, lumbar type vertebrae are visible. | | | An AP view and lateral views in neutral, flexed and extended | | | positions are provided. Lumbar vertebral height is maintained | | | without evident fracture or spondylolysis. There is multilevel disc | | | space narrowing and extensive vertebral spondylosis and facet | | | hypertrophy. Vertebral spondylosis is also present in the imaged | | | lower thoracic spine. Mild retrolisthesis at L3-4 persists with | | | flexion and extension. No other spondylolisthesis is evident. The | | | sacroiliac joints and imaged sacrum, bony pelvis and lower ribs are | | | unremarkable. Soft tissues are unremarkable. IMPRESSION - | | | 1. EXTENSIVE DEGENERATIVE DISC DISEASE AND SPONDYLOSIS WITH MILD | | | RETROLISTHESIS AT L3-4. Dictated and Signed by: Rahul Shin MD | | | Electronically signed: 09/28/2017 8:55 PM | | + + + + + | Procedure Note | + + | Dennis, Rad Results In - 09/28/2017 8:58 PM PST [facility] 09/28/2017 5:10 | | PMCLINICAL HISTORY: bilateral leg pain worse on the leftCOMPARISON: MRI | | 27FINDINGS: Five non rib-bearing, lumbar type vertebrae are visible. An AP viewand | | lateral views in neutral, flexed and extended positions are provided. Lumbar vertebral | | height is maintained without evident fracture or spondylolysis. There is multilevel disc | | space narrowing and extensive vertebral spondylosisand facet hypertrophy. Vertebral | | spondylosis is also present in the imagedlower thoracic spine. Mild retrolisthesis at | | L3-4 persists with flexion andextension. No other spondylolisthesis is evident. The | | sacroiliac joints andimaged sacrum, bony pelvis and lower ribs are unremarkable. Soft | | tissues areunremarkable.IMPRESSION -1. EXTENSIVE DEGENERATIVE DISC DISEASE AND | | SPONDYLOSIS WITH MILDRETROLISTHESIS AT L3-4.Dictated and Signed by: Rahul Shin MD | | Electronically signed: 09/28/2017 8:55 PM | |extension. No other spondylolisthesis is evident. The sacroiliac joints and | |imaged sacrum, bony pelvis and lower ribs are unremarkable. Soft tissues are | |unremarkable. | | | |IMPRESSION - | | | |1. EXTENSIVE DEGENERATIVE DISC DISEASE AND SPONDYLOSIS WITH MILD | |RETROLISTHESIS AT L3-4. | | | |Dictated and Signed by: Rahul Shin MD | | Electronically signed: 09/28/2017 8:55 PM | + + + +---------+ + + | Performing | Address | City/State/Zipcode | Phone Number | | Organization | | | | + +---------+ + + | [facility] | | | | + +---------+ + + documented in this encounter Visit Diagnoses + + | Diagnosis | + + | Spinal stenosis of lumbar region with neurogenic claudication - Primary Spinal | | stenosis, lumbar region, with neurogenic claudication | + + | Right leg weakness Other musculoskeletal symptoms referable to limbs | + + | Lumbar radiculopathy Thoracic or lumbosacral neuritis or radiculitis, unspecified | + + documented in this encounter
--- OUTSIDE RECORDS SUMMARY | ~2020-05-10 | XMS | Encounter Summary ---
Demographics + + + | Address | [address] | | | [place] [address] | + + + | Home Phone | | + + + | Preferred Language | Unknown | + + + | Marital Status | | + + + | Catholic Affiliation | 1027 | + + + [...] | | | | | [place] [address] | | + + + + + Care Team Providers + +------+ + | Care Manager Pathology Name | Role | Phone | + +------+ + | Abran Alas MD | PCP | | + +------+ + Reason for Visit +---------+ + | Reason | Comments | +---------+ + | Post Op | 6M PO | +---------+ + Encounter Details +--------+---------+ + + + | Date | Type | Department | Care Team | Description | +--------+---------+ + + + | 08/25/ | Office | [facility] | Jaret Alvarez, | S/P lumbar fusion | | 2018 | Visit | NEUROSURGERY [address] | PA-C [address] | (Primary Dx); Back | | | | [address] | [address] [place] | pain, unspecified | | | | [place], [place] | [place] [address] | back location, | | | | [address] | [phone] | unspecified back | | | | [phone] | | pain laterality, | | | | | | unspecified | | | | | | chronicity | +--------+---------+ + + + Social History [...] + + + | Blood Pressure | 131/87 | 08/25/2018 10:02 AM | | | | | PDT | | + + + + + | Pulse | 70 | 08/25/2018 10:02 AM | | | | | PDT [...] Weight | 83.9 kg (185 lb) | 08/25/2018 10:02 AM | | | | | PDT | | + + + + + | Height | 167.6 cm (5' 6") | 08/25/2018 10:02 AM | | | | | PDT | | + + + + + | Body Mass Index | 29.86 | 08/25/2018 10:02 AM | | | | | PDT [...] encounter Patient Instructions Patient Instructions Niecy Centeno, Debeader - 08/25/2018 10:30 AM PDTIt was a pleasure to see you today. Here is what we discussed. We would like to get one more x-ray at the one year emerson. This has been ordered and we leigh l call to remind you when to get this done. We will also call you with results after you co mplete the x-ray. Continue to do your physical therapy at home. If you continue to have the sores on your legs and feet we recommend that you follow up wit h you primary care provider a cementer machine. Work with your primary care provider on getting refills on your gabapentin. You can now lift a maximum of 75 pounds. We would prefer if you limited yourself to only 5 0 pounds of lifting. No lifting any more than 50 pounds over your head. When you do start to lift things again do it incrementally. Try to use the [employer] system if you are lifting so mething heavy. It is going to be very important for you to work on your core strength. When you are walki ng really try to engage your core. Use proper posture to keep your muscles and back strong. If you are going to lift anything make sure to use proper body mechanics and lift with your legs not your back. Try to avoid lifting and twisting as this is very hard on your back. Use your back but don't abuse it. Let pain be your guide. If you are doing an activity that starts causing you pain back off and ease back into it slowly. We don't want you taking any risks that do not need to be ta pepe. Pay attention to evolving trends. If you notice an increase in pain that does not get bett er with a few days rest and medication please let us know. documented in this encounter Progress Notes Jaret Alvarez PA-C - 08/25/2018 10:30 AM PDT Jaret Alvarez PA-C [address] [facility] [place] [address] [place] [address] PHONE: FAX: NEUROSURGERY FOLLOW-UP CHIEF COMPLAINT: Chief Complaint Patient presents with Post Op 6M PO HISTORY OF PRESENT ILLNESS: The patient is a 72 y.o. male that had a lumbar fusion for zina k and bilateral leg symptoms on 03/03/18. He returns and overall is doing well. The patient mentions that his legs and back are better since surgery and continues to impro ve. He just continued his physical therapy which was helpful for him. He continues to stru ggles to put his shoes and socks on. Physical therapy did make it so that he can put his sh oes and socks on by himself. Some days he has to ask his for help him get his shoes an d socks on. After surgery he did develop sores on his legs and feet. He used an anti fungal cream whic h did help but it did not make it go away. The patient has been walking as much as directed. He is not taking pain medications at thi s point. He continues to take gabapentin only at bedtime. The patient has had no issues wi th his surgical site. He has been using his bone growth stimulator. PAST MEDICAL HISTORY: Past Medical History: Diagnosis [...] Anterior Interbody Fusion; Surgeon: Derrick Stafford DO; Lo cation: [facility] ROTATOR CUFF REPAIR Left 02/2015 Dr. Jonas; Lisa Or. TONSILLECTOMY 1954 [facility]; [facility] Or. TYMPANOPLASTY 1991 Dr. Lees ;Simona Jarvis CURRENT MEDICATIONS: Current Outpatient Prescriptions Medication Sig Dispense Refill gabapentin (NEURONTIN) 300 mg capsule Take 1 [...] No history INTERIM PHYSICAL EXAMINATION: Blood pressure 131/87, pulse 70, height 1.676 m (5' 6"), weight 83.9 kg (185 lb). Body mass index is 29.86 kg/m. REVIEW OF SYSTEMS: GENERALLY: No fever, no night sweats, no anemia, no fatigue, no recent profound weight ch anges. EYES: No eye problems, no impaired sight, no use of corrective lenses, no eye injury, no d ouble vision, no transient blindness. EARS, NOSE, AND THROAT: No changes in taste or smell, no hearing difficulty, no ringing in the ears, no ear drainage, no ear injury, no dizziness, no voice changes, no difficulty swa llowing, + significant snoring, + sleep apnea/CPAP, no sinus problems, no major dental work. NEUROLOGICALLY: Please see the review of systems discussed above in the history of present illness. In addition, the patient has numbness/pain of legs. PSYCHIATRIC: No depression, + difficulty sleeping, no anxiety, no bipolar disorder. CARDIOVASCULAR: No heart attacks, no heart murmur, no heart fluttering, no chest pain, no ankle swelling. LUNG DISEASE: No shortness of breath, no cough, no tuberculosis, no bloody cough, no asth ma, no emphysema/COPD. GASTROINTESTINAL: No bowel disease, no nausea or vomiting, no rectal bleeding, no constipa tion, no fecal stool incontinence, no liver/gallbladder disease, no abdominal pain, no ulcer s. KIDNEY DISEASE: No urinary frequency, no painful or difficult urination, no urinary incont inence, no bladder problems, no impotence. ENDOCRINE: No diabetes, no thyroid disease, no osteopenia or osteoporosis, no breast drain age. SKIN: No breast lumps, no skin disease or skin changes, no rashes/itches. HEMATOLOGIC/LYMPHATIC: No enlarged lymph nodes, no easy or unusual bleeding, no personal h istory of cancer. RHEUMATOLOGIC: No joint pain/arthritis, no rheumatoid arthritis. GENERAL: Boaz Clrake is in no acute distress with unlabored respirations. SPINE: The patient s incisions are well [...] Diagnoses Name Primary? S/P lumbar fusion Yes Back pain, unspecified back location, unspecified back pain laterality, unspecified chr onicity Past Medical History: Diagnosis Date Ankylosis of lumbar spine Degenerative lumbar disc Dyslipidemia Family history of colon cancer Hard of hearing bilateral hearing aids Lumbar spondylosis JORDAN (obstructive sleep apnea) no CPAP Pain in unspecified thigh Primary insomnia Prostate enlargement Radiculopathy, lumbar region Typical atrial flutter (HCC) PLAN: Overall, the patient is doing well. Some of the preoperative symptoms are improved. We discussed increasing the patient s activities today. We have no restrictions on the p atient at this point. The patient has weaned their bracing and should increase their exerci se gradually as medically tolerated. They should continue regular exercise and strengthenin g with the hope that they can avoid additional surgery. correction pain medication does not appear to be needed. The patient needs follow-up x-rays to assess the fusion in 6 months. We will review the im ages and let the patient know how the fusion has healed. I, Jaret Alvarez PA-C, personally performed the services described in this documentati on, as scribed by KESHIA Silverio, in my presence, and it is both accurate and comple te. Jaret Alvarez PA-C 08/25/18 ELECTRONICALLY SIGNED BY: Jaret Alvarez PA-C, 08/25/2018 10:36 documented in thi s encounter Plan of Treatment +--------+---------+ + + + | Date | Type | Specialty | Care Team | Description | +--------+---------+ + + + | 09/04/ | Office | Cardiology | Caterina Catalan, | | | 2019 | Visit | | MD Juan [address] HERNA[address]Z | | | | | | [address] [place], [place] | | | | | | [address] | | | | | | | [...] + | Dennis, Rad Results In - 03/09/2019 1:35 PM PDT [...] Primary Arthrodesis status | + + | Back pain, unspecified back location, unspecified back pain laterality, unspecified | | chronicity | + + documented in this encounter
--- OUTSIDE RECORDS SUMMARY | ~2020-05-10 | XMS | Encounter Summary ---
Demographics + + + | Address | [address] | | | [place] [address] | + + + | Home Phone [...] | | | | | [place] [address] | | + + + + + Care Team Providers + +------+ + | Care Industrial Photographer Name | Role | Phone | + +------+ + | Abran Alas MD | PCP | | + +------+ + Encounter Details +--------+ + + + + | Date | Type | Department | Care Team | Description | +--------+ + + + + | 10/06/ | Orders Only | [facility] | Teo Steele | Lumbar radiculopathy | | 2017 | | PHYSIATRY [address] | T, MD [address] | (Primary Dx) | | | | [address] | [place], [place] | | | | | [place], [place] | [address] | | | | | [address] | | | | | | [phone] | | | +--------+ + + + [...] [place] | | | | | | [address] | | | | | | | | +--------+---------+ + + + documented as of this encounter Results [place] GEOFF Lumbar Transforaminal [...] Diagnosis | + + | Lumbar radiculopathy - Primary Thoracic or lumbosacral neuritis or radiculijude, | | unspecified | + + documented in this encounter"
--- OUTSIDE RECORDS SUMMARY | ~2020-05-10 | XMS | Encounter Summary ---
Demographics + + + | Address | [address] [facility] [address] | | | [place] [address] | + + + | Home Phone | | + + + | Preferred Language | Unknown | + + + | Marital Status | | + + + | Pentecostal Affiliation | 1027 | + + + | Race | Unknown | + + + | Ethnic Group | Unknown | + + + Author + + + | Author | [facility] | | | and [place] | + + + | Organization | [facility] | | [...] | | | | | [place] [address] | | + + + + + Care Team Providers + +------+ + | Care Channel Process Supervisor Name | Role | Phone | + +------+ + | Abran Alas MD | PCP | | + +------+ + Reason for Visit + +--------+ + | Reason | Onset | Comments | | | Date | | + +--------+ + | Results, Imaging | 09/29/ | | | | 2016 | | + +--------+ + Encounter Details +--------+ + + + + | Date | Type | Department | Care Team | Description | +--------+ + + + + | 09/29/ | Telephone | [facility] | Avtar Lucero, | Results, Imaging | | 2017 | | PHYSIATRY [address] | MD [address] | | | | | [address] | [place] | | | | | [place], [place] | [address] | | | | | [address] | | | | | | [phone] | | | +--------+ + + + [...] this encounter Miscellaneous Notes Telephone Encounter - Janine Montoya, Carry In Worker - 09/29/2017 2:25 PM PSTCalle d to inform Boaz Clarke of xray results. Results were relayed. Boaz Clarke verbalize d understanding. Electronically signed by Agatha Paniagua Assistant at 7 2:26 PM PSTTelephone Encounter - Janine Montoya Medical Assistant - 09/29/2017 2:2 5 PM PST----- Message from Avtar Lucero MD sent at 09/29/2017 8:51 PST ----- Becki, Please let Boaz Clarke know that I have reviewed his lumbar MRI. There was no evidence of instability (which is why we requested the x-ray). The x-ray confirmed the already jordana re arthritis. No new findings. Thank you, Avtar Lucero MD (Jr.) ----- Message ----- From: Dennis, Zaid Results In Sent: 09/28/2017 20:58 To: Avtar Lucero MD do cumented in this encounter Plan of Treatment +--------+---------+ + + + | Date | Type | Specialty | Care Team | Description | +--------+---------+ + + + | 09/04/ | Office | Cardiology | Caterina Catalan, | | | 2019 | Visit | | MD [address] | | | | | | [address] [place] [place], [place] | | | | | | [address] | | | | | | | | +--------+---------+ + + + documented as of this encounter Visit Diagnoses Not on filedocumented in this encounter"
--- OUTSIDE RECORDS SUMMARY | ~2020-05-10 | XMS | Clinical Summary ---
Demographics + + + | Address | [address] | | | [place] [address] | + + + | Home Phone | | + + + | Preferred Language | Unknown | + + + | Marital Status | | + + + | Denominational Affiliation | 1027 | + + + | Race | Unknown | + + + | Ethnic Group | Unknown | + + + Author + + + | Author | [facility] | | | and [place] | + + + | Organization | [facility] | | | [...] | | | | | [place] [address] | | + + + + + Care Team Providers + +------+ + | Care Insulator Technician Name | Role | Phone | + +------+ + | Abran Alas MD | PCP | | + +------+ + Allergies No Known Allergies Medications + + + +---------+------+------+-------+ | Medication | Sig | Dispensed | Refills | Star | End | Statu | | | | | | t | Date | s | | | | | | Date | | | + + + +---------+------+------+-------+ | tamsulosin | Take 0.4 mg by mouth | | 0 | | | Activ | | (FLOMAX) 0.4 mg CAPS | nightly. Every | | | | | e | | | other night | | | | | | + + + +---------+------+------+-------+ | gabapentin | Take 1 capsule by | 90 | 0 | 08/0 | | Activ | | (NEURONTIN) 300 mg | mouth nightly. | capsule | | 01/11 | | e | | capsule | | | | 18 | | | + + + +---------+------+------+-------+ +---+ + | | Additional | | | InformationPatient | | | not taking. Reported | | | on 10/31/2019 11:16 | | | AM | +---+ + + + +---+---+------+---+-------+ | verapamil (CALAN | Take 1 tablet by | | 0 | 01/1 | | Activ | | SR) 180 mg SR tablet | mouth Daily as | | | 0/20 | | e | | | needed. For | | | 18 | | | | | palpitations | | | | | | + + +---+---+------+---+-------+ | triamcinolone | Apply 0.1 Units | | 0 | 05/2 | | Activ | | (KENALOG) 0.1% | topically as needed. | | | 2/20 | | e | | ointment | | | | 19 | | | + + +---+---+------+---+-------+ | aspirin 81 mg EC | Take 81 mg by mouth | | 0 | | | Activ | | tablet | Daily. | | | | | e | + + +---+---+------+---+-------+ Active Problems + + + | Problem | Noted Date | + + + | JORDAN (obstructive sleep apnea) | 03/02/2018 | + + + + + | Overview: no CPAP | + + + + + | Lumbar spondylosis | 03/02/2018 | + + + + + | Overview: Lumbar spondylosis (M47.816), Neurogenic | | claudication (M48.062), Lumbar radiculopathy (M54.16), Acute back | | pain with sciatica, right (M54.41) | + + + + + | Hard of hearing - bilateral hearing aids worn | 03/02/2018 | + + + + + | Overview: bilateral hearing aids | + + + + + | Dyslipidemia | 11/16/2017 | + + + | Typical atrial flutter | 11/16/2017 | + + + | Lumbar radiculopathy | 11/16/2017 | + + + | Atrial flutter | | + + + | Psychophysiologic insomnia | | + + + Family History + + +------+ + | Medical History | Relation | Name | Comments | + + +------+ + | Colon cancer | Brother | | | + + +------+ + | No known problems | Child | | 6 other childern No history | + + +------+ + | Breast cancer | Daughter | | | + + +------+ + | No known problems | Father | | | + + +------+ + | No known problems | Maternal | | | | | Grandfath | | | | | er | | | + + +------+ + | No known problems | Maternal | | | | | Grandmoth | | | | | er | | | + + +------+ + | Diabetes | Mother | | | + + +------+ + | Thyroid cancer | Mother | | | + + +------+ + | No known problems | Paternal | | | | | Grandfath | | | | | er | | | + + +------+ + | No known problems | Paternal | | | | | Grandmoth | | | | | er | | | + + +------+ + + +------+ + + | Relation | Name | Status | Comments | + +------+ + + | Brother | | | Colon Cancer | | | | (Age | | | | | 27) | | + +------+ + + | Brother | | Alive | | + +------+ + + | Brother | | Alive | | + +------+ + + | Child | | | | + +------+ + + | Daughter | | Alive | | + +------+ + + | Daughter | | Alive | | + +------+ + + | Daughter | | Alive | | + +------+ + + | Daughter | | Alive | | + +------+ + + | Daughter | | Alive | | + +------+ + + | Daughter | | Alive | | + +------+ + + | Father | | | | | | | (Age | | | | | 88) | | + +------+ + + | Maternal Grandfather | | | | + +------+ + + | Maternal Grandmother | | | | + +------+ + + | Mother | | | | | | | (Age | | | | | 92) | | + +------+ + + | Paternal Grandfather | | | | + +------+ + + | Paternal Grandmother | | | | + +------+ + + | Sister | | | suicide | | | | (Age | | | | | 42) | | + +------+ + + | Sister | | Alive | | + +------+ + + | Sister | | Alive | | + +------+ + + | Sister | | Alive | | + +------+ + + | Sister | | Alive | | + +------+ + + | Son | | Alive | | + +------+ + + Social History + +-------+ +--------+------+ [...] on file | | + + + Last Filed Vital Signs + + + [...] | | + + + + + Plan of Treatment +--------+---------+ + + + | Date | Type | Specialty | Care Team | Description | +--------+---------+ + + + | 09/04/ | Office | Cardiology | Caterina Catalan, | | | 2019 | Visit | | MD Juan [address]NA[address] | | | | | | [place] | | | | | | [address] | | | | | | | | +--------+---------+ + + + + + + + + | Health Maintenance | Due Date | Last | Comments | | | | Done | | + + + + + | Hepatitis C | | | | | Screening | 7 | | | + + + + + | Vaccine: | | | | | Dtap/Tdap/Td (1 - | 6 | | | | Tdap) | | | | + + + + + | Vaccine: Zoster (1 | | | | | of 2) | 7 | | | + + + + + | Vaccine: | | | | | Pneumococcal 65+ (1 | 2 | | | | of 1 - PPSV23) | | | | + + + + + | Adult Annual | | | | | Wellness Visit | 5 | | | + + + + + | Colorectal Cancer | | 04/24/20 | | | Screening | 8 | 08 | | | (Colonoscopy) | | | | + + + + + | Vaccine: Influenza | | | | | (#1) | 0 | | | + + + + + Implants + +--------+--------+ +--------+--------+--------+ | Implanted | Type | Area | Manufacture | Device | Shelf | Model | | | | | r | | Expira | / | | | | | | Identi | tion | Serial | | | | | | fier | Date | / Lot | + +--------+--------+ +--------+--------+--------+ | Imp Joselo Sext [id number] | Generi | Right: | [employer] - | | | [id number] | | Solera - [id number]: | c | Spine | MEDT | | | [id number] / | | Qty: 2 on 03/03/2018 by | | | | | | / | | Derrick Stafford DO at [facility] | | Lumbar | | | | | | [facility] | | | | | | | | CENTER | | | | | | | + +--------+--------+ +--------+--------+--------+ | Graft Infuse Bone Kit Xs - | Graft | Right: | [employer] - | | 04/23/ | [id number] | | [id number]: Qty: 1 on | | Spine | MEDT | | 2019 | 0 / | | 03/03/2018 by Derrick Stafford | | | | | | /[id number] | | DO Gina at [facility] | | Lumbar | | | | [id number] | | [facility] | | | | | | | + +--------+--------+ +--------+--------+--------+ | Putty Hanna 10cc Dbm - | Graft | Right: | [employer] - | | 11/24/ | [id number] | | [id number]: Qty: 1 | | Spine | MEDT | | 1 | | | on 03/03/2018 by yNdia, | | | | | | /[id number] | | Derrick Fuentes DO at [facility] | | Lumbar | | | | 3-021 | | [facility] | | | | | | / | + +--------+--------+ +--------+--------+--------+ | Screw 4.75 Xtb Prosper Mas | Screw | Right: | [employer] - | | | [id number] | | 6.5x60 - [id number]: | | Spine | MEDT | | | [id number] | | Qty: 4 on 03/03/2018 by | | | | | | / / | | Derrick Stafford DO at [facility] | | Lumbar | | | | | | [facility] | | | | | | | | CENTER | | | | | | | + +--------+--------+ +--------+--------+--------+ | Screw 4.75 Xtb Prosper Mas | Screw | Right: | [employer] - | | | [id number] | | 7.5x55 - [id number]: | | Spine | MEDT | | | [id number] | | Qty: 2 on 03/03/2018 by | | | | | | / / | | Derirck Stafford DO at [facility] | | Lumbar | | | | | | [facility] | | | | | | | | CENTER | | | | | | | + +--------+--------+ +--------+--------+--------+ | Screw Set Slra Perc Ti 4.75 - | Screw | Right: | [employer] - | | | [id number] | | [id number]: Qty: 6 | | Spine | MEDT | | | 0 / / | | on 03/03/2018 by Nydia, | | | | | | | | Derrick Fuentes DO at [facility] | | Lumbar | | | | | | [facility] | | | | | | | + +--------+--------+ +--------+--------+--------+ | Spcr Trnscntl [id number] 10d | | Right: | GLOBUS | | | 375.88 | | 11mm - Sn/AImplanted: Qty: 2 | | Spine | MEDICAL - | | | 0 /N/A | | on 03/03/2018 by Nydia, | | | GLBU | | | /N/A | | Derrick Fuentes DO at [facility] | | Lumbar | | | | | | [facility] | | | | | | | + +--------+--------+ +--------+--------+--------+ Results Not on filefrom Last 3 Months Insurance + +--------+ +--------+ +---------+--------+ | Payer | Benefi | Subscriber | Effect | Phone | Address | Type | | | t Plan | ID | sharonda | | | | | | / | | Dates | | | | | | Group | | | | | | + +--------+ +--------+ +---------+--------+ | MEDICARE | MEDICA | [id number] | Effect | [phone] | | Medica | | | RE | | sharonda | 5 | | re | | | PART A | | for | | | | | | AND B | | all | | | | | | | | dates | | | | + +--------+ +--------+ +---------+--------+ | MEDICARE | MEDICA | [id number] | 12/24/19 | [phone] | | Medica | | | RE | | 12-Pre | 5 | | re | | | PART A | | sent | | | | | | AND B | | | | | | + +--------+ +--------+ +---------+--------+ | INDIVIDUAL ASSURANCE | INDIVI | [id number] | 04/24/20 | | | Indemn | | COMPANY | DUAL | | 16-Pre | | | ity | | | ASSURA | | sent | | | | | | [place] | | | | | | | | MDCR | | | | | | | | SUPPL | | | | | | + +--------+ +--------+ +---------+--------+ + +--------+ +--------+ + + | Guarantor Name | Accoun | Relation to | Date | Phone | Billing Address | | | t Type | Patient | of | | | | | | | | | | + +--------+ +--------+ + + | Boaz Clarke | Person | Self [birth year] | [address] | | | al/Fam | | 1946 | [phone] | [place] [address] | | | mikie | | | 0 (Home) | | + +--------+ +--------+ + + | Boaz Clarke | Person | Self [birth year] | [address] | | | al/Angel | | 1946 | [phone] | [place] [address] | | | mikie | | | 0 (Home) | | + +--------+ +--------+ + + Advance Directives + + + + + | Type | Date Recorded | Patient | Explanation | | | | Pmp Project Manager | | + + + + + | Power of | | | | | Cabin Cleaner | | | | + + + + + | Advance | 03/03/2018 7:16 | | | | Directive | AM | | | + + + + + + + + + + | Code Status | Date | Date | Comments | | | Activated | Inactivated | | + + + + + | Full Code | 03/03/2018 | 03/06/2018 | | | | 3:12 PM | 1:21 PM | | + + + + +
--- OUTSIDE RECORDS SUMMARY | ~2020-05-10 | XMS | Encounter Summary ---
Demographics + + + | Address | [address] | | | [place] [address] | + + + | Home Phone | | + + + | Preferred Language | Unknown | + + + | Marital Status | | + + + | Mosque Affiliation | 1027 | + + + | Race | Unknown | + + + | Ethnic Group | Unknown | + + + Author + + + | Author | [facility] | | | and [place] | + + + | Organization | [facility] | | | [...] | | | | | [place] [address] | | + + + + + Care Team Providers + +------+ + | Care Workforce Staffing Advisor Name | Role | Phone | + +------+ + | Abran Alas MD | PCP | | + +------+ + Encounter Details +--------+ + + + + | Date | Type | Department | Care Team | Description | +--------+ + + + + | 03/31/ | Hospital | [facility] | Derrick Stafford, | Status post lumbar | | 2018 | Encounter | MED CTR XRAY [address] | DO [address] | spinal fusion; | | | | [place] | [address] [place], [place] | Lumbar spondylosis | | | | [place] [address] | [address] | | | | | [phone] | | | +--------+ + + + [...] + + + +---------+ + + | acetaminophen | Take 1,000 mg by | | 0 | | | | (TYLENOL) 500 mg | mouth every 6 hours | | | | 8 | | tablet | as needed for Pain. | | | | | + + + +---------+ + + | bisacodyl | Take 5 mg by mouth | | 0 | | | | (DULCOLAX) 5 mg EC | Daily as needed for | | | | 8 | | tablet | Constipation. | | | | | + + + +---------+ + + | lactulose | Take 30 mLs by mouth | | 0 | | | | (CONSTULOSE) 10 g/15 | Daily as needed. | | | | 8 | | mL solution | | | | | | + [...] methocarbamol | Take 1 tablet by | 120 | 0 | 03/31/20 | | | (ROBAXIN) 500 mg | mouth every 6 hours | tablet | | 18 | 8 | | tabletIndications: | as needed for Muscle | | | | | | S/P lumbar fusion, | spasms. | | | | | | Lumbar radiculopathy | | | | | | + + + +---------+ + + | oxyCODONE | Take 1 tablet by | 90 | 0 | 03/31/20 | | | (ROXICODONE) 5 mg | mouth every 4 hours | tablet | | 18 | 8 | | tabletIndications: | as needed for Pain. | | | | | | S/P lumbar fusion, | | | | | | | Lumbar radiculopathy | | | | | | + [...] [place] | | | | | | [address] | | | | | | | | +--------+---------+ + + + documented as of this encounter Procedures + +--------+ + + + | Procedure Name | Priori | Date/Time | Associated Diagnosis | Comments | | | ty | | | | + +--------+ + + + | XR LUMBAR SPINE 2 OR | Routin | 03/31/2018 | Status post lumbar | Results for this | | 3 VW | e | 8:53 AM | spinal fusion | procedure are in the | | | | PDT | Lumbar spondylosis | results section. | + +--------+ + + + documented in this encounter Results XR Lumbar Spine 2 or 3 Vw (03/31/2018 8:53 AM PDT) + + | Specimen | + + | | + + + + + | Narrative | Performed At | + + + | XR LUMBAR SPINE 2 OR 3 VW 03/31/2018 8:41 AM HISTORY: S/P Lumbar | [facility] | | fusion. COMPARISON: Multiple priors. FINDINGS: Again | | | visualized are hardware for posterior fusion from L3 through L5 with | | | spacer hardware at these levels. Moderate to severe spondylosis is | | | seen. Bone mineralization is normal. Vertebral body height are | | | preserved with no evidence for compression fractures. Mild disc | | | narrowing is at L2-3. Multilevel facet sclerosis and hypertrophy are | | | present. Visualized ribs and pelvic osseous structures show no acute | | | findings. Soft tissue structures are unremarkable. IMPRESSION - | | | Stable posterior fusion from L3 through L5. Dictated and Signed | | | by: Tay Pike MD Electronically signed: 03/31/2018 9:03 AM | | + + + + + | Procedure Note | + + | Dennis, Rad Results In - 03/31/2018 9:06 AM PDT XR LUMBAR SPINE 2 OR 3 VW 03/31/2018 8:41 | | AMHISTORY: S/P Lumbar fusion.COMPARISON: Multiple priors.FINDINGS:Again visualized are | | hardware for posterior fusion from L3 through L5 withspacer hardware at these levels. | | Moderate to severe spondylosis is seen. Bonemineralization is normal. Vertebral body | | height are preserved with no evidencefor compression fractures. Mild disc narrowing is | | at L2-3. Multilevel facetsclerosis and hypertrophy are present. Visualized ribs and | | pelvic osseousstructures show no acute findings. Soft tissue structures are | | unremarkable.IMPRESSION -Stable posterior fusion from L3 through L5.Dictated and Signed | | by: Tay Pike MD Electronically signed: 03/31/2018 9:03 AM | |mineralization is normal. Vertebral body [...] Tay Pike MD | | Electronically signed: 03/31/2018 9:03 AM | + + + +---------+ + + | Performing | Address | City/State/Zipcode | Phone Number | | Organization | | | | + +---------+ + + | [facility] | | | | + +---------+ + + documented in this encounter Visit Diagnoses + + | Diagnosis | + + | Status post lumbar spinal fusion Arthrodesis status | + + | Lumbar spondylosis Lumbosacral spondylosis without myelopathy | + + documented in this encounter"
--- OUTSIDE RECORDS SUMMARY | ~2020-05-10 | XMS | Encounter Summary ---
Demographics + + + | Address | [address] | | | [place] [address] | + + + | Home Phone | | + + + | Preferred Language | Unknown | + + + | Marital Status | | + + + | Sikh Affiliation | 1027 | + + + | Race | Unknown | + + + | Ethnic Group | Unknown | + + + Author + + + | Author | [facility] | | | and [place] | + + + | Organization | [facility] | | | [...] | | | | | [place] [address] | | + + + + + Care Team Providers + +------+ + | Care Near East Archeology Professor Name | Role | Phone | + +------+ + PCP | Unavailable | + +------+ + Encounter Details +--------+ + + + + | Date | Type | Department | Care Team | Description | +--------+ + + + + | 07// | Hospital | [facility] | Burke Lees, | | | 1995 | Encounter | MED CTR MP INTRA OP | MD [address] | | | | | [address] | [place], [place] | | | | | [place], [place] | [address] | | | | | [address] | | | | | | [phone] | | | +--------+ + + + [...] [place] | | | | | | [address] | | | | | | | | +--------+---------+ + + + documented as of this encounter Visit Diagnoses Not on filedocumented in this encounter"
--- OUTSIDE RECORDS SUMMARY | ~2020-05-10 | XMS | Encounter Summary ---
Demographics + + + | Address | [address] | | | [place] [address] | + + + | Home Phone | | + + + | Preferred Language | Unknown | + + + | Marital Status | | + + + | Nondenominational Affiliation | 1027 | + + + | Race | Unknown | + + + | Ethnic Group | Unknown | + + + Author + + + | Author | [facility] | | | and [place] | + + + | Organization | [facility] | | [...] | | | | | [place] [address] | | + + + + + Care Team Providers + +------+ + | Care Cable Dispatcher Name | Role | Phone | + +------+ + | Abran Alas MD | PCP | | + +------+ + Reason for Visit +--------+--------+ + | Reason | Onset | Comments | | | Date | | +--------+--------+ + | Other | 02/07/ | | | | 2017 | | +--------+--------+ + Encounter Details +--------+ + + + + | Date | Type | Department | Care Team | Description | +--------+ + + + + | 02/07/ | Telephone | [facility] [place] | Derrick Stafford, | Other | | 2017 | | NEUROSURGERY [address] | DO [address] | | | | | [address] | [address] [place], [place] | | | | | [place], [place] | [id number] | | | | | [address] | | | | | | [phone] | | | +--------+ + + + [...] this encounter Miscellaneous Notes Telephone Encounter - Gilma Guthrie, Clinical Research Monitor - 02/07/2018 12:32 PM PDTSpoke arnoldo Sandra. He is going to keep his current surgery date. They have planned some stuff and woul d like to just stay with Sx date of 03/07/18. Will forward to Mima as a FYI.Electronically si gned by Gilma Guthrie, Clinical Research Monitor at 02/07/2018 12:33 PM PDTTelephone Encounter - Eloisa Guerra - 02/07/2018 11:50 AM PDTPatient called requesting to speak to Mima antonio ng surgery. Patient would like a call back.Electronically signed by Eloisa Andino at 01/23 11:50 AM PDTTelephone Encounter - Mima Massey Cert MA - 02/07/2018 10:35 AM PDTI sondra york and spoke with Boaz about an earlier surgical date, this Wednesday. He will think abo ut it and call back Tdocumented in this encounter Plan of Treatment +--------+---------+ + + + | Date | Type | Specialty | Care Team | Description | +--------+---------+ + + + | 09/04/ | Office | Cardiology | Caterina Catalan, | | | 2019 | Visit | | MD Juan J [facility] | | | | | | [address] [place] | | | | | | [id number] | | | | | | | | +--------+---------+ + + + documented as of this encounter Visit Diagnoses Not on filedocumented in this encounter"
--- OUTSIDE RECORDS SUMMARY | ~2020-05-10 | XMS | Encounter Summary ---
Demographics + + + | Address | [address] | | | [place] [address] | + + + | Home Phone | | + + + | Preferred Language | Unknown | + + + | Marital Status | | + + + | Cheondoism Affiliation | 1027 | + + + | Race | Unknown | + + + | Ethnic Group | Unknown | + + + Author + + + | Author | [facility] | | | and [place] | + + + | Organization | [facility] | | [...] | | | | | [place] [address] | | + + + + + Care Team Providers + +------+ + | Care Clinic Physician Director Name | Role | Phone | + [...] Description | +--------+---------+ + + + | 08/17/ | Office | [facility] | Darin Matta | JORDAN (obstructive | | 2019 | Visit | SLEEP DISORDER [address] | MD [address] | sleep apnea) | | | | [address] [place] | [address] [place] | (Primary Dx); | | | | [place] [address] | [place] [address] | Psychophysiologic | | | | [phone] | [phone] | insomnia | | | | | | | [...] + + + | Blood Pressure | 120/60 | 08/17/2019 9:12 AM | | | | | PDT | | + + + + + | Pulse | 60 | 08/17/2019 9:12 AM | | | | | PDT | | + + + + + | Temperature | - | - | | + + + + + | Respiratory Rate | 16 | 08/17/2019 9:12 AM | | | | | PDT | | + + + + + | Oxygen Saturation | 97% | 08/17/2019 9:12 AM | | | | | PDT | | + + + + + | Inhaled Oxygen | - | - | | | Concentration | | | | + + + + + | Weight | 87.5 kg (192 lb 14.4 | 08/17/2019 9:12 AM | | | | oz) | PDT | | + + + + + | Height | - | - | | + + + + + | Body Mass Index | 31.14 | 08/02/2019 1:27 PM | | | [...] Progress Notes Darin Matta Jr., MD - 08/17/2019 9:15 AM PDTThis patient comes in for follow-up on in somnia and obstructive apnea. Diagnostic nocturnal polysomnography performed July 05, 2019 demonstrated a low sleep efficiency of 59.8%. Sleep was fragmented. The AHI was eleva dusty mildly at 6.5. Isaiah oxygen saturation was 86%. The PLMS index was 52.1. The PLMS berkley usal index was borderline at 4.9. Ferritin level checked July 24, 2019 was 173. He wa s started on CPAP and the following cognitive behavioral instructions for sleep were discuss ed in detail with him at our visit of June 13: 1) Awaken at nearly the same time [...] time between bed time and wake time. He currently is using a ResMed air since 10 auto titrating CPAP unit which is set at 4 to 1 5 cm of pressure. He has worn this for 15 out of the last 15 days. The median CPAP pressur e is 13.6 cm, the 95th percentile pressure is 14.9 cm, the maximum pressure is 15 cm. The m edian leak is 12 cm. The 95th percentile leak is 16.8 L/min. The maximum leak is 46.8. Th e calculated AHI is 12.1. The majority the events appear to be central apneas. The median daily usage is 5 hours 7 minutes. He has been trying to follow the instructions I have given him. He states his sleep is earlene ewhat better but not dramatically so. BP 120/60 | Pulse 60 | Resp 16 | Wt 87.5 kg (192 lb 14.4 oz) | SpO2 97% | BMI 31.14 kg /m A: JORDAN: The patient has very mild obstructive sleep apnea. A CPAP trial has been ineffecti ve and in fact has resulted in significant central apneas. I am going to suggest that he di scontinue CPAP. He is in agreement with this. We discussed oral appliance therapy but he w ould not like to try this at the present time. His apnea is quite mild and we were treating it primarily to provide symptomatic relief. I believe however that psychophysiologic insom larissa is more likely that the biggest issue with this patient. Psychophysiologic insomnia: I am going to suggest he continue with the general instruc tions I have given him previously. I would like him to keep a sleep diary however for the n ext 2 to 3 weeks. Follow-up at that time. I think a formal trial of cognitive behavioral t herapy would likely be helpful. P: Discontinue CPAP. Perspective sleep diary for the next 2 to 3 weeks. Follow-up at that time. Today, 15 minutes was spent face to [...] | | | | | [address] [place] [place], [place] | | | | | | [address] | | | | | | | | +--------+---------+ + + + documented as of this encounter Visit Diagnoses + + | Diagnosis | + + | JORDAN (obstructive sleep apnea) - Primary Obstructive sleep apnea (adult) (pediatric) | + + | Psychophysiologic insomnia Persistent disorder of initiating or maintaining sleep | + + documented in this encounter
--- OUTSIDE RECORDS SUMMARY | ~2020-05-10 | XMS | Encounter Summary ---
Demographics + + + | Address | [address] | | | [place] [address] | + + + | Home Phone | | + + + | Preferred Language | Unknown | + + + | Marital Status | | + + + | Rastafarian Affiliation | 1027 | + + + [...] | | | | | [place] [address] | | + + + + + Care Team Providers + +------+ + | Care Center Medical Specialist Name | Role | Phone | + +------+ + | Abran Alas MD | PCP | | + +------+ + Reason for Visit +---------+--------+ + | Reason | Onset | Comments | | | Date | | +---------+--------+ + | Post Op | 03/11/ | Post-op Call | | | 2018 | | +---------+--------+ + Encounter Details +--------+ + + + + | Date | Type | Department | Care Team | Description | +--------+ + + + + | 03/11/ | Telephone | [facility] | Derrick Stafford, | Post Op (Post-op | | 2017 | | NEUROSURGERY [address] | DO [address] | Call) | | | | [address] | [address] [place], [place] | | | | | [place], [place] | [address] | | | | | [address] | | | | | | [phone] | | | +--------+ + + + [...] this encounter Miscellaneous Notes Telephone Encounter - Chrissie De La Cruz RN - 03/11/2018 10:47 AM PDTSpoke with Boaz and adeel Tijerina. Procedure: L3-4, L4-5 Lateral Anterior Interbody Fusion Date of Surgery: 03/03/18 Date of Discharge: 03/06/18 1. How are you feeling-if pain where (legs/surgical site)? "I am getting along. The pain is not real bad as long as I stay on my medication." He reports having surgical site pain an d some numbness in his right quad. 2. Weakness/Numbness (New onset)? Numbness in the right quad and right leg weakness, it h as improved since right after surgery. I asked that they call if they notice that the weakne ss becomes 3. Taking pain meds (Name/Dosage)? Oxycodone taking 0.5 tabs (5 mg) q3-4h Robaxin q6h 4. Constipation? "He has had two Bm's since going home. Wednesday night we used a suppositor y to help things move, and had a BM this morning." No abdominal pain, n/v. Loss of Bowel or Bladder (When/Chronic)? No 5. Ambulating (How often)? "He is walking probably every 45 minutes to an hour. We have b een setting a timer." Reinforced importance of frequent amb., at least 1-2 min every 45 min throughout the day, to ? risk of developing blood clots, to support bowel & lung function, t o ? stiffness/aching from longer periods of inactivity, & for optimal healing & recovery. SURGICAL ISSUES 1. Steri-strips/outer bandages: have been removed. Advised ok to remove outer dressings and leave uncovered even for showers at this time; Remove any remaining steri strips at 2 weeks PO. Operative note reviewed yes. Hope/sutures that need to be removed no. If yes, Staple/suture removal appointment? n/a 2. Appearance of the site? "The incision site looks really good." We discussed s/s of infe ction and asked that they call back with any concerns. Is there drainage from the site? no. If yes, What does it look like? 3. Do you have a fever? no. If yes, most recent temperature: 4. Follow up appointments? 4 wk PO 03/31/18 (Jaret MOORE) XR by 0900; check in 0945; 12 wk PO 05/27/18 (Jaret MOORE) XR by 0945; check in 1030 5. Is there anything we could have done to make this experience easier or better for you an d your family? "My only concern would be that you guys recommend frequent walking and [facility] no one really offered to walk with him." Lilliana verbalized concern that Boaz went without pain medication for 15 hours in the hospital. She went home to sleep and had asked t hat Boaz be woken up to q4h to check on receiving pain medication throughout the night. She states that he did not receive the medication and they d/c'd the next morning and his pain w as very high when they got home and took a day to get it under control. "Everyone in your o ffice has been really helpful." 6. Have any of the symptoms you were experiencing before surgery improved or resolved (tyler mina list and describe) "The pain in his legs might be a little better, but hard to tell." 7. Did you attend Spine Class or view Spine Class video prior to surgery? (yes/ no; if yes , class or video?) Yes, class documented in this encount er Plan of Treatment +--------+---------+ + + + | Date | Type | Specialty | Care Team | Description | +--------+---------+ + + + | 09/04/ | Office | Cardiology | Caterina Catalan, | | | 2019 | Visit | | MD Juan J HERNAN[facility]Z | | | | | | [place] | | | | | | [address] | | | | | | | | +--------+---------+ + + + documented as of this encounter Visit Diagnoses Not on filedocumented in this encounter
--- OUTSIDE RECORDS SUMMARY | ~2020-05-10 | XMS | Encounter Summary ---
Demographics + + + | Address | [address] | | | [place] [address] | + + + | Home Phone | | + + + | Preferred Language | Unknown | + + + | Marital Status | | + + + | Mu-Ism Affiliation | 1027 | + + + | Race | Unknown | + + + | Ethnic Group | Unknown | + + + Author + + + | Author | [facility] | | | and [place] | + + + | Organization | [facility] | | | [...] | | | | | [place] [address] | | + + + + + Care Team Providers + +------+ + | Care Leave Coordinator Name | Role | Phone | + +------+ + | Abran Alas MD | PCP | | + +------+ + Encounter Details +--------+ + + + + | Date | Type | Department | Care Team | Description | +--------+ + + + + | 11/04/ | Orders Only | [facility] [place] | Derrick Stafford, | Lumbar spondylosis | | 2017 | | NEUR[address]UR[address]ERY [address] | DO [address] | (Primary Dx); | | | | [address] | [address] [place], [place] | Neurogenic | | | | [place] | [address] | claudication; Lumbar | | | | [address] | | radiculopathy; | | | | [phone] | | Acute back pain with | | | | | | sciatica, right | +--------+ + + + + Social [...] | | | | | [address] [place] | | | | | | [address] | | | | | | | | +--------+---------+ + + + documented as of this encounter Visit Diagnoses + + | Diagnosis | + + | Lumbar spondylosis - Primary Lumbosacral spondylosis without myelopathy | + + | Neurogenic claudication Spinal stenosis, lumbar region, with neurogenic claudication | + + | Lumbar radiculopathy Thoracic or lumbosacral neuritis or radiculitis, unspecified | + + | Acute back pain with sciatica, right | + + documented in this encounter"
--- OUTSIDE RECORDS SUMMARY | ~2020-05-10 | XMS | Encounter Summary ---
Demographics + + + | Address | [address] | | | [place] [address] | + + + | Home Phone | | + + + | Preferred Language | Unknown | + + + | Marital Status | | + + + | Jew Affiliation | 1027 | + + + | Race | Unknown | + + + | Ethnic Group | Unknown | + + + Author + + + | Author | [facility] | | | and [place] | + + + | Organization | [facility] | | | [...] | | | | | [place] [address] | | + + + + + Care Team Providers + +------+ + | Care Automobile Inspector Name | Role | Phone | + +------+ + | Abran Alas MD | PCP | | + +------+ + Reason for Visit + +--------+ + | Reason | Onset | Comments | | | Date | | + +--------+ + | Procedure | 03/01/ | Reminder | | | 2018 | | + +--------+ + Encounter Details +--------+ + + + + | Date | Type | Department | Care Team | Description | +--------+ + + + + | 03/01/ | Telephone | [facility] | Derrick Stafford, | Procedure (Reminder) | | 2017 | | NEUROSUR[address]ERY [address] | DO [address] | | | | | [address] | [address] [place], [place] | | | | | [place], [place] | [id number] | | | | | [address] | | | | | | [phone] | | | +--------+ + + + [...] this encounter Miscellaneous Notes Telephone Encounter - Mima Massey Cert MA - 03/01/2018 8:44 AM PDTAll presurgical check -in instructions given Surgery date: 03/03/18 Check-in Time: 0715 (OR Schedule states procedure start time 914) No solids or liquids after midnight the night before surgery. Follow the cleansing instructions provided beginning the night before surgery after you tia wer or bathe. No showering the morning of surgery. Please do not wear jewelry, contact lenses, nail slovenian (on fingers or toes), or make-up to surgery check-in. If you have dentures, hearing aids, or glasses please bring the cases with you to check-in. Medications instructions: Aspirin Surgical Admit Anticipated Disposition reviewed and correct: "Yes Confirmation of procedure/approval: "Yes". PCP contacted to confirm patient cleared to proceed: "Yes documented in this encounter Plan of Treatment +--------+---------+ + + + | Date | Type | Specialty | Care Team | Description | +--------+---------+ + + + | 09/04/ | Office | Cardiology | Caterina Catalan, | | | 2019 | Visit | | MD Juan J HERNAN[facility]Z | | | | | | [place] | | | | | | [id number] | | | | | | | | +--------+---------+ + + + documented as of this encounter Visit Diagnoses Not on filedocumented in this encounter
--- OUTSIDE RECORDS SUMMARY | ~2020-05-10 | XMS | Encounter Summary ---
Demographics + + + | Address | [address] | | | [place] [address] | + + + | Home Phone | | + + + | Preferred Language | Unknown | + + + | Marital Status | | + + + | Sabianism Affiliation | 1027 | + + + | Race | Unknown | + + + | Ethnic Group | Unknown | + + + Author + + + | Author | [facility] | | | and [place] | + + + | Organization | [facility] | | [...] | | | | | [place] [address] | | + + + + + Care Team Providers + +------+ + | Care Laser Systems Engineer Name | Role | Phone | + +------+ + | Abran Alas MD | PCP | | + +------+ + Encounter Details +--------+ + + + + | Date | Type | Department | Care Team | Description | +--------+ + + + + | 02/24/ | Orders Only | [facility] [place] | Derrick Stafford, | Lumbar spondylosis | | 2018 | | NEUR[address]UR[address]ERY [address] | DO [address] | (Primary Dx); Status | | | | [address] | [address] [place], [place] | post lumbar spinal | | | | [place], [place] | [address] | fusion | | | | [address] | | | | | | [phone] | | | +--------+ + + + [...] | | | | | [address] [place], [place] | | | | | | [address] | | | | | | | [...] spondylosis without myelopathy | + + | Status post lumbar spinal fusion Arthrodesis status | + + documented in this encounter"
--- OUTSIDE RECORDS SUMMARY | ~2020-05-10 | XMS | Encounter Summary ---
Demographics + + + | Address | [address] | | | [place] [address] | + + + | Home Phone | | + + + | Preferred Language | Unknown | + + + | Marital Status | | + + + | Pentecostalism Affiliation | 1027 | + + + | Race | Unknown | + + + | Ethnic Group | Unknown | + + + Author + + + | Author | [facility] | | | and [place] | + + + | Organization | [facility] | | | and [...] | | | | | [place] [address] | | + + + + + Care Team Providers + +------+ + | Care Business Development Specialist Name | Role | Phone | + +------+ + | Abran Alas MD | PCP | | + +------+ + Encounter Details +--------+ + + + + | Date | Type | Department | Care Team | Description | +--------+ + + + + | 09/22/ | Abstract | [facility] [place] | Avtar Lucero, | | | 2016 | | PHYSIATRY [address] | MD [address] | | | | | [address] | [place], [place] | | | | | [place], [place] | [address] | | | | | [address] | | | | | | [phone] | | | +--------+ + + + [...] [place] | | | | | | [address] | | | | | | | | +--------+---------+ + + + documented as of this encounter Visit Diagnoses Not on filedocumented in this encounter"
--- OUTSIDE RECORDS SUMMARY | ~2020-05-10 | XMS | Encounter Summary ---
Demographics + + + | Address | [address] | | | [place] [address] | + + + | Home Phone | | + + + | Preferred Language | Unknown | + + + | Marital Status | | + + + | Hoahaoism Affiliation | 1027 | + + + | Race | Unknown | + + + | Ethnic Group | Unknown | + + + Author + + + | Author | [facility] | | | and [place] | + + + | Organization | [facility] | | [...] | | | | | [place] [address] | | + + + + + Care Team Providers + +------+ + | Care Cyanide Pot Tender Name | Role | Phone | + +------+ + | Abran Alas MD | PCP | | + +------+ + Reason for Visit + + + | Reason | Comments | + + + | Pre-op Exam | | + + + Encounter Details +--------+---------+ + + + | Date | Type | Department | Care Team | Description | +--------+---------+ + + + | 02/09/ | Office | [facility] | Kelley Fay | Pre-op exam (Primary | | 2018 | Visit | NEUR[address]URGERY [address] | SABRINA Saab [address] | Dx); [facility] | | | | [facility] [address] | [facility] | radiculopathy; | | | | [place] | [address] | Lumbar spondylosis; | | | | [address] | [address] | Neurogenic | | | | [phone] | | claudication; Spinal | | | | | | stenosis of lumbar | | | | | | region with | | | | | | neurogenic | | | | | | claudication | +--------+---------+ + + + Social History [...] + + + | Blood Pressure | 124/74 | 02/09/2018 2:17 PM | | | | | PDT | | + + + + + | Pulse | 70 | 02/09/2018 2:17 PM | | | | | PDT [...] + + + + | Weight | 81.6 kg (180 lb) | 02/09/2018 2:17 PM | | | | | PDT | | + + + + + | Height | 167.6 cm (5' 6") | 02/09/2018 2:17 PM | | | | | PDT | | + + + + + | Body Mass Index | 29.05 | 02/09/2018 2:17 PM | | | | | PDT | | + + + + + documented in this encounter Patient Instructions Patient Instructions Kelley Fay PA-C - 02/09/2018 2:00 PM PDTPlease remember n ot to take any anti-inflammatories within 7 days of surgery. This includes ibuprofen, Motri n, Advil, aspirin, naproxen, and Aleve. You may have a small glass of water on the morning of surgery to take your normal morning medications. Otherwise, nothing to eat or drink afte r midnight. If you have any change in your health status, please call and let us know. Last ly, If you have any questions, please feel free to give our office a call. Otherwise, we wi ll see you on the morning of surgery. For the first 30 days after surgery you're lifting restriction will be 5 pounds with no ashly ding or twisting documented in this encounter Progress Notes Dipti Castillo RN - 02/09/2018 2:00 PM PDTPatient in office for pre op appointment. Eden ent advised at this time to stop: aspirin (7 days prior). Patient verbalized understanding. All questions answered at this time. I Dipti Castillo RN witnessed the patient leaving the office with a LSO which was provided by a registered representative of [facility]. Dipti Castillo RN Niecy Burger M edical Real Estate Lawyer - 02/09/2018 2:00 PM PDTFormatting of this note might be different from latoya arevalo. Alonzo Fay PA-C [address], [address] [place] [address] FAX: NEUROSURGERY HISTORY AND PHYSICAL EXAMINATION CHIEF COMPLAINT: Chief Complaint Patient presents with Pre-op Exam HISTORY OF PRESENT ILLNESS: The patient is a 72 y.o. male with the complaint of back [...] rest, physical therapy, steroid injec tions, chiropractics. He has had no interval changes in the severity or character of his symptoms since his last visit. He denies any shortness of breath or chest pain. He denies any fever or chills.He has no open sores on his body and has not had any antibiotics recently. The PCP has seen raven chavira and they have cleared him for surgery. PAST MEDICAL HISTORY: Past Medical History: Diagnosis Date Ankylosis of lumbar spine Degenerative lumbar disc Dyslipidemia Family history of colon cancer Lumbar spondylosis JORDAN (obstructive sleep apnea) Pain in unspecified thigh Primary insomnia Radiculopathy, lumbar region Typical atrial flutter (HCC) PAST SURGICAL HISTORY: Past Surgical History: Procedure Laterality Date COLONOSCOPY 04/2008 ROTATOR CUFF REPAIR Left 02/2015 Dr. Jonas; [place]. TONSILLECTOMY 1954 [facility]; [facility] Or. TYMPANOPLASTY 1991 Dr. Lees ;Simona [...] no voice changes, no difficulty swallowing, + sign ificant snoring, + sleep apnea, no sinus problems, no major dental work. NEUROLOGICALLY: Please see the review of systems discussed above in the history of present illness. In addition, the patient has pain in neck. PSYCHIATRIC: No depression, no sleep disorders, no [...] no rheumatoid arthritis. PHYSICAL EXAMINATION: Blood pressure 124/74, pulse 70, height 1.676 m (5' 6"), weight 81.6 kg (180 lb). Body mass index is 29.05 kg/m. GENERAL: Boaz Clarke is in no [...] has no apparent deficits with short or [facility] memory. CRANIAL NERVES: II: Acuity is intact. [...] Indicates pain limited MUSCLE/ MOVEMENT: RIGHT LEFT Hip Flexion 5 5 Hip Extension 5 5 Knee Flexion 5 5 Knee Extension 5 5 Dorsiflexion 5 5 Extensor Hallicus Longus 5 5 Plantarflexion 5 5 SENSORY EXAM: Sensory exam shows bilateral L4 and L5-type dysesthesia, left worse than right. REFLEXES: (2 OR 2+ IS NORMAL) REFLEX: RIGHT LEFT PATELLAR 2+ 2+ ACHILLES 2+ 2+ MILLER'S ABSENT ABSENT PLANTAR DOWNGOING DOWNGOING GAIT: Gait is steady. PERIPHERAL NERVE/MISC: Straight leg raise is negative bilaterally. Kwame's [...] ASSESSMENT: NEUROSURGICAL DIAGNOSES: Encounter Diagnoses Name Primary? Pre-op exam Yes Lumbar radiculopathy Lumbar spondylosis Neurogenic claudication Spinal stenosis of lumbar region with neurogenic claudication GENERAL DIAGNOSES: Past Medical History: Diagnosis [...] improve the probability and rate of fusion. He will follow-up with his primary care provider for preoperative clearance and optimizatio n prior to presenting for surgery. ELECTRONICALLY SIGNED BY: Alonzo Fay PA-C, 02/09/2018 14:43 documented in this encounter Plan of Treatment +--------+---------+ + + + | Date | Type | Specialty | Care Team | Description | +--------+---------+ + + + | 09/04/ | Office | Cardiology | Caterina Catalan, | | | 2019 | Visit | | MD [address] | | | | | | [place] | | | | | | [address] | | | | | | | | +--------+---------+ + + + documented as of this encounter Visit Diagnoses + + | Diagnosis | + + | Pre-op exam - Primary Preoperative examination, unspecified | + + | Lumbar radiculopathy Thoracic or lumbosacral neuritis or radiculitis, unspecified | + + | Lumbar spondylosis Lumbosacral spondylosis without myelopathy | + + | Neurogenic claudication Spinal stenosis, lumbar region, with neurogenic claudication | + + | Spinal stenosis of lumbar region with neurogenic claudication Spinal stenosis, lumbar | | region, with neurogenic claudication | + + documented in this encounter
--- OUTSIDE RECORDS SUMMARY | ~2020-05-10 | XMS | Encounter Summary ---
Demographics + + + | Address | [address] | | | [place] [address] | + + + | Home Phone | | + + + | Preferred Language | Unknown | + + + | Marital Status | | + + + | Orthodoxy Affiliation | 1027 | + + + | Race | Unknown | + + + | Ethnic Group | Unknown | + + + Author + + + | Author | [facility] | | | and [place] | + + + | Organization | [facility] | | | and [...] | | | | | [place] [address] | | + + + + + Care Team Providers + +------+ + | Care Naumkeag Operator Name | Role | Phone | + +------+ + | Abran Alas MD | PCP | | + +------+ + Reason for Visit + + + | Reason | Comments | + + + | Back Pain | | + + + Evaluate & Treat (Routine) +--------+ + + [...] | | | | | lumbar | [address] | [address] | | | | | region with | [place], | [place] | | | | | neurogenic | [place] [address] | [address] Phone: | | | | | claudication | Phone: | [phone] | | | | | | [phone] | Fax: | | | | | | Fax: | [phone] | | | | | | [phone] | | +--------+ + + + + + Encounter Details +--------+---------+ + + + | Date | Type | Department | Care Team | Description | +--------+---------+ + + + | 11/04/ | Office | [facility] | Derrick Stafford, | Lumbar spondylosis | | 2018 | Visit | NEUROSURGERY [address] | DO [address] | (Primary Dx); Spinal | | | | [address] | [address] [place], [place] | stenosis of lumbar | | | | [place], [place] | [address] | region with | | | | [address] | | neurogenic | | | | [phone] | | claudication; Lumbar | | | | | | radiculopathy; | | | | | | Chronic midline low | | | | | | back pain with | | | | | | bilateral sciatica; | | | | | | Neurogenic [...] + + + | Blood Pressure | 132/77 | 11/04/2017 9:46 AM | | | | | PST | | + + + + + | Pulse | 80 | 11/04/2017 9:46 AM | | | | | PST [...] + + + + | Weight | 85.2 kg (187 lb 12.8 | 11/04/2017 9:46 AM | | | | oz) | PST | | + + + + + | Height | 167.6 cm (5' 6") | 11/04/2017 9:46 AM | | | | | PST | | + + + + + | Body Mass Index | 30.31 | 11/04/2017 9:46 AM | | | | | PST | | + + + + + documented in this encounter Patient Instructions Patient Instructions Derrick Stafford DO - 11/04/2017 9:45 AM PSTPlease follow-up with you r primary care physician for preoperative clearance. Please present for surgery when scheduled. documented in this encounter Progress Notes Derrick Stafford DO - 11/04/2017 9:45 AM PSTFormatting of this note might be different fro m the original. Derrick Stafford DO [address], [address] [place] [address] FAX: NEUROSURGERY HISTORY AND PHYSICAL EXAMINATION CHIEF [...] rest, physical therapy, steroid injec tions, chiropractics. PAST MEDICAL HISTORY: Past Medical History: Diagnosis Date Ankylosis of lumbar spine Degenerative lumbar disc Dyslipidemia Family history of colon cancer Lumbar spondylosis JORDAN (obstructive sleep apnea) Pain in unspecified thigh Primary insomnia Radiculopathy, lumbar region Typical atrial flutter (HCC) PAST SURGICAL HISTORY: Past Surgical History: Procedure Laterality Date COLONOSCOPY 04/2008 ROTATOR CUFF REPAIR Left 02/2015 Dr. Jonas; [place] TONSILLECTOMY 1954 [facility]; [facility]. TYMPANOPLASTY 1991 Dr. Lees ;Simona Jarvis CURRENT [...] has no apparent deficits with short or nursing home memory. CRANIAL NERVES: II: Acuity is intact. [...] Intrinsics 5 5 Ulnar Intrinsics 5 5 [employer] Strength 5 5 Hip Flexion 5 5 [...] region Typical atrial flutter (HCC) PLAN: Boaz Crews Vince presented today, and it was a pleasure [...] to presenting for surgery. ELECTRONICALLY SIGNED BY: Derrick Stafford DO, 11/04/2017 11:59 documented in this en counter Plan of Treatment +--------+---------+ + + + | Date | Type | Specialty | Care Team | Description | +--------+---------+ + + + | 09/04/ | Office | Cardiology | Caterina Catalan, | | | 2020 | Visit | | MD [address] | | | | | | [address] [place] | | | | | | [address] | | | | | | | | +--------+---------+ + + + documented as of this encounter Visit Diagnoses + + | Diagnosis | + + | Lumbar spondylosis - Primary Lumbosacral spondylosis without myelopathy | + + | Spinal stenosis of lumbar region with neurogenic claudication Spinal stenosis, lumbar | | region, with neurogenic claudication | + + | Lumbar radiculopathy Thoracic or lumbosacral neuritis or radiculitis, unspecified | + + | Chronic midline low back pain with bilateral sciatica | + + | Neurogenic claudication Spinal stenosis, lumbar region, with neurogenic claudication | + + documented in this encounter
--- OUTSIDE RECORDS SUMMARY | ~2020-05-10 | XMS | Encounter Summary ---
Demographics + + + | Address | [address] | | | [place] [address] | + + + | Home Phone | | + + + | Preferred Language | Unknown | + + + | Marital Status | | + + + | Baptism Affiliation | 1027 | + + + | Race | Unknown | + + + | Ethnic Group | Unknown | + + + Author + + + | Author | [facility] | | | and [place] | + + + | Organization | [facility] | | | and [...] | | | | | [place] [address] | | + + + + + Care Team Providers + +------+ + | Care Negative Cleaner Name | Role | Phone | + [...] | | | | | | | [place] | | | | | | | ARTHRODESIS | | | | | | | POSTERIOR/PO | | | | | | | STEROLATERAL | | | | | | | LUMBAR [place] | | | | | | | LUMBAR SPINE | | | | | | | | | | | | | | FUSION,ANTER | | | | | | | APPRCH [place] | | | | | | | INSJ BIOMCHN | | | | | | | DEV | | | | | | | INTERVERTEBR | | | | | | | AL DSC SPC | | | | | | | W/ARTHRD [place] | | | | | | | SPINE | | | | | | | FUSN,POST | | | | | | | TECH,EA | | | | | | | ADDNL SGMT | | | | | | | [place] SPINAL | | | | | | | FUSION,ANT,E | | | | | | | A ADNL LEVEL | | | | | | | [place] INSJ | | | | | | [...] | | | | | | SEG [place] | | | | | | | [...] + + + + | 03/03/ | Anesthesia | [facility] | Daysi Catherine, | | | 2018 | Event | [facility] | DO [address] | | | | | [address] | [place] | | | | | [place] | [phone] | | | | | [phone] | | | | | | [phone] | | | +--------+ + + + + Anesthesia Record + + + + + | Procedure Name | Responsible | Anesthesia Start | Anesthesia Stop Time | | | Anesthesiologist | Time | | + + + + + | L3-4, L4-5 Lateral | Daysi Catherine DO | 03/03/18 0927 | 03/03/18 1245 | | Anterior Interbody | | | | | Fusion (Right Spine | | | | | Lumbar) | | | | + + + + + +----+---+ + + | Da | T | Event | Comment | | te | i | | | | | m | | | | | e | | | +----+---+ + + | 05 | 0 | | | | /1 | 8 | | | | 0/ | 5 | | | | 20 | 5 | | | | 18 | | | | +----+---+ + + | | 0 | An Checkout | Pre-use anesthesia machine/equipment checkout. | | | 9 | | | | | 2 | | | | | 7 | | | +----+---+ + + | | 0 | An Start | Reassessment prior to anesthesia induction/procedure. | | | 9 | | | | | 2 | | | | | 7 | | | +----+---+ + + | | 0 | Antibiotic | | | | 9 | Given | | | | 2 | | | | | 8 | | | +----+---+ + + | | 0 | Preoxygenat | | | | 9 | ed | | | | 2 | | | | | 9 | | | +----+---+ + + | | 0 | Pre-Procedu | | | | 9 | ral Timeout | | | | 2 | Completed | | | | 9 | | | +----+---+ + + | | 0 | An | | | | 9 | Induction | | | | 3 | | | | | 0 | | | +----+---+ + + | | 0 | An | | | | 9 | Intubation | | | | 3 | | | | | 1 | | | +----+---+ + + | | 0 | AN Bite | | | | 9 | Block | | | | 3 | | | | | 2 | | | +----+---+ + + | | 0 | First | | | | 9 | Inc/Proc St | | | | 5 | | | | | 2 | | | +----+---+ + + | | 0 | [place] | | | | 9 | 43-degrees | | | | 5 | | | | | 3 | | | +----+---+ + + | | 0 | AN No | TOF 4/4 with sustained tetanus. | | | 9 | Residual | | | | 5 | NMB | | | | 5 | | | +----+---+ + + | | 1 | Breathing | | | | 2 | Spontaneous | | | | 3 | ly | | | | 8 | | | +----+---+ + + | | 1 | Oropharynx | | | | 2 | Suctioned | | | | 4 | | | | | 0 | | | +----+---+ + + | | 1 | an stop | | | | 2 | data | | | | 4 | | | | | 1 | | | +----+---+ + + | | 1 | An Stop | Patient handed off to recovery nurse. | | | 4 | | | | | 5 | | | +----+---+ + + +------+ | Meds | +------+ + + + | Name | Total | + + + | midazolam | 2 mg | + + + | fentaNYL injection (2 mL) | 100 mcg | + + + | HYDROmorphone | 2 mg | + + + | propofol (DIPRIVAN) injection | 170 mg | | (bolus) (20 mL) | | + + + | lidocaine 2% | 100 mg | + + + | dexamethasone | 10 mg | + + + | ePHEDrine | 40 mg | + + + | ketamine | 75 mg | + + + | ceFAZolin (ANCEF, KEFZOL) 100 | 2 g | | mg/mL IV syringe 2 g | | + + + | tranexamic acid (CYKLOKAPRON) 1 g | 1 g | | in 50 mL NS IVPB (simple) | | + + + | lactated ringers (LR) infusion | 1,100 mL | + + + + + | Name | + + | N2O Flow Rate (L/Min) | + + | O2 Flow Rate (L/Min) | + + | Insp O2 | + + | Exp SEV | + + | Air Flow Rate (L/Min) | + + + + | No blood administrations on file. | + + +--------+ + + + | Type | Details | Placement | Removal | +--------+ + + + | Periph | 03/03/18; 0823; Left; Forearm; | 03/03/18 0823 by | 03/06/18 1014 by | | delmi | [id number] catheter system; | Dai Russell, | Judy Cotter | | IV | 18 gauge; Blood Bank; intradermal | RN | REBECCA Reynolds | | | injection, distraction; no | | | | | longer indicated; healing within | | | | | expectations; 03/06/18; 1014 | | | +--------+ + + + | Airway | Placement Date: 03/03/18; | 03/03/18 0931 by | 03/03/18 1328 by | | | Placement Time: 930 (created via | Daysi Catherine DO | Ni Navas RN | | | procedure documentation); Mask | | | | | Ventilation: EZ; Airway Grade: 1; | | | | | Successful Technique: video | | | | | scope; Laryngoscope Blade Size: | | | | | 4; Attempts: 1; Airway Type: | | | | | endotracheal; Size: 7.5; Airway | | | | | Tube Secured At: 23; Trauma: | | | | | none; Other Equipment: stylette; | | | | | Placement Check: exhaled CO2 | | | | | detection device, bilateral chest | | | | | rise, suprasternal notch | | | | | palpation; Removal Date: | | | | | 03/03/18; Removal Time: 1328 | | | +--------+ + + + | Urethr | 03/03/18; 0940; indicated due to | 03/03/18 0940 by | 03/03/18 1241 by | | al | specific surgical procedure; | Kris Richey RN | Kris Richey RN | | Cathet | Smallest Catheter, Perineum | | | | er | cleaned, Second person present; | | | | | All elements; All elements; | | | | | indwelling catheter with core | | | | | temperature probe; 100% silicone; | | | | | 16; None; 1; 10; 10; other (see | | | | | comments) (GENERAL ANESTHESIA); | | | | | drainage bag to dependent | | | | | drainage; urethral catheter | | | | | removed, tubing intact; short | | | | | term use; 03/03/18; 1241 | | | +--------+ + + + | Read | 03/03/18; 1137; Right; flank; | 03/03/18 1137 by | 03/06/18 1015 by | | only - | healing within expectations; | Kris Richey RN | Judy E | | | 03/06/18; 1015 | | REBECCA Reynolds | | Incisi | | | | | on | | | | +--------+ + + + | Read | 03/03/18; 1137; Bilateral; back; | 03/03/18 1137 by | 03/06/18 1015 by | | only - | healing within expectations; | Kris Richey RN | Judy Cotter | | | 03/06/18; 1015 | | REBECCA Reynolds | | Incisi | | | | | on | | | | +--------+ + + + | Drain/ | 03/03/18; 1228; #1; Left; | 03/03/18 1228 by | 03/06/18 1015 by | | Device | posterior; lumbar spine; | Kris Richey RN | Judy Cotter | | Site | collapsible closed device; 10 | | REBECCA Reynolds | | | FR./100ML ESTELA DRAIN; other (see | | | | | comments); removed in past; | | | | | 03/06/18; 1015 | | | +--------+ + + + documented in this encounter Social History + +-------+ +--------+------+ | Tobacco [...] + + documented as of this encounter OR Notes Anesthesia Postprocedure Evaluation - Daysi Catherine DO - 03/03/2018 2:01 PM PDTFormat ting of this note might be different from the original. ANESTHESIA POSTANESTHESIA EVALUATION Boaz Eleonora Clarke 72 y.o. male 1945 [id number] Procedure(s) L3-4, L4-5 Lateral Anterior Interbody Fusion (Right Spine Lumbar) Cooperates? Yes Mental Status Performs simple tasks. Respiratory Satisfactory - Airway patent (self maintained). Cardiovascular Satisfactory - Blood pressure and heart rate acceptable Temperature Satisfactory Pain Satisfactory N/V Control Satisfactory Hydration Satisfactory - No signs of dehydration Complications None apparent Vitals: 03/03/18 1345 03/03/18 1350 03/03/18 1355 BP: 151/80 153/85 150/64 Pulse: 82 93 86 Temp: Resp: 14 15 18 SpO2: 95% 94% 96% Electronically signed by Daysi Catherine DO 03/03/2018 14:01 [facility] DO at 2:01 PM PDTAnesthesia Procedure Notes - Daysi Catherine DO - 03/03/2018 9:35 A M PDTAssociated Order(s): ANE AIRWAY NOTEAnesthesia Airway Placement 03/03/2018 9:31 Preprocedure check: patient identified, oxygen, airway assessed, suction, airway equipment checked and patient reassessment prior to induction Mask ventilation: easy Successful technique: videoscope Laryngoscope blade size: 4 Airway grade: 1 (Full view of glottis) Other equipment: stylette Attempts: 1 Airway type: endotracheal Size: 7.5 Cuffed: cuffed Route, reference point: right side of mouth Tube depth: 23 cm Tube secured with: adhesive tape Trauma: none Tube placement verification: bilateral chest rise, carbon dioxide detection and suprasterna l notch palpation Performing provider: DAYSI CATHERINE Electronically Signed by: Daysi Catherine DO ESig date/time : 03/03/2018 9:35 nesthesia Preproce dure Evaluation - Daysi Catherine DO - 03/02/2018 11:09 AM PDTFormatting of this note sheron ht be different from the original. ANESTHESIA PREANESTHESIA EVALUATION Boaz Clarke 72 y.o. male 1945 [id number] Procedure(s): L3-4, L4-5 Lateral Anterior Interbody Fusion (Right Back) Medical history, anesthesia, medications, allergy, NPO status verified histories reviewed. ECG reviewed. Labs reviewed. Review of Systems / Med History Pulmonary (+) sleep apnea: known Gastrointestinal/Hepatic (+) hyperlipidemia Physical Exam Airway MP II, TM >3 FB, Mouth opening >2 FB. Neck: full ROM, extends >30 degrees. Jaw protrus ion normal. Dental Grossly normal except where noted below.; CV cardiovascular normal Pulm Clear to auscultation bilaterally. Neuro Grossly normal. Anesthesia Plan ASA 3 Type: General. Induction: Intravenous. Potential problems: None anticipated. Monitors: Standard ASA monitors. Consent statement:Anesthetic plan, alternatives, risks and benefits discussed with patient. Risks discussed included (but were not limited to): nausea, pain, sore throat, backache, mu scle aches, perioperative CV events, respiratory events, dental injury, . Consenting person understands and agrees to proceed. documented in this encounter Plan of Treatment +--------+---------+ + + + | Date | Type | Specialty | Care Team | Description | +--------+---------+ + + + | 09/04/ | Office | Cardiology | Caterina Catalan, | | | 2019 | Visit | | MD Juan J [facility] | | | | | | [place], [place] | | | | | | [address] | | | | | | | | +--------+---------+ + + + documented as of this encounter Procedures + +--------+ + + + | Procedure Name | Priori | Date/Time | Associated Diagnosis | Comments | | | ty | | | | + +--------+ + + + | ANE AIRWAY NOTE | Routin | 03/03/2018 | | Results for this | | | e | 9:35 AM | | procedure are in the | | | | PDT | | results section. | + +--------+ + + + documented in this encounter Results Anesthesia Airway Note (03/03/2018 9:35 AM PDT) + + + | Narrative | Performed At | + + + | Daysi Catherine DO 03/03/2018 9:35 Anesthesia | | | Airway Placement 03/03/2018 9:31 Preprocedure check: patient | | | identified, oxygen, airway assessed, suction, airway equipment | | | checked and patient reassessment prior to induction Mask ventilation: | | | easy Successful technique: videoscope Laryngoscope blade size: | | | 4 Airway grade: 1 (Full view of glottis) Other equipment: | | | stylette Attempts: 1 Airway type: endotracheal Size: 7.5 Cuffed: | | | cuffed Route, reference point: right side of mouth Tube depth: 23 cm | | | Tube secured with: adhesive tape Trauma: none Tube placement | | | verification: bilateral chest rise, carbon dioxide detection and | | | suprasternal notch palpation Performing provider: DAYSI CATHERINE | | | ANGELIKA Electronically Signed by: Daysi Catherine DO | | | ESig date/time: 03/03/2018 9:35 | | | | | + + + + + | Procedure Note | + + | Daysi Catherine DO - 03/03/2018 9:35 AM PDT Anesthesia Airway Placement03/03/2018 | | 9:31Preprocedure check: patient identified, oxygen, airway assessed, suction, airway | | equipment checked and patient reassessment prior to inductionMask ventilation: | | easySuccessful technique: videoscopeLaryngoscope blade size: 4 Airway grade: 1 (Full | | view of glottis)Other equipment: styletteAttempts: 1Airway type: endotrachealSize: | | 7.5Cuffed: cuffedRoute, reference point: right side of mouthTube depth: 23 cmTube | | secured with: adhesive tapeTrauma: noneTube placement verification: bilateral chest | | rise, carbon dioxide detection and suprasternal notch palpationPerforming provider: | | DAYSI CATHERINElectronically Signed by: Daysi Catherine DO | | ESig date/time: 03/03/2018 9:35 | |Airway type: endotracheal | |Size: 7.5 | |Cuffed: cuffed | |Route, reference point: right side of mouth | |Tube depth: 23 cm | |Tube secured with: adhesive tape | |Trauma: none | |Tube placement verification: bilateral chest rise, carbon dioxide detection and suprasterna l notch palpation | |Performing provider: DAYSI CATHERINE | | | | | |Electronically Signed by: Daysi Catherine DO ESig date/time : 03/03/2018 9:35 | | | + + documented in this encounter Visit Diagnoses Not on filedocumented in this encounter Administered Medications + +--------+ +------+------+------+ | Medication Order | MAR | Action | Dose | Rate | Site | | | Action | Date | | | | + +--------+ +------+------+------+ | ceFAZolin (ANCEF, KEFZOL) 100 | Given | 03/03/20 | 2 g | | | | mg/mL IV syringe 2 g 2 g, | | 18 9:28 | | | | | Intravenous, Administer over 30 | | AM PDT | | | | | Minutes, Prior to Incision, | | | | | | | Starting [facility] 03/03/18 at 0400, For | | | | | | | 1 dose, Administer within 1 hour | | | | | | | of surgical incision., Pre-op, | | | | | | | Indications: Surgical Prophylaxis | | | | | | + +--------+ +------+------+------+ +---+---+ | | | +---+---+ + +-------+ +-------+---+---+ | dexamethasone (PF) 10 mg/mL | Given | 03/03/20 | 10 mg | | | | injection Intravenous, PRN, | | 18 9:30 | | | | | Starting Gisela 03/03/18 at 0930, | | AM PDT | | | | | Anesthesia Intra-op | | | | | | + +-------+ +-------+---+---+ +---+---+ | | | +---+---+ + +-------+ +-------+---+---+ | ePHEDrine 50 mg/mL injection | Given | 03/03/20 | 10 mg | | | | PRN, Starting Gisela 03/03/18 at | | 18 10:19 | | | | | 0933, Anesthesia Intra-op | | AM PDT | | | | + +-------+ +-------+---+---+ +-------+ +-------+---+---+ | Given | 03/03/20 | 10 mg | | | | | 18 9:51 | | | | | | AM PDT | | | | +-------+ +-------+---+---+ | Given | 03/03/20 | 10 mg | | | | | 18 9:36 | | | | | | AM PDT | | | | +-------+ +-------+---+---+ +---+---+ | | | +---+---+ + +-------+ +---------+---+---+ | fentaNYL (PF) injection | Given | 03/03/20 | 100 mcg | | | | Intravenous, PRN, Pain, Starting | | 18 9:29 | | | | | Gisela 03/03/18 at 0929, Anesthesia | | AM PDT | | | | | Intra-op | | | | | | + +-------+ +---------+---+---+ +---+---+ | | | +---+---+ + +-------+ +--------+---+---+ | HYDROmorphone (DILAUDID) 2 | Given | 03/03/20 | 0.5 mg | | | | mg/mL injection Intravenous, | | 18 12:23 | | | | | PRN, Pain, Starting Gisela 03/03/18 | | PM PDT | | | | | at 0930, Anesthesia Intra-op | | | | | | + +-------+ +--------+---+---+ +-------+ +--------+---+---+ | Given | 03/03/20 | 0.5 mg | | | | | 18 10:51 | | | | | | AM PDT | | | | +-------+ +--------+---+---+ | Given | 03/03/20 | 1 mg | | | | | 18 9:30 | | | | | | AM PDT | | | | +-------+ +--------+---+---+ +---+---+ | | | +---+---+ + +-------+ +-------+---+---+ | ketamine 50 mg/mL injection | Given | 03/03/20 | 25 mg | | | | PRN, Starting Gisela 03/03/18 at | | 18 9:48 | | | | | 0929, Anesthesia Intra-op | | AM PDT | | | | + +-------+ +-------+---+---+ +-------+ +-------+---+---+ | Given | 03/03/20 | 50 mg | | | | | 18 9:29 | | | | | | AM PDT | | | | +-------+ +-------+---+---+ +---+---+ | | | +---+---+ + +---------+ +---+---+---+ | lactated ringers (LR) infusion | New Bag | 03/03/20 | | | | | at 10-100 mL/hr, Intravenous, | | 18 12:10 | | | | | CONTINUOUS, Starting Gisela 03/03/18 | | PM PDT | | | | | at 0830, TKO., Pre-op | | | | | | + +---------+ +---+---+---+ +---------+ +---+---+---+ | New Bag | 03/03/20 | | | | | | 18 9:07 | | | | | | AM PDT | | | | +---------+ +---+---+---+ +---+---+ | | | +---+---+ + +-------+ +--------+---+---+ | lidocaine (PF) 2% injection | Given | 03/03/20 | 100 mg | | | | Intravenous, PRN, Starting Gisela | | 18 9:30 | | | | | 03/03/18 at 0930, Anesthesia | | AM PDT | | | | | Intra-op | | | | | | + +-------+ +--------+---+---+ +---+---+ | | | +---+---+ + +-------+ +------+---+---+ | midazolam (VERSED) 1 mg/mL | Given | 03/03/20 | 2 mg | | | | injection Intravenous, PRN, | | 18 9:25 | | | | | Anxiety, Starting Gisela 03/03/18 at | | AM PDT | | | | | 0925, Anesthesia Intra-op | | | | | | + +-------+ +------+---+---+ +---+---+ | | | +---+---+ + +-------+ +--------+---+---+ | propofol (DIPRIVAN) injection | Given | 03/03/20 | 170 mg | | | | Intravenous, PRN, Starting Giesla | | 18 9:30 | | | | | 03/03/18 at 0930, Anesthesia | | AM PDT | | | | | Intra-op | | | | | | + +-------+ +--------+---+---+ +---+---+ | | | +---+---+ + +-------+ +-----+---+---+ | tranexamic acid in 50 mL NS | Given | 03/03/20 | 1 g | | | | (CYKLOKAPRON) IVPB (simple) | | 18 12:07 | | | | | Intravenous, Administer over 15 | | PM PDT | | | | | Minutes, PRN, Starting Gisela | | | | | | | 03/03/18 at 1207, Anesthesia | | | | | | | Intra-op | | | | | | + +-------+ +-----+---+---+ +---+---+ | | | +---+---+ documented in this encounter"
--- OUTSIDE RECORDS SUMMARY | ~2020-05-10 | XMS | Encounter Summary ---
Demographics + + + | Address | [address] | | | [place] [address] | + + + | Home Phone | | + + + | Preferred Language | Unknown | + + + | Marital Status | | + + + | Bahai Affiliation | 1027 | + + + | Race | Unknown | + + + | Ethnic Group | Unknown | + + + Author + + + | Author | [facility] | | | and [place] | + + + | Organization | [facility] | | | [...] | | | | | [place] [address] | | + + + + + Care Team Providers + +------+ + | Care Supervisor Bridges And Buildings Name | Role | Phone | + +------+ + | Abran Alas MD | PCP | | + +------+ + Encounter Details +--------+ + + + + | Date | Type | Department | Care Team | Description | +--------+ + + + + | 05/18/ | Orders Only | [facility] | Provider, | | | 2018 | | SYSTEM GENERIC OP | MD [address] | | | | | CONVERSION [address] | [place]ina [address]. | | | | | [address] [place], [place] | [place] [address] | | | | | [address] | | | | | | [phone] | | | +--------+ + + + [...] | +--------+---------+ + + + | 11/11/ | Office | Cardiology | Caterina Catalan, | | | 2019 | Visit | | MD [address] | | | | | | [place] | | | | | | [address] | | | | | | | | +--------+---------+ + + + documented as of this encounter Visit Diagnoses Not on filedocumented in this encounter"
--- OUTSIDE RECORDS SUMMARY | ~2020-05-10 | XMS | Encounter Summary ---
Demographics + + + | Address | [address] | | | [place] [address] | + + + | Home Phone | | + + + | Preferred Language | Unknown | + + + | Marital Status | | + + + | Synagogue Affiliation | 1027 | + + + | Race | Unknown | + + + | Ethnic Group | Unknown | + + + Author + + + | Author | [facility] | | | and [place] | + + + | Organization | [facility] | | | and [...] | | | | | [place] [address] | | + + + + + Care Team Providers + +------+ + | Care Track Liner Operator Name | Role | Phone | + +------+ + | Abran Alas MD | PCP | | + +------+ + Encounter Details +--------+ + + + + | Date | Type | Department | Care Team | Description | +--------+ + + + + | 11/15/ | Episode | [facility] [place] | Mima Massey, | | | 2017 | Changes | NEUROSURGERY [address] | Cert [place] | | | | | [address] | | | | | | [place], [place] | | | | | | [address] | | | | | | [phone] | | | +--------+ + + + [...] | | | | | [place] | | | | | | [address] | | | | | | | | +--------+---------+ + + + documented as of this encounter Visit Diagnoses Not on filedocumented in this encounter"
--- OUTSIDE RECORDS SUMMARY | ~2020-05-10 | XMS | Encounter Summary ---
Demographics + + + | Address | [address] | | | [place] [address] | + + + | Home Phone | | + + + | Preferred Language | Unknown | + + + | Marital Status | | + + + | Latter-Day Affiliation | 1027 | + + + | Race | Unknown | + + + | Ethnic Group | Unknown | + + + Author + + + | Author | [facility] | | | and [place] | + + + | Organization | [facility] | | [...] | | | | | [place] [address] | | + + + + + Care Team Providers + +------+ + | Care Cafeteria Manager Name | Role | Phone | + +------+ + | Abran Alas MD | PCP | | + +------+ + Encounter Details +--------+ + + + + | Date | Type | Department | Care Team | Description | +--------+ + + + + | 02/16/ | Preadmit | [facility] | Derrick Stafford, | Preoperative | | 2018 | Visit | [facility] | DO [address] | clearance (Primary | | | | CLINIC [address] | [address] [place], [place] | Dx); Dyslipidemia; | | | | [place], [place] | [address] | Typical atrial | | | | [address] | | flutter (HCC); | | | | [phone] | | Lumbar radiculopathy | +--------+ + + + + Social [...] | | | | | [place] [facility] [place] | | | | | | [address] | | | | | | | | +--------+---------+ + + + documented as of this encounter Procedures + +--------+ + + + | Procedure Name | Priori | Date/Time | Associated Diagnosis | Comments | | | ty | | | | + +--------+ + + + | CULTURE, MRSA | Routin | 02/16/2018 | Preoperative | Results for this | | | e | 1:16 PM | clearance | procedure are in the | | | | PDT | | results section. | + +--------+ + + + | CBC WITH | Routin | 02/16/2018 | Dyslipidemia | Results for this | | DIFFERENTIAL | e | 1:16 PM | Typical atrial | procedure are in the | | | | PDT | flutter ([facility]) | results section. | | | | | Lumbar radiculopathy | | + +--------+ + + + | ECG 12 LEAD | Routin | 02/16/2018 | Dyslipidemia | Results for this | | | e | 1:10 PM | Typical atrial | procedure are in the | | | | PDT | flutter ([facility]) | results section. | | | | | Lumbar radiculopathy | | + +--------+ + + + documented in this encounter Results CBC with Differential (02/16/2018 [...] | | | Eosinophils | | | [facility] | | [...] | Neutrophils | | K/uL | [facility] | | | | | | MEDICAL | | | | | | CENTER - | | | | | | LABORATORY | | + + + + + + | Absolute | 2.00 | 0.60 - 3.20 | [facility] | | | Lymphocytes | | K/uL | [facility] | | | | | | MEDICAL | | | | | | CENTER - | | | | | | LABORATORY | | + + + + + + | Absolute | 0.90 | 0.00 - 1.00 | [facility] | | | Monocytes | | K/uL | [facility] | | | | | | MEDICAL | | | | | | CENTER - | | | | | | LABORATORY | | + + + + + + | Absolute | 0.20 | 0.00 - 0.40 | [facility] | | | Eosinophils | | K/uL | [facility] | | | | | | MEDICAL | | | | | | CENTER - | | | | | | LABORATORY | | + + + + + + | Absolute | 0.00 | 0.00 - 0.10 | [facility] | | | Basophils | | K/uL | [facility] | [...] + + | [facility] | [address] [place] | [place] | [phone] | | [facility] | | [address] | | | - LABORATORY | | | | + + + + + Culture, MRSA (02/16/2018 1:16 PM PDT) + + + + + + | Component | Value | Ref Range | Performed | Pathologist | | | | | At | Signature | + + + + + + | Culture | Negative for MRSA by | | [facility] | | | | chromogenic agar method | | [facility] | | | | | | MEDICAL | | | | | | CENTER - | | | | | | LABORATORY | | + + + + + + + + | Specimen | + + | Respiratory - Both | | anterior nares (body | | structure) | + + + + + + + | Performing | Address | City/State/Zipcode | Phone Number | | Organization | | | | + + + + + | [facility] | [address] | [place] | [phone] | | [facility] | | [address] | | | - LABORATORY | | [...] | | | | CRISTINE FRANCISCO MD ([id number]) | | | | | | on [...] + | Diagnosis | + + | Preoperative clearance - Primary Preoperative examination, unspecified | + + | Dyslipidemia Other and unspecified hyperlipidemia | + + | Typical atrial flutter (HCC) Atrial flutter | + + | Lumbar radiculopathy Thoracic or lumbosacral neuritis or radiculitis, unspecified | + + documented in this encounter"
--- OUTSIDE RECORDS SUMMARY | ~2020-05-10 | XMS | Encounter Summary ---
Demographics + + + | Address | [address] | | | [place] [address] | + + + | Home Phone [...] | | | | | [place] [address] | | + + + + + Care Team Providers + +------+ + | Care Russian Teacher Name | Role | Phone | + +------+ + | Abran Alas MD | PCP | | + +------+ + Encounter Details +--------+ + + + + | Date | Type | Department | Care Team | Description | +--------+ + + + + | 05/27/ | Hospital | [facility] | Jaret Alvarez, | S/P lumbar fusion; | | 2018 | Encounter | MED CTR XRAY [address] | PA-C [address] | Lumbar radiculopathy | | | | [place] | [address] [place] | | | | | [place] [address] | [place] [address] | | | | | [phone] | [phone] | | | | | | | [...] [place] | | | | | | [address] | | | | | | | | +--------+---------+ + + + documented as of this encounter Procedures + +--------+ + + + | Procedure Name | Priori | Date/Time | Associated Diagnosis | Comments | | | ty | | | | + +--------+ + + + | XR LUMBAR SPINE 2 OR | Routin | 05/27/2018 | S/P lumbar fusion | Results for this | | 3 VW | e | 10:02 AM | Lumbar | procedure are in [...]
--- OUTSIDE RECORDS SUMMARY | ~2020-05-10 | XMS | Encounter Summary ---
Demographics + + + | Address | [address] | | | [place] [address] | + + + | Home Phone | | + + + | Preferred Language | Unknown | + + + | Marital Status | | + + + | Jainism Affiliation | 1027 | + + + | Race | Unknown | + + + | Ethnic Group | Unknown | + + + Author + + + | Author | [facility] | | | and [place] | + + + | Organization | [facility] | | | and [...] | | | | | [place] [address] | | + + + + + Care Team Providers + +------+ + | Care Direct Sales Consultant Name | Role | Phone | + +------+ + | Abran Alas MD | PCP | | + +------+ + Reason for Visit + +--------+ + | Reason | Onset | Comments | | | Date | | + +--------+ + | Imaging Only | 03/06/ | 1 year PO Lumbar x-rays | | | 2018 | | + +--------+ + Encounter Details +--------+ + + + + | Date | Type | Department | Care Team | Description | +--------+ + + + + | 03/06/ | Telephone | [facility] | Jaret Alvarez, | Imaging Only (1 year | | 2018 | | NEUROSURGERY [address] | PA-C [address] | PO Lumbar x-rays) | | | | [address] | [address] [facility] | | | | | [place], [place] | [place] [address] | | | | | [address] | [phone] | | | | | [phone] | | | +--------+ + + + [...] this encounter Miscellaneous Notes Telephone Encounter - Benjamin Powers Cert MA - 03/14/2019 9:56 AM PDTXR results relayed to patient. BENJAMIN POWERS elephone Encounlianne r - Jaret Alvarez PA-C - 03/14/2019 9:08 AM PDTPatient has fused beautifully. There i s rocksolid arthrodesis. Hardware is stable with no evidence of failure or loosening. Eden ent can follow-up with us on an as-needed basis. elephone Encounter - Annemarie Nguyen, Medical Assistan t - 03/14/2019 9:03 AM PDTPost op lumbar x-rays available on [facility] [employer]. Please review and bhavesh e. P DTTelephone Encounter - Annemarie Nguyen, Dental Laboratory Supervisor - 03/06/2019 9:50 AM PDTI left a generic voicemail for Boaz to call us back. When he does please remind him to comp lete his 12M PO Lumbar x-rays. Please request a call back once his images are available to be reviewed. Tdocumented in this encounter Plan of Treatment +--------+---------+ + + + | Date | Type | Specialty | Care Team | Description | +--------+---------+ + + + | 09/04/ | Office | Cardiology | Caterina Catalan, | | | 2019 | Visit | | MD Juan J HERNANDEZ | | | | | | [place] | | | | | | [id number] | | | | | | | | +--------+---------+ + + + documented as of this encounter Visit Diagnoses Not on filedocumented in this encounter"
--- OUTSIDE RECORDS SUMMARY | ~2020-05-10 | XMS | Encounter Summary ---
Demographics + + + | Address | [address] | | | [place] [address] | + + + | Home Phone | | + + + | Preferred Language | Unknown | + + + | Marital Status | | + + + | Restorationism Affiliation | 1027 | + + + | Race | Unknown | + + + | Ethnic Group | Unknown | + + + Author + + + | Author | [facility] | | | and [place] | + + + | Organization | [facility] | | | [...] | | | | | [place] [address] | | + + + + + Care Team Providers + +------+ + | Care Cooling Pipe Inspector Name | Role | Phone | + +------+ + | Abran Alas MD | PCP | | + +------+ + Encounter Details +--------+ + + + + | Date | Type | Department | Care Team | Description | +--------+ + + + + | 09/28/ | Hospital | [facility] | Avtra Lucero, | Spinal stenosis of | | 2017 | Encounter | MED CTR XRAY [address] | MD [address] | lumbar region with | | | | [address] [place] | [place], [place] | neurogenic | | | | [place] [address] | [address] | claudication | | | | [phone] | | | +--------+ + + + [...] [place] | | | | | | [address] | | | | | | | | +--------+---------+ + + + documented as of this encounter Procedures + +--------+ + + + | Procedure Name | Priori | Date/Time | Associated Diagnosis | Comments | | | ty | | | | + +--------+ + + + | XR LUMBAR SPINE 4 + | Routin | 09/28/2017 | Spinal stenosis of | Results for this | | VW | e | 5:11 PM | lumbar region with | procedure are in the | | | | PST | neurogenic | results section. | | | | | claudication | | + +--------+ + + + documented in this encounter Results XR Lumbar Spine 4 [...] claudication | + + documented in this encounter"
--- OUTSIDE RECORDS SUMMARY | ~2020-05-10 | XMS | Encounter Summary ---
Demographics + + + | Address | [address] | | | [place] [address] | + + + | Home Phone | | + + + | Preferred Language | Unknown | + + + | Marital Status | | + + + | Sikh Affiliation | 1027 | + + + | Race | Unknown | + + + | Ethnic Group | Unknown | + + + Author + + + | Author | [facility] | | | and [place] | + + + | Organization | [facility] | | | [...] | + + + + + | Lililana Clarke | ECON | [address] | | | | | [place] [address] | | + + + + + Care Team Providers + +------+ + | Care Invasive Cardiovascular Technologist Name | Role | Phone | + +------+ + | Abran Alas MD | PCP | | + +------+ + Reason for Visit Diagnostic/Screening (Routine) +--------+--------+ + + + + | Status | Reason | Specialty | Diagnoses / | Referred By | Referred To | | | | | Procedures | Contact | Contact | +--------+--------+ + + + + | Closed | | Radiology | Procedures | Provider, | | | | | | MRI Lumbar | Historical, | | | | | | Spine wo | [address] | | | | | | Contrast | [address] | | | | | | | [place] | | | | | | | [address] | | +--------+--------+ + + + + Encounter Details +--------+ + + + + | Date | Type | Department | Care Team | Description | +--------+ + + + + | 08/03/ | Imaging | [facility] | Provider, | | | 2016 | Exam | MED CTR EXTERNAL | MD Arthur [address] | | | | | IMAGING [address] | [address] | | | | | [address] [place] | [place] [address] | | | | | [place] [address] | | | | | | [phone] | | | +--------+ + + + [...] | | | | | [address], [place] | | | | | | [address] | | | | | | | | +--------+---------+ + + + documented as of this encounter Procedures + +--------+ + + + | Procedure Name | Priori | Date/Time | Associated Diagnosis | Comments | | | ty | | | | + +--------+ + + + | MRI LUMBAR SPINE WO | Routin | 07/21/2017 | | Results for this | | CONTRAST | e | 8:10 AM | | procedure are in the | | | | PDT | | results section. | + +--------+ + + + documented in this encounter Results MRI Lumbar Spine wo Contrast (07/21/2017 8:10 AM PDT) + + | Specimen | + + | | + + + + + | Narrative | Performed At | + + + | External films | [facility] | | for comparison only - no result from [place]. | | + + + + +---------+ + + | Performing | Address | City/State/Zipcode | Phone Number | | Organization | | | | + +---------+ + + | [facility] | | | | + +---------+ + + documented in this encounter Visit Diagnoses Not on filedocumented in this encounter"
--- OUTSIDE RECORDS SUMMARY | ~2020-05-10 | XMS | Encounter Summary ---
Demographics + + + | Address | [address] | | | [place] [address] | + + + | Home Phone | | + + + | Preferred Language | Unknown | + + + | Marital Status | | + + + | Latter Day Affiliation | 1027 | + + + | Race | Unknown | + + + | Ethnic Group | Unknown | + + + Author + + + | Author | [facility] | | | and [place] | + + + | Organization | [facility] | | | [...] | | | | | [place] [address] | | + + + + + Care Team Providers + +------+ + | Care Wood Form Builder Name | Role | Phone | + +------+ + | Abran Alas MD | PCP | | + +------+ + Reason for Visit + + + | Reason | Comments | + + + | Back Pain | | + + + Encounter Details +--------+---------+ + + + | Date | Type | Department | Care Team | Description | +--------+---------+ + + + | 12/06/ | Office | [facility] | Avtar Lucero, | Spinal stenosis of | | 2018 | Visit | PHYSIATRY [address] | MD [address] | lumbar region with | | | | [address] | [place] | neurogenic | | | | [place] | [address] | claudication | | | | [address] | | (Primary Dx); | | | | [phone] | | Bilateral leg | | | | | | weakness; Numbness | | | | | | and tingling of both | | | | | | feet | +--------+---------+ + + + Social History [...] + + + | Blood Pressure | 99/68 | 12/06/2017 1:58 PM | | | | | PST | | + + + + + | Pulse | 83 | 12/06/2017 1:58 PM | | | | | PST [...] Weight | 81.6 kg (180 lb) | 12/06/2017 1:58 PM | | | | | PST | | + + + + + | Height | 167.6 cm (5' 6") | 12/06/2017 1:58 PM | | | | | PST | | + + + + + | Body Mass Index | 29.05 | 12/06/2017 1:58 PM | | | | | PST | | + + + + + documented in this encounter Patient Instructions Patient Instructions Becki Domingo RN - 12/06/2017 1:50 PM PSTPlease continue with you neurosurgery treatment. If you have weakness in the legs that is getting slowly worse over time, return to the clin for reevaluation. The best thing to do for back pain, manager terminal, is getting to and/or maintaining an appropri ate weight, core strengthening and avoiding aggravating activities by using appropriate body mechanics/ergonomics. If you have increasing pain, return to the clinic for reevaluation. If you develop profound leg weakness, seek emergent medical attention. If you have bowel and/or bladder incontinence, seek emergent medical attention. documented in this encounter Progress Notes Avtar Lucero MD - 12/06/2017 1:50 PM PSTFormatting of this note might be different fro m the original. Avtar Lucero MD [address] [facility], [address] [place] [address] FAX: PHYSICAL MEDICINE AND REHABILITATION H&P CHIEF COMPLAINT: Chief Complaint Patient presents with Back Pain HISTORY OF PRESENT ILLNESS: Boaz Clarke is a 71 y.o. male being seen today in follow-up for complaints of back pain . Boaz Clarke was last seen on 09/28/17. Previously it was recommended that complete TFESI, that he be evaluated with neurosurgery, that he use new medication gabapentin, and t hat he complete updated x-rays. He reports that the treatment was not effective. Boaz Clarke completed neurosurgery consult, he repots that he is scheduled for surgery in February with Dr. Stafford. Overall Boaz Clarke reports that his symptoms show no change. Boaz Clarke rates th e pain as mild. describes the pain as aching, sharp, stabbing or throbbing. His symptoms worsen with bending over (such as when lacing his shoes), getting into the car, rising to s tand after sitting. His symptoms improve with rest. Boaz Clarke does describe numbnes s of the bilateral feet intermittently. He does report weakness of the legs. He does not have bowel and bladder dysfunction. He does not have saddle anesthesia. Treatments for these complaints have included Physical Therapy, steroid injections, and med ications. Boaz Clarke is not currently taking medication for treatment of pain. He repo rts he is not using previously prescribed gabapentin. Prior injections have included fluoroscopically-guided bilateral L4-L5 transforaminal epidu ral steroid injections as part of conservative management for chronic pain with lumbar radic ulopathy and degenerative disk disease. completed 11/03/17, with Dr. Steele. Boaz harrell reports having 25% improvement directly following the injection. Boaz Clarke report s that 2 weeks following the injection they experienced approximately 0% improvement to thei r pain. Today Boaz Clarke reports that he had no positive or negative effects from the i njection. Boaz Clarke's medications, allergies, past medical, surgical, social and family histori es were reviewed and updated as appropriate. CURRENT MEDICATIONS: Current Outpatient Prescriptions Medication Sig Dispense Refill aspirin 81 mg EC tablet Take 81 mg by mouth Daily. No current facility-administered medications for this visit. ALLERGIES: No Known Allergies REVIEW OF SYSTEMS: Review of Systems Constitutional: Negative for chills, diaphoresis, fever, malaise/fatigue and weight loss. HENT: Negative for congestion, ear discharge, ear pain, hearing loss, nosebleeds, sinus shakila n, sore throat and tinnitus. Eyes: Negative for blurred vision, double vision, photophobia, pain, discharge and redness. Respiratory: Negative for cough, hemoptysis, sputum production, shortness of breath, wheezi ng and stridor. Cardiovascular: Negative for chest pain, palpitations, orthopnea, claudication, leg swellin g and PND. Gastrointestinal: Negative for abdominal pain, blood in stool, constipation, diarrhea, hear tburn, melena, nausea and vomiting. Genitourinary: Negative for dysuria, flank pain, frequency, hematuria and urgency. Musculoskeletal: Positive for back pain, joint pain and neck pain. Negative for falls and m yalgias. Skin: Negative for itching and rash. Neurological: Negative for dizziness, tingling, tremors, sensory change, speech change, foc al weakness, seizures, loss of consciousness, weakness and headaches. Endo/Heme/Allergies: Negative for environmental allergies and polydipsia. Does not bruise/b leed easily. Psychiatric/Behavioral: Negative for depression, hallucinations, memory loss, substance abu se and suicidal ideas. The patient has insomnia. The patient is not nervous/anxious. PHYSICAL EXAMINATION: Blood pressure 99/68, pulse 83, height 1.676 m (5' 6"), weight 81.6 kg (180 lb). Body mass index is 29.05 kg/m. Vitals: 12/06/17 1358 BP: 99/68 Pulse: 83 PainSc: 0 - No pain GENERAL: The patient is well developed and well nourished. He does not appear uncomfortabl e when seated. HEENT: Normocephalic and atraumatic. Normal sclerae without icterus. NECK (ANTERIOR): There is no apparent cervical lymphadenopathy or thyromegaly. PULMONARY: The patient is in no acute respiratory distress with unlabored respirations. CARDIOVASCULAR: Regular rate and rhythm. There is not lower extremity edema. ABDOMEN: Non-distended. SKIN: Limited skin exam shows no significant rashes or lesions. NEUROLOGIC: The patient is awake, alert, and oriented. He follows simple and complex commands. His speech is fluent. He comprehends speech well. He has no apparent deficits with short or long-term memory. The cranial nerves appear grossly intact. Sensory exam: intact sensation with Monofilament testing and to light touch in lower extrem ities. MOTOR EXAM: (5 IS NORMAL) * Indicates pain limited MUSCLE/ MOVEMENT: RIGHT LEFT Hip Flexion 5 5 Hip Extension 5 5 Knee Flexion 4+ 4 Knee Extension 5 5 Extensor Hallicus Longus 5 5 Ankle Dorsiflexion 5 5 Plantarflexion 5 5 REFLEX: RIGHT LEFT PATELLAR 2+ 2+ ACHILLES 1+ 1+ MUSCULOSKELETAL : The patient localized the majority of the pain to the bilateral lumbar re gion. DATABASE: Lumbar MRI completed on 07/21/17 was reviewed personally by me , I concur with the results a s reported by the Radiologist. The imaging demonstrates: severe spinal stenosis at L3-4 . ASSESSMENT: 1. Spinal stenosis of lumbar region with neurogenic claudication 2. Bilateral leg weakness 3. Numbness and tingling of both feet PLAN: 1. Boaz Clarke returns to the clinic today to review his symptoms of back pain and to r eview his response to fluoroscopically-guided bilateral L4-L5 transforaminal epidural steroi d injections. We dicussed that the failed therapeutic response to the TFESI is likely a result of his sig nificant stenosis. 2. Today we reviewed that Boaz Clarke imaging demonstrates significant narrowing Boaz Clarke has failed to have any significant improve despite interventional injectio ns and participation with physical therapy. Boaz Clarke physical examination demonstrate s bilateral leg weakness, more significant to the left lower extremity. Today we dicussed th at he should move forward with his surgical plans with Dr. Stafford. 3. Boaz Clarke was advised that beyond treatment with physical therapy/exercises and s teroid injection the only other conservative treatment for his pain is medication treatment. We dicussed that medication will not fix or cure the cause of pain. We dicussed the goal of medication is to reduce pain to a tolerable level. Boaz Clarke indicated that he does n ot want to use medication. 4. Boaz Clarke is advised that he has loss of bowel or bladder control that he should s [place] emergent medical attention. Boaz Clarke was instructed that if he has progressive o r profound weakness that he needs to seek urgent medical attention. Boaz Clarke has been advised that if he has any significant changes in strength that he should return to the clinic on an earlier basis. 5. Today we dicussed that the best thing to do for overall, for long-term spine health, is getting to and/or maintaining an appropriate weight, core strengthening and avoiding aggrava ting activities by using appropriate body mechanics/ergonomics. 6. Boaz Clarke was advised that he should discuss any questions regarding surgery and s urgical outcomes with his surgeon. 7. For now, no follow up is needed. Boaz Clarke was advised he may return to the clinic in the future if needed. I spent 30 minutes in visit with Boaz Clarke today with the majority of time spent coun selling the patient on his diagnosis, options for his care, and coordinating his care. I, Avtar Lcuero MD personally performed the services described in this documentation, as scribed by in my presence, Becki Domingo RN and are both accurate and complete. Avtar Lucero MD - 12/06/2017 documented in this en counter Plan of Treatment +--------+---------+ + + + | Date | Type | Specialty | Care Team | Description | +--------+---------+ + + + | 09/04/ | Office | Cardiology | Caterina Catalan, | | | 2019 | Visit | | MD Juan J HERNANDEZ | | | | | | [facility] | | | | | | [address] | | | | | | | | +--------+---------+ + + + documented as of this encounter Visit Diagnoses + + | Diagnosis | + + | Spinal stenosis of lumbar region with neurogenic claudication - Primary Spinal | | stenosis, lumbar region, with neurogenic claudication | + + | Bilateral leg weakness Other musculoskeletal symptoms referable to limbs | + + | Numbness and tingling of both feet | + + documented in this encounter
[~2020-05-10 10:42] MED LIST changes: +ASPIR-LOW81 MG PO
--- NOTE | 2020-05-10 14:54 | EKG ---
[facility] [address] [facility] [place], [place] [address] Signed Sinus bradycardia with 1st degree AV block Septal infarct , age undetermined Abnormal ECG Confirmed by JOÃO CALDWELL DO ([id number]) on 05/10/2020 2:53:51 PM Electronically Signed By: JOÃO CALDWELL DO 05/10/20 1454 PATIENT NAME: SHIVAM BRADLEY Electrocardiogram DATE OF : 47 PHYSICIAN: JOÃO CALDWELL DO REPORT #: [id number] REPORT IS CONFIDENTIAL AND NOT TO BE RELEASED WITHOUT AUTHORIZATION
== END 2020-05-10 12:55 | disposition home or self-care (01) ==
LOC: ED 10:42
DX: R07.89 Other chest pain (principal); Z79.82 Long term (current) use of aspirin
CPT/HCPCS: 71045; 80053; 84484; 85025; 93005; 93010; 99285-25